=== PATIENT | male | born 1940 | race Caucasian/White ===

== ENCOUNTER 2021-03-05 08:25 | Inpatient (IN) | payer MEDICARE, SELFPAY ==
[2021-03-05] VITALS (8 sets, daily range): BP systolic 135–155; BP diastolic 67–72; PULSE 100–110; RESP 16–23; TEMP 36.8–37.8; O2SAT 97–100; BMI 31.8
--- NOTE | ~2021-03-05 | XR_ITS ---
EXAMINATION: XR chest 2V DATE: 03/05/2021 09:02 INDICATION: Weakness TECHNIQUE: frontal and lateral views of the chest were obtained. COMPARISON: Chest radiograph dated 11/27/2018 FINDINGS: Calcified nodule at the left apex consistent with old granulomatous disease. No other airspace opacit ies, pulmonary edema, pleural effusion or pneumothorax. The cardiomediastinal silhouette is normal. T here are bridging osteophytes at multiple levels in the spine, consistent with diffuse idiopathic ske letal hyperostosis (DISH). Partially visualized instrumentation for posterior spinal fusion extending from the upper thoracic into at least the mid cervical spine and beyond the cephalad margin of the f [id number]. IMPRESSION: 1. No acute cardiopulmonary disease. Reviewed, dictated and finalized at location A.
--- NOTE | 2021-03-05 08:39 | ECG_ITS ---
Measurements Intervals Anderson Rate: 98 P: 49 WI: 167 QRS: 34 QRSD: 146 T: 35 QT: 358 QTc: 458 Interpretive Statements SINUS RHYTHM VENTRICULAR PREMATURE COMPLEXES RIGHT BUNDLE BRANCH BLOCK BASELINE ARTIFACT- I, II, III, AVR, AVL, AVF, V1-V6 ABNORMAL ECG Electronically Signed On 03-05-2021 8:48:09 CDT by Julián Luke D.O.
[2021-03-05] MEDS: SODIUM CHLORIDE 0.9% IV 1,000 ML 999 ML IV CONT (08:47)
[2021-03-05 08:51] LABS: Basophils Absolute Auto 0.1 K/mm3 (0.0-0.1); Basophils Percent Auto 0.2 % (0.2-1.2); Hematocrit 45.5 % (42.0-52.0); Hemoglobin 14.9 g/dL (14.0-18.0); Immature Granulocyte Absolute 0.28 K/mm3 (0.00-0.031); Immature Granulocyte Percent A 1.1 % (0-0.5); Lymphocytes Absolute Auto 1.04 K/mm3 (0.9-3.2); Mean Corpuscular HGB Conc 32.7 g/dl (32-36); Mean Corpuscular Hemoglobin 30.1 pg (26-34); Mean Corpuscular Volume 91.9 fl (80-100); Mean Platelet Volume 10.1 fl (7.4-10.4); Monocytes Absolute Auto 2.1 K/mm3 (0.1-0.6); Neutrophils Absolute Auto 22.8 K/mm3 (1.3-6.7); Neutrophils Percent Auto 86.7 % (45.5-73.1); Platelet Count Result 258 k/mm3 (150-375); Red Blood Count 4.95 M/mm3 (4.6-6.20); Red Cell Distribution Width 14.8 % (11.5-14.5); White Blood Count 26.3 K/mm3 (4.5-10.0)
[2021-03-05 09:00] LABS: Anion Gap 11 mmol/L (8-16); Blood Urea Nitrogen 22 mg/dL (9-20); Calcium 9.3 mg/dL (8.4-10.2); Carbon Dioxide 29 mmol/L (22-30); Chloride 101 mmol/L (98-107); Estimated CRCL calculation 49 ml/min; Estimated Glomerular Filt Rate > 60; Glucose 118 mg/dL (75-110); Potassium 3.9 mmol/L (3.4-5.0); Sodium 141 mmol/L (137-145)
--- NOTE | 2021-03-05 09:37 | ED.WEAKNESS ---
HPI - Weakness General Chief complaint: Weakness Stated complaint: Fall, weakness Time Seen by Provider: 03/05/21 08:28 History of Present Illness HPI Narrative: Patient is an 80-year-old male who presents ER with weakness. Reports began just today. None is able to perform transfers which usually can. No fevers or chills or sweats. Denies sinus congestion with sore throat or productive cough. He has been without abdominal pain/nausea/vomiting/diarrhea. Unsure why so weak. No known sick contacts. Patient does have chronic weakness related to polio and wears lower extremity braces. Related Data Home Medications Medication Instructions Recorded Confirmed aspirin [Aspirin Childrens] 81 mg PO DAILY 03/05/21 03/05/21 indapamide 2.5 mg PO DAILY 03/05/21 03/05/21 pantoprazole 40 mg PO QAM 03/05/21 03/05/21 pravastatin 40 mg PO DAILY 03/05/21 03/05/21 quinapril 40 mg PO DAILY 03/05/21 03/05/21 temazepam 30 mg PO HS PRN 03/05/21 03/05/21 Allergies Allergy/AdvReac Type Severity Reaction Status Date / Time No Known Allergies Allergy Verified 03/05/21 08:34 Review of Systems Review of Systems: All systems reviewed & are unremarkable except as noted in HPI and below Constitutional: Constitutional: Denies chills, Denies fever(s) and Reports weakness ENT: Denies nasal congestion and Denies sore throat Cardiovascular: Cardiovascular: Denies chest pain and Denies radiating jaw, neck or arm pain Respiratory: Respiratory: Denies chest congestion, Denies cough and Denies dyspnea Gastrointestinal: Gastrointestinal: Denies abdominal pain, Denies nausea and Denies vomiting [facility] Past Medical History Medical History (Updated 03/05/21 @ 16:24 by Jose A Khan MD) Benign prostatic hyperplasia History of kidney stones Hyperlipidemia Hypertension Macular degeneration Polio Post-polio syndrome Chronic weakness for which he wears braces on his lower extremities. Pulmonary nodules Spinal stenosis Surgical History Surgical History (Updated 03/05/21 @ 13:07 by Valerie Carmona PA-C) History of appendectomy History of arthroplasty of right knee History of cataract extraction History of cervical spinal surgery History of lithotripsy Family History Family History Mother Alzheimer's dementia Diabetes mellitus Father Lung disease Sibling Amyotrophic lateral sclerosis Sibling Lung cancer Social History Social History (Updated 03/05/21 @ 13:17 by Valerie Carmona PA-C) Social History: The patient lives in [place] with his . 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 Former smoker, reportedly 1 cigarette a day for about 50 years. Quit smoking in 2014 but would occasionally vape. No alcohol or illicit substance abuse. Surrogate decision maker: Lorena Sandoval, spouse. Code status: Full code. Smoking status: Former smoker Tobacco type: cigarettes and e-cigarettes/vaping Alcohol intake: never Substance use: never Substance use type: does not use Gender identity (if verbalized by the patient): Female Spiritual care concerns: No Exam Narrative: Exam Narrative: GENERAL: Well-appearing, well-nourished, and in no acute distress. HEAD: Normocephalic, atraumatic. ENT: Mucous membranes moist. CHEST: Clear to auscultation. No respiratory distress. HEART: Regular rate and rhythm. Normal peripheral pulses. ABDOMEN: Soft, nontender, nondistended. EXTREMITIES: Brace is applied to the bilateral lower extremities. No lower extremity edema. Normal strength of upper extremities. SKIN: Warm, dry, no rash. NEURO: Alert and oriented x3. PSYCH: Normal mood and affect. Course Course Emergency Course: Admit to hospitalist service. IV antibiotics ordered for UTI. Patient stable. Verbalized understanding of treatment plan. Vital Signs Vital signs: Vital Signs Temperature 98.3 F 03/05/21 08:29 Pulse Rate 102 H 03/05/21 08:29 Respiratory Rate
[2021-03-05 10:11] LABS: Add Urine Microscopic? YES; Appearance Urine Cloudy (Clear); Bacteria Urine 2+ /hpf; Bilirubin Urine Negative (Negative); Blood Urine 2+ (Negative); Color Urine Yellow (Yellow); Glucose Urine UA Negative (Negative); Ketones Urine Trace mg/dL (Negative); Leukocyte Esterase Ur 3+ LEU/UL (Negative); Mucus Urine Rare /lpf; Nitrate Urine Positive (Negative); Protein Urine 2+ mg/dL (Negative); Specific Grav Ur 1.018 (1.001-1.035); Urobilinogen Urine Negative mg/dL (<2.0); WBC Urine >75 /hpf
[2021-03-05 11:19] LABS: Lactic Acid Reflex 1.3 mmol/L (0.7-2.1)
--- NOTE | 2021-03-05 13:00 | PM.IMHP ---
H&P: HPI History of Present Illness Date/Time: 03/05/21 13:00 Chief Complaint: Weakness. Narrative: This is an 80-year-old male with history of polio, hypertension, hyperlipidemia, and benign prostatic hyperplasia presented to the emergency department earlier today via EMS from home for evaluation weakness. He has chronic debility due to history of polio and typically gets around with power chair. He is usually able to transfer himself however last night when he tried to get up to go to bed he was unable to transfer from the lift chair to the power chair so he decided to sleep in the lift chair. Sometime in the middle of the night he had to get up to use the bathroom but was too weak to do so and he slid down onto the ground on his buttocks. He estimates that was about 03:00 and he decided to just sleep on the floor until his woke up this morning, and they called the ambulance. With further questioning he tells me for the last couple of days he just has not felt very good with generalized malaise, lethargy, chills, and slight increase in urinary frequency. He was found to have urinary tract infection is being admitted in this setting. With further questioning he mentions that he was seen and the emergency department [facility] about 3 weeks ago after he was unable to urinate. A Rainey catheter was inserted but was only in for a few hours while he was in the ER and was discontinued when he was discharged home. He denies having issues with urinary retention since. In fact he was supposed to follow-up with urology yesterday as an outpatient however did not make it as he was not feeling well. At the time my evaluation he reports feeling okay. He denies fever, cold and flu symptoms, nausea, vomiting, diarrhea, and dysuria. Review of Systems Review of Systems: Narrative: Twelve systems were reviewed with pertinent positives and negatives as per HPI. He denies lightheadedness and dizziness. No syncope or near syncope. No cold or flu symptoms. He denies chest pain shortness of breath. No cough. he is able to help transfer himself to the power chair but really does not walk much and he wore however when he does he will use an orthotic brace on his left lower extremity. It is his left side that was mostly affected from the polio however as years have gone on he has gotten progressively more weak in the right leg. No history of venous thromboembolism. He has poor vision due to macular degeneration. Appetite has been good. Except as documented, all other systems were reviewed and are negative. [facility] Past Medical History Medical History (Updated 03/05/21 @ 21:22 by Valerie Carmona PA-C) Benign prostatic hyperplasia History of kidney stones Hyperlipidemia Hypertension Macular degeneration Polio Post-polio syndrome Pulmonary nodules Spinal stenosis Surgical History Surgical History History of appendectomy History of arthroplasty of right knee History of cataract extraction History of cervical spinal surgery History of lithotripsy Family History Family History Mother Alzheimer's dementia Diabetes mellitus Father Lung disease Sibling Amyotrophic lateral sclerosis Sibling Lung cancer Social History Social History (Updated 03/05/21 @ 21:23 by Valerie Carmona PA-C) Social History: The patient lives in [place] with his . 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 Former smoker, reportedly 1 - 1.5 packs of cigarettes a day for about 50 years. He quit smoking in 2014 but still occasionally vapes. No alcohol or illicit substance abuse. Surrogate decision maker: Lorena DownsLori, spouse. Code status: Full code. Meds Home Medications and Allergies Home Medications Medication Instructions Recorded Confirmed Type aspirin [Aspirin Childrens] 81 mg PO DAILY 03/05/21 03/05/21 History indap
--- NOTE | 2021-03-05 13:36 | PC.NURSE ---
This patient, Khari Christiansen, was admitted to [facility] Surg Room 302-01. Patient/family oriented to hospital policies and general routines including ID bracelet, bed and alarms, visiting hours, pain management, procedures, bathroom and other care routines, personal items, smoking policy, room service/diet, and visiting hours. Information on how to activate the Rapid Response Team has been discussed. Patient/Family are encouraged to report perceived risks to care and to ask questions if they do not understand what they are told or what they should do.
[2021-03-05] MEDS: ACETAMINOPHEN 325 MG TABLET 650 MG PO (21:14)
[2021-03-05] MEDS: TEMAZEPAM (*CRX) 15 MG CAPSULE 30 MG PO (22:34)
[2021-03-06 06:00] VITALS: BP 138/64; PULSE 94; RESP 18; TEMP 37.5; O2SAT 99
[2021-03-06 06:20] LABS: Hematocrit 40.6 % (42.0-52.0); Hemoglobin 13.3 g/dL (14.0-18.0); Mean Corpuscular HGB Conc 32.8 g/dl (32-36); Mean Corpuscular Hemoglobin 30.2 pg (26-34); Mean Corpuscular Volume 92.1 fl (80-100); Mean Platelet Volume 9.9 fl (7.4-10.4); Platelet Count Result 214 k/mm3 (150-375); Red Blood Count 4.41 M/mm3 (4.6-6.20); Red Cell Distribution Width 14.9 % (11.5-14.5); White Blood Count 18.4 K/mm3 (4.5-10.0)
[2021-03-06 06:32] LABS: Alanine Aminotransferase 22 U/L (4-50); Albumin Level 3.8 g/dL (3.5-5.1); Alkaline Phosphatase 146 U/L (38-126); Anion Gap 7 mmol/L (8-16); Aspartate Amino Transferase 77 U/L (17-59); Bilirubin,Total 0.7 mg/dL (0.2-1.3); Blood Urea Nitrogen 19 mg/dL (9-20); Calcium 8.6 mg/dL (8.4-10.2); Carbon Dioxide 28 mmol/L (22-30); Chloride 100 mmol/L (98-107); Estimated CRCL calculation 61 ml/min; Estimated Glomerular Filt Rate > 60; Glucose 97 mg/dL (75-110); Magnesium 1.8 mg/dL (1.6-2.3); Potassium 3.4 mmol/L (3.4-5.0); Sodium 135 mmol/L (137-145)
[2021-03-06] MEDS: INDAPAMIDE 2.5 MG TABLET PO (09:12)
[2021-03-06] MEDS: ASPIRIN 81 MG CHEWABLE TABLET PO (09:12)
[2021-03-06] MEDS: lisinopriL 20 MG TABLET 40 MG PO (09:13)
[2021-03-06] MEDS: PANTOPRAZOLE 40 MG TABLET PO (09:13)
[2021-03-06] MEDS: PRAVASTATIN SODIUM 20 MG TABLET 40 MG PO (09:13)
[2021-03-06 10:00] VITALS: O2SAT 91
--- NOTE | 2021-03-06 11:45 | WPDURCON ---
Assessment and Plan Assessment and plan (1) Urinary tract infection: Code(s): N39.0 - Urinary tract infection, site not specified Status: Acute Assessment and Plan: Continue IV antibiotics, tailor antibiotics to culture results. (2) Benign prostatic hyperplasia: Code(s): N40.0 - Benign prostatic hyperplasia without lower urinary tract symptoms Status: Acute Assessment and Plan: Start Flomax and Finasteride. (3) Retention of urine: Code(s): R33.9 - Retention of urine, unspecified Status: Acute Assessment and Plan: Bladder scan and call with PVR, if >250cc will need a catheter placement. 1L drained via catheter 3 weeks ago at [facility], likely causing UTI. Urology Consult Note HPI Date Seen: 03/06/21 Requesting Physician: Clement Gaitan MD Primary Care Provider: Brain Devlin, Consult Narrative Narrative: Khari Christiansen is a 80 year old male who presented to the ER for weakness yesterday which is worsened from baseline. He has weakness from Polio and wears leg braces normally. However he was unable to ambulate at home, therefore he was brought in by EMS called by his . He was found to have a UTI and is being treated with IV antibiotics, urine cultures are pending as well as blood cultures. He states he was in the ER at [facility] 3 weeks ago and had a richards placed with 1L of urine that drained, but they removed the richards, placed him on antibiotics and send him home. He does state he urinates frequently during the day, does not have incontinence, dysuria, hematuria, straining, urgency or slowed urine stream. He does have nocturia x 1. He states he has not seen a urologist in the past and hasn't ever taken any medications for BPH or OAB. Creatinine is 0.80, WBC is down from 26.3 to 18.4 today. Review of Systems Cardiovascular: Cardiovascular: Denies chest pain Respiratory: Respiratory: Reports no additional respiratory complaints Gastrointestinal: Gastrointestinal: Denies abdominal pain, Denies nausea and Denies vomiting Genitourinary: Genitourinary: Denies hematuria, Denies dysuria, Denies flank pain, Reports urinary frequency, Denies urinary hesitancy and Denies urinary urgency PMFSH Past Medical History Medical History Benign prostatic hyperplasia History of kidney stones Hyperlipidemia Hypertension Macular degeneration Polio Post-polio syndrome Pulmonary nodules Spinal stenosis Surgical History Surgical History History of appendectomy History of arthroplasty of right knee History of cataract extraction History of cervical spinal surgery History of lithotripsy Family History Family History Mother Alzheimer's dementia Diabetes mellitus Father Lung disease Sibling Amyotrophic lateral sclerosis Sibling Lung cancer Social History Social History Social History: The patient lives in [place] with his . 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 Former smoker, reportedly 1 - 1.5 packs of cigarettes a day for about 50 years. He quit smoking in 2014 but still occasionally vapes. No alcohol or illicit substance abuse. Surrogate decision maker: Lorena Sandoval, spouse. Code status: Full code. Meds Home Medications and Allergies Home Medications Medication Instructions Recorded Confirmed Type aspirin [Aspirin Childrens] 81 mg PO DAILY 03/05/21 03/05/21 History indapamide 2.5 mg PO DAILY 03/05/21 03/05/21 History pantoprazole 40 mg PO QAM 03/05/21 03/05/21 History pravastatin 40 mg PO DAILY 03/05/21 03/05/21 History quinapril 40 mg PO DAILY 03/05/21 03/05/21 History temazepam 30 mg PO HS PRN 03/05/21 03/05/21 History Allergies Allergy/AdvReac Type Severity Reaction Status Date / Time No Known All
[2021-03-06 13:51] VITALS: BP 98/54; PULSE 92; RESP 18; TEMP 36.4; O2SAT 98
--- NOTE | 2021-03-06 14:32 | P.PNIM_ITS ---
Progress Note: A&P Assessment and Plan (1) Generalized weakness: Code(s): R53.1 - Weakness Status: Acute Assessment and Plan: * Likely secondary to underlying urinary tract infection. * Will consider Rhabdo due to the patient laying on the floor for 2-6 hours * Patient slid to the floor * PT/OT consulted. (2) Urinary tract infection: Code(s): N39.0 - Urinary tract infection, site not specified Status: Acute Assessment and Plan: * Urine +nitrates, >75 WBC, cloudy, Leukoesterase 3+ * Ceftriaxone 1g Q day IV * Culture pending * Urology consulted thank you * Post residual void is 161 * Could be from BPH complications * Could be from retention (3) Post-polio syndrome: Code(s): G14 - Postpolio syndrome Status: Acute Assessment and Plan: * Increasingly weak the last couple of days due to infection. Plan as detailed above. (4) Hypertension: Code(s): I10 - Essential (primary) hypertension Status: Acute Assessment and Plan: * Blood pressures 138/64 * Continue home quinapril 40mg PO daily, indapamide 2.5mg PO daily * Trend blood pressures * Adjust medications as needed. (5) Hyperlipidemia: Code(s): E78.5 - Hyperlipidemia, unspecified Status: Acute Assessment and Plan: * Continue pravastatin 40mg PO daily * check LFTs. (6) Benign prostatic hyperplasia: Code(s): N40.0 - Benign prostatic hyperplasia without lower urinary tract symptoms Status: Acute Assessment and Plan: * Not currently on any medications * Had this issue [facility] last [facility] * On indapamide 2.5mg PO daily which is used for retention/fluid overload * Post residual void was 161ml * Possible Rainey placement * Urology following Time Spent With Patient Time with patient: Greater than 35 minutes Subjective Date/time seen: 03/06/21 14:32 Review of Systems Review of Systems: All systems reviewed & are unremarkable except as noted in HPI and below Exam Const: General: cooperative, healthy appearing, comfortable, no acute distress, well developed, alert, awake and Physically active Nutritional Appearance: well nourished Orientation/consciousness: oriented to person, oriented to place, oriented to time and patient oriented x3 Limitations: no limitations HENMT: Head: normal to inspection Ears: hearing grossly normal bilaterally General nose exam: Normal external nose present Face and sinus: normal facial exam Mouth: Yes Normal oral and palatal mucosa present, Yes lip normal and Yes tongue normal Teeth and gingiva: abnormal tooth and associated gingiva and poor dentition Eyes: General: appearance normal, both eyes and all related structures Visual Jauregui: abnormal by confrontation Alignment and Position: alignment normal Periorbital: periorbital findings normal Eyelids: eyelids normal Pupils: Equal, round and reactive pupils present EOM: EOMs intact bilaterally Direct Ophthalmoscopy: normal light reflex Neck: Neck: normal visual inspection, full ROM, trachea midline and supple Chest: Chest palpation & inspection: normal inspection of the chest Resp: Effort & Inspection: normal respiratory effort and able to speak in complete sentences Auscultation: clear to auscultation bilaterally Cardio: Jugular venous distension: no JVD Rate: regular rate Rhythm: regular rhythm Heart sounds: S1 normal
--- NOTE | 2021-03-06 14:32 | PM.IMPN ---
Progress Note: A&P Assessment and Plan (1) Generalized weakness: Code(s): R53.1 - Weakness Status: Acute Assessment and Plan: Likely secondary to underlying urinary tract infection. Will consider Rhabdo due to the patient laying on the floor for 2-6 hours Patient slid to the floor PT/OT consulted. (2) Urinary tract infection: Code(s): N39.0 - Urinary tract infection, site not specified Status: Acute Assessment and Plan: Urine +nitrates, >75 WBC, cloudy, Leukoesterase 3+ Ceftriaxone 1g Q day IV Culture pending Urology consulted thank you Post residual void is 161 Could be from BPH complications Could be from retention (3) Post-polio syndrome: Code(s): G14 - Postpolio syndrome Status: Acute Assessment and Plan: Increasingly weak the last couple of days due to infection. Plan as detailed above. (4) Hypertension: Code(s): I10 - Essential (primary) hypertension Status: Acute Assessment and Plan: Blood pressures 138/64 Continue home quinapril 40mg PO daily, indapamide 2.5mg PO daily Trend blood pressures Adjust medications as needed. (5) Hyperlipidemia: Code(s): E78.5 - Hyperlipidemia, unspecified Status: Acute Assessment and Plan: Continue pravastatin 40mg PO daily check LFTs. (6) Benign prostatic hyperplasia: Code(s): N40.0 - Benign prostatic hyperplasia without lower urinary tract symptoms Status: Acute Assessment and Plan: Not currently on any medications Had this issue at [facility] last week On indapamide 2.5mg PO daily which is used for retention/fluid overload Post residual void was 161ml Possible Rainey placement Urology following Time Spent With Patient Time with patient: Greater than 35 minutes Subjective Date/time seen: 03/06/21 14:32 Review of Systems Review of Systems: All systems reviewed & are unremarkable except as noted in HPI and below Exam Const: General: cooperative, healthy appearing, comfortable, no acute distress, well developed, alert, awake and Physically active Nutritional Appearance: well nourished Orientation/consciousness: oriented to person, oriented to place, oriented to time and patient oriented x3 Limitations: no limitations HENMT: Head: normal to inspection Ears: hearing grossly normal bilaterally General nose exam: Normal external nose present Face and sinus: normal facial exam Mouth: Yes Normal oral and palatal mucosa present, Yes lip normal and Yes tongue normal Teeth and gingiva: abnormal tooth and associated gingiva and poor dentition Eyes: General: appearance normal, both eyes and all related structures Visual Jauregui: abnormal by confrontation Alignment and Position: alignment normal Periorbital: periorbital findings normal Eyelids: eyelids normal Pupils: Equal, round and reactive pupils present EOM: EOMs intact bilaterally Direct Ophthalmoscopy: normal light reflex Neck: Neck: normal visual inspection, full ROM, trachea midline and supple Chest: Chest palpation & inspection: normal inspection of the chest Resp: Effort & Inspection: normal respiratory effort and able to speak in complete sentences Auscultation: clear to auscultation bilaterally Cardio: Jugular venous distension: no JVD Rate: regular rate Rhythm: regular rhythm Heart sounds: S1 normal heart sound present and S2 normal heart sound present Peripheral pulses: Peripheral pulses 2+ throughout GI: Inspection: normal to inspection GI Palp: Yes Soft to palpation and No Tenderness to palpation present (GI) Auscultation: normal bowel sounds Skin: General skin exam: normal color and no rashes or lesions noted Lesions: no lesions Rashes: no rashes Trauma: no lacerations or abrasions Wounds: no wounds Hair: normal Nails: normal Neuro: General: patient oriented x3, moves all extremities and Normal light touch and pain sensation
[2021-03-06] MEDS: TAMSULOSIN HCL 0.4 MG CAPSULE PO (14:47)
[2021-03-06] MEDS: FINASTERIDE 5 MG TABLET PO (14:47)
[2021-03-06 17:53] LABS: Creatine Kinase 1042 U/L (55-170)
[2021-03-06 18:05] LABS: CRP 21.7 mg/dL (<1.0)
[2021-03-06 22:00] VITALS: BP 100/49; PULSE 92; RESP 18; TEMP 36.8; O2SAT 97
[2021-03-06] MEDS: TEMAZEPAM (*CRX) 15 MG CAPSULE 30 MG PO (23:24)
[2021-03-07 06:00] VITALS: BP 102/64; PULSE 84; RESP 16; TEMP 37.2; O2SAT 98
[2021-03-07 06:23] LABS: Basophils Percent Auto 0.3 % (0.2-1.2); Eosinophils Absolute Auto 0.2 K/mm3 (0-0.3); Eosinophils Percent Auto 1.4 % (0-4.4); Hemoglobin 12.8 g/dL (14.0-18.0); Immature Granulocyte Absolute 0.05 K/mm3 (0.00-0.031); Immature Granulocyte Percent A 0.5 % (0-0.5); Lymphocytes Absolute Auto 1.57 K/mm3 (0.9-3.2); Lymphocytes Percent Auto 14.4 % (18.3-44.2); Mean Corpuscular HGB Conc 33.7 g/dl (32-36); Mean Corpuscular Hemoglobin 30.5 pg (26-34); Mean Corpuscular Volume 90.5 fl (80-100); Mean Platelet Volume 10.3 fl (7.4-10.4); Monocytes Absolute Auto 1.3 K/mm3 (0.1-0.6); Monocytes Percent Auto 11.9 % (2.6-8.5); Neutrophils Absolute Auto 7.8 K/mm3 (1.3-6.7); Neutrophils Percent Auto 71.5 % (45.5-73.1); Platelet Count Result 211 k/mm3 (150-375); Red Cell Distribution Width 14.6 % (11.5-14.5); White Blood Count 10.9 K/mm3 (4.5-10.0)
[2021-03-07 06:27] LABS: Alanine Aminotransferase 24 U/L (4-50); Albumin Level 3.2 g/dL (3.5-5.1); Alkaline Phosphatase 128 U/L (38-126); Anion Gap 9 mmol/L (8-16); Aspartate Amino Transferase 56 U/L (17-59); Bilirubin,Total 0.3 mg/dL (0.2-1.3); Blood Urea Nitrogen 32 mg/dL (9-20); Calcium 8.4 mg/dL (8.4-10.2); Carbon Dioxide 25 mmol/L (22-30); Chloride 102 mmol/L (98-107); Estimated CRCL calculation 49 ml/min; Estimated Glomerular Filt Rate > 60; Glucose 107 mg/dL (75-110); Magnesium 1.8 mg/dL (1.6-2.3); Potassium 2.7 mmol/L (3.4-5.0); Sodium 136 mmol/L (137-145)
[2021-03-07] MEDS: TAMSULOSIN HCL 0.4 MG CAPSULE PO (08:45)
[2021-03-07] MEDS: INDAPAMIDE 2.5 MG TABLET PO (08:45)
[2021-03-07] MEDS: PRAVASTATIN SODIUM 20 MG TABLET 40 MG PO (08:45)
[2021-03-07] MEDS: lisinopriL 20 MG TABLET 40 MG PO (08:46)
[2021-03-07] MEDS: POTASSIUM CHLORIDE 20 MEQ TABLET 80 MEQ PO (08:46)
[2021-03-07] MEDS: ASPIRIN 81 MG CHEWABLE TABLET PO (08:46)
[2021-03-07] MEDS: PANTOPRAZOLE 40 MG TABLET PO (08:46)
[2021-03-07] MEDS: FINASTERIDE 5 MG TABLET PO (08:46)
[2021-03-07] MEDS: SODIUM CHLORIDE 0.9% IV 1,000 ML 100 ML IV CONT ×2 (09:30→20:08)
[2021-03-07 13:03] LABS: Potassium 3.2 mmol/L (3.4-5.0)
[2021-03-07 14:00] VITALS: BP 104/66; PULSE 84; RESP 12; TEMP 36.4; O2SAT 99
--- NOTE | 2021-03-07 15:35 | P.PNIM_ITS ---
Progress Note: A&P Assessment and Plan (1) Generalized weakness: Code(s): R53.1 - Weakness Status: Acute Assessment and Plan: * Likely secondary to underlying urinary tract infection. * Will consider Rhabdo due to the patient laying on the floor for 2-6 hours * Patient slid to the floor * PT/OT consulted. (2) Urinary tract infection: Code(s): N39.0 - Urinary tract infection, site not specified Status: Acute Assessment and Plan: * Urine +nitrates, >75 WBC, cloudy, Leukoesterase 3+ * Ceftriaxone 1g Q day IV * Culture Ecoli which ceftriaxone is Susceptible * Urology consulted thank you * Post residual void is 161 * Could be from BPH complications * tamsulosin 0.4 mg p.o. daily and finasteride 5 mg p.o. daily have been restarted (3) Post-polio syndrome: Code(s): G14 - Postpolio syndrome Status: Acute Assessment and Plan: * Increasingly weak the last couple of days due to infection. Plan as detailed above. (4) Hypertension: Code(s): I10 - Essential (primary) hypertension Status: Acute Assessment and Plan: * Blood pressures 138/64 * Continue home quinapril 40mg PO daily, indapamide 2.5mg PO daily * Trend blood pressures * Adjust medications as needed. (5) Hyperlipidemia: Code(s): E78.5 - Hyperlipidemia, unspecified Status: Acute Assessment and Plan: * Continue pravastatin 40mg PO daily * check LFTs. (6) Benign prostatic hyperplasia: Code(s): N40.0 - Benign prostatic hyperplasia without lower urinary tract symptoms Status: Acute Assessment and Plan: * Had this issue [facility] last [facility] * On indapamide 2.5mg PO daily which is used for retention/fluid overload * tamsulosin 0.4 mg p.o. daily and finasteride 5 mg p.o. daily have been started * Post residual void was 161ml * Possible Rainey placement * Urology following (7) Rhabdomyolysis: Code(s): M62.82 - Rhabdomyolysis Status: Acute Assessment and Plan: * patient stated that he laid on the floor from 2-6 hours until his got up to help him up off the floor * CK this morning was 1042 * normal saline started at 100 mils an hour * will trend the CK * labs in a.m. * strict I&Os (8) Hypokalemia: Code(s): E87.6 - Hypokalemia Status: Acute Assessment and Plan: * potassium today was 2.7 * 80 mg p.o. potassium was given to patient * recheck of potassium was 3.2 * replaced with 40 p.o. * trend K * labs in the a.m. * replace as needed Subjective Date/time seen: 03/07/21 09:15 Interval history: This is an 80-year-old male with history of polio, hypertension, hyperlipidemia, and benign prostatic hyperplasia presented to the emergency department earlier today via EMS from home for evaluation weakness. Today patient states that he is feeling a lot better except for he is constipated. I did explain to the patient that his creatinine kinase is elevated at 10 42 and a would need fluids for least 1 more day. patient has been lying in bed and he has been work with PT and OT. Patient denies pain, chest pain, shortness of breath, nausea, vomiting, diarrhea, abdominal pain, headache, dizziness, lightheadedness, or syncope. Review of Systems Review of Systems: All systems reviewed & are unremarkable except as noted in HPI and below Exam Con
--- NOTE | 2021-03-07 15:35 | PM.IMPN ---
Progress Note: A&P Assessment and Plan (1) Generalized weakness: Code(s): R53.1 - Weakness Status: Acute Assessment and Plan: Likely secondary to underlying urinary tract infection. Will consider Rhabdo due to the patient laying on the floor for 2-6 hours Patient slid to the floor PT/OT consulted. (2) Urinary tract infection: Code(s): N39.0 - Urinary tract infection, site not specified Status: Acute Assessment and Plan: Urine +nitrates, >75 WBC, cloudy, Leukoesterase 3+ Ceftriaxone 1g Q day IV Culture Ecoli which ceftriaxone is Susceptible Urology consulted thank you Post residual void is 161 Could be from BPH complications tamsulosin 0.4 mg p.o. daily and finasteride 5 mg p.o. 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 Plan as detailed above. (4) Hypertension: Code(s): I10 - Essential (primary) hypertension Status: Acute Assessment and Plan: Blood pressures 138/64 Continue home quinapril 40mg PO daily, indapamide 2.5mg PO daily Trend blood pressures Adjust medications as needed. (5) Hyperlipidemia: Code(s): E78.5 - Hyperlipidemia, unspecified Status: Acute Assessment and Plan: Continue pravastatin 40mg PO daily check LFTs. (6) Benign prostatic hyperplasia: Code(s): N40.0 - Benign prostatic hyperplasia without lower urinary tract symptoms Status: Acute Assessment and Plan: [facility] this [facility] On indapamide 2.5mg PO daily which is used for retention/fluid overload tamsulosin 0.4 mg p.o. daily and finasteride 5 mg p.o. daily have been started Post residual void was 161ml Possible Rainey placement Urology following (7) Rhabdomyolysis: Code(s): M62.82 - Rhabdomyolysis Status: Acute Assessment and Plan: patient stated that he laid on the floor from 2-6 hours until his got up to help him up off the floor CK this morning was 1042 normal saline started at 100 mils an hour will trend the CK labs in a.m. strict I&Os (8) Hypokalemia: Code(s): E87.6 - Hypokalemia Status: Acute Assessment and Plan: potassium today was 2.7 80 mg p.o. potassium was given to patient recheck of potassium was 3.2 replaced with 40 p.o. trend K labs in the a.m. replace as needed Subjective Date/time seen: 03/07/21 09:15 Interval history: This is an 80-year-old male with history of polio, hypertension, hyperlipidemia, and benign prostatic hyperplasia presented to the emergency department earlier today via EMS from home for evaluation weakness. Today patient states that he is feeling a lot better except for he is constipated. I did explain to the patient that his creatinine kinase is elevated at 10 42 and a would need fluids for least 1 more day. patient has been lying in bed and he has been work with PT and OT. Patient denies pain, chest pain, shortness of breath, nausea, vomiting, diarrhea, abdominal pain, headache, dizziness, lightheadedness, or syncope. Review of Systems Review of Systems: All systems reviewed & are unremarkable except as noted in HPI and below Exam Const: General: cooperative, healthy appearing, comfortable, no acute distress, well developed, alert, awake and Physically active Nutritional Appearance: well nourished Orientation/consciousness: oriented to person, oriented to place, oriented to time and patient oriented x3 Limitations: no limitations HENMT: Head: normal to inspection Ears: hearing grossly normal bilaterally General nose exam: Normal external nose present Face and sinus: normal facial exam Mouth: Yes Normal oral and palatal mucosa present, Yes lip normal and Yes tongue normal Teeth and gingiv
[2021-03-07] MEDS: POTASSIUM CHLORIDE 20 MEQ TABLET 40 MEQ PO (17:46)
[2021-03-07 21:47] VITALS: BP 116/59; PULSE 83; RESP 18; TEMP 37.3; O2SAT 100
[2021-03-07] MEDS: TEMAZEPAM (*CRX) 15 MG CAPSULE 30 MG PO (22:58)
[2021-03-08] MEDS: SODIUM CHLORIDE 0.9% IV 1,000 ML 100 ML IV CONT (05:39)
[2021-03-08 06:00] VITALS: BP 138/70; PULSE 88; RESP 18; TEMP 36.4; O2SAT 99
[2021-03-08 06:14] LABS: Basophils Percent Auto 0.4 % (0.2-1.2); Eosinophils Absolute Auto 0.3 K/mm3 (0-0.3); Eosinophils Percent Auto 4.5 % (0-4.4); Hematocrit 37.5 % (42.0-52.0); Immature Granulocyte Absolute 0.06 K/mm3 (0.00-0.031); Immature Granulocyte Percent A 0.8 % (0-0.5); Lymphocytes Absolute Auto 1.37 K/mm3 (0.9-3.2); Lymphocytes Percent Auto 18.5 % (18.3-44.2); Mean Corpuscular Hemoglobin 29.6 pg (26-34); Mean Corpuscular Volume 92.6 fl (80-100); Monocytes Percent Auto 13.2 % (2.6-8.5); Neutrophils Absolute Auto 4.6 K/mm3 (1.3-6.7); Neutrophils Percent Auto 62.6 % (45.5-73.1); Platelet Count Result 228 k/mm3 (150-375); Red Blood Count 4.05 M/mm3 (4.6-6.20); Red Cell Distribution Width 14.7 % (11.5-14.5); White Blood Count 7.4 K/mm3 (4.5-10.0)
[2021-03-08 06:34] LABS: Alanine Aminotransferase 52 U/L (4-50); Alkaline Phosphatase 125 U/L (38-126); Anion Gap 5 mmol/L (8-16); Aspartate Amino Transferase 73 U/L (17-59); Bilirubin,Total 0.2 mg/dL (0.2-1.3); Blood Urea Nitrogen 21 mg/dL (9-20); Calcium 8.6 mg/dL (8.4-10.2); Carbon Dioxide 23 mmol/L (22-30); Chloride 110 mmol/L (98-107); Creatine Kinase 318 U/L (55-170); Estimated CRCL calculation 68 ml/min; Estimated Glomerular Filt Rate > 60; Glucose 103 mg/dL (75-110); Magnesium 1.6 mg/dL (1.6-2.3); Potassium 3.8 mmol/L (3.4-5.0); Sodium 138 mmol/L (137-145)
--- NOTE | 2021-03-08 07:05 | WPDUROPN2 ---
Progress Note: A&P Assessment and Plan (1) Urinary tract infection: Code(s): N39.0 - Urinary tract infection, site not specified Status: Acute (2) Benign prostatic hyperplasia: Code(s): N40.0 - Benign prostatic hyperplasia without lower urinary tract symptoms Status: Acute Assessment and Plan: Start Flomax and Finasteride. (3) Retention of urine: Code(s): R33.9 - Retention of urine, unspecified Status: Acute Assessment and Plan: Doing well with Rainey out. Home on Finasteride/Tamsulosin good with us. Urine with barboza-sensitive e. coli. Blood cultures neg. Suggest Cipro or Septra DS x2 weeks. F/U with us in 3-4 weeks. Subjective Subjective Date/Time Seen: 03/08/21 07:05 Voiding well with catheter out - comfortable and no palpable bladder distension. Bladder scan ~150cc is acceptable. Review of Systems Cardiovascular: Cardiovascular: Denies chest pain, Denies lightheadedness, Denies palpitations and Denies dyspnea Respiratory: Respiratory: Denies dyspnea Gastrointestinal: Gastrointestinal: Denies diarrhea, Denies nausea and Denies vomiting Genitourinary: Genitourinary: Denies hematuria and Denies dysuria Endocrine: Endocrine: Denies palpitations Exam Const: General: no acute distress Resp: Effort & Inspection: normal respiratory effort GI: Inspection: non-distended GI Palp: No abdominal tenderness and No Guarding due to palpation present (GI) Auscultation: normal bowel sounds Objective Data Vital Signs Vital Signs: Vital Signs - 24 hr 03/07/21 14:00 03/07/21 21:47 03/08/21 06:00 Temperature 97.5 F L 99.2 F 97.5 F L Pulse Rate 84 83 88 Respiratory Rate 12 18 18 Blood Pressure 104/66 116/59 L 138/70 Pulse Oximetry 99 100 99 Intake/Output Intake/Output: Intake & Output 03/05/21 03/06/21 03/07/21 03/08/21 23:59 23:59 23:59 23:59 Intake Total 1540 1080 1880 1750 Output Total 200 250 Balance 1340 1080 1630 1750 Meds/Results Medications: Active Medications Generic Name Dose Route Start Last Admin Trade Name Freq PRN Reason Stop Dose Admin Acetaminophen 650 mg 03/05/21 10:45 03/05/21 21:14 Acetaminophen 325 Mg Tablet PO 650 mg Q4H PRN Administration Mild Pain (1-3) or Fever Aspirin 81 mg 03/06/21 08:00 03/07/21 08:46 Aspirin 81 Mg Chewable Tablet PO 81 mg DAILY@0800 JERIHCO Administration Bisacodyl 10 mg 03/07/21 15:58 Bisacodyl 10 Mg Suppository RECTAL QAM PRN Constipation Finasteride 5 mg 03/06/21 09:00 03/07/21 08:46 Finasteride 5 Mg Tablet PO 5 mg QAM JERICHO Administration Ceftriaxone Sodium/Dextrose 1 gm in 50 mls @ 100 mls/hr 03/06/21 09:00 03/07/21 09:15 Rocephin 1 Gm/D5w 50 Ml IVPB Infused Q24H JERICHO Infusion Sodium Chloride 1,000 mls @ 100 mls/hr 03/07/21 07:00 03/08/21 05:39 Normal Saline Iv IV CONT 100 mls/hr .Q10H JERICHO Administration Indapamide 2.5 mg 03/06/21 09:00 03/07/21 08:45 Indapamide 2.5 Mg Tablet PO 2.5 mg DAILY JERICHO Administration Lisinopril 40 mg 03/06/21 09:00 03/07/21 08:46 Lisinopril 20 Mg Tablet PO 04/05/21 09:01 40 mg DAILY JERICHO Administration Ondansetron HCl 4 mg 03/05/21 10:45 Ondansetron Inj 4 Mg/2 Ml Vial IV PUSH Q4H PRN Nausea Pantoprazole Sodium 40 mg 03/06/21 09:00 03/07/21 08:46 Pantoprazole 40 Mg Tablet PO 40 mg QAM JERICHO Administration Polyethylene Glycol 17 gm 03/07/21 15:58 Polyethylene Glycol 3350 17 Gm Powd.Pack PO QAM PRN Constipation Pravastatin Sodium 40 mg 03/06/21 09:00 03/07/21 08:45 Pravastatin Sodium 20 Mg Tablet PO 40 mg DAILY JERICHO Administration Tamsulosin HCl 0.4 mg 03/06/21 09:00 03/07/21 08:45 Tamsulosin Hcl 0.4 Mg Capsule PO 0.4 mg QAM JERICHO Administration Temazepam 30 mg 03/05/21 21:27 03/07/21 22:58 Temazepam (*Crx) 15 Mg Capsule PO 30 mg HS PRN Administration Insomnia Radiology Results: IT
--- NOTE | 2021-03-08 08:08 | P.DS_ITS ---
DS: Admitting Diagnosis Admitting Diagnosis Admitting Diagnosis: Weakness, UTI, Rhabdomyolysis DS: Discharge Diagnosis Discharge Diagnosis (1) Generalized weakness: Code(s): R53.1 - Weakness Status: Acute Assessment and Plan: * Likely secondary to underlying urinary tract infection. * Will consider Rhabdo due to the patient laying on the floor for 2-6 hours * Patient slid to the floor * PT/OT consulted. (2) Rhabdomyolysis: Code(s): M62.82 - Rhabdomyolysis Status: Acute Assessment and Plan: * patient stated that he laid on the floor from 2-6 hours until his got up to help him up off the floor * CK this morning was 318 * normal saline started at 100 mils an hour * will trend the CK * labs in a.m. * strict I&Os (3) Urinary tract infection: Code(s): N39.0 - Urinary tract infection, site not specified Status: Acute Assessment and Plan: * Urine +nitrates, >75 WBC, cloudy, Leukoesterase 3+ * Ceftriaxone 1g Q day IV * Culture Ecoli which ceftriaxone is Susceptible, Urology suggests Cipro x 2 weeks * Urology consulted thank you * Post residual void is 161 * Could be from BPH complications * tamsulosin 0.4 mg p.o. daily and finasteride 5 mg p.o. daily have been restarted * Urology ok with DC continue taking medications at home and follow up in 3-4 weeks (4) Post-polio syndrome: Code(s): G14 - Postpolio syndrome Status: Acute Assessment and Plan: * Increasingly weak the last couple of days due to infection. Plan as detailed above. (5) Hypertension: Code(s): I10 - Essential (primary) hypertension Status: Acute Assessment and Plan: * Blood pressures 138/64 * Continue home quinapril 40mg PO daily, indapamide 2.5mg PO daily * Trend blood pressures * Adjust medications as needed. (6) Hyperlipidemia: Code(s): E78.5 - Hyperlipidemia, unspecified Status: Acute Assessment and Plan: * Continue pravastatin 40mg PO daily * check LFTs. (7) Benign prostatic hyperplasia: Code(s): N40.0 - Benign prostatic hyperplasia without lower urinary tract symptoms Status: Acute Assessment and Plan: * [facility] this issue [facility] * On indapamide 2.5mg PO daily which is used for retention/fluid overload * tamsulosin 0.4 mg p.o. daily and finasteride 5 mg p.o. daily have been started * Post residual void was 161ml * Possible Rainey placement * Urology following (8) Hypokalemia: Code(s): E87.6 - Hypokalemia Status: Acute Assessment and Plan: * potassium today was 2.7 * 80 mg p.o. potassium was given to patient * recheck of potassium was 3.2 * replaced with 40 p.o. * trend K * labs in the a.m. * replace as needed DS: Summary Hospital Course Hospital Course: This is an 80-year-old male with history of polio, hypertension, hyperlipidemia, and benign prostatic hyperplasia presented to the emergency department for evaluation weakness. It was found the patient had a UTI, and was treated for that with IV antibiotics. Patient also has BPH and was started on tamsulosin and finasteride. Patient will continue the tamsulosin in the fenestrated home antibiotics will be converted to several x2 weeks Per urology. Patient has also been working with PT and OT it was suggested the patient go home with home health. Patient was also treated for rhabdo
--- NOTE | 2021-03-08 08:08 | PM.DS ---
DS: Admitting Diagnosis Admitting Diagnosis Admitting Diagnosis: Weakness, UTI, Rhabdomyolysis DS: Discharge Diagnosis Discharge Diagnosis (1) Generalized weakness: Code(s): R53.1 - Weakness Status: Acute Assessment and Plan: Likely secondary to underlying urinary tract infection. Will consider Rhabdo due to the patient laying on the floor for 2-6 hours Patient slid to the floor PT/OT consulted. (2) Rhabdomyolysis: Code(s): M62.82 - Rhabdomyolysis Status: Acute Assessment and Plan: patient stated that he laid on the floor from 2-6 hours until his got up to help him up off the floor CK this morning was 318 normal saline started at 100 mils an hour will trend the CK labs in a.m. strict I&Os (3) Urinary tract infection: Code(s): N39.0 - Urinary tract infection, site not specified Status: Acute Assessment and Plan: Urine +nitrates, >75 WBC, cloudy, Leukoesterase 3+ Ceftriaxone 1g Q day IV Culture Ecoli which ceftriaxone is Susceptible, Urology suggests Cipro x 2 weeks Urology consulted thank you Post residual void is 161 Could be from BPH complications tamsulosin 0.4 mg p.o. daily and finasteride 5 mg p.o. daily have been restarted Urology ok with DC continue taking medications at home and follow up in 3-4 weeks (4) Post-polio syndrome: Code(s): G14 - Postpolio syndrome Status: Acute Assessment and Plan: Increasingly weak the last couple of days due to infection. Plan as detailed above. (5) Hypertension: Code(s): I10 - Essential (primary) hypertension Status: Acute Assessment and Plan: Blood pressures 138/64 Continue home quinapril 40mg PO daily, indapamide 2.5mg PO daily Trend blood pressures Adjust medications as needed. (6) Hyperlipidemia: Code(s): E78.5 - Hyperlipidemia, unspecified Status: Acute Assessment and Plan: Continue pravastatin 40mg PO daily check LFTs. (7) Benign prostatic hyperplasia: Code(s): N40.0 - Benign prostatic hyperplasia without lower urinary tract symptoms Status: Acute Assessment and Plan: [facility] this [facility] On indapamide 2.5mg PO daily which is used for retention/fluid overload tamsulosin 0.4 mg p.o. daily and finasteride 5 mg p.o. daily have been started Post residual void was 161ml Possible Rainey placement Urology following (8) Hypokalemia: Code(s): E87.6 - Hypokalemia Status: Acute Assessment and Plan: potassium today was 2.7 80 mg p.o. potassium was given to patient recheck of potassium was 3.2 replaced with 40 p.o. trend K labs in the a.m. replace as needed DS: Summary Hospital Course Hospital Course: This is an 80-year-old male with history of polio, hypertension, hyperlipidemia, and benign prostatic hyperplasia presented to the emergency department for evaluation weakness. It was found the patient had a UTI, and was treated for that with IV antibiotics. Patient also has BPH and was started on tamsulosin and finasteride. Patient will continue the tamsulosin in the fenestrated home antibiotics will be converted to several x2 weeks Per urology. Patient has also been working with PT and OT it was suggested the patient go home with home health. Patient was also treated for rhabdomyolysis with an elevated CK at 1042, which has been resolved and is now 318 today. He did also complain of constipation, which was resolved and he had a BM today. Patient will most likely need to go home with PT OT and home health. Patient denies pain, chest pain, shortness of breath, nausea, vomiting, diarrhea, abdominal pain, headache, dizziness, lightheadedness, or syncope. Status at Discharge Functional status at discharge: wheelchair bound Overall status at discharge: patient is progressing back to baseline Time Spent with
[2021-03-08] MEDS: MAGNESIUM SULF 2 GM/WATER 50ML 2 GM/50 ML BAG IVPB (09:19)
[2021-03-08] MEDS: lisinopriL 20 MG TABLET 40 MG PO (09:22)
[2021-03-08] MEDS: PRAVASTATIN SODIUM 20 MG TABLET 40 MG PO (09:23)
[2021-03-08] MEDS: TAMSULOSIN HCL 0.4 MG CAPSULE PO (09:23)
[2021-03-08] MEDS: ASPIRIN 81 MG CHEWABLE TABLET PO (09:23)
[2021-03-08] MEDS: INDAPAMIDE 2.5 MG TABLET PO (09:23)
[2021-03-08] MEDS: PANTOPRAZOLE 40 MG TABLET PO (09:23)
[2021-03-08] MEDS: FINASTERIDE 5 MG TABLET PO (09:23)
[2021-03-08] MEDS: MAGNESIUM OXIDE 400 MG TABLET PO (11:48)
== END 2021-03-08 13:20 | disposition home health service (06) | DRG 690 ==
LOC: ANHED 09:41 → ANH3MEDSUR 11:13
PROVIDERS: Internal Medicine; Physician Assistant; Admitting Provider Internal Medicine; Emergency Provider Emergency Medicine; PCP Internal Medicine; Visit Provider Nurse Practitioner
DX: N39.0 Urinary tract infection, site not specified (principal); M62.82 Rhabdomyolysis; R53.1 Weakness; B96.20 Unspecified Escherichia coli [E. coli] as the cause of diseases classified elsewhere; N40.1 Benign prostatic hyperplasia with lower urinary tract symptoms; R33.8 Other retention of urine; E87.6 Hypokalemia; G14 Postpolio syndrome; I10 Essential (primary) hypertension; E78.5 Hyperlipidemia, unspecified; H35.30 Unspecified macular degeneration; Z79.899 Other long term (current) drug therapy; Z87.891 Personal history of nicotine dependence; Z98.49 Cataract extraction status, unspecified eye
CPT/HCPCS: 36415; 71046; 80048; 80053; 81001; 82550; 83605; 83735; 84132; 84443; 85025; 85027; 86140; 87040; 87077; 87086; 87088; 87186; 93005; 96361; 96365; 96366; 97110; 97161; 97166; 99285; A9270; G0378; J0696; J3475; J7030

== ENCOUNTER 2021-12-17 10:42 | Observation (INO) | payer MEDICARE, SELFPAY ==
[2021-12-17] VITALS (62 sets, daily range): BP systolic 92–202; BP diastolic 51–97; PULSE 80–127; RESP 14–35; TEMP 36.3–37.3; O2SAT 83–100; BMI 30.9
--- NOTE | ~2021-12-17 | US_ITS ---
EXAMINATION: US venous doppler [facility] DATE: 12/18/2021 11:11 INDICATION: Lower limb edema. TECHNIQUE: Grayscale ultrasound images without and with compression and Doppler ultrasound images of the bilateral lower extremity veins were obtained. COMPARISON: Ultrasound 11/28/2018 FINDINGS: The visualized portions of right common femoral vein, profunda (deep) femoral vein, femoral vein, pop liteal vein, peroneal veins, posterior tibial veins, and greater saphenous vein outflow are patent. The visualized portions of left common femoral vein, profunda femoral vein, femoral vein, popliteal v ein, peroneal veins, posterior tibial veins, and greater saphenous vein outflow are patent. IMPRESSION: 1. No deep venous thrombosis. Reviewed, dictated and finalized at location A.
--- NOTE | ~2021-12-17 | XR_ITS ---
EXAMINATION: XR chest 2V DATE: 12/17/2021 12:00 INDICATION: Cough and congestion, increasing weakness TECHNIQUE: AP and lateral views of the chest are obtained. COMPARISON: 03/05/2021 FINDINGS: The lungs are free of acute opacities. There is no pleural effusion or pneumothorax. The ca rdiomediastinal silhouette is normal. There are bridging osteophytes at multiple levels in the spine, consistent with diffuse idiopathic skeletal hyperostosis (DISH). Changes of posterior cervicothoraci c fusion are noted. IMPRESSION: 1. No acute cardiopulmonary abnormality. Reviewed, dictated and finalized at location A.
--- NOTE | 2021-12-17 11:16 | ECG_ITS ---
Measurements Intervals Mittie Rate: 114 P: 37 ID: [id number] QRS: 34 QRSD: 131 T: 37 QT: 352 QTc: 486 Interpretive Statements SINUS TACHYCARDIA RIGHT BUNDLE BRANCH BLOCK [120+ ms QRS DURATION, UPRIGHT V1, 40+ ms S IN I/aVL/V4/V5/V6] ABNORMAL ECG COMPARED TO ECG 03/05/2021 08:39:01 SINUS TACHYCARDIA NOW PRESENT Electronically Signed On 12-17-2021 18:06:10 CDT by Cezar Regalado M.D.
[2021-12-17 11:41] LABS: Alanine Aminotransferase 19 U/L (4-50); Albumin Level 4.5 g/dL (3.5-5.1); Alkaline Phosphatase 182 U/L (38-126); Anion Gap 6 mmol/L (8-16); Aspartate Amino Transferase 30 U/L (17-59); Bilirubin,Total 0.7 mg/dL (0.2-1.3); Blood Urea Nitrogen 17 mg/dL (9-20); Calcium 8.9 mg/dL (8.4-10.2); Carbon Dioxide 29 mmol/L (22-30); Chloride 102 mmol/L (98-107); Estimated CRCL calculation 70 ml/min; Estimated Glomerular Filt Rate > 60; Glucose 106 mg/dL (65-110); Potassium 3.4 mmol/L (3.4-5.0); Sodium 137 mmol/L (137-145)
[2021-12-17 12:02] LABS: INR 1.1; Prothrombin Time 13.5 Seconds (11.1-14.7)
[2021-12-17 12:03] LABS: Partial Thromboplastin Time 24.2 SECONDS (22.3-36.8)
[2021-12-17 12:11] LABS: Basophils Percent Auto 0.2 % (0.2-1.2); Eosinophils Absolute Auto 0.1 K/mm3 (0-0.3); Eosinophils Percent Auto 0.3 % (0-4.4); Hemoglobin 15.5 g/dL (14.0-18.0); Immature Granulocyte Absolute 0.07 K/mm3 (0.00-0.031); Immature Granulocyte Percent A 0.5 % (0-0.5); Lymphocytes Absolute Auto 0.58 K/mm3 (0.9-3.2); Lymphocytes Percent Auto 3.8 % (18.3-44.2); Mean Corpuscular Hemoglobin 32.6 pg (26-34); Mean Corpuscular Volume 98.9 fl (80-100); Mean Platelet Volume 9.5 fl (7.4-10.4); Monocytes Percent Auto 6.3 % (2.6-8.5); Neutrophils Absolute Auto 13.7 K/mm3 (1.3-6.7); Neutrophils Percent Auto 88.9 % (45.5-73.1); Platelet Count Result 205 k/mm3 (150-375); Red Blood Count 4.75 M/mm3 (4.6-6.20); Red Cell Distribution Width 13.8 % (11.5-14.5); White Blood Count 15.4 K/mm3 (4.5-10.0)
[2021-12-17 12:19] LABS: Lactic Acid Reflex 1.9 mmol/L (0.7-2.1)
[2021-12-17 12:37] LABS: CRP 14.2 mg/dL (<1.0)
--- NOTE | 2021-12-17 12:48 | ED.WEAKNESS ---
HPI - Weakness General Chief complaint: Weakness Stated complaint: weakness x 1.5 days Time Seen by Provider: 12/17/21 11:34 Source: patient Mode of arrival: EMS Limitations: no limitations History of Present Illness HPI Narrative: Pt presents with generalized weakness today. Pt unable to transfer himself from bed or chair to lift and this is usually easy. Pt has low grade fever. Pt has some cough. Pt denies urinary complaints. MD Complaint: generalized weakness Duration: constant Location: generalized Migration: none Relieving factors: none Exacerbating factors: none Related Data Home Medications Medication Instructions Recorded Confirmed aspirin [Aspirin Childrens] 81 mg PO DAILY 03/05/21 03/05/21 indapamide 2.5 mg PO DAILY 03/05/21 03/05/21 pantoprazole 40 mg PO QAM 03/05/21 03/05/21 pravastatin 40 mg PO DAILY 03/05/21 03/05/21 quinapril 40 mg PO DAILY 03/05/21 03/05/21 temazepam 30 mg PO HS PRN 03/05/21 03/05/21 tamsulosin [Flomax] 0.4 mg PO DAILY 03/07/21 03/07/21 Allergies Allergy/AdvReac Type Severity Reaction Status Date / Time No Known Allergies Allergy Verified 12/17/21 10:50 Review of Systems Review of Systems: All systems reviewed & are unremarkable except as noted in HPI and below PMFSH Past Medical History Medical History (Updated 12/17/21 @ 16:00 by Ankit Renteria III, DO) Benign prostatic hyperplasia History of kidney stones Hyperlipidemia Hypertension Hypokalemia Macular degeneration Polio Post-polio syndrome Pulmonary nodules Rhabdomyolysis Spinal stenosis Surgical History Surgical History History of appendectomy History of arthroplasty of right knee History of cataract extraction History of cervical spinal surgery History of lithotripsy Family History Family History Mother Alzheimer's dementia Diabetes mellitus Father Lung disease Sibling Amyotrophic lateral sclerosis Sibling Lung cancer Social History Social History Social History: The patient lives in [place] with his . 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 Former smoker, reportedly 1 - 1.5 packs of cigarettes a day for about 50 years. He quit smoking in 2014 but still occasionally vapes. No alcohol or illicit substance abuse. Surrogate decision maker: Lorena Sandoval, spouse. Code status: Full code. Exam Const: General: no acute distress Orientation/consciousness: patient oriented x3 HENMT: Head: normal to inspection Eyes: Conjunctivae: conjunctivae normal Neck: Neck: normal visual inspection Chest: Chest palpation & inspection: normal inspection of the chest Resp: Effort & Inspection: normal respiratory effort Auscultation: clear to auscultation bilaterally Cardio: Rate: regular rate Rhythm: regular rhythm GI: GI Palp: Yes Soft to palpation Auscultation: normal bowel sounds Back/Spine/Pelvis: Back: no CVA tenderness Skin: General skin exam: normal color Neuro: General: patient oriented x3, moves all extremities (lower barely but this is baseline) and no focal motor deficits Speech: normal speech Extrem: General: normal to inspection Psych: Appearance: grossly normal Mental Status: mental status grossly normal Thought content: Yes Normal thought content present Course Course Emergency Course: nothing obvious to explain weakness. talked to Valerie will admit for observation Vital Signs Vital signs: Vital Signs Temperature 99.1 F 12/17/21 10:47 Pulse Rate 115 H 12/17/21 10:47 Respiratory Rate 19 12/17/21 10:47 Blood Pressure 202/69 H 12/17/21 10:47 Pulse Oximetry 96 12/17/21 10:47 Temperature 99.1 F 12/17/21 10:47 Pulse Rate 109 H 12/17/21 17:18 Respiratory Rate 22 H 12/17/21 17:18 Blood Pressure 223/143 H 12/17/21 17:18 Pulse Oximetry 83 L 12/17/21 17:18 [facility] -
[2021-12-17 13:45] LABS: SARS-CoV-2 RNA PCR Negative
[2021-12-17 14:17] LABS: Influenza A QL RT-PCR Negative (Negative); Influenza B QL RT-PCR Negative (Negative)
[2021-12-17 14:30] LABS: Appearance Urine Clear (Clear); Bilirubin Urine Negative (Negative); Blood Urine 1+ (Negative); Color Urine Yellow (Yellow); Glucose Urine UA Negative (Negative); Ketones Urine 1+ mg/dL (Negative); Leukocyte Esterase Ur Negative LEU/UL (Negative); Nitrate Urine Negative (Negative); Protein Urine Trace mg/dL (Negative); Specific Grav Ur 1.025 (1.001-1.035); Urobilinogen Urine 0.2 mg/dL (<2.0)
[2021-12-17 14:37] LABS: Mucus Urine Rare /lpf; RBC Urine 51-75 /hpf (0-2); WBC Urine 0-3 /hpf
[2021-12-17 14:44] LABS: Add Urine Microscopic? YES
--- NOTE | 2021-12-17 15:45 | PM.IMHP ---
H&P: HPI History of Present Illness Date/Time: 12/17/21 15:45 Chief Complaint: Weakness. Narrative: This is a very pleasant 81-year-old male with history of polio, hypertension, hyperlipidemia, and benign prostatic hyperplasia who presented to the emergency department via EMS from home for evaluation of weakness. 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 About a week ago he developed mild upper respiratory symptoms to include sinus congestion, rhinorrhea, postnasal drip, throat irritation, low-grade fever to 100.1? and a nonproductive cough. Yesterday he was feeling more weak than usual and he did not eat much or do much throughout the day due to general malaise. He phoned his primary care provider who prescribed him a Z-[place] which he began taking last evening. This morning he was not able to transfer himself to his power chair which prompted him to come in for evaluation. He has been afebrile since arrival to the hospital. Blood pressure readings were elevated in the emergency department pretty consistently however he was wearing and ill-fitting cough on his left forearm and I think the blood pressure of right around 100 systolic is probably more accurate. His workup has otherwise been pretty unremarkable aside from an elevated white blood cell count of 15.4 and a CRP of 14.2. His urinalysis demonstrated 1+ ketones and is and 1+ blood with no evidence to suggest urinary tract infection. He tested negative for COVID, influenza A, influenza B, and group B strep. Chest x-ray showed no acute findings. Currently has no specific complaints aside from those listed above. Review of Systems Review of Systems: Twelve systems were reviewed. No headache or neck ache. No ear pain. No dysphagia or concerns for aspiration. He denies orthopnea and paroxysmal nocturnal dyspnea. He has some lower extremity edema which is not necessarily unusual for him. No open wounds or sores. No dysuria. He has chronic neck and back pain which are unchanged. Except as documented, all other systems were reviewed and are negative. [facility] Past Medical History Medical History (Updated 12/17/21 @ 22:56 by Valerie Carmona PA-C) Benign prostatic hyperplasia History of kidney stones Hyperlipidemia Hypertension Macular degeneration Post-polio syndrome Pulmonary nodules Spinal stenosis Surgical History Surgical History History of appendectomy History of arthroplasty of right knee History of cataract extraction History of cervical spinal surgery History of lithotripsy Family History Family History Mother Alzheimer's dementia Diabetes mellitus Father Lung disease Sibling Amyotrophic lateral sclerosis Sibling Lung cancer Social History Social History (Updated 12/17/21 @ 22:53 by Valerie Carmona PA-C) Social History: Resides in [place] with his . 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 Former smoker, reportedly 1 - 1.5 packs of cigarettes a day for about 50 years. He quit smoking in 2014 but still occasionally vapes. No alcohol or illicit substance abuse. Surrogate decision maker: Lorena Lori, spouse. Code status: Do not resuscitate. Spiritual care concerns: No Meds Home Medications and Allergies Home Medications Medication Instructions Recorded Confirmed Type aspirin [Aspirin Childrens] 81 mg PO DAILY 03/05/21 12/17/21 History pantoprazole 40 mg PO QAM 03/05/21 12/17/21 History pravastatin 40 mg PO DAILY 03/05/21 12/17/21 History quinapril 40 mg PO DAILY 03/05/21 12/17/21 History temazepam 30 mg PO HS PRN 03/05/21 12/17/21 History finasteride [Proscar] 5 mg PO QAM #90 tablet 03/07/21 12/17/21 Rx tamsulosin 0.4 mg PO QAM #90 cap 03/07/21 12/17/21 Rx Allergies Allergy/AdvReac Type Severity Reaction Status Date / Time No Known Allerg
--- NOTE | 2021-12-17 18:53 | ADMGEN ---
This patient, Khari Christiansen, was admitted to IMU Room 207-01. Patient/family oriented to hospital policies and general routines including ID bracelet, bed and alarms, visiting hours, pain management, procedures, bathroom and other care routines, personal items, smoking policy, room service/diet, and visiting hours. Patient arrived on floor at 18:47 Information on how to activate the Rapid Response Team has been discussed. Patient/Family are encouraged to report perceived risks to care and to ask questions if they do not understand what they are told or what they should do.
[2021-12-17 21:28] LABS: Creatine Kinase 34 U/L (55-170); Magnesium 1.9 mg/dL (1.6-2.3)
[2021-12-17 22:03] LABS: Procalcitonin 0.3 ng/mL
[2021-12-17 22:17] LABS: Thyroid Stimulating Hormone Reflex 0.718 uIU/mL (0.465-4.68)
[2021-12-17] MEDS: TEMAZEPAM (*CRX) 15 MG CAPSULE 30 MG PO (23:27)
[2021-12-17] MEDS: SODIUM CHLORIDE 0.9% IV 1,000 ML 100 ML IV CONT (23:28)
[2021-12-18] VITALS (12 sets, daily range): BP systolic 106–148; BP diastolic 56–78; PULSE 59–102; RESP 16–97; TEMP 36.5–36.9; O2SAT 94–99
[2021-12-18 05:02] LABS: Mean Corpuscular HGB Conc 34.2 g/dl (32-36); Mean Corpuscular Hemoglobin 32.6 pg (26-34); Mean Corpuscular Volume 95.2 fl (80-100); Mean Platelet Volume 10.2 fl (7.4-10.4); Platelet Count Result 201 k/mm3 (150-375); Red Blood Count 3.99 M/mm3 (4.6-6.20); Red Cell Distribution Width 13.8 % (11.5-14.5); White Blood Count 10.9 K/mm3 (4.5-10.0)
[2021-12-18 05:23] LABS: Alanine Aminotransferase 12 U/L (4-50); Albumin Level 2.9 g/dL (3.5-5.1); Alkaline Phosphatase 119 U/L (38-126); Anion Gap 4 mmol/L (8-16); Aspartate Amino Transferase 21 U/L (17-59); Bilirubin,Total 0.5 mg/dL (0.2-1.3); Blood Urea Nitrogen 19 mg/dL (9-20); Calcium 7.7 mg/dL (8.4-10.2); Carbon Dioxide 26 mmol/L (22-30); Chloride 106 mmol/L (98-107); Estimated CRCL calculation 76 ml/min; Estimated Glomerular Filt Rate > 60; Glucose 86 mg/dL (65-110); Magnesium 1.8 mg/dL (1.6-2.3); Potassium 3.5 mmol/L (3.4-5.0); Sodium 136 mmol/L (137-145)
[2021-12-18] MEDS: SODIUM CHLORIDE 0.9% IV 1,000 ML 100 ML IV CONT ×2 (09:31→21:55)
[2021-12-18] MEDS: ASPIRIN 81 MG CHEWABLE TABLET PO (09:39)
[2021-12-18] MEDS: FINASTERIDE 5 MG TABLET PO (09:39)
[2021-12-18] MEDS: PRAVASTATIN SODIUM 20 MG TABLET 40 MG PO (09:40)
[2021-12-18] MEDS: guaiFENesin 12 HR 600 MG TABCR PO ×2 (09:40→20:37)
[2021-12-18] MEDS: PANTOPRAZOLE 40 MG TABLET PO (09:41)
[2021-12-18] MEDS: TAMSULOSIN HCL 0.4 MG CAPSULE PO (09:41)
[2021-12-18] MEDS: ENOXAPARIN 40 MG/0.4 ML SYRINGE SUB-Q (09:46)
--- NOTE | 2021-12-18 15:42 | PC.NURSE ---
1535-report called to Justine on 2 med.
--- NOTE | 2021-12-18 16:05 | PC.NURSE ---
This patient, Khari Christiansen, was received from IMU on 12/18/21 at 1605. Patient/family oriented to unit policies and routines
--- NOTE | 2021-12-18 17:41 | P.PNIM_ITS ---
Progress Note: A&P Assessment and Plan (1) Generalized weakness: Code(s): R53.1 - Weakness Status: Acute Assessment and Plan: Patient is weak at baseline but contained focally transfer himself to his power chair though unable to do so this morning. He appears to have an upper respiratory infection and is weakness is likely stemming from that in addition to dehydration. Total CK was not elevated. CVA unlikely by history and exam findings. If no improvement with antibiotics and IV fluid rehydration, imaging of the spine may be prudent though he had no midline vertebral tenderness on exam and he has not had any significant back pain aside from his occasional discomfort which is his baseline. Will need PT/OT when feeling better. (2) Upper respiratory infection: Code(s): J06.9 - Acute upper respiratory infection, unspecified Status: Acute Assessment and Plan: Patient was started on a Z-[place] yesterday by his primary care provider, which will be continued. At ceftriaxone for broader coverage as he may very well have early, developing pneumonia. He tested negative for COVID and influenza A and B. (3) Hypertension: Code(s): I10 - Essential (primary) hypertension Status: Acute Assessment and Plan: Blood pressures were quite high in the ER but I think these were erroneously as he was wearing an ill-fitting cuff on the left forearm. I think the blood pressure in the 90 systolic is more accurate as he appears dehydrated and thus will hold antihypertensives and continue to monitor closely. (4) Dehydration: Code(s): E86.0 - Dehydration Status: Acute Assessment and Plan: Judicious IV fluid rehydration overnight. (5) Benign prostatic hyperplasia: Code(s): N40.0 - Benign prostatic hyperplasia without lower urinary tract symptoms Status: Acute Assessment and Plan: Continue tamsulosin and finasteride. Subjective Date/time seen: 12/18/21 17:41 Chief Complaint: Weakness. Narrative: This is a very pleasant 81-year-old male with history of polio, hypertension, hyperlipidemia, and benign prostatic hyperplasia who presented to the emergency department via EMS from home for evaluation of weakness. 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 About a week ago he developed mild upper respiratory symptoms to include sinus congestion, rhinorrhea, postnasal drip, throat irritation, low-grade fever to 100.1? and a nonproductive cough. Yesterday he was feeling more weak than usual and he did not eat much or do much throughout the day due to general malaise. He phoned his primary care provider who prescribed him a Z-[place] which he began taking last evening. This morning he was not able to transfer himself to his power chair which prompted him to come in for evaluation. He has been afebrile since arrival to the hospital. Blood pressure readings were elevated in the emergency department pretty consistently however he was wearing and ill-fitting cough on his left forearm and I think the blood pressure of right around 100 systolic is probably more accurate. His workup has otherwise been pretty unremarkable aside from an elevated white blood cell count of 15.4 and a CRP of 14.2. His urinalysis demonstrated 1+ ketones and is and 1+ blood with no evidence to suggest urinary tract infection. He tested negative for COVID, influenza A, influenza B, and group B strep. Chest x-ray showed no acute findings. Currently has no specific complaints aside from those listed above. 12/18/2021 Interval history: patient con
[2021-12-18] MEDS: TEMAZEPAM (*CRX) 15 MG CAPSULE 30 MG PO (21:53)
[2021-12-19] VITALS (7 sets, daily range): BP systolic 133–173; BP diastolic 57–80; PULSE 67–95; RESP 14–20; TEMP 36.3–37.2; O2SAT 96–99
[2021-12-19] MEDS: ACETAMINOPHEN 500 MG TABLET 1000 MG PO ×4 (00:11→20:13)
[2021-12-19] MEDS: FINASTERIDE 5 MG TABLET PO (09:07)
[2021-12-19] MEDS: SODIUM CHLORIDE 0.9% IV 1,000 ML 100 ML IV CONT ×2 (09:07→21:28)
[2021-12-19] MEDS: PRAVASTATIN SODIUM 20 MG TABLET 40 MG PO (09:07)
[2021-12-19] MEDS: PANTOPRAZOLE 40 MG TABLET PO (09:07)
[2021-12-19] MEDS: guaiFENesin 12 HR 600 MG TABCR PO ×2 (09:07→20:07)
[2021-12-19] MEDS: TAMSULOSIN HCL 0.4 MG CAPSULE PO (09:07)
[2021-12-19] MEDS: ENOXAPARIN 40 MG/0.4 ML SYRINGE SUB-Q (09:07)
[2021-12-19] MEDS: ASPIRIN 81 MG CHEWABLE TABLET PO (09:07)
--- NOTE | 2021-12-19 14:02 | PM.IMPN ---
Progress Note: A&P Assessment and Plan (1) Generalized weakness: Code(s): R53.1 - Weakness Status: Acute Assessment and Plan: Patient is weak at baseline but contained focally transfer himself to his power chair though unable to do so this morning. He appears to have an upper respiratory infection and is weakness is likely stemming from that in addition to dehydration. Total CK was not elevated. CVA unlikely by history and exam findings. If no improvement with antibiotics and IV fluid rehydration, imaging of the spine may be prudent though he had no midline vertebral tenderness on exam and he has not had any significant back pain aside from his occasional discomfort which is his baseline. Will need PT/OT when feeling better. (2) Upper respiratory infection: Code(s): J06.9 - Acute upper respiratory infection, unspecified Status: Acute Assessment and Plan: Patient was started on a Z-[place] yesterday by his primary care provider, which will be continued. At ceftriaxone for broader coverage as he may very well have early, developing pneumonia. He tested negative for COVID and influenza A and B. (3) Hypertension: Code(s): I10 - Essential (primary) hypertension Status: Acute Assessment and Plan: Blood pressures were quite high in the ER but I think these were erroneously as he was wearing an ill-fitting cuff on the left forearm. I think the blood pressure in the 90 systolic is more accurate as he appears dehydrated and thus will hold antihypertensives and continue to monitor closely. (4) Dehydration: Code(s): E86.0 - Dehydration Status: Acute Assessment and Plan: Judicious IV fluid rehydration overnight. (5) Benign prostatic hyperplasia: Code(s): N40.0 - Benign prostatic hyperplasia without lower urinary tract symptoms Status: Acute Assessment and Plan: Continue tamsulosin and finasteride. Subjective Date/time seen: 12/19/21 14:02 HPI: Narrative: This is a very pleasant 81-year-old male with history of polio, hypertension, hyperlipidemia, and benign prostatic hyperplasia who presented to the emergency department via EMS from home for evaluation of weakness. 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 About a week ago he developed mild upper respiratory symptoms to include sinus congestion, rhinorrhea, postnasal drip, throat irritation, low-grade fever to 100.1? and a nonproductive cough. Yesterday he was feeling more weak than usual and he did not eat much or do much throughout the day due to general malaise. He phoned his primary care provider who prescribed him a Z-[place] which he began taking last evening. This morning he was not able to transfer himself to his power chair which prompted him to come in for evaluation. He has been afebrile since arrival to the hospital. Blood pressure readings were elevated in the emergency department pretty consistently however he was wearing and ill-fitting cough on his left forearm and I think the blood pressure of right around 100 systolic is probably more accurate. His workup has otherwise been pretty unremarkable aside from an elevated white blood cell count of 15.4 and a CRP of 14.2. His urinalysis demonstrated 1+ ketones and is and 1+ blood with no evidence to suggest urinary tract infection. He tested negative for COVID, influenza A, influenza B, and group B strep. Chest x-ray showed no acute findings. Currently has no specific complaints aside from those listed above. 12/18/2021 Interval history: patient continue to complain of being tired and fatigue, poor appetite, has upper respiratory symptoms with sore throat and nasal congestion, patient denies any fever or chills, will have PT OT evaluate the patient patient will benefit with rehab. 12/19/2021 interval history: patient had complained of upper respiratory sympto
--- NOTE | 2021-12-19 14:03 | PC.NURSE ---
On 12/19/21, the students, [Indy Gan, Francisco Loera], provided care and completed [facility] documentation on this patient. I have reviewed the student's documentation and agree with the findings.
[2021-12-19] MEDS: DOCUSATE SODIUM 100 MG CAPSULE PO (17:04)
[2021-12-19] MEDS: lisinopriL 20 MG TABLET 40 MG PO (22:10)
[2021-12-19] MEDS: TEMAZEPAM (*CRX) 15 MG CAPSULE 30 MG PO (23:02)
[2021-12-20 02:00] VITALS: BP 133/75; PULSE 59; RESP 18; TEMP 36.1; O2SAT 96
[2021-12-20] MEDS: ACETAMINOPHEN 500 MG TABLET 1000 MG PO ×2 (05:30→11:20)
[2021-12-20 06:00] VITALS: BP 167/87; PULSE 85; RESP 16; TEMP 36.4; O2SAT 94
[2021-12-20] MEDS: guaiFENesin 12 HR 600 MG TABCR PO (09:32)
[2021-12-20] MEDS: ENOXAPARIN 40 MG/0.4 ML SYRINGE SUB-Q (09:32)
[2021-12-20] MEDS: FINASTERIDE 5 MG TABLET PO (09:33)
[2021-12-20] MEDS: PRAVASTATIN SODIUM 20 MG TABLET 40 MG PO (09:33)
[2021-12-20] MEDS: ASPIRIN 81 MG CHEWABLE TABLET PO (09:33)
[2021-12-20] MEDS: TAMSULOSIN HCL 0.4 MG CAPSULE PO (09:33)
[2021-12-20] MEDS: PANTOPRAZOLE 40 MG TABLET PO (09:33)
[2021-12-20] MEDS: DOCUSATE SODIUM 100 MG CAPSULE PO (09:33)
[2021-12-20 09:35] VITALS: RESP 16; O2SAT 94
[2021-12-20 10:30] VITALS: BP 181/85; PULSE 84; RESP 16; TEMP 36.5; O2SAT 99
[2021-12-20 10:45] VITALS: BP 181/85; PULSE 84; RESP 16; O2SAT 99
--- NOTE | 2021-12-20 11:47 | PCOTNOTE ---
Attempted to see patient, patient on bedpan and declined interventions. Patient reports he believes he is leaving in an hour. Patient's RN states patient is not discharging yet and has IV meds at 6pm. Patient informed, and disagreeable. Patient requested therapist come back in 30 minutes. Will continue plan of care.
--- NOTE | 2021-12-20 12:26 | PM.DS ---
DS: Admitting Diagnosis Discharge Date 12/20/2021 Admitting Diagnosis Weakness DS: Discharge Diagnosis Discharge Diagnosis (1) Generalized weakness: Code(s): R53.1 - Weakness Status: Acute Assessment and Plan: Patient is weak at baseline but contained focally transfer himself to his power chair though unable to do so this morning. He appears to have an upper respiratory infection and is weakness is likely stemming from that in addition to dehydration. Total CK was not elevated. CVA unlikely by history and exam findings. If no improvement with antibiotics and IV fluid rehydration, imaging of the spine may be prudent though he had no midline vertebral tenderness on exam and he has not had any significant back pain aside from his occasional discomfort which is his baseline. Will need PT/OT when feeling better. (2) Upper respiratory infection: Code(s): J06.9 - Acute upper respiratory infection, unspecified Status: Acute Assessment and Plan: Patient was started on a Z-[place] yesterday by his primary care provider, which will be continued. At ceftriaxone for broader coverage as he may very well have early, developing pneumonia. He tested negative for COVID and influenza A and B. (3) Hypertension: Code(s): I10 - Essential (primary) hypertension Status: Acute Assessment and Plan: Blood pressures were quite high in the ER but I think these were erroneously as he was wearing an ill-fitting cuff on the left forearm. I think the blood pressure in the 90 systolic is more accurate as he appears dehydrated and thus will hold antihypertensives and continue to monitor closely. (4) Dehydration: Code(s): E86.0 - Dehydration Status: Acute Assessment and Plan: Judicious IV fluid rehydration overnight. (5) Benign prostatic hyperplasia: Code(s): N40.0 - Benign prostatic hyperplasia without lower urinary tract symptoms Status: Acute Assessment and Plan: Continue tamsulosin and finasteride. DS: Summary Hospital Course Reason for hospitalization: Chief Complaint: Weakness. Narrative: This is a very pleasant 81-year-old male with history of polio, hypertension, hyperlipidemia, and benign prostatic hyperplasia who presented to the emergency department via EMS from home for evaluation of weakness. 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 About a week ago he developed mild upper respiratory symptoms to include sinus congestion, rhinorrhea, postnasal drip, throat irritation, low-grade fever to 100.1? and a nonproductive cough. Yesterday he was feeling more weak than usual and he did not eat much or do much throughout the day due to general malaise. He phoned his primary care provider who prescribed him a Z-[place] which he began taking last evening. This morning he was not able to transfer himself to his power chair which prompted him to come in for evaluation. He has been afebrile since arrival to the hospital. Blood pressure readings were elevated in the emergency department pretty consistently however he was wearing and ill-fitting cough on his left forearm and I think the blood pressure of right around 100 systolic is probably more accurate. His workup has otherwise been pretty unremarkable aside from an elevated white blood cell count of 15.4 and a CRP of 14.2. His urinalysis demonstrated 1+ ketones and is and 1+ blood with no evidence to suggest urinary tract infection. He tested negative for COVID, influenza A, influenza B, and group B strep. Chest x-ray showed no acute findings. Currently has no specific complaints aside from those listed above. Hospital Course: This is a very pleasant 81-year-old male with history of polio, hypertension, hyperlipidemia, and benign prostatic hyperplasia who presented to the emergency department via EMS from home for evaluation of weakness. He has
== END 2021-12-20 15:00 | disposition home health service (06) ==
LOC: ANHED 16:00 → ANHIMU 17:30 → ANH2MED 12-18 15:53
PROVIDERS: Physician Assistant; Admitting Provider Family Medicine; Emergency Provider Emergency Medicine; PCP Internal Medicine; Visit Provider Family Medicine
DX: J06.9 Acute upper respiratory infection, unspecified (principal); J02.9 Acute pharyngitis, unspecified; E86.0 Dehydration; E78.5 Hyperlipidemia, unspecified; I10 Essential (primary) hypertension; H35.30 Unspecified macular degeneration; N40.0 Benign prostatic hyperplasia without lower urinary tract symptoms; M48.00 Spinal stenosis, site unspecified; G14 Postpolio syndrome; R60.0 Localized edema; Z87.442 Personal history of urinary calculi; Z20.822 Contact with and (suspected) exposure to COVID-19; Z87.891 Personal history of nicotine dependence; Z79.82 Long term (current) use of aspirin
CPT/HCPCS: 36415; 71046; 80053; 81001; 82550; 83605; 83735; 84145; 84443; 85025; 85027; 85610; 85730; 86140; 87040; 87081; 87147; 87181; 87186; 87502; 87804; 87880; 93005; 93970; 94667; 96361; 96365; 96366; 96367; 96372; 97161; 97165; 97530; 97535; 99285; A9270; C9803; G0378; J0456; J0696; J1650; J7030; U0003; U0005

== ENCOUNTER 2022-03-22 14:57 | Emergency (ER) | payer MEDICARE, SELFPAY ==
[2022-03-22] VITALS (27 sets, daily range): BP systolic 137–162; BP diastolic 79–103; PULSE 76–100; RESP 16–18; TEMP 36.9; O2SAT 97–100
--- NOTE | ~2022-03-22 | XR_ITS ---
EXAM: XR hip RT 2V w AP pelvis DATE: 03/22/2022 16:30 HISTORY: Eval for fracture, PAIN X 2-3 DAYS, FREQUENT FALLS . COMPARISON: None available. FINDINGS: Decreased mineralization. Severe degenerative changes in the lumbar spine. Degenerative ch rojelio also present in the right hip and pubic symphysis. 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 No definite acute fracture or dislocation. IMPRESSION: No acute osseous finding in the right hip or pelvis. Reviewed, dictated and finalized at location K.
--- NOTE | ~2022-03-22 | CT_ITS ---
EXAMINATION: CT abdomen pelvis w con DATE: 03/22/2022 19:49 INDICATION: Urinary tract infection, rule out pyelonephritis, history of kidney stones. TECHNIQUE: Computed tomography (CT) of the abdomen and pelvis was performed with 100 mL Omnipaque-300 intravenous contrast. Automated exposure control and iterative reconstruction technique were employe d. The dose-length product was 923.04 mGy-cm. COMPARISON: None. 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 Coronary artery calcifications. Liver: Normal. Biliary/Gallbladder: Gallbladder is normal. No bile duct dilation. Pancreas: Pancreatic atrophy. Spleen: Normal. Adrenals:No mass. Kidneys: Multiple bilateral simple renal cysts and lesions that are too small to characterize but als o most likely represent cysts. Bilateral perinephric stranding, greater on the right. No hydronephros is. No obstructing calculus. GI tract: No small or large bowel dilation. Appendix not visualized. Diverticulosis without diverticu litis. Mesentery/Peritoneum: No ascites, mass, or free air. Retroperitoneum: No mass. Atherosclerotic abdominal aortic and/or arterial calcifications. Pelvis: The bladder is distended. Prostatomegaly.. Soft Tissues: Soft tissues and body wall unremarkable. Bones: Moderate anterior wedge deformity of T12 and L1, with significant anterior disc space widenin g. Severe degenerative change/sclerosis about the T12-L1 disc space. Sclerotic fracture lines extend through the posterior elements of T12. IMPRESSION: Asymmetric right-sided perinephric stranding, may reflect asymmetric medical renal disease, inflammat ion from a recently passed stone, or ascending infection. Chronic appearing Chance variant type fract ure at T12-L1, correlate with history of remote or subacute trauma. Reviewed, dictated and finalized at location K. IMPRESSION: Asymmetric right-sided perinephric stranding, may reflect asymmetric medical re nal disease, inflammation from a recently passed stone, or ascending infection. Chronic appearing Chance variant type fracture at T12-L1, correlate with histo ry of remote or subacute trauma.
--- NOTE | 2022-03-22 15:41 | PC.NURSE ---
Pt son works in Pharmacy. Pharmacist called to state the p/t has been exposed to COVID by other family members in last three days.
--- NOTE | 2022-03-22 15:57 | ED.LOWEXIN ---
HPI - Extremity Injury (Lower) General Chief Complaint: Back Pain/Injury Stated Complaint: flank pain/sciatica Time Seen by Provider: 03/22/22 15:41 History of Present Illness HPI Narrative: This is a 81-year-old male with past medical history of polio, wheelchair-bound, recently started on antibiotics for UTI, who presents emergency department complaining of right hip pain for 6 days. He states 6 days ago, he was attempting to transfer from a lift chair to a second chair when he had difficulty getting the transfer and twisted to get himself in the chair. And noted severe right hip pain that did not radiate and was alleviated with rest. He states the pain gradually improved, completely resolving 2 days ago. Today however while transferring again, he noted right hip pain 6 out of 10, described as sharp. He denies fevers, chills, abdominal pain, nausea, vomiting, pain with urination, or hematuria. He notes baseline edema of the left foot and ankle that has not changed. He states he was recently started on antibiotics for urinary tract infection. He has tolerated the medications well Related Data Home Medications Medication Instructions Recorded Confirmed aspirin 81 mg chewable tablet 81 mg PO DAILY 03/05/21 12/17/21 (Aspirin Childrens) pantoprazole 40 mg tablet,delayed 40 mg PO QAM 03/05/21 12/17/21 release pravastatin 40 mg tablet 40 mg PO DAILY 03/05/21 12/17/21 quinapril 40 mg tablet 40 mg PO DAILY 03/05/21 12/17/21 temazepam 30 mg capsule 30 mg PO HS PRN Insomnia 03/05/21 12/17/21 Allergies Allergy/AdvReac Type Severity Reaction Status Date / Time No Known Allergies Allergy Verified 03/22/22 17:11 Review of Systems Review of Systems: CONSTITUTIONAL: Denies fever, chills, or sweats. EYES: Denies visual changes, redness, or discharge. ENT: Denies rhinorrhea, congestion, sore throat, or otalgia. CARDIOVASCULAR: Denies chest pain, palpitations, or edema. RESPIRATORY: Denies cough or dyspnea. GASTROINTESTINAL: Denies abdominal pain, nausea, vomiting, or diarrhea. GENITOURINARY: Denies dysuria or hematuria. SKIN: Denies rash or itching. MUSCULOSKELETAL: Right hip pain denies back pain, joint pain, or myalgia. NEUROLOGIC: Denies headache, numbness, dizziness, or weakness. PSYCHIATRIC: Denies anxiety or depression. [facility] Past Medical History Medical History (Updated 03/22/22 @ 20:38 by Db Madrigal MD) Benign prostatic hyperplasia History of kidney stones Hyperlipidemia Hypertension Macular degeneration Post-polio syndrome Pulmonary nodules Spinal stenosis Surgical History Surgical History History of appendectomy History of arthroplasty of right knee History of cataract extraction History of cervical spinal surgery History of lithotripsy Family History Family History Mother Alzheimer's dementia Diabetes mellitus Father Lung disease Sibling Amyotrophic lateral sclerosis Sibling Lung cancer Social History Social History (Updated 12/17/21 @ 22:53 by Valerie Carmona PA-C) Social History: Resides in [place] with his . 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 Former smoker, reportedly 1 - 1.5 packs of cigarettes a day for about 50 years. He quit smoking in 2014 but still occasionally vapes. No alcohol or illicit substance abuse. Surrogate decision maker: Lorena DownsLori, spouse. Code status: Do not resuscitate. Spiritual care concerns: No Exam Narrative: GENERAL: Well-appearing, well-nourished, and in no acute distress. HEAD: Normocephalic, atraumatic. EYES: PERRLA and EOMI. ENT: Nares clear, no rhinorrhea or epistaxis. Mucous membranes moist. Oropharynx without tonsillar hypertrophy exudate or other lesions. NECK: Supple. No adenopathy or masses. No carotid bruits or JVD CHEST: Clear to auscultation. No respiratory distress. No wheezes rales or rhonchi H
[2022-03-22] MEDS: ACETAMINOPHEN 500 MG TABLET 1000 MG PO (16:38)
[2022-03-22 16:58] LABS: SARS-CoV-2 RNA PCR Negative
[2022-03-22 17:29] LABS: Basophils Percent Auto 0.2 % (0.2-1.2); Eosinophils Percent Auto 0.2 % (0-4.4); Hematocrit 47.5 % (42.0-52.0); Hemoglobin 15.9 g/dL (14.0-18.0); Immature Granulocyte Absolute 0.03 K/mm3 (0.00-0.031); Immature Granulocyte Percent A 0.3 % (0-0.5); Lymphocytes Absolute Auto 0.67 K/mm3 (0.9-3.2); Mean Corpuscular HGB Conc 33.5 g/dl (32-36); Mean Corpuscular Hemoglobin 32.4 pg (26-34); Mean Corpuscular Volume 96.9 fl (80-100); Mean Platelet Volume 10.5 fl (7.4-10.4); Monocytes Absolute Auto 0.5 K/mm3 (0.1-0.6); Monocytes Percent Auto 5.6 % (2.6-8.5); Neutrophils Absolute Auto 8.3 K/mm3 (1.3-6.7); Neutrophils Percent Auto 86.7 % (45.5-73.1); Platelet Count Result 252 k/mm3 (150-375); Red Cell Distribution Width 13.3 % (11.5-14.5); White Blood Count 9.6 K/mm3 (4.5-10.0)
[2022-03-22 17:34] LABS: Alanine Aminotransferase 18 U/L (6-50); Albumin Level 4.2 g/dL (3.5-5.1); Alkaline Phosphatase 153 U/L (38-126); Anion Gap 9 mmol/L (8-16); Aspartate Amino Transferase 27 U/L (17-59); Bilirubin,Total 0.8 mg/dL (0.2-1.3); Blood Urea Nitrogen 19 mg/dL (9-20); Calcium 8.9 mg/dL (8.4-10.2); Carbon Dioxide 25 mmol/L (22-30); Chloride 103 mmol/L (98-107); Estimated CRCL calculation 69 ml/min; Estimated Glomerular Filt Rate > 60; Glucose 127 mg/dL (65-110); Potassium 3.9 mmol/L (3.4-5.0); Sodium 137 mmol/L (137-145)
--- NOTE | 2022-03-22 19:22 | PC.NURSE ---
Patient report given to BO Pathak. All questions answered and care of patient transferred.
--- NOTE | 2022-03-22 19:27 | PC.NURSE ---
Patient report given to BO Pathak. All questions answered and care of patient transferred.
[2022-03-22 20:12] LABS: Appearance Urine Clear (Clear); Bilirubin Urine 1+ (Negative); Color Urine Yellow (Yellow); Glucose Urine UA Negative (Negative); Ketones Urine 3+ mg/dL (Negative); Leukocyte Esterase Ur Trace LEU/UL (Negative); Nitrate Urine Negative (Negative); Protein Urine Negative (Negative); Specific Grav Ur >= 1.030 (1.001-1.035); Urobilinogen Urine 0.2 mg/dL (<2.0); pH Urine 6.5 (5.0-9.0)
[2022-03-22 20:16] LABS: Add Urine Microscopic? YES; Blood Urine Trace-Intact (Negative); Calcium Oxalate Crystals Urine Present /hpf; Mucus Urine Rare /lpf; Squamous Epithelial Cell Urine Rare /hpf (Few)
[2022-03-22] MEDS: oxyCODONE/ACETAMINOPHEN (*CRX) 5-325 MG TABLET 1 TABLET PO (20:45)
--- NOTE | 2022-03-22 20:52 | PC.NURSE ---
called [facility] to request transport to home. ETA 30-45 min
--- NOTE | 2022-03-22 22:40 | PC.NURSE ---
called [facility] for ETA update. eta midnight called [facility] to request transport. No transport truck tonight.
--- NOTE | 2022-03-22 22:50 | PC.NURSE ---
called [facility] to request transport. declined
--- NOTE | 2022-03-22 23:02 | PC.NURSE ---
called [facility] to request transport. ETA 20 minutes
--- NOTE | 2022-03-22 23:06 | PC.NURSE ---
cancelled [facility]
--- NOTE | 2022-03-22 23:46 | PC.NURSE ---
[facility] here.
== END 2022-03-22 23:55 | disposition home or self-care (01) ==
PROVIDERS: Emergency Provider Preventive Medicine Aerospace Medicine; PCP Internal Medicine
DX: M25.551 Pain in right hip (principal); N12 Tubulo-interstitial nephritis, not specified as acute or chronic; Z20.822 Contact with and (suspected) exposure to COVID-19; G14 Postpolio syndrome; N40.0 Benign prostatic hyperplasia without lower urinary tract symptoms; E78.5 Hyperlipidemia, unspecified; I10 Essential (primary) hypertension; H35.30 Unspecified macular degeneration; Z96.651 Presence of right artificial knee joint; Z99.3 Dependence on wheelchair; Z86.12 Personal history of poliomyelitis; Z87.442 Personal history of urinary calculi; Z98.49 Cataract extraction status, unspecified eye; Z79.82 Long term (current) use of aspirin; F17.290 Nicotine dependence, other tobacco product, uncomplicated
CPT/HCPCS: 36415; 73502; 74177; 80053; 81001; 85025; 99284; A9270; C9803; Q9967; U0003; U0005

== ENCOUNTER 2022-03-27 12:13 | Observation (INO) | payer MEDICARE, SELFPAY ==
[2022-03-27] VITALS (18 sets, daily range): BP systolic 125–168; BP diastolic 70–111; PULSE 74–102; RESP 14–29; TEMP 36.6–37.1; O2SAT 69–100; BMI 28.3
--- NOTE | ~2022-03-27 | CT_ITS ---
EXAMINATION:CT diagnostic chest wo con DATE: 03/27/2022 14:45 INDICATION: COVID-19 pneumonia. Pulmonary nodule. TECHNIQUE: Computed tomography (CT) of the chest was performed without intravenous contrast. Automate d exposure control and iterative reconstruction technique were employed. The dose-length product (DLP ) was 267.12 mGy-cm. COMPARISON: Chest single view 03/27/2022, chest CT 09/24/2018 FINDINGS: There is mild emphysema. A calcified left lung nodule is consistent with old granulomatous disease. There is a 22 mm nodule in superior segment right lower lobe, increased from 11 mm. There is peripheral septal thickening in the lower lobes with architectural distortion. There are patchy grou ndglass opacities in the lower lobes. No bronchiectasis or honeycombing. No pleural effusion. The hea rt size is normal. There are coronary artery calcifications. No pericardial effusion. Calcifications in the spleen are consistent with old granulomatous disease. There are cysts in the kidneys measuring up to 3.4 cm on the left. There are changes of posterior fusion procedure in cervicothoracic spine. There are bridging endplate osteophytes at multiple levels in the spine, consistent with diffuse idio pathic skeletal hyperostosis (DISH). Partially visualized is severe spondylosis at L1-L2 with disc wi dening. IMPRESSION: 1. Worsened 22 mm nodule in superior segment right lower lobe suspicious for primary bronchogenic car cinoma. CT-guided biopsy is recommended after resolution of acute disease. 2. Groundglass opacities and septal thickening in the lower lobes, likely a combination of COVID-19 p neumonia and mild chronic interstitial lung disease. Reviewed, dictated and finalized at location A. IMPRESSION: 1. Worsened 22 mm nodule in superior segment right lower lobe suspicious for pr imary bronchogenic carcinoma. CT-guided biopsy is recommended after resolution of acute disease. 2. Groundglass opacities and septal thickening in the lower lobes, likely a com bination of COVID-19 pneumonia and mild chronic interstitial lung disease.
--- NOTE | ~2022-03-27 | XR_ITS ---
EXAMINATION: XR abdomen/kub 1V DATE: 03/28/2022 19:21 INDICATION: Constipation. TECHNIQUE: A supine view of the abdomen on 2 radiographs was obtained. COMPARISON: CT abdomen and pelvis 03/22/2022 FINDINGS: There are no dilated loops of bowel. There is a small volume of stool in the colon. IMPRESSION: 1. Normal bowel gas pattern. Reviewed, dictated and finalized at location A.
--- NOTE | ~2022-03-27 | XR_ITS ---
EXAM: XR abdomen/kub 1V DATE: 03/29/2022 16:45 HISTORY: constipation . COMPARISON: 03/28/2022. FINDINGS: Multifocal bibasilar opacities. Normal bowel gas pattern. No organomegaly. Pelvic phleboli ths. Severe degenerative change in the lumbar spine. 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 IMPRESSION: No radiographic evidence of obstruction or ileus. Reviewed, dictated and finalized at location K.
--- NOTE | ~2022-03-27 | XR_ITS ---
EXAMINATION: XR chest 1V portable DATE: 03/27/2022 13:31 INDICATION: COVID-19 pneumonia. TECHNIQUE: A single frontal view of the chest was obtained. COMPARISON: Chest 2 views 12/17/2021, CT abdomen and pelvis 03/22/2022, chest CT 09/24/2018 FINDINGS: There are reticular opacities in the lower lung zones. There is a 1 cm nodule in right midl garcia zone. A calcified left lung nodule and calcified left hilar lymph nodes are consistent with old g ranulomatous disease. No pleural effusion or pneumothorax. The heart size is normal. There are change s of posterior fusion procedure in cervicothoracic spine. IMPRESSION: 1. 1 cm nodule in right midlung zone, which may be/scarring or malignancy. Noncontrast chest CT is re commended. 2. Stable reticular opacities in the lower lung zones, likely mild atelectasis/scarring. Reviewed, dictated and finalized at location A. IMPRESSION: 1. 1 cm nodule in right midlung zone, which may be/scarring or malignancy. Nonc ontrast chest CT is recommended. 2. Stable reticular opacities in the lower lung zones, likely mild atelectasis/ scarring.
--- NOTE | 2022-03-27 12:19 | ED.GENADULT ---
HPI - General Adult General Chief complaint: Weakness Stated complaint: COVID +, WEAKNESS, UTI ON ABX X 1 WEEK Time Seen by Provider: 03/27/22 12:18 Source: patient and RN notes reviewed Limitations: no limitations History of Present Illness HPI narrative: 81 years old white male came from home because of general weakness in the last 2 to 3 days. Patient had COVID symptoms 2 days ago, tested positive for COVID 2 days ago. Patient is fully vaccinated, boosted once, all his family including his tested positive recently, patient unable to get out of bed or walk without glass ribbon machine operator assistant, does not have any glass ribbon machine operator assistant at home, feeling generally weak Related Data Home Medications Medication Instructions Recorded Confirmed aspirin 81 mg chewable tablet 81 mg PO DAILY 03/05/21 12/17/21 (Aspirin Childrens) pantoprazole 40 mg tablet,delayed 40 mg PO QAM 03/05/21 12/17/21 release pravastatin 40 mg tablet 40 mg PO DAILY 03/05/21 12/17/21 quinapril 40 mg tablet 40 mg PO DAILY 03/05/21 12/17/21 temazepam 30 mg capsule 30 mg PO HS PRN Insomnia 03/05/21 12/17/21 Paxlovid (EUA) 03/27/22 ciprofloxacin HCl 500 mg tablet mg 03/27/22 cyclobenzaprine 10 mg tablet mg 03/27/22 Allergies Allergy/AdvReac Type Severity Reaction Status Date / Time No Known Allergies Allergy Verified 03/27/22 12:16 Review of Systems Review of Systems: All systems reviewed & are unremarkable except as noted in HPI and below PMFSH Past Medical History Medical History Benign prostatic hyperplasia History of kidney stones Hyperlipidemia Hypertension Macular degeneration Post-polio syndrome Pulmonary nodules Spinal stenosis Surgical History Surgical History History of appendectomy History of arthroplasty of right knee History of cataract extraction History of cervical spinal surgery History of lithotripsy Family History Family History Mother Alzheimer's dementia Diabetes mellitus Father Lung disease Sibling Amyotrophic lateral sclerosis Sibling Lung cancer Social History Social History Social History: Resides in [place] with his . 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 Former smoker, reportedly 1 - 1.5 packs of cigarettes a day for about 50 years. He quit smoking in 2014 but still occasionally vapes. No alcohol or illicit substance abuse. Surrogate decision maker: Lorena Sandoval, spouse. Code status: Do not resuscitate. Spiritual care concerns: No Exam Narrative: General appearance: Well-developed, well-nourished, frail, unable even to get up from laying down position because of the weakness Skin: Normal color Head: Normocephalic, nontraumatic Eyes: Clear conjunctiva ENT: Oropharynx normal, ears normal, nose normal Neck: Supple, nontender Chest and respiratory: Airway patent, no respiratory distress, no accessory muscle use Heart: Regular rate/rhythm Abdomen: Soft, nontender, no organomegaly, quiet bowel sounds Vascular: Normal peripheral pulses, normal capillary refill. Musculoskeletal: Normal range of motion, nontender back Neurologic: Alert and oriented ?3, PAYER SPECIALIST is normal as tested, no gross motor deficit Course Course Emergency Course: General weakness secondary to COVID infection is my concern. Patient does not have anybody at home helping out, patient need glass ribbon machine operator assistant 30/03 to ambulate. Vital Signs Vital signs: Vital Signs Temperature 36.8 C 03/27/22 12:14 Pulse Rate 102 H 03/27/22 12:14 Respiratory Rate 19 03/27/22 12:14 Bl
--- NOTE | 2022-03-27 12:25 | ECG_ITS ---
Measurements Intervals [place] Rate: 93 P: 1 DE: 136 QRS: 42 QRSD: 142 T: 41 QT: 388 QTc: 483 Interpretive Statements SINUS RHYTHM RIGHT BUNDLE BRANCH BLOCK MINIMAL Q WAVES- INFERIOR LEADS ABNORMAL ECG Electronically Signed On 03-27-2022 16:19:44 CDT by Julián Luke D.O.
[2022-03-27 13:10] LABS: Basophils Percent Auto 0.2 % (0.2-1.2); Hematocrit 50.5 % (42.0-52.0); Hemoglobin 16.7 g/dL (14.0-18.0); Immature Granulocyte Absolute 0.07 K/mm3 (0.00-0.031); Immature Granulocyte Percent A 0.6 % (0-0.5); Lymphocytes Absolute Auto 0.89 K/mm3 (0.9-3.2); Lymphocytes Percent Auto 7.4 % (18.3-44.2); Mean Corpuscular HGB Conc 33.1 g/dl (32-36); Mean Corpuscular Hemoglobin 31.9 pg (26-34); Mean Corpuscular Volume 96.6 fl (80-100); Mean Platelet Volume 10.1 fl (7.4-10.4); Monocytes Absolute Auto 0.9 K/mm3 (0.1-0.6); Monocytes Percent Auto 7.4 % (2.6-8.5); Neutrophils Absolute Auto 10.2 K/mm3 (1.3-6.7); Neutrophils Percent Auto 84.4 % (45.5-73.1); Platelet Count Result 190 k/mm3 (150-375); Red Blood Count 5.23 M/mm3 (4.6-6.20); Red Cell Distribution Width 13.4 % (11.5-14.5); White Blood Count 12.1 K/mm3 (4.5-10.0)
[2022-03-27 13:17] LABS: Lactic Acid Reflex 1.6 mmol/L (0.7-2.0)
[2022-03-27 13:20] LABS: Alanine Aminotransferase 27 U/L (6-50); Albumin Level 4.4 g/dL (3.5-5.1); Alkaline Phosphatase 149 U/L (38-126); Anion Gap 10 mmol/L (8-16); Aspartate Amino Transferase 38 U/L (17-59); Bilirubin,Total 0.7 mg/dL (0.2-1.3); Blood Urea Nitrogen 14 mg/dL (9-20); CRP 8.4 mg/dL (<1.0); Calcium 9.1 mg/dL (8.4-10.2); Carbon Dioxide 27 mmol/L (22-30); Chloride 100 mmol/L (98-107); Estimated CRCL calculation 62 ml/min; Estimated Glomerular Filt Rate > 60; Glucose 94 mg/dL (65-110); Potassium 3.6 mmol/L (3.4-5.0); Sodium 137 mmol/L (137-145)
[2022-03-27 13:22] LABS: Partial Thromboplastin Time 28.5 SECONDS (22.3-36.8)
[2022-03-27 13:51] LABS: SARS-CoV-2 RNA PCR Positive
[2022-03-27 13:53] LABS: Appearance Urine Clear (Clear); Bilirubin Urine Negative (Negative); Blood Urine 2+ (Negative); Color Urine Yellow (Yellow); Glucose Urine UA Negative (Negative); Ketones Urine 1+ mg/dL (Negative); Leukocyte Esterase Ur Negative LEU/UL (Negative); Nitrate Urine Negative (Negative); Protein Urine 1+ mg/dL (Negative); Specific Grav Ur 1.025 (1.001-1.035); Urobilinogen Urine 0.2 mg/dL (<2.0)
[2022-03-27 13:57] LABS: Mucus Urine Rare /lpf; RBC Urine 51-75 /hpf (0-2); Squamous Epithelial Cell Urine Rare /hpf (Few); WBC Urine 0-3 /hpf
[2022-03-27 14:14] LABS: Add Urine Microscopic? YES
--- NOTE | 2022-03-27 14:30 | PM.IMHP ---
H&P: HPI History of Present Illness Date/Time: 03/27/22 1430 Chief Complaint: Covid Narrative: Patient is an 81-year-old male with a past medical history of BPH, kidney stones, hyperlipidemia, hypertension, spinal stenosis who presented to the ED today with COVID, weakness. Patient stated that he tested positive early this week and that his family all have the COVID. He denies any chest pain, abdominal pain, nausea, vomiting, diarrhea, visual changes, hearing changes. Patient denies any headache, sweats, fevers, chills. Patient did say that his appetite was really liking and he has not eaten in 3 days. He stated that he has not needed because he has not been hungry at all. Patient did have a cough which is dry nonproductive. He stated the cough comes and goes. He also stated that he has not had a bowel movement 1 week. He complains of shortness of breath however patient states that he does not walk and he is wheelchair-bound at baseline. Patient is being admitted to the hospital service under observation Review of Systems Review of Systems: All systems reviewed & are unremarkable except as noted in HPI and below PMFSH Past Medical History Medical History (Updated 03/27/22 @ 16:50 by MIREILLE Campbell) Benign prostatic hyperplasia History of kidney stones Hyperlipidemia Hypertension Macular degeneration Post-polio syndrome Pulmonary nodules Rhabdomyolysis Spinal stenosis Upper respiratory infection Urinary tract infection Surgical History Surgical History History of appendectomy History of arthroplasty of right knee History of cataract extraction History of cervical spinal surgery History of lithotripsy Family History Family History Mother Alzheimer's dementia Diabetes mellitus Father Lung disease Sibling Amyotrophic lateral sclerosis Sibling Lung cancer Social History Social History Social History: Resides in [place] with his . 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 Former smoker, reportedly 1 - 1.5 packs of cigarettes a day for about 50 years. He quit smoking in 2014 but still occasionally vapes. No alcohol or illicit substance abuse. Surrogate decision maker: Lorena Sandoval, spouse. Code status: Do not resuscitate. Smoking packs per day: 1.5 Smoking cigarettes per day: 30.0 Years smoked: 50 Smoking pack-years: 75.00 Smoking status: Current every day smoker Tobacco type: cigarettes and e-cigarettes/vaping Additional smoking assessment comments: smoked cigarretes for 50 years quite in 2016 and started vaping Alcohol intake: never Substance use: never Spiritual care concerns: No Meds Home Medications and Allergies Home Medications Medication Instructions Recorded Confirmed Type aspirin 81 mg chewable tablet 81 mg PO DAILY 03/05/21 03/27/22 History (Aspirin [facility]) pantoprazole 40 mg tablet,delayed 40 mg PO QAM 03/05/21 03/27/22 History release pravastatin 40 mg tablet 40 mg PO DAILY 03/05/21 03/27/22 History quinapril 40 mg tablet 40 mg PO DAILY 03/05/21 03/27/22 History temazepam 30 mg capsule 30 mg PO HS PRN Insomnia 03/05/21 03/27/22 History finasteride 5 mg tablet (Proscar) 5 mg PO QAM #90 tabs 03/07/21 03/27/22 Rx tamsulosin 0.4 mg capsule 0.4 mg PO QAM #90 caps 03/07/21 03/27/22 Rx cephalexin 500 mg capsule 500 mg PO Q8H #15 caps 12/20/21 03/27/22 Rx oxycodone-acetaminophen 5 mg-325 1 tablet PO Q8H PRN pain #9 tabs 03/22/22 03/27/22 Rx mg tablet (Percocet) ciprofloxacin HCl 500 mg tablet 500 mg PO DAILY 03/27/22 03/27/22 History cyclobenzaprine 10 mg tablet 10 mg PO DAILY PRN Muscle Spasm 03/27/22 03/27/22 History guaifenesin 600 mg tablet, 600 mg PO Q12HR PRN Sinus Symptoms 03/27/22 03/27/22 History extended release 12 hr (Mucus Relief ER) Allergies Allergy/AdvReac T
[2022-03-27] MEDS: ONDANSETRON INJ 4 MG/2 ML VIAL 8 MG IV PUSH (14:41)
--- NOTE | 2022-03-27 14:45 | PC.NURSE ---
Pt to CT
[2022-03-27] MEDS: SODIUM CHLORIDE 0.9% IV 1,000 ML 75 ML IV CONT (15:18)
--- NOTE | 2022-03-27 15:55 | ADMGEN ---
This patient, Khari Christiansen, was admitted to Medical Room 243-01. Patient/family oriented to hospital policies and general routines including ID bracelet, bed and alarms, visiting hours, pain management, procedures, bathroom and other care routines, personal items, smoking policy, room service/diet, and visiting hours. Information on how to activate the Rapid Response Team has been discussed. Patient/Family are encouraged to report perceived risks to care and to ask questions if they do not understand what they are told or what they should do.
[2022-03-27] MEDS: DOCUSATE SODIUM 100 MG CAPSULE PO (17:18)
[2022-03-27] MEDS: TEMAZEPAM (*CRX) 15 MG CAPSULE 30 MG PO (22:21)
[2022-03-28 03:19] VITALS: BP 152/61; PULSE 87; RESP 16; TEMP 36.9; O2SAT 99
[2022-03-28] MEDS: SODIUM CHLORIDE 0.9% IV 1,000 ML 75 ML IV CONT ×2 (05:28→18:50)
[2022-03-28 05:38] LABS: INR 1.1; Prothrombin Time 13.7 Seconds (11.1-14.7)
[2022-03-28 05:39] LABS: Partial Thromboplastin Time 37.3 SECONDS (22.3-36.8)
[2022-03-28 05:50] LABS: Alanine Aminotransferase 19 U/L (6-50); Alkaline Phosphatase 112 U/L (38-126); Anion Gap 4 mmol/L (8-16); Aspartate Amino Transferase 27 U/L (17-59); Bilirubin,Total 0.3 mg/dL (0.2-1.3); Blood Urea Nitrogen 12 mg/dL (9-20); Carbon Dioxide 28 mmol/L (22-30); Chloride 107 mmol/L (98-107); Cholesterol 90 mg/dL (0-200); Estimated CRCL calculation 69 ml/min; Estimated Glomerular Filt Rate > 60; Glucose 85 mg/dL (65-110); HDL Direct 36 mg/dL; Lactate Dehydrogenase 389 U/L (313-618); Magnesium 1.8 mg/dL (1.6-2.3); Potassium 3.4 mmol/L (3.4-5.0); Sodium 139 mmol/L (137-145); Triglycerides 78 mg/dL (<150)
[2022-03-28 06:00] LABS: CRP 13.6 mg/dL (<1.0)
[2022-03-28 06:28] LABS: D Dimer 0.87 ug/mL (<0.48)
[2022-03-28 06:34] LABS: LDL Cholesterol Direct < 30 mg/dL
[2022-03-28 06:44] LABS: Basophils Percent Auto 0.3 % (0.2-1.2); Eosinophils Absolute Auto 0.1 K/mm3 (0-0.3); Eosinophils Percent Auto 0.9 % (0-4.4); Hematocrit 40.1 % (42.0-52.0); Immature Granulocyte Absolute 0.03 K/mm3 (0.00-0.031); Immature Granulocyte Percent A 0.4 % (0-0.5); Lymphocytes Absolute Auto 1.62 K/mm3 (0.9-3.2); Lymphocytes Percent Auto 20.3 % (18.3-44.2); Mean Corpuscular HGB Conc 32.9 g/dl (32-36); Mean Corpuscular Volume 97.1 fl (80-100); Monocytes Absolute Auto 0.7 K/mm3 (0.1-0.6); Neutrophils Absolute Auto 5.5 K/mm3 (1.3-6.7); Neutrophils Percent Auto 69.1 % (45.5-73.1); Platelet Count Result 166 k/mm3 (150-375); Red Blood Count 4.13 M/mm3 (4.6-6.20); Red Cell Distribution Width 13.7 % (11.5-14.5)
[2022-03-28 06:48] LABS: Hemoglobin 13.2 g/dL (14.0-18.0)
[2022-03-28] MEDS: FINASTERIDE 5 MG TABLET PO (10:21)
[2022-03-28] MEDS: DOCUSATE SODIUM 100 MG CAPSULE PO ×2 (10:21→18:48)
[2022-03-28] MEDS: PANTOPRAZOLE 40 MG TABLET PO (10:21)
[2022-03-28] MEDS: TAMSULOSIN HCL 0.4 MG CAPSULE PO (10:21)
[2022-03-28] MEDS: PRAVASTATIN SODIUM 20 MG TABLET 40 MG PO (10:22)
[2022-03-28] MEDS: lisinopriL 20 MG TABLET 40 MG PO (10:22)
[2022-03-28] MEDS: ENOXAPARIN 40 MG/0.4 ML SYRINGE SUB-Q (10:22)
[2022-03-28] MEDS: ASPIRIN 81 MG CHEWABLE TABLET PO (10:22)
[2022-03-28] MEDS: polyethylene glycoL 3350 17 GM POWD.PACK PO (10:22)
--- NOTE | 2022-03-28 10:32 | PCPTNOTE ---
Physical therapy initial evaluation attempted. Pt has a history of polio and uses an electric wheelchair for his mobility. In the past he has used a walker to transfer in/out of his wheelchair. In the last 1-2 week his home health worker has taught him to use a slide board to improve safety. Pt states he is unable to stand without his L leg brace and declines a slide board transfers this date. Talked to nurse and pt about contacting pt to bring in brace. Will continue to follow.
--- NOTE | 2022-03-28 13:35 | PCOTNOTE ---
Attempted occupational therapy evaluation. Pt. unable to participate at this time, as pt. reports he needs his AFO brace for mobilization. Pt. stated that he will call someone to bring it to hospital. Updated nursing.
[2022-03-28 14:30] VITALS: BP 138/69; PULSE 79; RESP 18; TEMP 36.3; O2SAT 99
--- NOTE | 2022-03-28 14:47 | PM.IMPN ---
Progress Note: A&P Assessment and Plan (1) Benign prostatic hyperplasia: Code(s): N40.0 - Benign prostatic hyperplasia without lower urinary tract symptoms Status: Acute Assessment and Plan: Continue home tamsulosin and Finastride Trend urine output Bladder scan PRN Adjust therapy as indicated (2) COVID-19 virus infection: Code(s): U07.1 - COVID-19 Status: Acute Assessment and Plan: Home test confirmed covid a couple days ago Confirmed here as well No indication for treatment as the patient remains on room air Reports weakness Trend respiratory symptoms Add antitussives Chest xray and CT is compatible with covid with opacities noted Trend chest xrays (3) Hyperlipidemia: Code(s): E78.5 - Hyperlipidemia, unspecified Status: Acute Assessment and Plan: Continue home pravastatin Lipid panel in the am (4) Hypertension: Code(s): I10 - Essential (primary) hypertension Status: Acute Assessment and Plan: Current 150/81 Continue quinapril 40mg PO Daily Trend blood pressure adjust therapy as indicated (5) Pulmonary nodules: Code(s): R91.8 - Other nonspecific abnormal finding of lung field Status: Acute Assessment and Plan: Chest CT shows enlarging nodules Biopsy recommended Could probably do this outpatient after resolution of covid (6) Abnormal urinalysis: Code(s): R82.90 - Unspecified abnormal findings in urine Status: Deleted Additional Plan 03/28/2022 interval history: patient 81-year-old male presented with a weakness and fatigue patient is positive for COVID however not requiring oxygen at rest is patient is wheelchair-bound, poor historian, will continue to monitor patient will benefit from baseline physical therapy to increase his physical activity, will have PT OT evaluate the patient, with gently hydrate the patient and monitor further recommendation to follow. Subjective Date/time seen: 03/28/22 14:47 HPI: Patient is an 81-year-old male with a past medical history of BPH, kidney stones, hyperlipidemia, hypertension, spinal stenosis who presented to the ED today with COVID, weakness.? Patient stated that he tested positive early this week and that his family all have the COVID.? He denies any chest pain, abdominal pain, nausea, vomiting, diarrhea, visual changes, hearing changes.? Patient denies any headache, sweats, fevers, chills.? Patient did say that his appetite was really liking and he has not eaten in 3 days.? He stated that he has not needed because he has not been hungry at all.? Patient did have a cough which is dry nonproductive.? He stated the cough comes and goes.? He also stated that he has not had a bowel movement 1 week.? He complains of shortness of breath however patient states that he does not walk and he is wheelchair-bound at baseline. 03/28/2022 interval history: patient 81-year-old male presented with a weakness and fatigue patient is positive for COVID however not requiring oxygen at rest is patient is wheelchair-bound, poor historian, will continue to monitor patient will benefit from baseline physical therapy to increase his physical activity, will have PT OT evaluate the patient, with gently hydrate the patient and monitor further recommendation to follow. Review of Systems Review of Systems: patient is a poor historian Exam Narrative: elderly frail Patient is comfortable, NAD HEENT: eyes are clear and none icteric LUNGS: normal respiratory effort ABD: distended Lower extremities: no edema SKIN: nonjaundiced Neuro: grossly intact. Objective Data Vital Signs Vital Signs: Vital Signs - 24 hr 03/27/22 15:17 03/27/22 14:55 03/27/22 15:00 Temperature Pulse Rate 88 86 79 Respiratory Rate 21 H 17 14 Blood Pressure 150/81 H Pulse Oximetry 99 95 97 Oxygen Delivery 07
[2022-03-28] MEDS: BISACODYL 10 MG SUPPOSITORY RECTAL (20:19)
[2022-03-28 20:34] VITALS: BP 135/66; PULSE 67; RESP 20; TEMP 36.3; O2SAT 99
[2022-03-28] MEDS: TEMAZEPAM (*CRX) 15 MG CAPSULE 30 MG PO (23:55)
[2022-03-29 06:00] VITALS: BP 127/71; PULSE 69; RESP 22; TEMP 36.3; O2SAT 98
[2022-03-29] MEDS: SODIUM CHLORIDE 0.9% IV 1,000 ML 75 ML IV CONT ×2 (06:26→19:22)
[2022-03-29] MEDS: ASPIRIN 81 MG CHEWABLE TABLET PO (08:01)
[2022-03-29] MEDS: DOCUSATE SODIUM 100 MG CAPSULE PO ×2 (08:01→18:21)
[2022-03-29] MEDS: TAMSULOSIN HCL 0.4 MG CAPSULE PO (08:01)
[2022-03-29] MEDS: HYDROcodone/acetaminophen (*CRX) 5-325 MG TABLET 1 TAB PO ×3 (08:02→19:21)
[2022-03-29] MEDS: lisinopriL 20 MG TABLET 40 MG PO (08:02)
[2022-03-29] MEDS: polyethylene glycoL 3350 17 GM POWD.PACK PO (08:03)
[2022-03-29] MEDS: FINASTERIDE 5 MG TABLET PO (08:03)
[2022-03-29] MEDS: ENOXAPARIN 40 MG/0.4 ML SYRINGE SUB-Q (08:03)
[2022-03-29] MEDS: PRAVASTATIN SODIUM 20 MG TABLET 40 MG PO (08:03)
[2022-03-29] MEDS: PANTOPRAZOLE 40 MG TABLET PO (08:03)
[2022-03-29] MEDS: CYCLOBENZAPRINE HCL 10 MG TABLET PO (08:03)
[2022-03-29 08:50] VITALS: O2SAT 98
--- NOTE | 2022-03-29 09:14 | PCPTNOTE ---
Patient refused to participate in PT evaluation secondary to pain. Nurse notified. Will attempt again.
--- NOTE | 2022-03-29 09:14 | PCOTNOTE ---
Attempted occupational therapy evaluation this date. Patient refused to participate due to R neck and side pain. Patient provided baseline history. Patient requested therapy returns tomorrow. Has a caregiver that comes for 2-3 hours a day 5-6 days a week to assist with bathing, transfers to the shower, bed, commode, or chair. Patient also lives with his who assists with ADLs and transfers. Patient states that he requires a boost off of the commode and sometimes powerchair. Patient typically sleeping in lift chair.
[2022-03-29 10:12] LABS: Hematocrit 42.8 % (42.0-52.0); Hemoglobin 14.3 g/dL (14.0-18.0); Mean Corpuscular HGB Conc 33.4 g/dl (32-36); Mean Corpuscular Hemoglobin 31.9 pg (26-34); Mean Corpuscular Volume 95.5 fl (80-100); Mean Platelet Volume 10.1 fl (7.4-10.4); Platelet Count Result 184 k/mm3 (150-375); Red Blood Count 4.48 M/mm3 (4.6-6.20); Red Cell Distribution Width 13.3 % (11.5-14.5); White Blood Count 8.9 K/mm3 (4.5-10.0)
[2022-03-29 10:21] LABS: Anion Gap 5 mmol/L (8-16); Blood Urea Nitrogen 11 mg/dL (9-20); CRP 4.4 mg/dL (<1.0); Calcium 7.9 mg/dL (8.4-10.2); Carbon Dioxide 25 mmol/L (22-30); Chloride 106 mmol/L (98-107); Estimated CRCL calculation 81 ml/min; Estimated Glomerular Filt Rate > 60; Glucose 109 mg/dL (65-110); Magnesium 1.7 mg/dL (1.6-2.3); Potassium 3.2 mmol/L (3.4-5.0); Sodium 136 mmol/L (137-145)
[2022-03-29] MEDS: POTASSIUM CHLORIDE 20 MEQ TABLET 40 MEQ PO (12:29)
[2022-03-29] MEDS: METHYLNALTREXONE 12 MG/0.6 ML VIAL SUB-Q (12:29)
[2022-03-29 14:00] VITALS: BP 133/65; PULSE 82; RESP 18; TEMP 36.9; O2SAT 95
--- NOTE | 2022-03-29 17:27 | P.PNIM_ITS ---
Progress Note: A&P Assessment and Plan (1) Benign prostatic hyperplasia: Code(s): N40.0 - Benign prostatic hyperplasia without lower urinary tract symptoms Status: Acute Assessment and Plan: * Continue home tamsulosin and Finastride * Trend urine output * Bladder scan PRN * Adjust therapy as indicated (2) COVID-19 virus infection: Code(s): U07.1 - COVID-19 Status: Acute Assessment and Plan: * Home test confirmed covid a couple days ago * Confirmed here as well * No indication for treatment as the patient remains on room air * Reports weakness * Trend respiratory symptoms * Add antitussives * Chest xray and CT is compatible with covid with opacities noted * Trend chest xrays (3) Hyperlipidemia: Code(s): E78.5 - Hyperlipidemia, unspecified Status: Acute Assessment and Plan: * Continue home pravastatin * Lipid panel in the am (4) Hypertension: Code(s): I10 - Essential (primary) hypertension Status: Acute Assessment and Plan: * Current 150/81 * Continue quinapril 40mg PO Daily * Trend blood pressure * adjust therapy as indicated (5) Pulmonary nodules: Code(s): R91.8 - Other nonspecific abnormal finding of lung field Status: Acute Assessment and Plan: * Chest CT shows enlarging nodules * Biopsy recommended * Could probably do this outpatient after resolution of covid (6) Abnormal urinalysis: Code(s): R82.90 - Unspecified abnormal findings in urine Status: Deleted Additional Plan 03/28/2022 interval history: patient 81-year-old male presented with a weakness and fatigue patient is positive for COVID however not requiring oxygen at rest is patient is wheelchair-bound, poor historian, will continue to monitor patient will benefit from baseline physical therapy to increase his physical activity, will have PT OT evaluate the patient, with gently hydrate the patient and monitor further recommendation to follow. 03/29/2022 interval history: patient 81-year-old male presented with a weakness and fatigue patient is positive for COVID however not requiring oxygen at rest is patient is wheelchair-bound, poor historian, today patient continued to complain of constipation apparently he was given Dulcolax suppository and enema and had a bowel movement, we were not aware of the patient had BM, discussed with nursing as patient was complaining constipation, bowel sounds were positive abdomen was soft, , patient was given 1 time dose a Relistor, will continue to monitor patient will benefit from baseline physical therapy to increase his physical activity, will have PT OT evaluate the patient, with gently hydrate the patient and monitor further recommendation to follow. Subjective Date/time seen: 03/29/22 17:27 03/29/2022 interval history: patient 81-year-old male presented with a weakness and fatigue patient is positive for COVID however not requiring oxygen at rest is patient is wheelchair-bound, poor historian, today patient continued to complain of constipation apparently he was given Dulcolax suppository and enema and had a bowel movement, we were not aware of the patient had BM, discussed with nursing as patient was complaining constipation, bowel sounds were positive abdomen was soft, , patient was given 1 time dose a Relistor, will continue to monitor patient will benefit from baseline physical therapy to increase his physical activity,
--- NOTE | 2022-03-29 17:27 | PM.IMPN ---
Progress Note: A&P Assessment and Plan (1) Benign prostatic hyperplasia: Code(s): N40.0 - Benign prostatic hyperplasia without lower urinary tract symptoms Status: Acute Assessment and Plan: Continue home tamsulosin and Finastride Trend urine output Bladder scan PRN Adjust therapy as indicated (2) COVID-19 virus infection: Code(s): U07.1 - COVID-19 Status: Acute Assessment and Plan: Home test confirmed covid a couple days ago Confirmed here as well No indication for treatment as the patient remains on room air Reports weakness Trend respiratory symptoms Add antitussives Chest xray and CT is compatible with covid with opacities noted Trend chest xrays (3) Hyperlipidemia: Code(s): E78.5 - Hyperlipidemia, unspecified Status: Acute Assessment and Plan: Continue home pravastatin Lipid panel in the am (4) Hypertension: Code(s): I10 - Essential (primary) hypertension Status: Acute Assessment and Plan: Current 150/81 Continue quinapril 40mg PO Daily Trend blood pressure adjust therapy as indicated (5) Pulmonary nodules: Code(s): R91.8 - Other nonspecific abnormal finding of lung field Status: Acute Assessment and Plan: Chest CT shows enlarging nodules Biopsy recommended Could probably do this outpatient after resolution of covid (6) Abnormal urinalysis: Code(s): R82.90 - Unspecified abnormal findings in urine Status: Deleted Additional Plan 03/28/2022 interval history: patient 81-year-old male presented with a weakness and fatigue patient is positive for COVID however not requiring oxygen at rest is patient is wheelchair-bound, poor historian, will continue to monitor patient will benefit from baseline physical therapy to increase his physical activity, will have PT OT evaluate the patient, with gently hydrate the patient and monitor further recommendation to follow. 03/29/2022 interval history: patient 81-year-old male presented with a weakness and fatigue patient is positive for COVID however not requiring oxygen at rest is patient is wheelchair-bound, poor historian, today patient continued to complain of constipation apparently he was given Dulcolax suppository and enema and had a bowel movement, we were not aware of the patient had BM, discussed with nursing as patient was complaining constipation, bowel sounds were positive abdomen was soft, , patient was given 1 time dose a Relistor, will continue to monitor patient will benefit from baseline physical therapy to increase his physical activity, will have PT OT evaluate the patient, with gently hydrate the patient and monitor further recommendation to follow. Subjective Date/time seen: 03/29/22 17:27 03/29/2022 interval history: patient 81-year-old male presented with a weakness and fatigue patient is positive for COVID however not requiring oxygen at rest is patient is wheelchair-bound, poor historian, today patient continued to complain of constipation apparently he was given Dulcolax suppository and enema and had a bowel movement, we were not aware of the patient had BM, discussed with nursing as patient was complaining constipation, bowel sounds were positive abdomen was soft, , patient was given 1 time dose a Relistor, will continue to monitor patient will benefit from baseline physical therapy to increase his physical activity, will have PT OT evaluate the patient, with gently hydrate the patient and monitor further recommendation to follow. Exam Narrative: elderly frail Patient is comfortable, NAD HEENT: eyes are clear and none icteric LUNGS: normal respiratory effort ABD: bowel sounds positive soft and nontender Lower extremities: no edema SKIN: nonjaundiced Neuro: grossly intact. Objective Data Vital Signs Vital Signs: Vital Signs - 24 hr 07
[2022-03-29 19:53] VITALS: BP 127/60; PULSE 74; RESP 18; TEMP 36.1; O2SAT 95
[2022-03-30] MEDS: TEMAZEPAM (*CRX) 15 MG CAPSULE 30 MG PO ×2 (00:30→21:23)
[2022-03-30 03:25] VITALS: BP 149/81; PULSE 83; RESP 18; TEMP 36.6; O2SAT 99
[2022-03-30 05:14] LABS: Hematocrit 40.9 % (42.0-52.0); Hemoglobin 13.8 g/dL (14.0-18.0); Mean Corpuscular HGB Conc 33.7 g/dl (32-36); Mean Corpuscular Volume 94.9 fl (80-100); Mean Platelet Volume 10.2 fl (7.4-10.4); Platelet Count Result 198 k/mm3 (150-375); Red Blood Count 4.31 M/mm3 (4.6-6.20); Red Cell Distribution Width 13.2 % (11.5-14.5)
[2022-03-30 05:24] LABS: Anion Gap 6 mmol/L (8-16); Blood Urea Nitrogen 13 mg/dL (9-20); Calcium 7.8 mg/dL (8.4-10.2); Carbon Dioxide 27 mmol/L (22-30); Chloride 106 mmol/L (98-107); Estimated CRCL calculation 81 ml/min; Estimated Glomerular Filt Rate > 60; Glucose 88 mg/dL (65-110); Potassium 3.8 mmol/L (3.4-5.0); Sodium 139 mmol/L (137-145)
[2022-03-30] MEDS: HYDROcodone/acetaminophen (*CRX) 5-325 MG TABLET 1 TAB PO ×3 (05:41→20:07)
[2022-03-30 08:00] VITALS: PULSE 83; RESP 18; O2SAT 99
[2022-03-30] MEDS: SODIUM CHLORIDE 0.9% IV 1,000 ML 75 ML IV CONT (08:17)
[2022-03-30] MEDS: PANTOPRAZOLE 40 MG TABLET PO (08:18)
[2022-03-30] MEDS: TAMSULOSIN HCL 0.4 MG CAPSULE PO (08:18)
[2022-03-30] MEDS: DOCUSATE SODIUM 100 MG CAPSULE PO ×2 (08:18→17:19)
[2022-03-30] MEDS: ENOXAPARIN 40 MG/0.4 ML SYRINGE SUB-Q (08:18)
[2022-03-30] MEDS: ASPIRIN 81 MG CHEWABLE TABLET PO (08:18)
[2022-03-30] MEDS: FINASTERIDE 5 MG TABLET PO (08:18)
[2022-03-30] MEDS: lisinopriL 20 MG TABLET 40 MG PO (08:18)
[2022-03-30] MEDS: polyethylene glycoL 3350 17 GM POWD.PACK PO (08:18)
[2022-03-30] MEDS: PRAVASTATIN SODIUM 20 MG TABLET 40 MG PO (08:19)
[2022-03-30 09:52] VITALS: BMI 10.0; BMI 11.0
--- NOTE | 2022-03-30 11:36 | P.PNIM_ITS ---
Progress Note: A&P Assessment and Plan (1) Benign prostatic hyperplasia: Code(s): N40.0 - Benign prostatic hyperplasia without lower urinary tract symptoms Status: Acute Assessment and Plan: * Continue home tamsulosin and Finastride * Trend urine output * Bladder scan PRN * Adjust therapy as indicated (2) COVID-19 virus infection: Code(s): U07.1 - COVID-19 Status: Acute Assessment and Plan: * Home test confirmed covid a couple days ago * Confirmed here as well * No indication for treatment as the patient remains on room air * Reports weakness * Trend respiratory symptoms * Add antitussives * Chest xray and CT is compatible with covid with opacities noted * Trend chest xrays (3) Hyperlipidemia: Code(s): E78.5 - Hyperlipidemia, unspecified Status: Acute Assessment and Plan: * Continue home pravastatin * Lipid panel in the am (4) Hypertension: Code(s): I10 - Essential (primary) hypertension Status: Acute Assessment and Plan: * Current 150/81 * Continue quinapril 40mg PO Daily * Trend blood pressure * adjust therapy as indicated (5) Pulmonary nodules: Code(s): R91.8 - Other nonspecific abnormal finding of lung field Status: Acute Assessment and Plan: * Chest CT shows enlarging nodules * Biopsy recommended * Could probably do this outpatient after resolution of covid (6) Abnormal urinalysis: Code(s): R82.90 - Unspecified abnormal findings in urine Status: Deleted Additional Plan 03/28/2022 interval history: patient 81-year-old male presented with a weakness and fatigue patient is positive for COVID however not requiring oxygen at rest is patient is wheelchair-bound, poor historian, will continue to monitor patient will benefit from baseline physical therapy to increase his physical activity, will have PT OT evaluate the patient, with gently hydrate the patient and monitor further recommendation to follow. 03/29/2022 interval history: patient 81-year-old male presented with a weakness and fatigue patient is positive for COVID however not requiring oxygen at rest is patient is wheelchair-bound, poor historian, today patient continued to complain of constipation apparently he was given Dulcolax suppository and enema and had a bowel movement, we were not aware of the patient had BM, discussed with nursing as patient was complaining constipation, bowel sounds were positive abdomen was soft, , patient was given 1 time dose a Relistor, will continue to monitor patient will benefit from baseline physical therapy to increase his physical activity, will have PT OT evaluate the patient, with gently hydrate the patient and monitor further recommendation to follow. 03/30/2022 interval history: patient 81-year-old male presented with a weakness and fatigue patient is positive for COVID however not requiring oxygen at rest is patient is wheelchair-bound, poor historian, on 03/29 patient continued to complain of constipation apparently he was given Dulcolax suppository and enema and had a bowel movement, we were not aware of the patient had BM, discussed with nursing as patient was complaining constipation, bowel sounds were positive abdomen was soft, , patient was given 1 time dose a Relistor, today patient states is feeling better other than pain in his neck will apply Lidoderm patch, today patient was able sit on the side of the bed and minimally participated in ph
[2022-03-30] MEDS: LIDOCAINE 5% PATCH 2 PATCH TRANSDERM (13:01)
[2022-03-30 14:00] VITALS: BP 152/90; PULSE 93; RESP 18; TEMP 36.3; O2SAT 98
[2022-03-30 20:00] VITALS: PULSE 88; RESP 18; O2SAT 100
[2022-03-30 20:11] VITALS: BP 160/80; PULSE 88; RESP 18; TEMP 36.8; O2SAT 100
[2022-03-31 04:16] VITALS: BP 165/94; PULSE 93; RESP 18; TEMP 37.1; O2SAT 100
[2022-03-31 06:00] LABS: Hematocrit 40.3 % (42.0-52.0); Hemoglobin 13.5 g/dL (14.0-18.0); Mean Corpuscular HGB Conc 33.5 g/dl (32-36); Mean Corpuscular Hemoglobin 32.2 pg (26-34); Mean Corpuscular Volume 96.2 fl (80-100); Mean Platelet Volume 9.7 fl (7.4-10.4); Platelet Count Result 197 k/mm3 (150-375); Red Blood Count 4.19 M/mm3 (4.6-6.20); White Blood Count 5.5 K/mm3 (4.5-10.0)
[2022-03-31 06:13] LABS: Anion Gap 6 mmol/L (8-16); Blood Urea Nitrogen 10 mg/dL (9-20); Calcium 8.1 mg/dL (8.4-10.2); Carbon Dioxide 28 mmol/L (22-30); Chloride 104 mmol/L (98-107); Estimated CRCL calculation 69 ml/min; Estimated Glomerular Filt Rate > 60; Glucose 97 mg/dL (65-110); Potassium 3.6 mmol/L (3.4-5.0); Sodium 138 mmol/L (137-145)
[2022-03-31] MEDS: LIDOCAINE 5% PATCH 2 PATCH TRANSDERM (08:51)
[2022-03-31] MEDS: HYDROcodone/acetaminophen (*CRX) 5-325 MG TABLET 1 TAB PO ×3 (08:52→21:01)
[2022-03-31] MEDS: ENOXAPARIN 40 MG/0.4 ML SYRINGE SUB-Q (08:53)
[2022-03-31] MEDS: PRAVASTATIN SODIUM 20 MG TABLET 40 MG PO (08:54)
[2022-03-31] MEDS: TAMSULOSIN HCL 0.4 MG CAPSULE PO (08:54)
[2022-03-31] MEDS: PANTOPRAZOLE 40 MG TABLET PO (08:54)
[2022-03-31] MEDS: ASPIRIN 81 MG CHEWABLE TABLET PO (08:54)
[2022-03-31] MEDS: lisinopriL 20 MG TABLET 40 MG PO (08:54)
[2022-03-31] MEDS: DOCUSATE SODIUM 100 MG CAPSULE PO ×2 (08:55→16:42)
[2022-03-31] MEDS: FINASTERIDE 5 MG TABLET PO (08:55)
[2022-03-31] MEDS: polyethylene glycoL 3350 17 GM POWD.PACK PO (08:55)
--- NOTE | 2022-03-31 11:59 | PCOTNOTE ---
Patient declined OT at this time, asked for therapist to return post receiving pain pill.
[2022-03-31 13:36] VITALS: BP 153/68; PULSE 76; RESP 18; TEMP 36.1; O2SAT 100
--- NOTE | 2022-03-31 15:06 | PM.IMPN ---
Progress Note: A&P Assessment and Plan (1) Benign prostatic hyperplasia: Code(s): N40.0 - Benign prostatic hyperplasia without lower urinary tract symptoms Status: Acute Assessment and Plan: Continue home tamsulosin and Finastride Trend urine output Bladder scan PRN Adjust therapy as indicated (2) COVID-19 virus infection: Code(s): U07.1 - COVID-19 Status: Acute Assessment and Plan: Home test confirmed covid a couple days ago Confirmed here as well No indication for treatment as the patient remains on room air Reports weakness Trend respiratory symptoms Add antitussives Chest xray and CT is compatible with covid with opacities noted Trend chest xrays (3) Hyperlipidemia: Code(s): E78.5 - Hyperlipidemia, unspecified Status: Acute Assessment and Plan: Continue home pravastatin Lipid panel in the am (4) Hypertension: Code(s): I10 - Essential (primary) hypertension Status: Acute Assessment and Plan: Current 150/81 Continue quinapril 40mg PO Daily Trend blood pressure adjust therapy as indicated (5) Pulmonary nodules: Code(s): R91.8 - Other nonspecific abnormal finding of lung field Status: Acute Assessment and Plan: Chest CT shows enlarging nodules Biopsy recommended Could probably do this outpatient after resolution of covid (6) Abnormal urinalysis: Code(s): R82.90 - Unspecified abnormal findings in urine Status: Deleted Additional Plan 03/28/2022 interval history: patient 81-year-old male presented with a weakness and fatigue patient is positive for COVID however not requiring oxygen at rest is patient is wheelchair-bound, poor historian, will continue to monitor patient will benefit from baseline physical therapy to increase his physical activity, will have PT OT evaluate the patient, with gently hydrate the patient and monitor further recommendation to follow. 03/29/2022 interval history: patient 81-year-old male presented with a weakness and fatigue patient is positive for COVID however not requiring oxygen at rest is patient is wheelchair-bound, poor historian, today patient continued to complain of constipation apparently he was given Dulcolax suppository and enema and had a bowel movement, we were not aware of the patient had BM, discussed with nursing as patient was complaining constipation, bowel sounds were positive abdomen was soft, , patient was given 1 time dose a Relistor, will continue to monitor patient will benefit from baseline physical therapy to increase his physical activity, will have PT OT evaluate the patient, with gently hydrate the patient and monitor further recommendation to follow. 03/30/2022 interval history: patient 81-year-old male presented with a weakness and fatigue patient is positive for COVID however not requiring oxygen at rest is patient is wheelchair-bound, poor historian, on 03/29 patient continued to complain of constipation apparently he was given Dulcolax suppository and enema and had a bowel movement, we were not aware of the patient had BM, discussed with nursing as patient was complaining constipation, bowel sounds were positive abdomen was soft, , patient was given 1 time dose a Relistor, today patient states is feeling better other than pain in his neck will apply Lidoderm patch, today patient was able sit on the side of the bed and minimally participated in physical therapy, will continue to monitor patient will benefit from baseline physical therapy to increase his physical activity, will have PT OT evaluate the patient, with gently hydrate the patient and monitor further recommendation to follow. 03/31/2022 interval history: patient 81-year-old male presented with a weakness and fatigue patient is positive for COVID however not requiring oxygen at rest is patient is wheelchair-bound, poor
[2022-03-31 19:58] VITALS: BP 171/93; PULSE 99; RESP 16; TEMP 36.3; O2SAT 98
[2022-03-31] MEDS: TEMAZEPAM (*CRX) 15 MG CAPSULE 30 MG PO (20:27)
[2022-04-01 03:34] VITALS: BP 150/98; PULSE 56; RESP 16; TEMP 36.3; O2SAT 97
[2022-04-01 05:31] LABS: Hematocrit 43.4 % (42.0-52.0); Hemoglobin 14.5 g/dL (14.0-18.0); Mean Corpuscular HGB Conc 33.4 g/dl (32-36); Mean Corpuscular Hemoglobin 31.8 pg (26-34); Mean Corpuscular Volume 95.2 fl (80-100); Mean Platelet Volume 10.2 fl (7.4-10.4); Platelet Count Result 244 k/mm3 (150-375); Red Blood Count 4.56 M/mm3 (4.6-6.20); Red Cell Distribution Width 12.7 % (11.5-14.5); White Blood Count 5.7 K/mm3 (4.5-10.0)
[2022-04-01 05:41] LABS: Anion Gap 8 mmol/L (8-16); Blood Urea Nitrogen 10 mg/dL (9-20); Calcium 8.3 mg/dL (8.4-10.2); Carbon Dioxide 27 mmol/L (22-30); Chloride 103 mmol/L (98-107); Estimated CRCL calculation 81 ml/min; Estimated Glomerular Filt Rate > 60; Glucose 100 mg/dL (65-110); Potassium 3.6 mmol/L (3.4-5.0); Sodium 138 mmol/L (137-145)
[2022-04-01] MEDS: LIDOCAINE 5% PATCH 2 PATCH TRANSDERM (08:50)
[2022-04-01] MEDS: HYDROcodone/acetaminophen (*CRX) 5-325 MG TABLET 1 TAB PO ×3 (08:51→20:52)
[2022-04-01] MEDS: polyethylene glycoL 3350 17 GM POWD.PACK PO (08:52)
[2022-04-01] MEDS: FINASTERIDE 5 MG TABLET PO (08:52)
[2022-04-01] MEDS: DOCUSATE SODIUM 100 MG CAPSULE PO ×2 (08:52→16:41)
[2022-04-01] MEDS: TAMSULOSIN HCL 0.4 MG CAPSULE PO (08:52)
[2022-04-01] MEDS: PRAVASTATIN SODIUM 20 MG TABLET 40 MG PO (08:52)
[2022-04-01] MEDS: ENOXAPARIN 40 MG/0.4 ML SYRINGE SUB-Q (08:54)
[2022-04-01] MEDS: ASPIRIN 81 MG CHEWABLE TABLET PO (08:54)
[2022-04-01] MEDS: PANTOPRAZOLE 40 MG TABLET PO (10:50)
[2022-04-01] MEDS: lisinopriL 20 MG TABLET 40 MG PO (10:50)
--- NOTE | 2022-04-01 12:10 | PCOTNOTE ---
Assisted BIODIESEL ENGINE SPECIALIST with repositioning patient. Patient asked to participate in OT, reported having pain in R buttock and helped to turn onto L side. Patient declined any activity at this time, as well as using maxi move to transfer to chair for improved ability to eat lunch which had just arrived. Will attempt again for OT.
[2022-04-01 14:00] VITALS: BP 140/62; PULSE 69; RESP 16; TEMP 36.2; O2SAT 94
--- NOTE | 2022-04-01 18:20 | PDONCCN ---
HPI - Date of Consult Date/Time: 04/01/22 18:20 Requesting Physician: Mai Gan MD Primary Care Provider: Brain Devlin, - Consult Narrative Reason for consult: Lung mass Narrative: Khari Christiansen is a 81 year old male with history of hyperlipidemia, hypertension and spinal stenosis came into the ER with complain of generalized weakness and COVID infection. He was tested positive earlier this week with COVID infection. Patient complain of shortness of breath and also complain of some cough with dry nonproductive sputum. CT chest from March 27 showed worsened 2.2 cm right lower lobe mass suspicious for primary bronchogenic carcinoma. There were some combination of interstitial lung disease and COVID pneumonia in the lower lobes. Patient also has limited mobility and has been using wheelchair due to lower extremity weakness. He quit smoking few years back. Review of Systems - Review of Systems All systems reviewed & are unremarkable except as noted in HPI and [facility] Medical History: Medical History (Last Updated 03/27/22 @ 16:50 by MIREILLE Campbell) Benign prostatic hyperplasia History of kidney stones Hyperlipidemia Hypertension Macular degeneration Post-polio syndrome Pulmonary nodules Rhabdomyolysis Spinal stenosis Upper respiratory infection Urinary tract infection Surgical History: Surgical History (Last Reviewed 03/27/22 @ 16:43 by MIREILLE Campbell) History of appendectomy History of arthroplasty of right knee History of cataract extraction History of cervical spinal surgery History of lithotripsy Family History: Family History (Last Reviewed 03/27/22 @ 16:43 by MIREILLE Campbell) Mother Alzheimer's dementia Diabetes mellitus Father Lung disease Sibling Amyotrophic lateral sclerosis Sibling Lung cancer - Social History Social History: Social History (Last Reviewed 03/27/22 @ 14:11 by Tyrell Escamilla MD) Alcohol Use: Alcohol intake: never Substance Use: Substance use: never Others: Spiritual care concerns: No Smoking Status: Smoking status: Current every day smoker Tobacco type: cigarettes Tobacco type: e-cigarettes/vaping Smoking Pack-years: Smoking packs per day: 1.5 Smoking cigarettes per day: 30.0 Years smoked: 50 Smoking pack-years: 75.00 Comments: Additional smoking assessment comments: smoked cigarretes for 50 years quite in 2016 and started vaping Meds Home Medications Medication Instructions Recorded Confirmed Type aspirin 81 mg chewable tablet 81 mg PO DAILY 03/05/21 03/27/22 History (Aspirin Childrens) pantoprazole 40 mg tablet,delayed 40 mg PO QAM 03/05/21 03/27/22 History release pravastatin 40 mg tablet 40 mg PO DAILY 03/05/21 03/27/22 History quinapril 40 mg tablet 40 mg PO DAILY 03/05/21 03/27/22 History temazepam 30 mg capsule 30 mg PO HS PRN Insomnia 03/05/21 03/27/22 History finasteride 5 mg tablet (Proscar) 5 mg PO QAM #90 tabs 03/07/21 03/27/22 Rx tamsulosin 0.4 mg capsule 0.4 mg PO QAM #90 caps 03/07/21 03/27/22 Rx cephalexin 500 mg capsule 500 mg PO Q8H #15 caps 12/20/21 03/27/22 Rx oxycodone-acetaminophen 5 mg-325 1 tablet PO Q8H PRN pain #9 tabs 03/22/22 03/27/22 Rx mg tablet (Percocet) ciprofloxacin HCl 500 mg tablet 500 mg PO DAILY 03/27/22 03/27/22 History cyclobenzaprine 10 mg tablet 10 mg PO DAILY PRN Muscle Spasm 03/27/22 03/27/22 History guaifenesin 600 mg tablet, 600 mg PO Q12HR PRN Sinus Symptoms 03/27/22 03/27/22 History extended release 12 hr (Mucus Relief ER) Allergies Allergy/AdvReac Type Severity Reaction Status Date / Time No Known Allergies Allergy Verified 03/27/22 16:06 Results - Labs CBC & Chem 7: 04/01/22 04:46 04/01/22 04:46 Labs: Short CBC 04/01/22 Range/Units 04:46 WBC 5.7 (4.5-10.0) K/mm3 Hgb 14.5 (14.0-18.0) g/dL Hct 43.4 (42.0-52.0) % Plt Count 244
[2022-04-01 20:00] VITALS: BP 169/89; PULSE 102; RESP 18; TEMP 36.1; O2SAT 98
[2022-04-01] MEDS: TEMAZEPAM (*CRX) 15 MG CAPSULE 30 MG PO (20:53)
[2022-04-02 05:05] LABS: Hematocrit 43.6 % (42.0-52.0); Hemoglobin 14.5 g/dL (14.0-18.0); Mean Corpuscular HGB Conc 33.3 g/dl (32-36); Mean Corpuscular Hemoglobin 31.5 pg (26-34); Mean Corpuscular Volume 94.6 fl (80-100); Mean Platelet Volume 9.9 fl (7.4-10.4); Platelet Count Result 246 k/mm3 (150-375); Red Blood Count 4.61 M/mm3 (4.6-6.20); Red Cell Distribution Width 12.8 % (11.5-14.5); White Blood Count 7.2 K/mm3 (4.5-10.0)
[2022-04-02 05:16] LABS: Anion Gap 7 mmol/L (8-16); Blood Urea Nitrogen 15 mg/dL (9-20); Calcium 8.9 mg/dL (8.4-10.2); Carbon Dioxide 28 mmol/L (22-30); Chloride 104 mmol/L (98-107); Estimated CRCL calculation 69 ml/min; Estimated Glomerular Filt Rate > 60; Glucose 101 mg/dL (65-110); Potassium 3.6 mmol/L (3.4-5.0); Sodium 139 mmol/L (137-145)
[2022-04-02 05:29] VITALS: BP 160/82; PULSE 91; RESP 78; TEMP 36.5; O2SAT 97
[2022-04-02 07:00] VITALS: RESP 20
[2022-04-02] MEDS: HYDROcodone/acetaminophen (*CRX) 5-325 MG TABLET 1 TAB PO (09:07)
[2022-04-02] MEDS: ENOXAPARIN 40 MG/0.4 ML SYRINGE SUB-Q (09:08)
[2022-04-02] MEDS: ASPIRIN 81 MG CHEWABLE TABLET PO (09:08)
[2022-04-02] MEDS: polyethylene glycoL 3350 17 GM POWD.PACK PO (09:08)
[2022-04-02] MEDS: lisinopriL 20 MG TABLET 40 MG PO (09:08)
[2022-04-02] MEDS: TAMSULOSIN HCL 0.4 MG CAPSULE PO (09:08)
[2022-04-02] MEDS: DOCUSATE SODIUM 100 MG CAPSULE PO ×2 (09:09→16:28)
[2022-04-02] MEDS: PANTOPRAZOLE 40 MG TABLET PO (09:09)
[2022-04-02] MEDS: FINASTERIDE 5 MG TABLET PO (09:09)
[2022-04-02] MEDS: PRAVASTATIN SODIUM 20 MG TABLET 40 MG PO (09:09)
[2022-04-02] MEDS: LIDOCAINE 5% PATCH 2 PATCH TRANSDERM (09:09)
--- NOTE | 2022-04-02 13:04 | PM.DS ---
DS: Admitting Diagnosis Discharge Date April 02, 2022 Admitting Diagnosis COVID pneumonia DS: Discharge Diagnosis Discharge Diagnosis (1) Benign prostatic hyperplasia: Code(s): N40.0 - Benign prostatic hyperplasia without lower urinary tract symptoms Status: Acute Assessment and Plan: Continue home tamsulosin and Finastride Trend urine output Bladder scan PRN Adjust therapy as indicated (2) COVID-19 virus infection: Code(s): U07.1 - COVID-19 Status: Acute Assessment and Plan: Home test confirmed covid a couple days ago Confirmed here as well No indication for treatment as the patient remains on room air snf on discharge (3) Hyperlipidemia: Code(s): E78.5 - Hyperlipidemia, unspecified Status: Acute Assessment and Plan: Continue home pravastatin (4) Hypertension: Code(s): I10 - Essential (primary) hypertension Status: Acute Assessment and Plan: continue home medication (5) Pulmonary nodules: Code(s): R91.8 - Other nonspecific abnormal finding of lung field Status: Acute Assessment and Plan: Chest CT shows enlarging nodules Biopsy recommended Could probably do this outpatient after resolution of covid (6) Abnormal urinalysis: Code(s): R82.90 - Unspecified abnormal findings in urine Status: Deleted DS: Summary Hospital Course Hospital Course: patient was admitted for weakness and COVID pneumonia. Never required any oxygen and did not require treatment. Patient was thus placed at a skilled facility for ongoing rehab for his weakness. Otherwise no other significant problems during hospitalization. Time Spent with Patient Time attestation: Total time spent providing and/or coordinating discharge services: Exam Narrative: elderly frail Patient is comfortable, NAD HEENT: eyes are clear and none icteric LUNGS: normal respiratory effort ABD: bowel sounds positive soft and nontender Lower extremities: no edema SKIN: nonjaundiced Neuro: grossly intact. DS: Data Data Completed and Pending Labs on day of discharge: Labs from last 24 hours 04/02/22 04/02/22 04:42 04:42 WBC 7.2 RBC 4.61 Hgb 14.5 Hct 43.6 MCV 94.6 MCH 31.5 MCHC 33.3 RDW 12.8 Plt Count 246 MPV 9.9 Sodium 139 Potassium 3.6 Chloride 104 Carbon Dioxide 28 Anion Gap 7 L BUN 15 D Creatinine 0.60 L Estim Creat Clear Calc 69 Estimated GFR > 60 Glucose 101 Calcium 8.9 Discharge Plan Discharge Attending physician on discharge: Tristen Treadwell Consulting providers: Jovanny Rodriguez Discharging Clinician: Tristen Treadwell Patient Disposition: SNF Activity: no preference Diet: as tolerated Patient Instructions: How to Stop Smoking (DC), Pain Management (DC) Stand Alone Forms: General Discharge Information Discharge Medications: Continued cyclobenzaprine 10 mg tablet 10 mg PO DAILY PRN (Reason: Muscle Spasm) ciprofloxacin HCl 500 mg tablet 500 mg PO DAILY Label Comments: patient state about 2-3 left guaifenesin [Mucus Relief ER] 600 mg tablet extended release 12hr 600 mg PO Q12HR PRN (Reason: Sinus Symptoms) pravastatin 40 mg Tablet 40 mg PO DAILY temazepam 30 mg Capsule 30 mg PO HS PRN (Reason: Insomnia) pantoprazole 40 mg Tablet,Delayed Release (Dr/Ec) 40 mg PO QAM quinapril 40 mg tablet 40 mg PO DAILY aspirin [Aspirin Childrens] 81 mg Tablet,Chewable 81 mg PO DAILY tamsulosin 0.4 mg Capsule 0.4 mg PO QAM Qty: 90 3RF finasteride [Proscar] 5 mg Tablet 5 mg PO QAM Qty: 90 3RF cephalexin 500 mg capsule 500 mg PO Q8H Qty: 15 0RF Label Comments: patient states 2-3 tablets left oxycodone-acetaminophen [Percocet] 5-325 mg tablet 1 tablet PO Q8H PRN (Reason: pain) Qty: 9 0RF
--- NOTE | 2022-04-02 14:19 | PM.IMPN ---
Progress Note: A&P Assessment and Plan (1) Benign prostatic hyperplasia: Code(s): N40.0 - Benign prostatic hyperplasia without lower urinary tract symptoms Status: Acute Assessment and Plan: Continue home tamsulosin and Finastride Trend urine output Bladder scan PRN Adjust therapy as indicated (2) COVID-19 virus infection: Code(s): U07.1 - COVID-19 Status: Acute Assessment and Plan: Home test confirmed covid a couple days ago Confirmed here as well No indication for treatment as the patient remains on room air snf on discharge (3) Hyperlipidemia: Code(s): E78.5 - Hyperlipidemia, unspecified Status: Acute Assessment and Plan: Continue home pravastatin (4) Hypertension: Code(s): I10 - Essential (primary) hypertension Status: Acute Assessment and Plan: continue home medication (5) Pulmonary nodules: Code(s): R91.8 - Other nonspecific abnormal finding of lung field Status: Acute Assessment and Plan: Chest CT shows enlarging nodules Biopsy recommended Could probably do this outpatient after resolution of covid (6) Abnormal urinalysis: Code(s): R82.90 - Unspecified abnormal findings in urine Status: Deleted Additional Plan 03/28/2022 interval history: patient 81-year-old male presented with a weakness and fatigue patient is positive for COVID however not requiring oxygen at rest is patient is wheelchair-bound, poor historian, will continue to monitor patient will benefit from baseline physical therapy to increase his physical activity, will have PT OT evaluate the patient, with gently hydrate the patient and monitor further recommendation to follow. 03/29/2022 interval history: patient 81-year-old male presented with a weakness and fatigue patient is positive for COVID however not requiring oxygen at rest is patient is wheelchair-bound, poor historian, today patient continued to complain of constipation apparently he was given Dulcolax suppository and enema and had a bowel movement, we were not aware of the patient had BM, discussed with nursing as patient was complaining constipation, bowel sounds were positive abdomen was soft, , patient was given 1 time dose a Relistor, will continue to monitor patient will benefit from baseline physical therapy to increase his physical activity, will have PT OT evaluate the patient, with gently hydrate the patient and monitor further recommendation to follow. 03/30/2022 interval history: patient 81-year-old male presented with a weakness and fatigue patient is positive for COVID however not requiring oxygen at rest is patient is wheelchair-bound, poor historian, on 03/29 patient continued to complain of constipation apparently he was given Dulcolax suppository and enema and had a bowel movement, we were not aware of the patient had BM, discussed with nursing as patient was complaining constipation, bowel sounds were positive abdomen was soft, , patient was given 1 time dose a Relistor, today patient states is feeling better other than pain in his neck will apply Lidoderm patch, today patient was able sit on the side of the bed and minimally participated in physical therapy, will continue to monitor patient will benefit from baseline physical therapy to increase his physical activity, will have PT OT evaluate the patient, with gently hydrate the patient and monitor further recommendation to follow. 03/31/2022 interval history: patient 81-year-old male presented with a weakness and fatigue patient is positive for COVID however not requiring oxygen at rest is patient is wheelchair-bound, poor historian, on 03/29 patient continued to complain of constipation apparently he was given Dulcolax suppository and enema and had a bowel movement, we were not aware of the patient had BM, discussed with nursing as patient was complainin
[2022-04-02 14:38] VITALS: BP 148/86; PULSE 98; RESP 16; TEMP 36.4; O2SAT 98
[2022-04-02 20:00] VITALS: BP 142/86; PULSE 79; RESP 20; TEMP 36.4; O2SAT 98
== END 2022-04-02 20:35 ==
LOC: ANHED 14:16 → ANH2MED 16:43
PROVIDERS: Nurse Practitioner; Admitting Provider Family Medicine; Emergency Provider Emergency Medicine; PCP Internal Medicine; Visit Provider Chiropractor
DX: U07.1 COVID-19 (principal); J12.82 Pneumonia due to coronavirus disease 2019; R53.1 Weakness; R91.8 Other nonspecific abnormal finding of lung field; R06.02 Shortness of breath; R82.90 Unspecified abnormal findings in urine; I10 Essential (primary) hypertension; E78.5 Hyperlipidemia, unspecified; N40.0 Benign prostatic hyperplasia without lower urinary tract symptoms; H35.30 Unspecified macular degeneration; G14 Postpolio syndrome; F17.290 Nicotine dependence, other tobacco product, uncomplicated; Z79.82 Long term (current) use of aspirin; Z79.891 Long term (current) use of opiate analgesic; Z99.81 Dependence on supplemental oxygen
CPT/HCPCS: 36415; 71045; 71250; 74018; 80048; 80053; 80061; 81001; 82728; 83605; 83615; 83735; 84443; 85025; 85027; 85380; 85610; 85730; 86140; 87040; 93005; 96361; 96372; 96374; 97110; 97163; 97166; 97530; 97535; 99285; A9270; C9803; G0378; J1650; J2212; J2405; J7030; U0003; U0005

== ENCOUNTER 2024-03-04 14:07 | Emergency (ER) | payer MEDICARE, SELFPAY ==
--- NOTE | ~2024-03-04 | XR_ITS ---
XR chest 1V Ordering provider: Annie Baumann PA-C History: 83 years Male with . weak . Comparison: March 27, 2022 FINDINGS: MEDIASTINUM: The cardiac silhouette is not enlarged. LUNGS: No infiltrates, effusions or pneumothorax. Nodule in the right parahilar area is noted measuri ng 1.7 x 1.7 cm. 3 months follow-up advised. OTHER: No free air under the diaphragm. Postoperative changes in the cervical spine. Degenerative changes of the spine. IMPRESSION: No acute cardiopulmonary pathology. Nodule in the right perihilar area. Three-month follow-up advised. Reviewed, dictated and finalized at location A.
--- NOTE | ~2024-03-04 | US_ITS ---
TESTICULAR ULTRASOUND (Doppler ultrasound interrogation techniques used as needed for this exam.) Ordering provider: Annie Baumann PA-C History: . R testicle pain . Comparison: None. FINDINGS: TESTICLES: Normal in size. The right measures 3.9x 2.6x 2.2 cm and the left measures 3.4x 2.8x 2.6 cm . Normal echogenicity bilaterally without mass lesion. Normal Doppler flow bilaterally. EPIDIDYMIDES: Normal in size. The right measures 2.4x 1.1x 0.8 cm and the left 0.9x 1.3x 1.1 cm. Hete rogenous large hyperemic right epididymis. . HYDROCELE: Bilateral VARICOCELE: None. OTHER ABNORMALITY: None seen. IMPRESSION: Right epididymitis. Bilateral hydrocele. Otherwise, normal testicular ultrasound. Reviewed, dictated and finalized at location A. IMPRESSION: Right epididymitis. Bilateral hydrocele. Otherwise, normal testicular ultrasoun d.
[2024-03-04 14:13] VITALS: BP 124/52; PULSE 67; RESP 20; TEMP 36.6; O2SAT 98
--- NOTE | 2024-03-04 14:45 | ECG_ITS ---
Test Date: 2024-03-04 15:09:42 Measurements Intervals [place] Rate: 72 P: 25 NM: 179 QRS: 5 QRSD: 126 T: 33 QT: 389 QTc: 427 Interpretive Statements SINUS RHYTHM RIGHT BUNDLE BRANCH BLOCK [120+ ms QRS DURATION, UPRIGHT V1, 40+ ms S IN I/aVL/V4/V5/V6] ABNORMAL ECG No previous ECG available for comparison Electronically Signed On 03-04-2024 16:00:56 CDT by Tristen Ribera M.D.
--- NOTE | 2024-03-04 14:46 | ED.MALEGU ---
HPI - Male Genitourinary General Chief complaint: Urogenital-Male Stated complaint: sediment in richards Time Seen by Provider: 03/04/24 16:59 Focused HPI: 83-year-old male with history of hypertension, hyperlipidemia presents to the emergency department for generalized weakness and right testicular pain. Patient states he has been feeling weak for the past few days and began having right testicular pain 4-5 days ago. States approximately 1 week ago his urine was dark in his PCP was contacted, he was started on antibiotics for a suspected UTI. States he is been taking antibiotics as directed and is on the tail end of them, however has since started feeling weak. He denies abdominal pain, chest pain or shortness of breath, cough or congestion, dysuria, fever, nausea vomiting, diarrhea. He has a condom catheter in place. 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 GENERAL: Well-appearing, well-nourished, and in no acute distress. HEAD: Normocephalic, atraumatic. CHEST: Clear to auscultation. ?No respiratory distress. ABD: soft, nontender, normoactive bowel sounds. No CVA tenderness. Richards bag with yellow and clear urine, no sediments or clots, no hematuria HEART: Regular rate and rhythm.? NEURO: ?Alert and oriented x3. Patient screened in triage and initial orders placed.? ?Additional care and disposition to be based upon?diagnostic testing and treatment. History of Present Illness HPI Narrative: 83-year-old male with history of hypertension, hyperlipidemia presents to the emergency department for generalized weakness and right testicular pain. Patient states he has been feeling weak for the past few days and began having right testicular pain 4-5 days ago. States approximately 1 week ago his urine was dark in his PCP was contacted, he was started on antibiotics for a suspected UTI. States he is been taking antibiotics as directed and is on the tail end of them, however has since started feeling weak. He denies abdominal pain, chest pain or shortness of breath, cough or congestion, dysuria, fever, nausea vomiting, diarrhea. He has a condom catheter in place. 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 Related Data Home Medications Medication Instructions Recorded Confirmed aspirin 81 mg chewable tablet 81 mg PO DAILY 03/05/21 03/27/22 (Aspirin Childrens) pantoprazole 40 mg tablet,delayed 40 mg PO QAM 03/05/21 03/27/22 release pravastatin 40 mg tablet 40 mg PO DAILY 03/05/21 03/27/22 quinapril 40 mg tablet 40 mg PO DAILY 03/05/21 03/27/22 ciprofloxacin HCl 500 mg tablet 500 mg PO DAILY 03/27/22 03/27/22 cyclobenzaprine 10 mg tablet 10 mg PO DAILY PRN Muscle Spasm 03/27/22 03/27/22 guaifenesin 600 mg tablet, 600 mg PO Q12HR PRN Sinus Symptoms 03/27/22 03/27/22 extended release 12 hr (Mucus Relief ER) Allergies Allergy/AdvReac Type Severity Reaction Status Date / Time No Known Allergies Allergy Verified 03/27/22 16:06 Review of Systems Review of Systems: CONSTITUTIONAL: Denies fever, chills, or sweats. EYES: Denies visual changes, redness, or discharge. ENT: Denies rhinorrhea, congestion, sore throat, or otalgia. CARDIOVASCULAR: Denies chest pain, palpitations, or edema. RESPIRATORY: Denies cough or dyspnea. GASTROINTESTINAL: Denies abdominal pain, nausea, vomiting, or diarrhea. GENITOURINARY: See HPI SKIN: Denies rash or itching. MUSCULOSKELETAL: Denies back pain, joint pain, or myalgia. NEUROLOGIC: Denies headache, numbness, or weakness. PSYCHIATRIC: Denies anxiety or depression. [facility] Past Medical History Medical History Benign prostatic hyperplasia History of kidney stones Hyperlipidemia Hypertension Macular degeneration Post-polio syndrome Pulmonary nodules Rhabdomyolysis Spinal stenosis Upper respiratory infection Urinary tract infection Surgical History Surgical History
--- NOTE | 2024-03-04 15:50 | PC.NURSE ---
Pt gone to radiology for xray and ultrasound when made attempt to do the patients assessment and lab draws.
[2024-03-04 15:58] VITALS: BP 117/58; PULSE 79; RESP 18; TEMP 36.4; O2SAT 100
[2024-03-04 16:27] LABS: Basophils Percent Auto 0.3 % (0.2-1.2); Eosinophils Absolute Auto 0.1 K/mm3 (0-0.3); Eosinophils Percent Auto 0.7 % (0-4.4); Hematocrit 35.8 % (42.0-52.0); Hemoglobin 12.3 g/dL (14.0-18.0); Immature Granulocyte Absolute 0.23 K/mm3 (0.00-0.031); Immature Granulocyte Percent A 1.9 % (0-0.5); Lymphocytes Absolute Auto 0.92 K/mm3 (0.9-3.2); Lymphocytes Percent Auto 7.5 % (18.3-44.2); Mean Corpuscular HGB Conc 34.4 g/dl (32-36); Mean Corpuscular Hemoglobin 32.7 pg (26-34); Mean Corpuscular Volume 95.2 fl (80-100); Mean Platelet Volume 8.8 fl (7.4-10.4); Monocytes Absolute Auto 0.9 K/mm3 (0.1-0.6); Monocytes Percent Auto 7.4 % (2.6-8.5); Neutrophils Percent Auto 82.2 % (45.5-73.1); Platelet Count Result 290 k/mm3 (150-375); Red Blood Count 3.76 M/mm3 (4.6-6.20); Red Cell Distribution Width 13.4 % (11.5-14.5); White Blood Count 12.2 K/mm3 (4.5-10.0)
[2024-03-04 16:32] LABS: Appearance Urine Cloudy (Clear); Bacteria Urine Rare /hpf; Bilirubin Urine Negative (Negative); Blood Urine 1+ (Negative); Color Urine Yellow (Yellow); Glucose Urine UA Negative (Negative); Ketones Urine Negative (Negative); Leukocyte Esterase Ur 3+ LEU/UL (Negative); Nitrate Urine Negative (Negative); Non Pathogenic Casts 0-2; Protein Urine Negative (Negative); RBC Urine 0-2 /hpf (0-2); Specific Grav Ur 1.007 (1.001-1.035); Squamous Epithelial Cell Urine None Seen /hpf (Few); Urobilinogen Urine 0.2 mg/dL (<2.0); WBC Urine >100 /hpf (0-3)
[2024-03-04 16:37] LABS: Alanine Aminotransferase 36 U/L (6-50); Albumin Level 3.8 g/dL (3.5-5.1); Alkaline Phosphatase 179 U/L (38-126); Anion Gap 11 mmol/L (4-12); Aspartate Amino Transferase 39 U/L (17-59); Bilirubin,Total 0.3 mg/dL (0.2-1.3); Blood Urea Nitrogen 15 mg/dL (9-20); Carbon Dioxide 21 mmol/L (22-30); Chloride 102 mmol/L (98-107); Estimated CRCL calculation 47 ml/min; Estimated Glomerular Filt Rate > 60; Glucose 87 mg/dL (65-110); Magnesium 1.9 mg/dL (1.6-2.3); Sodium 134 mmol/L (137-145)
[2024-03-04 16:41] LABS: Add Urine Microscopic? YES
[2024-03-04 16:46] LABS: NT Pro B Type Natriuretic Pept 304 pg/mL (19.9-100)
[2024-03-04 17:18] LABS: Influenza A QL RT-PCR Negative (Negative); Influenza B QL RT-PCR Negative (Negative); RSV RNA, RT-PCR Negative (Negative); SARS-CoV-2 RNA PCR Negative (Negative)
[2024-03-04] MEDS: levoFLOXacin 500 MG TABLET PO (17:54)
--- NOTE | 2024-03-04 18:41 | PC.NURSE ---
called Raymond, the patients son to give instructions on richards catheter management. I also called Lorena, the patients at 1835 and explained all discharge instructions. Lorena, Raymond, and the patient verbalize discharge teaching and all questions answered.
[2024-03-04 21:00] VITALS: BP 125/62; PULSE 77; RESP 19; TEMP 36.4; O2SAT 98
--- NOTE | 2024-03-04 21:00 | PC.NURSE ---
Patient frustrated with still being here at the hospital. he states I've been here over two damn hours waiting to go home. My ass hurts and I want to go Attempted to turn patient in the bed and patient refused.
--- NOTE | 2024-03-04 21:24 | PC.NURSE ---
Attempted to turn the patient in the bed again to help him get more comfortable. patient refuses. spoke with Raymond - patients son and gave an update to ambulance ETA as well as an update on the patient.
[2024-03-04 22:38] VITALS: BP 130/66; PULSE 82; RESP 19; TEMP 36.4; O2SAT 99
== END 2024-03-04 21:50 | disposition home or self-care (01) ==
PROVIDERS: Emergency Provider Physician Assistant; PCP Internal Medicine
DX: N45.1 Epididymitis (principal); R91.1 Solitary pulmonary nodule; I10 Essential (primary) hypertension; E78.5 Hyperlipidemia, unspecified; F17.210 Nicotine dependence, cigarettes, uncomplicated; Z20.822 Contact with and (suspected) exposure to COVID-19; Z79.2 Long term (current) use of antibiotics
CPT/HCPCS: 36415; 71045; 76870; 80053; 81001; 83735; 83880; 85025; 87086; 87088; 87637; 93005; 93976; 99284; A9270

== ENCOUNTER 2025-02-12 18:57 | Emergency (ER) | payer MEDICARE, SELFPAY ==
[2025-02-12 18:57] VITALS: BP 157/92; PULSE 101; RESP 18; TEMP 36.2; O2SAT 94
--- NOTE | 2025-02-12 19:21 | PC.NURSE ---
Patient had over 1000ml of urine in bladder, so richards was placed. Patient tolerated well.
[2025-02-12 19:25] LABS: Add Urine Microscopic? YES; Appearance Urine Clear (Clear); Bacteria Urine 4+ /hpf; Bilirubin Urine Negative (Negative); Blood Urine Negative (Negative); Color Urine Yellow (Yellow); Glucose Urine UA Negative (Negative); Ketones Urine Negative (Negative); Leukocyte Esterase Ur 2+ LEU/UL (Negative); Nitrate Urine Positive (Negative); Non Pathogenic Casts 0-2; Protein Urine Negative (Negative); RBC Urine 0-2 /hpf (0-2); Specific Grav Ur 1.007 (1.001-1.035); Squamous Epithelial Cell Urine None Seen /hpf (Few); Urobilinogen Urine 0.2 mg/dL (<2.0); pH Urine 6.5 (5.0-9.0)
--- OUTSIDE RECORDS SUMMARY | 2025-02-12 19:25 | XMS_ITS | Clinical Summary ---
Author Organization [facility] C Address [address] [place] [address] Care Team Providers Care Process Supervisor Name Role Phone Brain Devlin MD Primary Care Provider Allergies No known active allergies Medications pantoprazole DR (PROTONIX) 40 mg EC tabletIndications:G ERD Take 1 tablet (40 mg total) by mouth every morning Active temazepam (RESTORIL) 30 mg capsuleIndications: Insomnia Take 1 capsule (30 mg total) by mouth nightly 1 10/27/19 19 Active vit C/E/Zn/coppr/lutein /zeaxan (PRESERVISION AREDS-2 ORAL)Indications:garcia pplement Take by mouth 2 (two) times a day Active pravastatin (PRAVACHOL) 40 mg tablet Take 1 tablet (40 mg total) by mouth daily Active aspirin 81 mg enteric coated tabletIndications:C erebral Thromboembolism Prevention,heart health Take 1 tablet (81 mg total) by mouth every morning 02/09/20 20 Active lisinopriL (PRINIVIL,ZESTRIL) 40 mg tablet TK 1 T PO D 04/23/20 20 Active indapamide (LOZOL) 2.5 mg tablet TK 1 T PO QD 04/23/20 20 Active tamsulosin (FLOMAX) 0.4 mg extended release capsule Take 1 capsule (0.4 mg total) by mouth nightly 05/20/20 22 Active Paxlovid, EUA, tablets,dose pack tablets in a dose pack (EUA) TAKE ONE OF EACH TABLET TWICE DAILY FOR 5 DAYS. HOLD PRAVASTATIN AND TAMSULOSIN WHILE ON MEDICATION 03/26/20 Active finasteride (PROSCAR) 5 mg tablet Take 1 tablet (5 mg total) by mouth nightly at bedtime. 05/20/20 Active SantyL ointment APPLY TO CLEANSED AFFECTED AREA BY TOPICAL ROUTE EVERY DAY. 05/28/20 Active vitamins A,C,X-hshk-yjsukf (PreserVision AREDS) 4,296 mcg-226 mg-90 mg capsule PreserVision AREDS 4,296 mcg-226 mg-90 mg capsule Take 1 capsule every day by oral route. 05/11/20 Active Active Problems Problem Noted Date Diagnosed Date Chronic ulcer of sacral region 07/08/2022 0 01/12/2023 Pressure injury of skin of buttock 04/29/2022 COVID-19 03/26/2022 Streptococcal sore throat 12/24/2021 Acute sinusitis 12/16/2021 Paraplegia 11/12/2021 Urinary tract infectious disease 11/08/2021 Abnormal gait 03/27/2020 Abnormal serum creatinine level 03/27/2020 Aneurysm of thoracic aorta 03/27/2020 Disorder of rotator cuff 03/27/2020 Essential hypertension 03/27/2020 Gastroesophageal reflux disease 03/27/2020 History of poliomyelitis 03/27/2020 Kidney stone 03/27/2020 Osteoporosis 03/27/2020 Paresis 03/27/2020 Pure hypercholesterolemia 03/27/2020 Recurrent dislocation of shoulder region 020 Transient ischemic attack 03/27/2020 At risk for venous thromboembolism (VTE) 020 Overview (03/27/2020): Problem added by Discern Expert Rule: EBN_VTERISKPROB_3 Intervertebral disc disorder s with myelopathy, lumbar region 02/02/2020 Spinal stenosis of lumbar region 10/17/2019 Overview (10/17/2019): Added automatically from request for surgery [id number] 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 Discussed the above findings along with each of the MRI studies with Dr. Hough. Dr. Hough spoke to the patient and family and recommended that the patient follow-up with his colleague Dr. Lambert Sepulveda for further evaluation and discussion of surgical intervention. To rule out any infection we will obtain a CRP, sed rate, CBC with differential. Immunizations Immunization Administration Dates Next Due Influenza, Trivalent, High D ose, Split, Preservative Free, Intramuscular 06/07/2018,06/09/2017 Influenza, Trivalent, IM (MDV) 06/05/2016,2013,06/10/2013 Influenza, Trivalent, Preser vative Free, Intramuscular 06/18/2015 Influenza, Unspecified 07/16/2021,06/07/2019,09/2017 Pfizer SARS-CoV-2 Monovalent Vaccination (12+ Yrs) PURPLE 06/19/2021,12/07/2020,11/06/2020 ZOSTER LIVE 10/05/2014 Surgical History Surgery Date Site/Laterality Comments REPLACEMENT TOTAL KNEE 2009,2011,2013 Right LITHOTRIPSY 09/07/2000 - 09/06/2001 APPENDECTOMY 09/07/1987 - 09/06/1988 CERVICAL FUSION 09/07/2018 - 09/06/2019 C-4-T-4 Medical History Medical History Date Comments Aneurysm of thoracic aorta Hypercholesterolemia Essential hypertension Transient cerebral ischemia GERD (gastroesophageal reflux disease) Kidney stone Osteoporosis Poliomyelitis Visual changes Hearing loss Late effects of poliomyelitis Thoracic myelopathy Lumbar myelopathy (HCC) Spinal stenosis Osteopenia Family History Medical History Relation Name Comments COPD Brother Heart disease Brother Heart failure Brother Alzheimer's disease Mother Dementia Mother Diabetes Mother ALS Sister Cancer Sister Anesthesia problems Neg Hx Relation Name Status Comments Brother Mother Sister Social History Tobacco Use Types Packs/Day Years Used Date Smoking Tobacco: Every Day Cigarettes Started: 1956 Vaping Smokeless Tobacco: Never Tobacco Cessation:Ready to Q uit: No; Counseling Given: Yes Comments:PT USES VAPE Alcohol Use Standard Drinks/Week Comments Yes 0 (1 standard drink = 0.6 oz pur e alcohol) rare AUDIT-C Answer Date Recorded Q1: How often do you have a drink containing alcohol? Never 01/12/2023 Q2: How many drinks containi ng alcohol do you have on a typical day when you are drinking? Patient does not drink Q3: How often do you have si x or more drinks on one occasion? Never 01/12/2023 Education Answer Date Recorded What is the highest level of school you have completed or the highest degree you have received? 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 Not on file Not on file Obstetrics History Last Filed Vital Signs Vital Sign Reading Time Taken Comments Blood Pressure 146/61 02/08/2020 4:12 PM CDT Pulse 102 02/08/2020 4:12 PM CDT Temperature 37.6 C (99.7 F) 02/08/2020 4:12 PM CDT Respiratory Rate 16 02/08/2020 4:12 PM CDT Oxygen Saturation 100% 02/08/2020 4:1 2 PM CDT Inhaled Oxygen Concentration - - Weight 79.4 kg (175 lb) 01/12/2023 11:1 2 AM CDT PT NOT SURE OF CURRENT WEIGHT Height 160 cm (5' 3) 01/12/2023 11:12 AM CDT Body Mass Index 31 01/12/2023 11:12 AM CDT Plan of Treatment Health Maintenance Due Date Last Done Comments Depression Screening 1940 DTaP/Tdap/Td Vaccine (1 - Tdap) 11/17/1951 Hepatitis B Screening 1958 Pneumococcal vaccine 65+ (1 of 2 - PCV) 11/17/1959 Well Visit 65+ 2005 Zoster Vaccine (2 of 3) 11/30/2014 10/05/2014 Fall Risk Assessment 02/07/2021 02/08/2020 Covid-19 Vaccine (2023-2 5 season) 2024 06/19/2021, 12/07/2020, 11/06/2020 Influenza Vaccine (Season Ended) 2025 07/16/2021, 06/07/2019, 06/07/2018, Additional history exists Medical Devices Implanted Type Area Room Service Supervisor Device Identifier Shelf Expiration Date Model / Serial / Lot Knee Replacement Implanted:Lambert Son MD (Quantity not on file) Right: Knee Description:2010, REVISION 2 014 [employer] 07.06457.015 Virage 5mm 45mm Self Tap Polyaxial Friction Fit Spine Screw Bone - [id number] Implanted:Qty: 1 on 02/09/2019 by Lambert Sepulveda MD at [facility] [employer] 07.79498.015 / / Miguelito Straight Cocr 3.5mm X 400mm - [id number] Implanted:Qty: 1 on 02/09/2019 by Lambert Sepulveda MD at [facility] [employer] 07.54586.002 / / [facility] [id number] Actifuse Abx Resorbable; Scaffold; Osteostimulative ; Granule 1-2 - [id number] Implanted:Qty: 1 on 02/09/2019 by Lambert Sepulveda MD at [facility] [id number] 10/07/2020 [id number] / / [id number] [employer] [id number] - [id number] - [id number] Implanted:Qty: 1 on 02/09/2019 by Lambert Sepulveda MD at [facility] [employer] 11/09/2023 [id number] / [id number] / Spinal Graft Tech [id number] Magnifuse 10x1cm Graft Bone Demineralized Bone Matrix - [id number] - [id number] Implanted:Qty: 1 on 02/09/2019 by Lambert Sepulveda MD at [facility] [employer] 11/03/2020 [id number] / [id number] / Spinal Graft Tech [id number] Magnifuse 5x1cm Spine Cervical Posterior Graft Bone Demineralized - [id number] - [id number] Implanted:Qty: 1 on 02/09/2019 by Lambert Sepulveda MD at [facility] [employer] 08/08/2020 [id number] / [id number] / [employer] 07.59562.001 Virage Closure Top Lid Sterilization Nonsterile Disposable Screw - [id number] Implanted:Qty: 18 on 02/09/2019 by Lambert Sepulveda MD at [facility] [employer] 07.48387.001 / / Satinder Spine 07.12844.009 Virage 3.5mm 16mm Polyaxial Spine Screw Bone Nonsterile - [id number] Implanted:Qty: 8 on 02/09/2019 by Lambert Sepulveda MD at [facility] [employer] 07.58721.009 / / [employer]ine 07.13320.004 Virage 4.5mm 30mm Self Tap Polyaxial Spine Screw Bone Titanium - [id number] Implanted:Qty: 1 on 02/09/2019 by Lambert Sepulveda MD at [facility] [employer] 07.33080.004 / / [employer]ine 07.78956.005 Virage 4.5mm 35mm Self Tap Polyaxial Spine Screw Bone Titanium - [id number] Implanted:Qty: 2 on 02/09/2019 by Lambert Sepulveda MD at [facility] [employer] 07.98529.005 / / S[employer]ine 07.38318.006 Virage 4.5mm 40mm Self Tap Polyaxial Friction Fit Spine Screw - [id number] Implanted:Qty: 1 on 02/09/2019 by Lambert Sepulveda MD at [facility] [employer] 07.37548.006 / / [employer]ine 07.23917.007 Virage 4.5mm 45mm Self Tap Polyaxial Friction Fit Spine Screw - [id number] Implanted:Qty: 2 on 02/09/2019 by Lambert Sepulveda MD at [facility] [employer] 07.95189.007 / / [employer] 07.19192.012 Virage 5mm 30mm Self Tap Polyaxial Spine Screw Bone Titanium - [id number] Implanted:Qty: 1 on 02/09/2019 by Lambert Sepulveda MD at [facility] [employer] 07.03432.012 / / [employer] 07.49878.014 Virage 5mm 40mm Self Tap Polyaxial Friction Fit Spine Screw Bone - [id number] Implanted:Qty: 1 on 02/09/2019 by Lambert Sepulveda MD at [facility] [employer] 07.82851.014 / / Insurance [facility] MEDICARE ADVANTAGE AET MEDICARE [facility] MEDICARE Address: [address] [place] [address] , [place] [address] [facility] MEDICARE Advance Directives For more information, please contact: [phone] * Full Code (Latest Code Status on File) Date Activated Date Inactivated Comments 02/02/2020 11:33 PM 02/09/2020 12:07 AM * Full Code Date Activated Date Inactivated Comments 02/09/2019 9:13 PM 02/15/2019 9:33 PM Care Teams Process Supervisor Relationship Specialty Start Date End Date Brain Devlin MD PCP - General Internal Medicine 10/06/18
--- OUTSIDE RECORDS SUMMARY | 2025-02-12 19:25 | XMS_ITS | Referral Summary ---
Author Organization [facility] C Address [address] [place] [address] Care Team Providers Care Electronic Drafter Name Role Phone Brain Devlin MD Primary [...] TOPICAL ROUTE EVERY DAY. 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 Presence of right artificial knee joint 09/07/19 Prsnl hx of TIA (TIA), and cereb infrc w/o resid deficits 09/07/2019 Unspecified hearing loss, unspecified ear 2019 Cervical spondylosis 03/29/2019 Cervical stenosis of spine 01/10/2019 Overview (01/10/2019): Added automatically from request for surgery [id number] Cervical spinal stenosis 10/20/2018 Thoracic stenosis 10/20/2018 Lumbar spinal stenosis 10/20/2018 Assessment & Plan (10/20/2018 2:38 PM CREW CHIEF): Patient has multilevel stenosis, disc bulging, facet [...] (12+ Yrs) PURPLE 06/19/2021,12/07/2020,11/06/2020 ZOSTER LIVE 10/05/2014 Social History Tobacco Use Types Packs/Day Years [...] you have received? 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 Not on file Not on file Last Filed Vital Signs Vital Sign Reading [...] 01/12/2023 11:12 AM CDT Plan of Treatment Not on file Medical Devices Implanted Type Area Commodity Supervisor Device Identifier Shelf Expiration Date Model / Serial / Lot Knee Replacement Implanted:Lambert Son MD (Quantity not on file) Right: Knee Description:2010, REVISION 2 014 [employer] 07.17448.015 Virage 5mm 45mm Self Tap Polyaxial Friction Fit Spine Screw Bone - [id number] Implanted:Qty: 1 on 02/09/2019 by Lambert Sepulveda MD at [facility] [employer] 07.00840.015 / / Miguelito Straight Cocr 3.5mm X 400mm - [id number] Implanted:Qty: 1 on 02/09/2019 by Lambert Sepulveda MD at [facility] [employer] 07.05256.002 / / [facility] [id number] Actifuse Abx Resorbable; Scaffold; Osteostimulative ; Granule 1-2 - [id number] Implanted:Qty: 1 on 02/09/2019 by Lambert Sepulveda MD at [facility] [id number] 10/07/2020 [id number] / / [id number] [employer] [id number] - [id number] - [id number] Implanted:Qty: 1 on 02/09/2019 by Lambert Sepulveda MD at [facility] [employer] 11/09/2023 [id number] / [id number] / Spinal Graft Tech [id number] Magnifuse 10x1cm Graft Bone Demineralized Bone Matrix - [id number] - [id number] Implanted:Qty: 1 on 02/09/2019 by Lambert Sepulveda MD at [facility] [employer] 11/03/2020 [id number] / [id number] / Spinal Graft Tech [id number] Magnifuse 5x1cm Spine Cervical Posterior Graft Bone Demineralized - [id number] - [id number] Implanted:Qty: 1 on 02/09/2019 by Lambert Sepulveda MD at [facility] [employer] 08/08/2020 [id number] / [id number] / [employer] 07.65138.001 Virage Closure Top Lid Sterilization Nonsterile Disposable Screw - [id number] Implanted:Qty: 18 on 02/09/2019 by Lamebrt Sepulveda MD at [facility] [employer] 07.38997.001 / / S[employer] Spine 07.76250.009 Virage 3.5mm 16mm Polyaxial Spine Screw Bone Nonsterile - [id number] Implanted:Qty: 8 on 02/09/2019 by Lambert Sepulveda MD at [facility] [employer] 07.48477.009 / / S[employer] Spine 07.55808.004 Virage 4.5mm 30mm Self Tap Polyaxial Spine Screw Bone Titanium - [id number] Implanted:Qty: 1 on 02/09/2019 by Lambert Sepulveda MD at [facility] [employer] 07.16453.004 / / S[employer] Spine 07.76872.005 Virage 4.5mm 35mm Self Tap Polyaxial Spine Screw Bone Titanium - [id number] Implanted:Qty: 2 on 02/09/2019 by Lambert Sepulveda MD at [facility] [employer] 07.11560.005 / / S[employer] Spine 07.81025.006 Virage 4.5mm 40mm Self Tap Polyaxial Friction Fit Spine Screw - [id number] Implanted:Qty: 1 on 02/09/2019 by Lambert Sepulveda MD at [facility] [employer] 07.34131.006 / / S[employer] Spine 07.48401.007 Virage 4.5mm 45mm Self Tap Polyaxial Friction Fit Spine Screw - [id number] Implanted:Qty: 2 on 02/09/2019 by Lambert Sepulveda MD at [facility] [employer] 07.21860.007 / / S[employer] Spine 07.11444.012 Virage 5mm 30mm Self Tap Polyaxial Spine Screw Bone Titanium - [id number] Implanted:Qty: 1 on 02/09/2019 by Lambert Sepulveda MD at [facility] [employer] 07.27971.012 / / S[employer]ine 07.12595.014 Virage 5mm 40mm Self Tap Polyaxial Friction Fit Spine Screw Bone - [id number] Implanted:Qty: 1 on 02/09/2019 by Lambert Sepulveda MD at [facility] [employer] 07.06304.014 / / Insurance [facility] MEDICARE ADVANTAGE [facility] Address: [facility] [id number] [place] [id number] [employer] MEDICARE Advance Directives For more information, please contact: [phone] * Full Code (Latest Code Status on File) Date Activated Date Inactivated Comments 02/02/2020 11:33 PM 02/09/2020 12:07 AM * Full Code Date Activated Date Inactivated Comments 02/09/2019 9:13 PM 02/15/2019 9:33 PM Care Teams Electronic Drafter Relationship Specialty Start Date End Date Brain Devlin MD PCP - General Internal Medicine 10/06/18
--- OUTSIDE RECORDS SUMMARY | 2025-02-12 19:26 | XMS_ITS | Clinical Summary ---
Author Organization [facility] Address [address] [place] [address] Care Team Providers Care Etl Lead Name Role Phone Unavailable Primary Care Provider Unavailabl e Social History Tobacco Use Types Packs/Day Years Used Date Smoking Tobacco: Never Assessed Sex and Gender Information Value Date Recorded Sex Assigned at Not on file Legal Sex Male 4:36 PM CDT Gender Identity Not on file Sexual Orientation Not on file Plan of Treatment Health Maintenance Due Date Last Done Comments DTAP/TDAP/TD VACCINES (1 - Tdap) 11/17/1959 PNEUMOCOCCAL VACCINE 50+ YEARS (1 of 1 - PCV) 11/16/18 91 ZOSTER VACCINE (1 of 2) 1990 RSV VACCINE (60+ or ) (1 - 1-dose 75+ series) 11/17/2015 INFLUENZA VACCINE (#1) 2024 Insurance
--- OUTSIDE RECORDS SUMMARY | 2025-02-12 19:26 | XMS_ITS | Encounter Summary ---
Author Organization [facility] Address [address] [place] [address] Care Team Providers Care Executive Wellness Programs Director Name Role Phone Brain Devlin MD Primary Care Provider Encounter Details Date Type Department Care Team (Late st Contact Info) Description 11/12/2018 Telephone [facility] Neuro Interventional Radiology [address] [place] [address] Navi Ragsdale RT Social History Tobacco Use Types Packs/Day Years Used Date Smoking Tobacco: Former E-cigarettes Smokeless Tobacco: Never Alcohol Use Standard Drinks/Week Comments Yes 0 (1 standard drink = 0.6 oz pur e alcohol) 1 to 2 beers per month Education Answer Date Recorded What is the highest level of school you have completed or the highest degree you have received? 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
--- OUTSIDE RECORDS SUMMARY | 2025-02-12 19:26 | XMS_ITS | Encounter Summary ---
Author Organization [facility] Healthcare Address [address] [place] [address] Care Team Providers Care Tread Cutter Name Role Phone Brain Devlin MD Primary Care Provider Encounter Details Date Type Department Care Team (Late st Contact Info) Description 04/21/2023 Documentation [facility] OP Occup Therapy [facility] [address] [address] Dahiana Best, KASH Social History Tobacco Use Types Packs/Day Years Used Date Smoking Tobacco: Every Day Cigarettes Started: 1956 Vaping Smokeless Tobacco: Never Comments:PT USES VAPE Alcohol Use Standard Drinks/Week [...] on file Legal Sex Male 1:48 AM GUINEA PIG BREEDER Gender Identity Not on file Sexual Orientation Not on file 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
--- OUTSIDE RECORDS SUMMARY | 2025-02-12 19:26 | XMS_ITS | Data Portability ---
Author Organization [place] [facility] [employer], Main Office Address [address] [place] [address] Assessment No assessment recorded. Plan of Treatment Reminders Order Date Submit Date Provider Last Modified By Organization Details Last Modified Time Details Appointments None recorded. Lab CBC w/ auto diff 2024 025 [email or web address] [facility] Outpatient Lab, [address] [place], [address], 5 17:19:46 CMP, serum or plasma 2024 025 [email or web address] [facility], [address] [place], [address], 5 17:19:46 lipid panel, serum 2024 025 [email or web address] [facility], [address] [place], [address], 5 17:19:46 TSH, serum or plasma 2024 025 [facility] - Outpatient Lab, [address] [place], [address], 5 17:19:47 T4, free, serum 2024 025 [facility], [address] [place], [address], 5 17:19:47 vitamin D, 25-hydroxy, total, serum 2023 024 [email or web address] [facility], [address] [place], [address], 4 16:45:25 CBC w/ auto diff 2023 [facility] Outpatient Lab, [address] [place], [address], 4 18:13:51 CMP, serum or plasma 2023 024 [facility] Out[facility] Lab, [address] [place], [address], 4 18:31:08 lipid panel, serum 2023 024 [facility], [address] [place], [address], 4 18:31:10 lipid panel, serum 2023 024 [facility], [address] [place], [address], 4 20:20:45 CMP, serum or plasma 2023 024 [facility], [address] [place], [address], 4 20:20:50 TSH, serum or plasma 2023 024 [facility], [address] [place], [address], 4 20:48:29 T4, free, serum 2023 024 [facility], [address] [place], [address], 4 20:38:56 magnesium, serum or plasma 2023 024 [facility], [address] [place], [address], 4 20:20:59 vitamin B12, serum 2023 024 [facility], [address] [place], [address], 4 22:24:04 CBC w/ auto diff 2023 024 [facility], [address] [place], [address], 4 19:08:04 lipid panel, serum 2023 024 [facility], [address] [place], [address], 4 19:01:27 CMP, serum or plasma 2023 024 [facility], [address] [place], [address], 4 19:01:38 TSH, serum or plasma 2023 024 [facility], [address] [place], [address], 4 19:00:21 T4, free, serum 2023 024 [facility], [address] [place], [address], 18:58:18 PSA, serum or plasma 2023 024 [email or web address] [facility], [address] [place], [address], 4 16:43:54 magnesium, serum or plasma 2023 024 [facility], [address] [place], [address], 4 19:01:40 vitamin B12, serum 2023 024 [facility], [address] [place], [address], 4 19:24:00 CBC w/ auto diff 2023 024 [facility], [address] [place], [address], 4 16:22:18 lipid panel, serum 2022 023 [facility], [address] [place], [address], 3 19:21:18 CMP, serum or plasma 2022 023 [facility], [address] [place] [address], [address], 3 19:21:24 TSH, serum or plasma 2022 023 [facility], [address] [place], [address], 3 19:22:14 T4, free, serum 2022 023 [facility], [address] [place], [address], 3 19:21:33 CBC w/ auto diff 2022 023 [facility], [address] [place], [address], 3 18:15:14 Referral None recorded. Procedures None recorded. Surgeries None recorded. Imaging None recorded. Medication Orders Zithromax Z-Mont[place] 250 mg tablet 2024 025 [id number], [address], [place], [id number], 5 15:42:03 benzonatate 200 mg capsule 2024 025 [id number], [address] [facility], [place], [place], [id number], 15:42:02 Patient TargetsNo targets recorded. Patient Instructions Encounter Date Encounter Id Patient Instructions Last Modified By Organization Details Last Modified Time 06/09/2023 [id number] Hyperlipidemia: Cervical myelopathy: Benign prostatic hypertrophy and GERD all clinically stable. Was given a flu shot today refused to get the prevnar 20. Interval complaints any new problems otherwise. Will check blood work in the form of CBC, CMP, lipid and thyroid. Continue on current Rx follow-up in four months Portions of the record may have been created with voice recognition software. Occasional wrong-word or s ound-a-like substitutions may have occurred due to the inherent limitations of voice recognition software. Read the chart carefully and recognize, using context, where substitutions have occurred. [email or web address] Not available 06/09/2023 15:10:37 10/13/2023 [id number] Cervical spondylolysis -hypertension -hyperlipidemia -GERD. Check blood work consisting of CBC, CMP, lipid, thyroid, PSA, B12 and magnesium level. Continue on current Rx follow-up in four months. Portions of the record may have been created with voice recognition software. Occasional wrong-word or s ound-a-like substitutions may have occurred due to the inherent limitations of voice recognition software. Read the chart carefully and recognize, using context, where substitutions have occurred. [email or web address] Not available 10/13/2023 15:18:37 02/16/2024 [id number] Follow-up essent ial hypertension, hyperlipidemia, benign prostatic hypertrophy, cervical myelopathy and GERD all clinically stable. Will continue on current medications. Check blood work consisting of CBC, CMP, lipid, thyroid, B12 and magnesium level. Continue on current Rx follow-up in four months Next Appointment: 4 Months Approximate Date: 06/15/2024 Portions of the record may have been created with voice recognition software. Occasional wrong-word or s ound-a-like substitutions may have occurred due to the inherent limitations of voice recognition software. Read the chart carefully and recognize, using context, where substitutions have occurred. [email or web address] Not available 02/16/2024 15:33:06 06/14/2024 [id number] dementia rating scale-2* [email or web address] Not available 06/14/2024 16:01:41 alcohol misuse* [email or web address] Not available 06/14/2024 16:01:41 depression screening* [email or web address] Not available 06/14/2024 16:01:41 multi-dimensiona l health assessment questionnaire* Not available 06/14/2024 16:01:41 Personalized Hea lt Plan and Screening Recommendations Advance Directives - Do you have one? Yes Advance Directives - Do we have your advance directive on file in your health record? No, please bring in a copy at your earliest convenience Primary Prevention/Interven tion (prevents or decreases the chance of common diseases from occurring) Smoking Risk: Non Smoker Alcohol Misuse Screening: Negative Weight: continue your current weight loss efforts try to lose 5% of your body weight try to lose 10% of your body weight try to lose 15% of your body weight consultation with a dietitian monitor weight weekly and call if continue to lose weight unable to assess Physical activity: Need more exercise/physical activity Nutrition: Average Refer to attached handout Heart-Healthy Diet: After Your Visit Refer to attached handout DASH Diet: After Your Visit Recommend consultation with a desizing pad operator Eat heart healthy diet Fall Risk (screened today): Low Vaccines Pneumococcal: No further needed Influenza: Your next one in the fall of this year Chronic Disease Risks Stroke: Intermediate Risk Active diagnosis, Continue current treatment plan Heart Attack: Intermediate Risk Active diagnosis, Continue current treatment plan Clogging of the Arteries: Intermediate Risk Active diagnosis, Continue current treatment plan Diabetes: Low Risk I have no recommendations Secondary Prevention/Interven tion (detects treatable diseases before they may cause symptoms, disability, or ) Prostate Cancer Screening: No PSA screening necessary Colon Cancer Screening: Colonoscopy No screening necessary Date Screening Last Performed: _2005__ Eye Disease Screening: Ordered Recommended today Recommended today, but you have declined No Eye exam necessary Your next exam in: goes yearly Dementia Risk: Low I have no recommendations Depression Screening: Negative Recommend additional evaluation and/or treatment as noted above Recommend follow appointment to further evaluate Recommend Behavioral Health referral Active diagnosis, Continue current treatment plan I have no recommendations [email or web address] Not available 06/14/2024 15:57:21 Medicare wellness evaluation risk assessment stable. Follow-up hypertension, hyperlipidemia,, cervical radiculopathy with myelopathy by history as well as osteoporosis all clinically stable. Check blood work in the form CBC, CMP, lipid, vitamin-D level. Continue on current Rx follow-up in four months. Follow Up: 4 Months Approximate Date: 10/12/2024 Portions of the record may have been created with voice recognition software. Occasional wrong-word or s ound-a-like substitutions may have occurred due to the inherent limitations of voice recognition software. Read the chart carefully and recognize, using context, where substitutions have occurred. [email or web address] Not available 06/14/2024 15:59:35 10/18/2024 [id number] Follow-up for essential hypertension, hyperlipidemia, GERD as well as chronic obstructive lung disease. Will check CBC, CMP, lipid thyroid, B12 and magnesium level. Will give a trial of Airsupra inhaler and see if there is any improvement. Will cover with a Z-Mont[place] and some Tessalon Perles. Additional Orders - Directives - Recommendations 1. Give him a sample of the AirSupra inhaler. Two puffs q.i.d. Portions of record are template driven. When necessary additional context will be provided. Additionally some portions have been created with voice recognition software. Occasional wrong-word or s ound-a-like substitutions may have occurred due to the inherent limitations of voice recognition software. Read the chart carefully and recognize, using context, where substitutions may have occurred. Created: Brain Devlin M.D. 10.18.2024 02:41 PM [email or web address] Not available 10/18/2024 15:41:52 Reason for Referral None Reported. Results Created Date Observation Date Name Description Value Unit Range Abnormal Flag Note LastModifiedBy Organization Detail LastModifiedTime 06/09/2006/09/2023 CBC/C OMPLE TE BLD COUNT W/DIF F white blood cells 8.1 x10'3 /uL 4.2-10 .8 Not Available [facility] (Lab) [address] [place], [address], 06/09/2023 18:15:14 06/09/2006/09/2023 CBC/C OMPLE TE BLD COUNT W/DIF F red blood cells 4.29 x10'6 /uL 4.10-5 .80 Not Available [facility] (Lab) [address] [place], [address], 06/09/2023 18:15:14 06/09/2006/09/2023 CBC/C OMPLE TE BLD COUNT W/DIF F hemoglobin 14.1 g/dL 13.2-1 7.0 Not Available [facility] (Lab) [address] [place], [address], 06/09/2023 18:15:14 06/09/2006/09/2023 CBC/C OMPLE TE BLD COUNT W/DIF F hematocrit 42.2 % 39.3-5 0.0 Not Available [facility] (Lab) [address] [place], [address], 06/09/2023 18:15:14 06/09/2006/09/2023 CBC/C OMPLE TE BLD COUNT W/DIF F mean red cell volume 98.4 fL 80.0-9 7.0 high Not Available [facility] (Lab) [address] [place], [address], 06/09/2023 18:15:14 06/09/2006/09/2023 CBC/C OMPLE TE BLD COUNT W/DIF F mean red cell hemoglobin 32.9 pg 27.0-3 3.0 Not Available [facility] (Lab) [address] [place], [address], 06/09/2023 18:15:14 06/09/2006/09/2023 CBC/C OMPLE TE BLD COUNT W/DIF F mean RBC HGB concentratio n 33.4 g/dL 31.0-3 6.0 Not Available [facility] (Lab) [address] [place], [address], 06/09/2023 18:15:14 06/09/20 23 06/09/2023 CBC/C OMPLE TE BLD COUNT W/DIF F red cell distribution width 13.3 % 11.8-1 5.5 Not Available [facility] (Lab) [address] [place], [address], 06/09/2023 18:15:14 06/09/2006/09/2023 CBC/C OMPLE TE BLD COUNT W/DIF F platelets 207 x10'3 /uL 150-40 0 Not Available [facility] (Lab) [address] [facility] [place], [address], 06/09/2023 18:15:14 06/09/2006/09/2023 CBC/C OMPLE TE BLD COUNT W/DIF F mean platelet volume 11.3 fL 9.0-12 .4 Not Available [facility] (Lab) [address] [place], [address], 06/09/2023 18:15:14 06/09/2006/09/2023 CBC/C OMPLE TE BLD COUNT W/DIF F neutrophils 73.9 % 39.0-7 2.0 high Not Available [facility] (Lab) [address] [place], [address], 06/09/2023 18:15:14 06/09/2006/09/2023 CBC/C OMPLE TE BLD COUNT W/DIF F lymphocytes 17.2 % 16.0-4 7.0 Not Available [facility] (Lab) [address] [place], [address], 06/09/2023 18:15:14 06/09/2006/09/2023 CBC/C OMPLE TE BLD COUNT W/DIF F monocytes 6.3 % 5.0-12 .0 Not Available [facility] (Lab) [address] [place], [address], 06/09/2023 18:15:14 06/09/20 23 06/09/2023 CBC/C OMPLE TE BLD COUNT W/DIF F eosinophils 2.2 % 1.0-7. 0 Not Available [facility] (Lab) [address] [place], [address], 06/09/2023 18:15:14 06/09/2006/09/2023 CBC/C OMPLE TE BLD COUNT W/DIF F basophils 0.2 % 0.0-2. 0 Not Available [facility] (Lab) [address] [place], [address], 06/09/2023 18:15:14 06/09/2006/09/2023 CBC/C OMPLE TE BLD COUNT W/DIF F immature granulocytes 0.2 % 0.00-0 .50 Not Available [facility] (Lab) [address] [place], [address], 06/09/2023 18:15:14 06/09/2006/09/2023 CBC/C OMPLE TE BLD COUNT W/DIF F neutrophils, absolute count 5.98 x10'3 /uL 1.5-8. 0 Not Available [facility] (Lab) [address] [place], [address], 06/09/2023 18:15:14 06/09/2006/09/2023 CBC/C OMPLE TE BLD COUNT W/DIF F lymphocytes, absolute count 1.39 x10'3 /uL 1.07-3 .43 Not Available [facility] (Lab) [address] [place], [address], 06/09/2023 18:15:14 06/09/2006/09/2023 CBC/C OMPLE TE BLD COUNT W/DIF F monocytes, absolute count 0.51 x10'3 /uL 0.29-0 .99 Not Available [facility] (Lab) [address] [place], [address], 06/09/2023 18:15:14 06/09/2006/09/2023 CBC/C OMPLE TE BLD COUNT W/DIF F eosinophils, absolute count 0.18 x10'3 /uL 0.02-0 .53 Not Available [facility] (Lab) [address] [place], [address], 06/09/2023 18:15:14 06/09/20 23 06/09/2023 CBC/C OMPLE TE BLD COUNT W/DIF F basophils, absolute count 0.02 x10'3 /uL 0.01-0 .08 Not Available [facility] (Lab) [address] [place], [address], 06/09/2023 18:15:14 06/09/2006/09/2023 CBC/C OMPLE TE BLD COUNT W/DIF F immature granulocytes ,absolute 0.02 x10'3 /uL 0.00-0 .05 Not Available [facility] (Lab) [address] [place], [address], 06/09/2023 18:15:14 06/09/2006/09/2023 CBC/C OMPLE TE BLD COUNT W/DIF F nucleated red blood cells 0.0 % -0 Not Available [facility] (Lab) [address] [place], [address], 06/09/2023 18:15:14 06/09/2006/09/2023 CBC/C OMPLE TE BLD COUNT W/DIF F NRBC# 0.00 x10'3 /uL Not Available [facility] (Lab) [address] [place], [address], 06/09/2023 18:15:14 06/09/2006/09/2023 LIPID PANEL cholesterol 145 mg/dL 140-19 9 [facility] MITCHELL NSUS RECOM MENDA TION FOR KRYSTIAN STERO L: ADULT CHILD LOW RISK: <200 <170 BORDE RLINE : <200- 239 ----- HIGH RISK: >240 >200 Not Available [facility] (Lab) [address] [place], [address], 06/09/2023 19:21:18 06/09/20 23 06/09/2023 LIPID PANEL triglyceride s 90 mg/dL 0-150 NIH MITCHELL NSUS REPOR T RECOM MENDA TION FOR TRIGL YCERI RENAN: ADULT CHILD LOW RISK: <150 ----- BODER LINE: 150-1 99 ----- HIGH RISK: >200 ----- Not Available [facility] (Lab) [address] [place], [address], 06/09/2023 19:21:18 06/09/20 23 06/09/2023 LIPID PANEL HDL cholesterol 48 mg/dL 40- Not Available [facility] (Lab) [address] [place], [address], 06/09/2023 19:21:18 06/09/20 23 06/09/2023 LIPID PANEL LDL cholesterol, calculated 79 mg/dL 0-130 NIH MITCHELL NSUS REPOR T RECOM MENDA TIONS FOR LDL: ADULT CHILD LOW RISK <130 <110 (OPTI MAL LDL) <100 ----- BORDE RLINE : 130-1 59 ----- HIGH RISK: >160 >130 A TRIGL YCERI DE RESUL T >400 INVAL IDATE S THE CALCU LATIO N FOR LDL FRACT IONAT ION - THE LDL RESUL T WILL NOT BE REPOR ZAC. Not Available [facility] (Lab) [address] [place], [address], 06/09/2023 19:21:18 06/09/20 23 06/09/2023 COMPR EHENS ALICIA METAB OLIC PANEL sodium 142 mmol/ L 137-14 5 Not Available [facility] (Lab) [address] [place], [address], 06/09/2023 19:21:24 06/09/20 23 06/09/2023 COMPR EHENS ALICIA METAB OLIC PANEL potassium 3.6 mmol/ L 3.5-5. 1 Not Available [facility] (Lab) [address] [place], [address], 06/09/2023 19:21:24 06/09/20 23 06/09/2023 COMPR EHENS ALICIA METAB OLIC PANEL chloride 104 mmol/ L 98-107 Not Available [facility] (Lab) [address] [place], [address], 06/09/2023 19:21:24 06/09/20 23 06/09/2023 COMPR EHENS ALICIA METAB OLIC PANEL carbon dioxide 29 mmol/ L 22-30 Not Available [facility] (Lab) [address] [place], [address], 06/09/2023 19:21:24 06/09/20 23 06/09/2023 COMPR EHENS ALICIA METAB OLIC PANEL anion gap 12.6 mmol/ L 14-22 low Not Available [facility] (Lab) [address] [place], [address], 06/09/2023 19:21:24 06/09/20 23 06/09/2023 COMPR EHENS ALICIA METAB OLIC PANEL glucose 97 mg/dL 70-99 Not Available [facility] (Lab) [address] [place], [address], 06/09/2023 19:21:24 06/09/20 23 06/09/2023 COMPR EHENS ALICIA METAB OLIC PANEL BUN 34 mg/dL 8-19 high Not Available [facility] (Lab) [address] [place], [address], 06/09/2023 19:21:24 06/09/20 23 06/09/2023 COMPR EHENS ALICIA METAB OLIC PANEL creatinine 0.64 mg/dL 0.66-1 .25 low Not Available [facility] (Lab) [address] [place], [address], 06/09/2023 19:21:24 06/09/20 23 06/09/2023 COMPR EHENS ALICIA METAB OLIC PANEL GFR >60 Refer ence Range : [place] ge GFR Healt hy Adult : >60 mL/mi n/1.7 3 m2 Chron ic Kidne y Disea se: 15-60 mL/mi n/1.7 3 m2 Kidne y Failu re: <15/m L/min /1.73 m2 www.n iddk. [facility].g ov The MDRD study equat ion has not been valid ated in child cornell <18 years of age; pregn ant women ; the elder ly >85 years of age; or in some racia l or ethni c subgr oups, such as Hispa nics. Outsi de the valid ated diane eters , estim ated GFR is less accur ate, requi ring clini jose judgm ent on a case- by-ca se basis . Clini jose inter preta tion for other races and ages must be made by the clini cornelius. The MDRD study equat ion has not been valid ated for the evalu ation of serum creat inine relat ed to nutri ivan l statu s or medic ation usage . For perso ns <18 years of age, a pedia tric GFR calcu lator is avail able on the [facility] websi te: https ://denton osborne.cal quinn/pr falloness rowenaal s/kdo qi/gf r_cal culat or Not Available [facility] (Lab) [address] [place], [address], 06/09/2023 19:21:24 06/09/20 23 06/09/2023 COMPR EHENS ALICIA METAB OLIC PANEL alkaline phosphatase 135 U/L 38-126 high Not Available [facility] (Lab) [address] [place], [address], 06/09/2023 19:21:24 06/09/20 23 06/09/2023 COMPR EHENS ALICIA METAB OLIC PANEL alanine aminotransfe rase 24 U/L 0-50 Not Available [facility] (Lab) [address] [place], [address], 06/09/2023 19:21:24 06/09/20 23 06/09/2023 COMPR EHENS ALICIA METAB OLIC PANEL aspartate aminotransfe rase 53 U/L 15-46 high Not Available [facility] (Lab) [address] [place], [address], 06/09/2023 19:21:24 06/09/20 23 06/09/2023 COMPR EHENS ALICIA METAB OLIC PANEL bilirubin, total 0.60 mg/dL 0.20-1 .30 Not Available [facility] (Lab) [address] [place], [address], 06/09/2023 19:21:24 06/09/20 23 06/09/2023 COMPR EHENS ALICIA METAB OLIC PANEL calcium 9.3 mg/dL 8.4-10 .2 Not Available [facility] (Lab) [address] [place], [address], 06/09/2023 19:21:24 06/09/20 23 06/09/2023 COMPR EHENS ALICIA METAB OLIC PANEL total protein 7.2 g/dL 6.3-8. 2 Not Available [facility] (Lab) [address] [place], [address], 06/09/2023 19:21:24 06/09/20 23 06/09/2023 COMPR EHENS ALICIA METAB OLIC PANEL albumin 4.1 g/dL 3.0-4. 4 Not Available [facility] (Lab) [address] [place], [address], 06/09/2023 19:21:24 06/09/20 23 06/09/2023 COMPR EHENS ALICIA METAB OLIC PANEL globulin 3.1 g/dL 2.6-4. 2 Not Available [facility] (Lab) [address] [place], [address], 06/09/2023 19:21:24 06/09/2006/09/2023 COMPR EHENS ALICIA METAB OLIC PANEL A/G ratio 1.3 ratio 1.0-2. 0 Not Available [facility] (Lab) [address] [place], [address], 06/09/2023 19:21:24 06/09/20 23 06/09/2023 T4 FREE free T4 1.19 NG/dL 0.78-2 .19 Not Available [facility] (Lab) [address] [place], [address], 06/09/2023 19:21:33 06/09/2006/09/2023 TSH thyroid-stim ulating hormone 2.120 uIU/m L 0.465- 4.680 Not Available [facility] (Lab) [address] [place], [address], 06/09/2023 19:22:14 10/13/19 24 10/13/2023 CBC/C OMPLE TE BLD COUNT W/DIF F white blood cells 9.8 x10'3 /uL 4.2-10 .8 Not Available [facility] (Lab) [address] [place], [address], 10/13/2023 16:22:18 10/13/19 24 10/13/2023 CBC/C OMPLE TE BLD COUNT W/DIF F red blood cells 4.01 x10'6 /uL 4.10-5 .80 low Not Available [facility] (Lab) [address] [place], [address], 10/13/2023 16:22:18 10/13/19 24 10/13/2023 CBC/C OMPLE TE BLD COUNT W/DIF F hemoglobin 13.2 g/dL 13.2-1 7.0 Not Available [facility] (Lab) [address] [place], [address], 10/13/2023 16:22:18 10/13/19 24 10/13/2023 CBC/C OMPLE TE BLD COUNT W/DIF F hematocrit 38.9 % 39.3-5 0.0 low Not Available [facility] (Lab) [address] [place], [address], 10/13/2023 16:22:18 10/13/19 24 10/13/2023 CBC/C OMPLE TE BLD COUNT W/DIF F mean red cell volume 97.0 fL 80.0-9 7.0 Not Available [facility] (Lab) [address] [place], [address], 10/13/2023 16:22:18 10/13/19 24 10/13/2023 CBC/C OMPLE TE BLD COUNT W/DIF F mean red cell hemoglobin 32.9 pg 27.0-3 3.0 Not Available [facility] (Lab) [address] [place], [address], 10/13/2023 16:22:18 10/13/19 24 10/13/2023 CBC/C OMPLE TE BLD COUNT W/DIF F mean RBC HGB concentratio n 33.9 g/dL 31.0-3 6.0 Not Available [facility] (Lab) [address] [place], [address], 10/13/2023 16:22:18 10/13/19 24 10/13/2023 CBC/C OMPLE TE BLD COUNT W/DIF F red cell distribution width 12.5 % 11.8-1 5.5 Not Available [facility] (Lab) [address] [place], [address], 10/13/2023 16:22:18 10/13/19 24 10/13/2023 CBC/C OMPLE TE BLD COUNT W/DIF F platelets 295 x10'3 /uL 150-40 0 Not Available [facility] (Lab) [address] [place], [address], 10/13/2023 16:22:18 10/13/19 24 10/13/2023 CBC/C OMPLE TE BLD COUNT W/DIF F mean platelet volume 9.5 fL 9.0-12 .4 Not Available [facility] (Lab) [address] [place], [address], 10/13/2023 16:22:18 10/13/19 24 10/13/2023 CBC/C OMPLE TE BLD COUNT W/DIF F neutrophils 76.8 % 39.0-7 2.0 high Not Available [facility] (Lab) [address] [place], [address], 10/13/2023 16:22:18 10/13/19 24 10/13/2023 CBC/C OMPLE TE BLD COUNT W/DIF F lymphocytes 15.4 % 16.0-4 7.0 low Not Available [facility] (Lab) [address] [place], [address], 10/13/2023 16:22:18 10/13/19 24 10/13/2023 CBC/C OMPLE TE BLD COUNT W/DIF F monocytes 5.1 % 5.0-12 .0 Not Available [facility] (Lab) [address] [place], [address], 10/13/2023 16:22:18 10/13/19 24 10/13/2023 CBC/C OMPLE TE BLD COUNT W/DIF F eosinophils 1.5 % 1.0-7. 0 Not Available [facility] (Lab) [address] [place], [address], 10/13/2023 16:22:18 10/13/19 24 10/13/2023 CBC/C OMPLE TE BLD COUNT W/DIF F basophils 0.4 % 0.0-2. 0 Not Available [facility] (Lab) [address] [place], [address], 10/13/2023 16:22:18 10/13/19 24 10/13/2023 CBC/C OMPLE TE BLD COUNT W/DIF F immature granulocytes 0.8 % 0.00-0 .50 high Not Available [facility] (Lab) [address] [place], [address], 10/13/2023 16:22:18 10/13/19 24 10/13/2023 CBC/C OMPLE TE BLD COUNT W/DIF F neutrophils, absolute count 7.55 x10'3 /uL 1.5-8. 0 Not Available [facility] (Lab) [address] [place], [address], 10/13/2023 16:22:18 10/13/19 24 10/13/2023 CBC/C OMPLE TE BLD COUNT W/DIF F lymphocytes, absolute count 1.52 x10'3 /uL 1.07-3 .43 Not Available [facility] (Lab) [address] [place], [address], 10/13/2023 16:22:18 10/13/19 24 10/13/2023 CBC/C OMPLE TE BLD COUNT W/DIF F monocytes, absolute count 0.50 x10'3 /uL 0.29-0 .99 Not Available [facility] (Lab) [address] [place], [address], 10/13/2023 16:22:18 10/13/19 24 10/13/2023 CBC/C OMPLE TE BLD COUNT W/DIF F eosinophils, absolute count 0.15 x10'3 /uL 0.02-0 .53 Not Available [facility] (Lab) [address] [place], [address], 10/13/2023 16:22:18 10/13/19 24 10/13/2023 CBC/C OMPLE TE BLD COUNT W/DIF F basophils, absolute count 0.04 x10'3 /uL 0.01-0 .08 Not Available [facility] (Lab) [address] [place], [address], 10/13/2023 16:22:18 10/13/19 24 10/13/2023 CBC/C OMPLE TE BLD COUNT W/DIF F immature granulocytes ,absolute 0.08 x10'3 /uL 0.00-0 .05 high Not Available [facility] (Lab) [address] [place], [address], 10/13/2023 16:22:18 10/13/19 24 10/13/2023 CBC/C OMPLE TE BLD COUNT W/DIF F nucleated red blood cells 0.0 % -0 Not Available [facility] (Lab) [address] [place], [address], 10/13/2023 16:22:18 10/13/19 24 10/13/2023 CBC/C OMPLE TE BLD COUNT W/DIF F NRBC# 0.00 x10'3 /uL Not Available [facility] (Lab) [address] [place], [address], 10/13/2023 16:22:18 10/13/19 24 10/13/2023 T4 FREE free T4 1.27 NG/dL 0.78-2 .19 Not Available [facility] (Lab) [address] [place], [address], 10/13/2023 18:58:18 10/13/19 24 10/13/2023 TSH thyroid-stim ulating hormone 1.870 uIU/m L 0.465- 4.680 Not Available [facility] (Lab) [address] [place], [address], 10/13/2023 19:00:21 10/13/19 24 10/13/2023 PSA, TOTAL PSA, total 0.91 NG/mL 0.00-4 .00 Not Available [facility] (Lab) [address] [place], [address], 10/13/2023 19:00:25 10/13/19 24 10/13/2023 LIPID PANEL cholesterol 138 mg/dL 140-19 9 low NIH MITCHELL NSUS RECOM MENDA TION FOR KRYSTIAN STERO L: ADULT CHILD LOW RISK: <200 <170 BORDE RLINE : <200- 239 ----- HIGH RISK: >240 >200 Not Available [facility] (Lab) [address] [place], [address], 10/13/2023 19:01:27 10/13/19 24 10/13/2023 LIPID PANEL triglyceride s 117 mg/dL 0-150 NIH MITCHELL NSUS REPOR T RECOM MENDA TION FOR TRIGL YCERI RENAN: ADULT CHILD LOW RISK: <150 ----- BODER LINE: 150-1 99 ----- HIGH RISK: >200 ----- Not Available [facility] (Lab) [address] [place], [address], 10/13/2023 19:01:27 10/13/19 24 10/13/2023 LIPID PANEL HDL cholesterol 36 mg/dL 40- low Not Available [facility] (Lab) [address] [place], [address], 10/13/2023 19:01:27 10/13/19 24 10/13/2023 LIPID PANEL LDL cholesterol, calculated 79 mg/dL 0-130 NIH MITCHELL NSUS REPOR T RECOM MENDA TIONS FOR LDL: ADULT CHILD LOW RISK <130 <110 (OPTI MAL LDL) <100 ----- BORDE RLINE : 130-1 59 ----- HIGH RISK: >160 >130 A TRIGL YCERI DE RESUL T >400 INVAL IDATE S THE CALCU LATIO N FOR LDL FRACT IONAT ION - THE LDL RESUL T WILL NOT BE REPOR ZAC. Not Available [facility] (Lab) [address] [place], [address], 10/13/2023 19:01:27 10/13/19 24 10/13/2023 COMPR EHENS ALICIA METAB OLIC PANEL sodium 139 mmol/ L 137-14 5 Not Available [facility] (Lab) [address] [place], [address], 10/13/2023 19:01:38 10/13/19 24 10/13/2023 COMPR EHENS ALICIA METAB OLIC PANEL potassium 3.7 mmol/ L 3.5-5. 1 Not Available [facility] (Lab) [address] [place], [address], 10/13/2023 19:01:38 10/13/19 24 10/13/2023 COMPR EHENS ALICIA METAB OLIC PANEL chloride 102 mmol/ L 98-107 Not Available [facility] (Lab) [address] [place], [address], 10/13/2023 19:01:38 10/13/19 24 10/13/2023 COMPR EHENS ALICIA METAB OLIC PANEL carbon dioxide 28 mmol/ L 22-30 Not Available [facility] (Lab) [address] [place], [address], 10/13/2023 19:01:38 10/13/19 24 10/13/2023 COMPR EHENS ALICIA METAB OLIC PANEL anion gap 12.7 mmol/ L 14-22 low Not Available [facility] (Lab) [address] [place], [address], 10/13/2023 19:01:38 10/13/19 24 10/13/2023 COMPR EHENS ALICIA METAB OLIC PANEL glucose 92 mg/dL 70-99 Not Available [facility] (Lab) [address] [place], [address], 10/13/2023 19:01:38 10/13/19 24 10/13/2023 COMPR EHENS ALICIA METAB OLIC PANEL BUN 26 mg/dL 8-19 high Not Available [facility] (Lab) [address] [place], [address], 10/13/2023 19:01:38 10/13/19 24 10/13/2023 COMPR EHENS ALICIA METAB OLIC PANEL creatinine 0.67 mg/dL 0.66-1 .25 Not Available [facility] (Lab) [address] [place], [address], 10/13/2023 19:01:38 10/13/19 24 10/13/2023 COMPR EHENS ALICIA METAB OLIC PANEL GFR >60 Refer ence Range : [place] ge GFR Healt hy Adult : >60 mL/mi n/1.7 3 m2 Chron ic Kidne y Disea se: 15-60 mL/mi n/1.7 3 m2 Kidne y Failu re: <15/m L/min /1.73 m2 www.n iddk. nih.g ov The MDRD study equat ion has not been valid ated in child cornell <18 years of age; pregn ant women ; the elder ly >85 years of age; or in some racia l or ethni c subgr oups, such as Hisal nics. Outsi de the valid ated diane eters , estim ated GFR is less accur ate, requi ring clini jose judgm ent on a case- by-ca se basis . Clini jose inter preta tion for other races and ages must be made by the clini cornelius. The MDRD study equat ion has not been valid ated for the evalu ation of serum creat inine relat ed to nutri ivan l statu s or medic ation usage . For perso ns <18 years of age, a pedia tric GFR calcu lator is avail able on the [facility] websi te: https ://denton w.kid dylon.o rg/pr ofess ional s/kdo qi/gf r_cal culat or Not Available [facility] (Lab) [address] [place], [address], 10/13/2023 19:01:38 10/13/19 24 10/13/2023 COMPR EHENS ALICIA METAB OLIC PANEL alkaline phosphatase 137 U/L 38-126 high Not Available [facility] (Lab) [address] [place], [address], 10/13/2023 19:01:38 10/13/19 24 10/13/2023 COMPR EHENS ALICIA METAB OLIC PANEL alanine aminotransfe rase 21 U/L 0-50 Not Available [facility] (Lab) [address] [place], [address], 10/13/2023 19:01:38 10/13/19 24 10/13/2023 COMPR EHENS ALICIA METAB OLIC PANEL aspartate aminotransfe rase 24 U/L 15-46 Not Available [facility] (Lab) [address] [place], [address], 10/13/2023 19:01:38 10/13/19 24 10/13/2023 COMPR EHENS ALICIA METAB OLIC PANEL bilirubin, total 0.50 mg/dL 0.20-1 .30 Not Available [facility] (Lab) [address] [place], [address], 10/13/2023 19:01:38 10/13/19 24 10/13/2023 COMPR EHENS ALICIA METAB OLIC PANEL calcium 9.3 mg/dL 8.4-10 .2 Not Available [facility] (Lab) [address] [place], [address], 10/13/2023 19:01:38 10/13/19 24 10/13/2023 COMPR EHENS ALICIA METAB OLIC PANEL total protein 6.8 g/dL 6.3-8. 2 Not Available [facility] (Lab) [address] [place], [address], 10/13/2023 19:01:38 10/13/19 24 10/13/2023 COMPR EHENS ALICIA METAB OLIC PANEL albumin 3.8 g/dL 3.0-4. 4 Not Available [facility] (Lab) [address] [place], [address], 10/13/2023 19:01:38 10/13/19 24 10/13/2023 COMPR EHENS ALICIA METAB OLIC PANEL globulin 3.0 g/dL 2.6-4. 2 Not Available [facility] (Lab) [address] [place], [address], 10/13/2023 19:01:38 10/13/19 24 10/13/2023 COMPR EHENS ALICIA METAB OLIC PANEL A/G ratio 1.3 ratio 1.0-2. 0 Not Available [facility] (Lab) [address] [place], [address], 10/13/2023 19:01:38 10/13/19 24 10/13/2023 MAGNE SIUM magnesium 2.0 mg/dL 1.6-2. 3 Not Available [facility] (Lab) [address] [place], [address], 10/13/2023 19:01:40 10/13/19 24 10/15/2023 VITAM IN B12 (ALEJANDRO CONSTANTINE ) vb12 618 pg/mL 239-93 1 Not Available [facility] (Lab) [address] [place], [address], 10/15/2023 19:24:00 02/16/20 24 02/16/2024 CBC/C OMPLE TE BLD COUNT W/DIF F white blood cells 7.4 x10'3 /uL 4.2-10 .8 Not Available [facility] (Lab) [address] [place], [address], 02/16/2024 19:08:04 02/16/20 24 02/16/2024 CBC/C OMPLE TE BLD COUNT W/DIF F red blood cells 3.86 x10'6 /uL 4.10-5 .80 low Not Available [facility] (Lab) [address] [place], [address], 02/16/2024 19:08:04 02/16/20 24 02/16/2024 CBC/C OMPLE TE BLD COUNT W/DIF F hemoglobin 12.9 g/dL 13.2-1 7.0 low Not Available [facility] (Lab) [address] [place], [address], 02/16/2024 19:08:04 02/16/20 24 02/16/2024 CBC/C OMPLE TE BLD COUNT W/DIF F hematocrit 37.4 % 39.3-5 0.0 low Not Available [facility] (Lab) [address] [place], [address], 02/16/2024 19:08:04 02/16/20 24 02/16/2024 CBC/C OMPLE TE BLD COUNT W/DIF F mean red cell volume 96.9 fL 80.0-9 7.0 Not Available [facility] (Lab) [address] [place], [address], 02/16/2024 19:08:04 02/16/20 24 02/16/2024 CBC/C OMPLE TE BLD COUNT W/DIF F mean red cell hemoglobin 33.4 pg 27.0-3 3.0 high Not Available [facility] (Lab) [address] [place], [address], 02/16/2024 19:08:04 02/16/20 24 02/16/2024 CBC/C OMPLE TE BLD COUNT W/DIF F mean RBC HGB concentratio n 34.5 g/dL 31.0-3 6.0 Not Available [facility] (Lab) [address] [place], [address], 02/16/2024 19:08:04 02/16/20 24 02/16/2024 CBC/C OMPLE TE BLD COUNT W/DIF F red cell distribution width 13.2 % 11.8-1 5.5 Not Available [facility] (Lab) [address] [place], [address], 02/16/2024 19:08:04 02/16/20 24 02/16/2024 CBC/C OMPLE TE BLD COUNT W/DIF F platelets 231 x10'3 /uL 150-40 0 Not Available [facility] (Lab) [address] [place], [address], 02/16/2024 19:08:04 02/16/20 24 02/16/2024 CBC/C OMPLE TE BLD COUNT W/DIF F mean platelet volume 10.4 fL 9.0-12 .4 Not Available [facility] (Lab) [address] [place], [address], 02/16/2024 19:08:04 02/16/20 24 02/16/2024 CBC/C OMPLE TE BLD COUNT W/DIF F neutrophils 70.8 % 39.0-7 2.0 Not Available [facility] (Lab) [address] [place], [address], 02/16/2024 19:08:04 02/16/20 24 02/16/2024 CBC/C OMPLE TE BLD COUNT W/DIF F lymphocytes 16.9 % 16.0-4 7.0 Not Available [facility] (Lab) [address] [place], [address], 02/16/2024 19:08:04 02/16/20 24 02/16/2024 CBC/C OMPLE TE BLD COUNT W/DIF F monocytes 9.3 % 5.0-12 .0 Not Available [facility] (Lab) [address] [place], [address], 02/16/2024 19:08:04 02/16/20 24 02/16/2024 CBC/C OMPLE TE BLD COUNT W/DIF F eosinophils 2.3 % 1.0-7. 0 Not Available [facility] (Lab) [address] [place], [address], 02/16/2024 19:08:04 02/16/20 24 02/16/2024 CBC/C OMPLE TE BLD COUNT W/DIF F basophils 0.3 % 0.0-2. 0 Not Available [facility] (Lab) [address] [facility] [place], [address], 02/16/2024 19:08:04 02/16/20 24 02/16/2024 CBC/C OMPLE TE BLD COUNT W/DIF F immature granulocytes 0.4 % 0.00-0 .50 Not Available [facility] (Lab) [address] [facility] [place] [place], [address], 02/16/2024 19:08:04 02/16/20 24 02/16/2024 CBC/C OMPLE TE BLD COUNT W/DIF F neutrophils, absolute count 5.24 x10'3 /uL 1.5-8. 0 Not Available [facility] (Lab) [address] [place], [address], 02/16/2024 19:08:04 02/16/20 24 02/16/2024 CBC/C OMPLE TE BLD COUNT W/DIF F lymphocytes, absolute count 1.25 x10'3 /uL 1.07-3 .43 Not Available [facility] (Lab) [address] [place], [address], 02/16/2024 19:08:04 02/16/20 24 02/16/2024 CBC/C OMPLE TE BLD COUNT W/DIF F monocytes, absolute count 0.69 x10'3 /uL 0.29-0 .99 Not Available [facility] (Lab) [address] [place], [address], 02/16/2024 19:08:04 02/16/20 24 02/16/2024 CBC/C OMPLE TE BLD COUNT W/DIF F eosinophils, absolute count 0.17 x10'3 /uL 0.02-0 .53 Not Available [facility] (Lab) [address] [place], [address], 02/16/2024 19:08:04 02/16/20 24 02/16/2024 CBC/C OMPLE TE BLD COUNT W/DIF F basophils, absolute count 0.02 x10'3 /uL 0.01-0 .08 Not Available [facility] (Lab) [address] [place], [address], 02/16/2024 19:08:04 02/16/20 24 02/16/2024 CBC/C OMPLE TE BLD COUNT W/DIF F immature granulocytes ,absolute 0.03 x10'3 /uL 0.00-0 .05 Not Available [facility] (Lab) [address] [place], [address], 02/16/2024 19:08:04 02/16/20 24 02/16/2024 CBC/C OMPLE TE BLD COUNT W/DIF F nucleated red blood cells 0.0 % -0 Not Available [facility] (Lab) [address] [place], [address], 02/16/2024 19:08:04 02/16/20 24 02/16/2024 CBC/C OMPLE TE BLD COUNT W/DIF F NRBC# 0.00 x10'3 /uL Not Available [facility] (Lab) [address] [place], [address], 02/16/2024 19:08:04 02/16/20 24 02/16/2024 LIPID PANEL cholesterol 127 mg/dL 140-19 9 low NIH MITCHELL NSUS RECOM MENDA TION FOR KRYSTIAN STERO L: ADULT CHILD LOW RISK: <200 <170 BORDE RLINE : <200- 239 ----- HIGH RISK: >240 >200 Not Available [facility] (Lab) [address] [place], [address], 02/16/2024 20:20:44 02/16/20 24 02/16/2024 LIPID PANEL triglyceride s 105 mg/dL 0-150 NIH MITCHELL NSUS REPOR T RECOM MENDA TION FOR TRIGL YCERI RENAN: ADULT CHILD LOW RISK: <150 ----- BODER LINE: 150-1 99 ----- HIGH RISK: >200 ----- Not Available [facility] (Lab) [address] [place], [address], 02/16/2024 20:20:44 02/16/20 24 02/16/2024 LIPID PANEL HDL cholesterol 57 mg/dL 40- Not Available [facility] (Lab) [address] [place], [address], 02/16/2024 20:20:44 02/16/20 24 02/16/2024 LIPID PANEL LDL cholesterol, calculated 49 mg/dL 0-130 NIH MITCHELL NSUS REPOR T RECOM MENDA TIONS FOR LDL: ADULT CHILD LOW RISK <130 <110 (OPTI MAL LDL) <100 ----- BORDE RLINE : 130-1 59 ----- HIGH RISK: >160 >130 A TRIGL YCERI DE RESUL T >400 INVAL IDATE S THE CALCU LATIO N FOR LDL FRACT IONAT ION - THE LDL RESUL T WILL NOT BE REPOR ZAC. Not Available [facility] (Lab) [address] [place], [address], 02/16/2024 20:20:44 02/16/20 24 02/16/2024 COMPR EHENS ALICIA METAB OLIC PANEL sodium 133 mmol/ L 137-14 5 low Not Available [facility] (Lab) [address] [place], [address], 02/16/2024 20:20:50 02/16/20 24 02/16/2024 COMPR EHENS ALICIA METAB OLIC PANEL potassium 4.3 mmol/ L 3.5-5. 1 Not Available [facility] (Lab) [address] [place], [address], 02/16/2024 20:20:50 02/16/20 24 02/16/2024 COMPR EHENS ALICIA METAB OLIC PANEL chloride 103 mmol/ L 98-107 Not Available [facility] (Lab) [address] [place], [address], 02/16/2024 20:20:50 02/16/20 24 02/16/2024 COMPR EHENS ALICIA METAB OLIC PANEL carbon dioxide 27 mmol/ L 22-30 Not Available [facility] (Lab) [address] [facility] [place], [address], 02/16/2024 20:20:50 02/16/20 24 02/16/2024 COMPR EHENS ALICIA METAB OLIC PANEL anion gap 7.3 mmol/ L 14-22 low Not Available [facility] (Lab) [address] [place], [address], 02/16/2024 20:20:50 02/16/20 24 02/16/2024 COMPR EHENS ALICIA METAB OLIC PANEL glucose 84 mg/dL 70-99 Not Available [facility] (Lab) [address] [place], [address], 02/16/2024 20:20:50 02/16/20 24 02/16/2024 COMPR EHENS ALICIA METAB OLIC PANEL BUN 18 mg/dL 8-19 Not Available [facility] (Lab) [address] [place], [address], 02/16/2024 20:20:50 02/16/20 24 02/16/2024 COMPR EHENS ALICIA METAB OLIC PANEL creatinine 0.69 mg/dL 0.66-1 .25 Not Available [facility] (Lab) [address] [place], [address], 02/16/2024 20:20:50 02/16/20 24 02/16/2024 COMPR EHENS ALICIA METAB OLIC PANEL GFR >60 Refer ence Range : [place] ge GFR Healt hy Adult : >60 mL/mi n/1.7 3 m2 Chron ic Kidne y Disea se: 15-60 mL/mi n/1.7 3 m2 Kidne y Failu re: <15/m L/min /1.73 m2 www.n iddk. nih.g ov The MDRD study equat ion has not been valid ated in child cornell <18 years of age; pregn ant women ; the elder ly >85 years of age; or in some racia l or ethni c subgr oups, such as Hispa nics. Outsi de the valid ated diane eters , estim ated GFR is less accur ate, requi ring clini jose judgm ent on a case- by-ca se basis . Clini jose inter preta tion for other races and ages must be made by the clini cornelius. The MDRD study equat ion has not been valid ated for the evalu ation of serum creat inine relat ed to nutri ivan l statu s or medic ation usage . For perso ns <18 years of age, a pedia tric GFR calcu lator is avail able on the [facility] websi te: https ://denton osborne.cal quinn/aleida lehmaness ional s/kdo qi/gf r_cal culat or Not Available [facility] (Lab) [address] [place], [address], 02/16/2024 20:20:50 02/16/20 24 02/16/2024 COMPR EHENS ALICIA METAB OLIC PANEL alkaline phosphatase 155 U/L 38-126 high Not Available [facility] (Lab) [address] [place], [address], 02/16/2024 20:20:50 02/16/20 24 02/16/2024 COMPR EHENS ALICIA METAB OLIC PANEL alanine aminotransfe rase 19 U/L 0-50 Not Available [facility] (Lab) [address] [place], [address], 02/16/2024 20:20:50 02/16/20 24 02/16/2024 COMPR EHENS ALICIA METAB OLIC PANEL aspartate aminotransfe rase 24 U/L 15-46 Not Available [facility] (Lab) [address] [place], [address], 02/16/2024 20:20:50 02/16/20 24 02/16/2024 COMPR EHENS ALICIA METAB OLIC PANEL bilirubin, total 0.50 mg/dL 0.20-1 .30 Not Available [facility] (Lab) [address] [place], [address], 02/16/2024 20:20:50 02/16/20 24 02/16/2024 COMPR EHENS ALICIA METAB OLIC PANEL calcium 8.9 mg/dL 8.4-10 .2 Not Available [facility] (Lab) [address] [place], [address], 02/16/2024 20:20:50 02/16/20 24 02/16/2024 COMPR EHENS ALICIA METAB OLIC PANEL total protein 6.3 g/dL 6.3-8. 2 Not Available [facility] (Lab) [address] [place], [address], 02/16/2024 20:20:50 02/16/20 24 02/16/2024 COMPR EHENS ALICIA METAB OLIC PANEL albumin 3.9 g/dL 3.0-4. 4 Not Available [facility] (Lab) [address] [place], [address], 02/16/2024 20:20:50 02/16/20 24 02/16/2024 COMPR EHENS ALICIA METAB OLIC PANEL globulin 2.4 g/dL 2.6-4. 2 low Not Available [facility] (Lab) [address] [place], [address], 02/16/2024 20:20:50 02/16/20 24 02/16/2024 COMPR EHENS ALICIA METAB OLIC PANEL A/G ratio 1.6 ratio 1.0-2. 0 Not Available [facility] (Lab) [address] [place], [address], 02/16/2024 20:20:50 02/16/20 24 02/16/2024 MAGNE SIUM magnesium 1.8 mg/dL 1.6-2. 3 Not Available [facility] (Lab) [address] [place], [address], 02/16/2024 20:20:59 02/16/20 24 02/16/2024 T4 FREE free T4 1.48 NG/dL 0.78-2 .19 Not Available [facility] (Lab) [address] [place], [address], 02/16/2024 20:38:56 02/16/20 24 02/16/2024 TSH thyroid-stim ulating hormone 2.050 uIU/m L 0.465- 4.680 Not Available [facility] (Lab) [address] [place], [address], 02/16/2024 20:48:29 02/16/20 24 02/16/2024 VITAM IN B12 (ALEJANDRO CONSTANTINE ) vb12 497 pg/mL 239-93 1 Not Available [facility] (Lab) [address] [place], [address], 02/16/2024 22:24:04 06/14/20 24 06/14/2024 CBC/C OMPLE TE BLD COUNT W/DIF F white blood cells 9.1 x10'3 /uL 4.2-10 .8 Not Available [facility] (Lab) [address] [place], [address], 06/14/2024 18:13:50 06/14/20 24 06/14/2024 CBC/C OMPLE TE BLD COUNT W/DIF F red blood cells 3.94 x10'6 /uL 4.10-5 .80 low Not Available [facility] (Lab) [address] [place], [address], 06/14/2024 18:13:50 06/14/2006/14/2024 CBC/C OMPLE TE BLD COUNT W/DIF F hemoglobin 13.0 g/dL 13.2-1 7.0 low Not Available [facility] (Lab) [address] [place], [address], 06/14/2024 18:13:50 06/14/2006/14/2024 CBC/C OMPLE TE BLD COUNT W/DIF F hematocrit 39.0 % 39.3-5 0.0 low Not Available [facility] (Lab) [address] [place], [address], 06/14/2024 18:13:50 06/14/2006/14/2024 CBC/C OMPLE TE BLD COUNT W/DIF F mean red cell volume 99.0 fL 80.0-9 7.0 high Not Available [facility] (Lab) [address] [place], [address], 06/14/2024 18:13:50 06/14/2006/14/2024 CBC/C OMPLE TE BLD COUNT W/DIF F mean red cell hemoglobin 33.0 pg 27.0-3 3.0 Not Available [facility] (Lab) [address] [place], [address], 06/14/2024 18:13:50 06/14/2006/14/2024 CBC/C OMPLE TE BLD COUNT W/DIF F mean RBC HGB concentratio n 33.3 g/dL 31.0-3 6.0 Not Available [facility] (Lab) [address] [place], [address], 06/14/2024 18:13:50 06/14/2006/14/2024 CBC/C OMPLE TE BLD COUNT W/DIF F red cell distribution width 12.9 % 11.8-1 5.5 Not Available [facility] (Lab) [address] [place], [address], 06/14/2024 18:13:50 06/14/2006/14/2024 CBC/C OMPLE TE BLD COUNT W/DIF F platelets 245 x10'3 /uL 150-40 0 Not Available [facility] (Lab) [address] [place], [address], 06/14/2024 18:13:50 06/14/2006/14/2024 CBC/C OMPLE TE BLD COUNT W/DIF F mean platelet volume 10.1 fL 9.0-12 .4 Not Available [facility] (Lab) [address] [place], [address], 06/14/2024 18:13:50 06/14/2006/14/2024 CBC/C OMPLE TE BLD COUNT W/DIF F neutrophils 74.7 % 39.0-7 2.0 high Not Available [facility] (Lab) [address] [place], [address], 06/14/2024 18:13:50 06/14/2006/14/2024 CBC/C OMPLE TE BLD COUNT W/DIF F lymphocytes 14.3 % 16.0-4 7.0 low Not Available [facility] (Lab) [address] [place], [address], 06/14/2024 18:13:50 06/14/2006/14/2024 CBC/C OMPLE TE BLD COUNT W/DIF F monocytes 9.1 % 5.0-12 .0 Not Available [facility] (Lab) [address] [place], [address], 06/14/2024 18:13:50 06/14/2006/14/2024 CBC/C OMPLE TE BLD COUNT W/DIF F eosinophils 1.2 % 1.0-7. 0 Not Available [facility] (Lab) [address] [place], [address], 06/14/2024 18:13:50 06/14/2006/14/2024 CBC/C OMPLE TE BLD COUNT W/DIF F basophils 0.3 % 0.0-2. 0 Not Available [facility] (Lab) [address] [place], [address], 06/14/2024 18:13:50 06/14/2006/14/2024 CBC/C OMPLE TE BLD COUNT W/DIF F immature granulocytes 0.4 % 0.00-0 .50 Not Available [facility] (Lab) [address] [place], [address], 06/14/2024 18:13:50 06/14/2006/14/2024 CBC/C OMPLE TE BLD COUNT W/DIF F neutrophils, absolute count 6.81 x10'3 /uL 1.5-8. 0 Not Available [facility] (Lab) [address] [place], [address], 06/14/2024 18:13:50 06/14/2006/14/2024 CBC/C OMPLE TE BLD COUNT W/DIF F lymphocytes, absolute count 1.31 x10'3 /uL 1.07-3 .43 Not Available [facility] (Lab) [address] [place], [address], 06/14/2024 18:13:50 06/14/2006/14/2024 CBC/C OMPLE TE BLD COUNT W/DIF F monocytes, absolute count 0.83 x10'3 /uL 0.29-0 .99 Not Available [facility] [facility] (Lab) [address] [place], [address], 06/14/2024 18:13:50 06/14/20 24 06/14/2024 CBC/C OMPLE TE BLD COUNT W/DIF F eosinophils, absolute count 0.11 x10'3 /uL 0.02-0 .53 Not Available [facility] (Lab) [address] [place], [address], 06/14/2024 18:13:50 06/14/2006/14/2024 CBC/C OMPLE TE BLD COUNT W/DIF F basophils, absolute count 0.03 x10'3 /uL 0.01-0 .08 Not Available [facility] (Lab) [address] [place], [address], 06/14/2024 18:13:50 06/14/20 24 06/14/2024 CBC/C OMPLE TE BLD COUNT W/DIF F immature granulocytes ,absolute 0.04 x10'3 /uL 0.00-0 .05 Not Available [facility] (Lab) [address] [place], [address], 06/14/2024 18:13:50 06/14/2006/14/2024 CBC/C OMPLE TE BLD COUNT W/DIF F nucleated red blood cells 0.0 % -0 Not Available [facility] (Lab) [address] [place], [address], 06/14/2024 18:13:50 06/14/2006/14/2024 CBC/C OMPLE TE BLD COUNT W/DIF F NRBC# 0.00 x10'3 /uL Not Available [facility] (Lab) [address] [place], [address], 06/14/2024 18:13:50 06/14/20 24 06/14/2024 COMPR EHENS ALICIA METAB OLIC PANEL sodium 128 mmol/ L 137-14 5 low Not Available [facility] (Lab) [address] [place], [address], 06/14/2024 18:31:07 06/14/2006/14/2024 COMPR EHENS ALICIA METAB OLIC PANEL potassium 3.8 mmol/ L 3.5-5. 1 Not Available [facility] (Lab) [address] [place], [address], 06/14/2024 18:31:07 06/14/2006/14/2024 COMPR EHENS ALICIA METAB OLIC PANEL chloride 98 mmol/ L 98-107 Not Available [facility] (Lab) [address] [place], [address], 06/14/2024 18:31:07 06/14/2006/14/2024 COMPR EHENS ALICIA METAB OLIC PANEL carbon dioxide 24 mmol/ L 22-30 Not Available [facility] (Lab) [address] [place], [address], 06/14/2024 18:31:07 06/14/2006/14/2024 COMPR EHENS ALICIA METAB OLIC PANEL anion gap 9.8 mmol/ L 14-22 low Not Available [facility] (Lab) [address] [place], [address], 06/14/2024 18:31:07 06/14/20 24 06/14/2024 COMPR EHENS ALICIA METAB OLIC PANEL glucose 85 mg/dL 70-99 Not Available [facility] (Lab) [address] [place], [address], 06/14/2024 18:31:07 06/14/20 24 06/14/2024 COMPR EHENS ALICIA METAB OLIC PANEL BUN 21 mg/dL 8-19 high Not Available [facility] (Lab) [address] [place], [address], 06/14/2024 18:31:07 06/14/20 24 06/14/2024 COMPR EHENS ALICIA METAB OLIC PANEL creatinine 0.81 mg/dL 0.66-1 .25 Not Available [facility] (Lab) [address] [place], [address], 06/14/2024 18:31:07 06/14/20 24 06/14/2024 COMPR EHENS ALICIA METAB OLIC PANEL GFR >60 Refer ence Range : Independence ge GFR Healt hy Adult : >60 mL/mi n/1.7 3 m2 Chron ic Kidne y Disea se: 15-60 mL/mi n/1.7 3 m2 Kidne y Failu re: <15/m L/min /1.73 m2 www.n iddk. nih.g ov The MDRD study equat ion has not been valid ated in child cornell <18 years of age; pregn ant women ; the elder ly >85 years of age; or in some racia l or ethni c subgr oups, such as Hisal nics. Outsi de the valid ated diane eters , estim ated GFR is less accur ate, requi ring clini jose judgm ent on a case- by-ca se basis . Clini jose inter preta tion for other races and ages must be made by the clini cornelius. The MDRD study equat ion has not been valid ated for the evalu ation of serum creat inine relat ed to nutri ivan l statu s or medic ation usage . For perso ns <18 years of age, a pedia tric GFR calcu lator is avail able on the [facility] websi te: https ://denton w.vinita osborne.o rg/pr ofess ional s/kdo qi/gf r_cal culat or Not Available [facility] (Lab) [address] [place], [address], 06/14/2024 18:31:07 06/14/20 24 06/14/2024 COMPR EHENS ALICIA METAB OLIC PANEL alkaline phosphatase 133 U/L 38-126 high Not Available [facility] (Lab) [address] [place], [address], 06/14/2024 18:31:07 06/14/2006/14/2024 COMPR EHENS ALICIA METAB OLIC PANEL alanine aminotransfe rase 20 U/L 0-50 Not Available [facility] (Lab) [address] [place], [address], 06/14/2024 18:31:07 06/14/20 24 06/14/2024 COMPR EHENS ALICIA METAB OLIC PANEL aspartate aminotransfe rase 49 U/L 15-46 high Not Available [facility] (Lab) [address] [place], [address], 06/14/2024 18:31:07 06/14/2006/14/2024 COMPR EHENS ALICIA METAB OLIC PANEL bilirubin, total 0.50 mg/dL 0.20-1 .30 Not Available [facility] (Lab) [address] [place], [address], 06/14/2024 18:31:07 06/14/2006/14/2024 COMPR EHENS ALICIA METAB OLIC PANEL calcium 9.0 mg/dL 8.4-10 .2 Not Available [facility] (Lab) [address] [place], [address], 06/14/2024 18:31:07 06/14/2006/14/2024 COMPR EHENS ALICIA METAB OLIC PANEL total protein 6.7 g/dL 6.3-8. 2 Not Available [facility] (Lab) [address] [place], [address], 06/14/2024 18:31:07 06/14/2006/14/2024 COMPR EHENS ALICIA METAB OLIC PANEL albumin 4.0 g/dL 3.0-4. 4 Not Available [facility] (Lab) [address] [place], [address], 06/14/2024 18:31:07 06/14/2006/14/2024 COMPR EHENS ALICIA METAB OLIC PANEL globulin 2.7 g/dL 2.6-4. 2 Not Available [facility] (Lab) [address] [place], [address], 06/14/2024 18:31:07 06/14/2006/14/2024 COMPR EHENS LAICIA METAB OLIC PANEL A/G ratio 1.5 ratio 1.0-2. 0 Not Available [facility] (Lab) [address] [place], [address], 06/14/2024 18:31:07 06/14/2006/14/2024 LIPID PANEL cholesterol 129 mg/dL 140-19 9 low NIH MITCHELL NSUS RECOM MENDA TION FOR KRYSTIAN STERO L: ADULT CHILD LOW RISK: <200 <170 BORDE RLINE : <200- 239 ----- HIGH RISK: >240 >200 Not Available [facility] (Lab) [address] [place], [address], 06/14/2024 18:31:10 06/14/2006/14/2024 LIPID PANEL triglyceride s 86 mg/dL 0-150 NIH MITCHELL NSUS REPOR T RECOM MENDA TION FOR TRIGL YCERI RENAN: ADULT CHILD LOW RISK: <150 ----- BODER LINE: 150-1 99 ----- HIGH RISK: >200 ----- Not Available [facility] (Lab) [address] [place], [address], 06/14/2024 18:31:10 06/14/2006/14/2024 LIPID PANEL HDL cholesterol 58 mg/dL 40- Not Available [facility] (Lab) [address] [place], [address], 06/14/2024 18:31:10 06/14/2006/14/2024 LIPID PANEL LDL cholesterol, calculated 54 mg/dL 0-130 NIH MITCHELL NSUS REPOR T RECOM MENDA TIONS FOR LDL: ADULT CHILD LOW RISK <130 <110 (OPTI MAL LDL) <100 ----- BORDE RLINE : 130-1 59 ----- HIGH RISK: >160 >130 A TRIGL YCERI DE RESUL T >400 INVAL IDATE S THE CALCU LATIO N FOR LDL FRACT IONAT ION - THE LDL RESUL T WILL NOT BE REPOR ZAC. Not Available [facility] (Lab) [address] [place], [address], 06/14/2024 18:31:10 06/14/20 24 06/14/2024 VITAM IN D 25-HY DROXY [id number] 22.8 NG/mL 30-100 low Vitam in D Statu s: Defic ient: <20 ng/mL Insuf ficie nt: 20-29 ng/mL Suffi cient : 30-10 0 ng/mL Not Available [facility] (Lab) [address] [place], [address], 06/14/2024 19:07:46 07/07/20 24 07/11/2024 VITAM IN D,25- OH,TO KENNEDY,I A vitamin D,25-oh,tota l,ia 34 NG/mL 30-100 normal Vitam in D Statu s 25-OH Vitam in D: Defic iency : <20 ng/mL Insuf ficie ncy: 20 - 29 ng/mL Optim al: > or = 30 ng/mL For 25-OH Vitam in D testi ng on patie nts on D2-garcia pplem entat ion and patie nts for whom quant itati on of D2 and D3 fract ions is requi red, the [facility] e[facility](TM ) 25-OH VIT D, (D2,D 3), LC/MS /MS is recom brenda d: order code 58333 (emmett ents >2yrs ). See Note 1 Note 1 For addit ional infor marilou em e refer to http: //etienne gallegosQue stDia gnost ics.c om/fa q/FAQ 199 (This link is being provi ded for infor katherine frankel/ eductheron love l purpo ses only. ) Not Available [facility] [place] [address] [place], [address], 07/11/2024 11:05:08 07/07/20 24 07/11/2024 OSMOL ALITY (SERU M) osmolality (serum) 271 mOsm/ kg 278-30 5 low Not Available [address], [address], 07/11/2024 11:05:09 07/07/20 24 07/11/2024 OSMOL ALITY (U) osmolality (U) 209 mOsm/ kg 50-120 0 normal Not Available [address], [address], 07/11/2024 13:54:26 07/28/20 24 07/29/2024 BASIC METAB OLIC PANEL glucose 94 mg/dL 65-139 normal Non-f astin g refer ence inter linnea Not Available [address], [address], 07/29/2024 02:32:29 07/28/20 24 07/29/2024 BASIC METAB OLIC PANEL urea nitrogen (BUN) 9 mg/dL 7-25 normal Not Available [address], [address], 07/29/2024 02:32:29 07/28/20 24 07/29/2024 BASIC METAB OLIC PANEL creatinine 0.61 mg/dL 0.70-1 .22 low Not Available [address], [address], 07/29/2024 02:32:29 07/28/20 24 07/29/2024 BASIC METAB OLIC PANEL eGFR 95 mL/mi n/1.7 3m2 > or = 60 normal Not Available [address], [address], 07/29/2024 02:32:29 07/28/20 24 07/29/2024 BASIC METAB OLIC PANEL BUN/creatini ne ratio 15 (calc ) 6-22 normal Not Available [address], [address], 07/29/2024 02:32:29 07/28/20 24 07/29/2024 BASIC METAB OLIC PANEL sodium 136 mmol/ L 135-14 6 normal Not Available [address], [address], 07/29/2024 02:32:29 07/28/20 24 07/29/2024 BASIC METAB OLIC PANEL potassium 4.2 mmol/ L 3.5-5. 3 normal Not Available [address], [address], 07/29/2024 02:32:29 07/28/20 24 07/29/2024 BASIC METAB OLIC PANEL chloride 103 mmol/ L 98-110 normal Not Available [address], [address], 07/29/2024 02:32:29 07/28/20 24 07/29/2024 BASIC METAB OLIC PANEL carbon dioxide 25 mmol/ L 20-32 normal Not Available [address], [address], 07/29/2024 02:32:29 07/28/20 24 07/29/2024 BASIC METAB OLIC PANEL calcium 8.5 mg/dL 8.6-10 .3 low Not Available [address], [address], 07/29/2024 02:32:29 09/21/19 25 09/22/2024 VITAM IN D,25- OH,TO KENNEDY,I A vitamin D,25-oh,tota l,ia 59 NG/mL 30-100 normal Vitam in D Statu s 25-OH Vitam in D: Defic iency : <20 ng/mL Insuf ficie ncy: 20 - 29 ng/mL Optim al: > or = 30 ng/mL For 25-OH Vitam in D testi ng on patie nts on D2-garcia pplem entat ion and patie nts for whom quant itati on of D2 and D3 fract ions is requi red, the [facility] Ass[facility] eD(TM ) 25-OH VIT D, (D2,D 3), LC/MS /MS is recom brenda d: order code 30499 (emmett ents >2yrs ). See Note 1 Note 1 For addit ional infor marilou em refer to http: //[facility] isaías Pisano stDia gnost ics.c om/fa q/FAQ 199 (This link is being provi ded for infor katherine frankel/ ana paula ramírezo ses only. ) Not Available [facility] [place] [address] [place], [address], 09/22/2024 13:11:54 01/04/2001/04/2025 LIPID PANEL , STAND GILMER cholesterol, total 152 mg/dL <200 normal Not Available [facility] [place] [address] [place], [address], 01/04/2025 05:27:21 01/04/2001/04/2025 LIPID PANEL , STAND GILMER HDL cholesterol 61 mg/dL > or = 40 normal Not Available [facility] [place] [address] [place], [address], 01/04/2025 05:27:21 01/04/2001/04/2025 LIPID PANEL , STAND GILMER triglyceride s 100 mg/dL <150 normal Not Available [facility] [place] [address] [place], [address], 01/04/2025 05:27:21 01/04/2001/04/2025 LIPID PANEL , STAND GILMER LDL-choleste rol 72 mg/dL _(jose c) normal Refer ence range : <100 Nolberto able range <100 mg/dL for prima ry preve ntion ; <70 mg/dL for patie nts with CHD or diabe tic patie nts with > or = 2 CHD risk facto rs. LDL-C is now calcu lated using the [facility] kins gamal ramirez, which is a valid ated novel amanuel stanley than the Fried alexei ruizat ion in the estim ation of LDL-C . Char ramirez SS et al. DAVIDSON. 2013; 310(1 9): 2061- 2068 (http ://ed ucati on.Qu estDi QPSoftwares. com/f aq/FA Q164) Not Available [facility] [place] [address] [place], [address], 01/04/2025 05:27:21 01/04/2001/04/2025 LIPID PANEL , STAND GILMER chol/HDLC ratio 2.5 (calc ) <5.0 normal Not Available [facility] [place] [address] [place], [address], 01/04/2025 05:27:21 01/04/20 25 01/04/2025 LIPID PANEL , STAND GILMER non HDL cholesterol 91 mg/dL _(jose c) <130 normal For patie nts with diabe leonel plus 1 major ASCVD risk facto r, treat ing to a non-H DL-C goal of <100 mg/dL (LDL- C of <70 mg/dL ) is consi zelalemd a kirby henriquezo n. Not Available [facility] [place] [address] [place], [address], 01/04/2025 05:27:21 01/04/2001/04/2025 LIPID PANEL , STAND GILMER copy(ies) sent to: ABA Ramirez MD [address] [place] [address] Not Available [facility] [place] [address] [place], [address], 01/04/2025 05:27:21 01/04/20 25 01/04/2025 COMPR EHENS ALICIA METAB OLIC PANEL glucose 83 mg/dL 65-99 normal Fasti ng refer ence inter linnea Not Available [address], [address], 01/04/2025 05:27:22 01/04/20 25 01/04/2025 COMPR EHENS ALICIA METAB OLIC PANEL urea nitrogen (BUN) 10 mg/dL 7-25 normal Not Available [address], [address], 01/04/2025 05:27:22 01/04/20 25 01/04/2025 COMPR EHENS ALICIA METAB OLIC PANEL creatinine 0.58 mg/dL 0.70-1 .22 low Not Available [address], [address], 01/04/2025 05:27:22 01/04/20 25 01/04/2025 COMPR EHENS ALICIA METAB OLIC PANEL eGFR 96 mL/mi n/1.7 3m2 > or = 60 normal Not Available [address], [address], 01/04/2025 05:27:22 01/04/20 25 01/04/2025 COMPR EHENS ALICIA METAB OLIC PANEL BUN/creatini ne ratio 17 (calc ) 6-22 normal Not Available [address], [address], 01/04/2025 05:27:22 01/04/20 25 01/04/2025 COMPR EHENS ALICIA METAB OLIC PANEL sodium 139 mmol/ L 135-14 6 normal Not Available [address], [address], 01/04/2025 05:27:22 01/04/20 25 01/04/2025 COMPR EHENS ALICIA METAB OLIC PANEL potassium 3.8 mmol/ L 3.5-5. 3 normal Not Available [address], [address], 01/04/2025 05:27:22 01/04/20 25 01/04/2025 COMPR EHENS ALICIA METAB OLIC PANEL chloride 102 mmol/ L 98-110 normal Not Available [address], [address], 01/04/2025 05:27:22 01/04/20 25 01/04/2025 COMPR EHENS ALICIA METAB OLIC PANEL carbon dioxide 28 mmol/ L 20-32 normal Not Available [address], [address], 01/04/2025 05:27:22 01/04/20 25 01/04/2025 COMPR EHENS ALICIA METAB OLIC PANEL calcium 9.4 mg/dL 8.6-10 .3 normal Not Available [address], [address], 01/04/2025 05:27:22 01/04/20 25 01/04/2025 COMPR EHENS ALICIA METAB OLIC PANEL protein, total 6.6 g/dL 6.1-8. 1 normal Not Available [address], [address], 01/04/2025 05:27:22 01/04/20 25 01/04/2025 COMPR EHENS ALICIA METAB OLIC PANEL albumin 4.2 g/dL 3.6-5. 1 normal Not Available [address], [address], 01/04/2025 05:27:22 01/04/20 25 01/04/2025 COMPR EHENS ALICIA METAB OLIC PANEL globulin 2.4 g/dL_ (calc ) 1.9-3. 7 normal Not Available [address], [address], 01/04/2025 05:27:22 01/04/20 25 01/04/2025 COMPR EHENS ALICIA METAB OLIC PANEL albumin/glob ulin ratio 1.8 (calc ) 1.0-2. 5 normal Not Available [address], [address], 01/04/2025 05:27:22 01/04/20 25 01/04/2025 COMPR EHENS ALICIA METAB OLIC PANEL bilirubin, total 0.5 mg/dL 0.2-1. 2 normal Not Available [address], [address], 01/04/2025 05:27:22 01/04/20 25 01/04/2025 COMPR EHENS ALICIA METAB OLIC PANEL alkaline phosphatase 159 U/L 35-144 high Not Available [address], [address], 01/04/2025 05:27:22 01/04/20 25 01/04/2025 COMPR EHENS ALICIA METAB OLIC PANEL AST 13 U/L 10-35 normal Not Available [address], [address], 01/04/2025 05:27:22 01/04/20 25 01/04/2025 COMPR EHENS ALICIA METAB OLIC PANEL ALT 10 U/L 9-46 normal Not Available [address], [address], 01/04/2025 05:27:22 01/04/20 25 01/04/2025 COMPR EHENS ALICIA METAB OLIC PANEL copy(ies) sent to: ABA Ramirez MD [address] [place] [id number] Not Available [address], [address], 01/04/2025 05:27:22 01/04/20 25 01/04/2025 CBC (INCL UDES DIFF/ PLT) white blood cell count 7.8 thous and/u L 3.8-10 .8 normal Not Available [address], [address], 01/04/2025 05:27:23 01/04/2001/04/2025 CBC (INCL UDES DIFF/ PLT) red blood cell count 4.42 shanna on/uL 4.20-5 .80 normal Not Available [address], [address], 01/04/2025 05:27:23 01/04/20 25 01/04/2025 CBC (INCL UDES DIFF/ PLT) hemoglobin 14.1 g/dL 13.2-1 7.1 normal Not Available [address], [address], 01/04/2025 05:27:23 01/04/20 25 01/04/2025 CBC (INCL UDES DIFF/ PLT) hematocrit 43.5 % 38.5-5 0.0 normal Not Available [address], [address], 01/04/2025 05:27:23 01/04/20 25 01/04/2025 CBC (INCL UDES DIFF/ PLT) MCV 98.4 fL 80.0-1 00.0 normal Not Available [address], [address], 01/04/2025 05:27:23 01/04/20 25 01/04/2025 CBC (INCL UDES DIFF/ PLT) MCH 31.9 pg 27.0-3 3.0 normal Not Available [address], [address], 01/04/2025 05:27:23 01/04/20 25 01/04/2025 CBC (INCL UDES DIFF/ PLT) MCHC 32.4 g/dL 32.0-3 6.0 normal For adult s, a sligh t decre ase in the calcu lated MCHC value (in the range of 30 to 32 g/dL) is most likel y not clini josiah signi shweta t; siri er, it shoul d be inter prete d with cauti on in corre latio n with other red cell diane eters and the patie nt's clini jose condi tion. Not Available [address], [address], 01/04/2025 05:27:23 01/04/20 25 01/04/2025 CBC (INCL UDES DIFF/ PLT) RDW 12.6 % 11.0-1 5.0 normal Not Available [facility] [address], [address], 01/04/2025 05:27:23 01/04/20 25 01/04/2025 CBC (INCL UDES DIFF/ PLT) platelet count 227 thous and/u L 140-40 0 normal Not Available [address], [address], 01/04/2025 05:27:23 01/04/20 25 01/04/2025 CBC (INCL UDES DIFF/ PLT) MPV 10.7 fL 7.5-12 .5 normal Not Available [address], [address], 01/04/2025 05:27:23 01/04/20 25 01/04/2025 CBC (INCL UDES DIFF/ PLT) absolute neutrophils 5515 cells /uL 1500-7 800 normal Not Available [address], [address], 01/04/2025 05:27:23 01/04/20 25 01/04/2025 CBC (INCL UDES DIFF/ PLT) absolute lymphocytes 1326 cells /uL 850-39 00 normal Not Available [address], [address], 01/04/2025 05:27:23 01/04/20 25 01/04/2025 CBC (INCL UDES DIFF/ PLT) absolute monocytes 796 cells /uL 200-95 0 normal Not Available [address], [address], 01/04/2025 05:27:23 01/04/20 25 01/04/2025 CBC (INCL UDES DIFF/ PLT) absolute eosinophils 140 cells /uL 15-500 normal Not Available [address], [address], 01/04/2025 05:27:23 01/04/20 25 01/04/2025 CBC (INCL UDES DIFF/ PLT) absolute basophils 23 cells /uL 0-200 normal Not Available [address], [address], 01/04/2025 05:27:23 01/04/20 25 01/04/2025 CBC (INCL UDES DIFF/ PLT) neutrophils 70.7 % normal Not Available [address], [address], 01/04/2025 05:27:23 01/04/20 25 01/04/2025 CBC (INCL UDES DIFF/ PLT) lymphocytes 17.0 % normal Not Available [address], [address], 01/04/2025 05:27:23 01/04/2001/04/2025 CBC (INCL UDES DIFF/ PLT) monocytes 10.2 % normal Not Available [address], [address], 01/04/2025 05:27:23 01/04/20 25 01/04/2025 CBC (INCL UDES DIFF/ PLT) eosinophils 1.8 % normal Not Available [address], [address], 01/04/2025 05:27:23 01/04/20 25 01/04/2025 CBC (INCL UDES DIFF/ PLT) basophils 0.3 % normal Not Available [address] [place], [address], 01/04/2025 05:27:23 01/04/20 25 01/04/2025 CBC (INCL UDES DIFF/ PLT) copy(ies) sent to: [place] [address] Not Available [address], [address], 01/04/2025 05:27:23 01/04/20 25 01/04/2025 T4, FREE T4, free 1.3 NG/dL 0.8-1. 8 normal Not Available [address], [address], 01/04/2025 05:27:24 01/04/20 25 01/04/2025 T4, FREE copy(ies) sent to: [place] [address] Not Available [address], [address], 01/04/2025 05:27:24 01/04/20 25 01/04/2025 TSH TSH 1.95 mIU/L 0.40-4 .50 normal Your [facility]e [facility] has been jayda guardado ed. Queue d to: [phone] Not Available [address], [address], 01/04/2025 05:27:25 01/04/20 25 01/04/2025 TSH copy(ies) sent to: [place] [address] Not Available [facility] [address], [address], 01/04/2025 05:27:25 03/04/20 24 03/04/2024 XR, chest , 2 view No observ ation record ed. [address], [place], [address], 03/04/2024 17:30:16 03/04/20 24 03/04/2024 US, scrot um No observ ation record ed. [address], [place], [address], 03/04/2024 17:31:29 Result Notes None recorded. Problems Name Problem SNOMED Code Status Onset Date Resolution Date Notes Provider Name and Address Organization Details Recorded Time Acute sinusitis 46072291 Active 2021 Not Available [facility] 3 09:24:08 History of poliomyeli tis 276669370 Active Not Available [facility] 3 09:24:08 Serum creatinine outside reference range 581799198 Active Not Available [facility] 3 09:24:08 Pressure injury of buttock 086655717 Active 2021 Not Available [facility] 3 09:24:09 Gastroesop hageal reflux disease 252551219 Active Not Available [facility] 3 09:24:09 Transient cerebral ischemia 520764288 Active Not Available [facility] 3 09:24:09 Pure hyperchole sterolemia 701505882 Active Not Available [facility] 3 09:24:09 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 873149176 Active 2021 Not Available [facility] 3 09:24:09 Disorder of prostate 72630760 Active 2021 Not Available [facility] 3 09:24:09 Recurrent dislocatio n of shoulder region 45571240 Active Not Available [facility] 3 09:24:09 Cervical spondylosi s 840521508 Active 2018 Not Available [facility] 3 09:24:09 Disorder of rotator cuff 912087408 Active Not Available [facility] 3 09:24:09 Aneurysm of thoracic aorta 860107141 Completed Not Available [facility] 3 09:24:09 Streptococ jose sore throat 83314758 Active 2021 Not Available [facility] 3 09:24:09 Chronic ulcer of sacral region 347237995 Active 2021 Not Available [facility] 3 09:24:09 Disorder of bursa of shoulder region 05966781 Active Not Available [facility] 3 09:24:10 Essential hypertensi on 87058166 Active Not Available [facility] 3 09:24:10 Paraplegia 99682736 Active 2021 Not Available [facility] 3 09:24:10 Osteoporos is 95556974 Active Not Available [facility] 3 09:24:10 Urinary tract infectious disease 03993056 Active 2021 Not Available [facility] 3 09:24:10 COVID-19 892497868 Active 2021 Not Available [facility] 3 09:24:10 Kidney stone 13375804 Active Not Available [facility] 3 09:24:10 Cervical myelopathy 624820049 Active 2022 Ai berman, [facility] 3 16:15:36 Benign prostatic hyperplasi a 812980203 Active 2022 Brain Devlin MD [address], [place], [address] , [facility] 3 15:06:06 Tinea cruris 910400654 Active 2023 Brain Devlin MD [address], [place], [address] , [facility] 4 17:40:57 Pruritic rash 99563551 Active 2023 Brain Devlin MD [address], [place], [address] , [facility] 4 11:57:45 Hyponatrem ia 37022477 Active 2023 FIDELIA Cook, [facility] 4 10:45:42 Vitamin D deficiency 24896362 Active 2023 FIDELIA Cook, [facility] 4 10:46:02 Hypokalemi a 21860975 Active 2023 FIDEILA Cook, [facility] 4 12:05:45 Chronic obstructiv e pulmonary disease 96600040 Active 2024 Brain Devlin MD [address] [facility], [address] [address], [place], [address] , [facility] 5 15:35:54 Acute bronchitis 20418576 Active 2024 Brain Devlin MD [address] [facility], [facility] [address], [place], [address] , [facility] 5 15:41:34 Notes:Some problems listed i n Document: #[id number] could not be added to this patient's chart. Please review this document and add these problems to the patient's chart manually as needed. Problem Notes None recorded. Procedures Surgical History Date Name Laterality Status Provider Name and Address Organization Details Recorded Time 4 Medicare Wellness CPT Code, subsequent completed Vero Umaña RN [facility] 06/14/2024 15:43:05 3 Medicare Wellness CPT Code, subsequent completed Vero Umaña RN [facility] 05/08/2023 15:48:47 Imaging Results None recorded. Procedure Notes None recorded. Medical Equipment None Reported. Medications Name Sig Start Date Stop Date Status Note LastModified by Organization Details LastModified Time Prescript ion - Prior Authoriza tion Request active [facility] DENIAL Not Available Not Available Not Available Santyl 250 unit/gram topical ointment APPLY TO CLEANSED AFFECTED AREA BY TOPICAL ROUTE EVERY DAY. active Not Available Not Available No t Available cyclobenz aprine 10 mg tablet TAKE 1 TABLET BY MOUTH THREE TIMES DAILY active Not Available Not Available No t Available amoxicill in 500 mg capsule Take 1 capsule every 8 hours by oral route. active Not Available Not Available No t Available desonide 0.05 % topical cream APPLY SPARINGL Y AND RUB IN GENTLY TO THE AFFECTED AREA TWICE DAILY active Not Available Not Available No t Available clonidine HCl 0.1 mg tablet TAKE 1 TABLET BY MOUTH TWICE DAILY 02/15 completed Not Available Not Available Not Available azithromy maulik 250 mg tablet TAKE 2 TABLETS BY MOUTH EVERY DAY FOR 1 DAY THEN TAKE 1 TABLET BY MOUTH DAILY active Not Available Not Available No t Available indapamid e 2.5 mg tablet TAKE 1 TABLET BY MOUTH EVERY DAY active Not Available Not Available No t Available pravastat in 40 mg tablet TAKE 1 TABLET BY MOUTH EVERY DAY 2024 active Not Available Not Available Not Avai lable tizanidin e 4 mg tablet TAKE 1/2 TABLET BY MOUTH EVERY 8 HOURS 12/24 completed Not Available Not Available Not Available benzonata te 200 mg capsule TAKE 1 CAPSULE BY MOUTH THREE TIMES DAILY active Not Available Not Available No t Available Senna Lax 8.6 mg tablet Take 2 tablets every day by oral route. 2018 active Not Available Not Available Not Avai lable hydrocodo ne 5 mg-acetam inophen 325 mg tablet TK 1 TO 2 TS PO Q 4 TO 6 H PRN P active Not Available Not Available No t Available lisinopri l 20 mg tablet Take 2 tablets every day by oral route. 05/11 completed Not Available Not Available Not Available Viagra 50 mg tablet active Not Available Not Available No t Available clobetaso l 0.05 % topical cream APPLY A THIN LAYER TO THE AFFECTED AREA(S) BY TOPICAL ROUTE 2 TIMES PER DAY active Not Available Not Available No t Available promethaz ine 6.25 mg-codein e 10 mg/5 mL syrup Take 5 ML EVERY 6 HOURS by oral route PRN for cough 11/09 completed Not Available Not Available Not Available penicilli n V potassium 500 mg tablet TK 2 TS PO IMMEDIAT SAMINA THEN TK 1 T PO QID TAT active Not Available Not Available No t Available Nexium 40 mg capsule,d elayed release TAKE 1 CAPSULE ONCE DAILY 01/29 completed Not Available Not Available Not Available chlorthal idone 25 mg tablet TAKE 1 TABLET BY MOUTH EVERY DAY 2024 active Not Available Not Available Not Avai lable ciproflox acin 500 mg tablet TAKE 1 TABLET BY MOUTH EVERY 12 HOURS 02/10 completed Not Available Not Available Not Available sulfameth oxazole 800 mg-trimet hoprim 160 mg tablet TAKE 1 TABLET BY MOUTH EVERY 12 HOURS active Not Available Not Available No t Available aspirin 81 mg tablet,de layed release TAKE 1 TABLET BY MOUTH DAILY active Not Available Not Available No t Available acetamino phen 500 mg tablet Take 2 tablet every 8 hours as needed active Not Available Not Available No t Available quinapril 40 mg tablet TAKE 1 TABLET BY MOUTH EVERY DAY 08/20 completed Not Available Not Available Not Available Celebrex 200 mg capsule Take 1 capsule every day by oral route. active Not Available Not Available No t Available oxycodone -acetamin ophen 5 mg-325 mg tablet TAKE 1 TABLET BY MOUTH EVERY 8 HOURS NEEDED FOR PAIN active Not Available Not Available No t Available Vitamin C 1,000 mg tablet Take 1 tablet every day by oral route. 2021 active Not Available Not Available Not Avai lable temazepam 15 mg capsule TK 2 CS PO QHS PRF INDUSTRIAL HYGENIST 02/12 completed Not Available Not Available Not Available Lamisil 250 mg tablet Take 1 tablet every day by oral route. active Not Available Not Available No t Available tamsulosi n 0.4 mg capsule TAKE 1 CAPSULE BY MOUTH TWICE DAILY active Not Available Not Available No t Available temazepam 30 mg capsule Take by oral route for 30 days. active Not Available Not Available No t Available cephalexi n 500 mg capsule TAKE 1 CAPSULE BY MOUTH EVERY 8 HOURS 12/24 completed Not Available Not Available Not Available pantopraz ole 40 mg tablet,de layed release TAKE 1 TABLET BY MOUTH EVERY DAY 2024 active Not Available Not Available Not Avai lable garlic 1 mg capsule Take 1 capsule every day by oral route. 07/16 completed Not Available Not Available Not Available clotrimaz ole-betam ethasone 1 %-0.05 % topical cream APPLY TOPICALL Y TO THE AFFECTED AREA TWICE DAILY active Not Available Not Available No t Available Eliane-D 12 Hour 60 mg-120 mg tablet,ex tended release TAKE 1 TABLET BY MOUTH TWICE DAILY active Not Available Not Available No t Available gabapenti n 300 mg capsule TK 1 C PO BID AND 2 CS QHS 07/16 completed Not Available Not Available Not Available hydroxyzi ne HCl 25 mg tablet TAKE 1 TABLET BY MOUTH EVERY 8 HOURS NEEDED active Not Available Not Available No t Available ergocalci ferol (vitamin D2) 1,250 mcg (50,000 unit) capsule TAKE 1 CAPSULE BY MOUTH EVERY WEEK active Not Available Not Available No t Available levofloxa maulik 500 mg tablet TAKE 1 TABLET BY MOUTH DAILY 10/18 completed Not Available Not Available Not Available oxycodone -acetamin ophen 7.5 mg-325 mg tablet active Not Available Not Available Not Available methylpre dnisolone 4 mg tablets in a dose pack active Not Available Not Available Not Available albuterol sulfate HFA 90 mcg/actua tion aerosol inhaler INHALE 2 PUFFS BY MOUTH EVERY 4 HOURS active Not Available Not Available No t Available lisinopri l 40 mg tablet TAKE 1 TABLET BY MOUTH DAILY active Not Available Not Available No t Available cefdinir 300 mg capsule Take 1 capsule every 12 hours by oral route. 06/05 completed Not Available Not Available Not Available finasteri de 5 mg tablet TAKE 1 TABLET BY MOUTH AT BEDTIME active Not Available Not Available No t Available oxycodone 5 mg tablet TK 2 TS PO Q 4 H PRN P 02/12 completed Not Available Not Available Not Available cyclobenz aprine 5 mg tablet Take 1 tablet 3 times a day by oral route. 06/05 completed Not Available Not Available Not Available Multivita min 50 Plus tablet Take 1 tablet every day by oral route. 2021 active Not Available Not Available Not Avai lable PreserVis ion AREDS 4,296 mcg-226 mg-90 mg capsule Take 1 capsule every day by oral route. 2017 active Not Available Not Available Not Avai lable Vitamin C DAILY 03/11 completed Not Available Not Available Not Available potassium gluconate DAILY 11/09 completed Not Available Not Available Not Available multivita min DAILY 03/11 completed Not Available Not Available Not Available hydrochlo rothiazid e 12.5 mg tablet Take 1 tablet every day by oral route. 06/05 completed Not Available Not Available Not Available Fluvirin [id number] 45 mcg (15 mcg x 3)/0.5 mL intramusc ular suspensio n ADM 0.5ML UTD active Not Available Not Available No t Available Fish Oil 1,000 mg (120 mg-180 mg) capsule Take 1 capsule every day by oral route. 07/16 completed Not Available Not Available Not Available Paxlovid 300 mg (150 mg x 2)-100 mg tablets in a dose pack TAKE ONE OF EACH TABLET TWICE DAILY FOR 5 DAYS. HOLD PRAVASTA TIN AND TAMSULOS IN WHILE ON MEDICATI ON 05/20 completed Not Available Not Available Not Available Paxlovid 150 mg-100 mg tablets in a dose pack (Moderate Renal Dose) Take by oral route. Take two 150 mg and one 100 mg tablet twice daily for five days 05/20 completed Not Available Not Available Not Available Vitals Date Recorded Heart rate Oxygen saturation Oxygen saturation in Arterial blood by Pulse oximetry Body temperature Systolic blood pressure Diastolic blood pressure Provider Name and Address Organization Details Last Updated DateTime 4 58 /min 98 % 98 % 97 [degF] 128 mm[Hg] 78 mm[Hg] [facility] [employer] [employer] [facility] 4 14:53:19 Date Recorded Heart rate Body temperature Oxygen saturation Oxygen saturation in Arterial blood by Pulse oximetry Systolic blood pressure Diastolic blood pressure Provider Name and Address Organization Details Last Updated DateTime 5 62 /min 97 [degF] 97 % 97 % 138 mm[Hg] 80 mm[Hg] [place] [employer] [employer] [facility] [employer] [facility] 5 15:17:00 Date Recorded Heart rate Body temperature Oxygen saturation Oxygen saturation in Arterial blood by Pulse oximetry Systolic blood pressure Diastolic blood pressure Provider Name and Address Organization Details Last Updated DateTime 4 59 /min 97 [degF] 99 % 99 % 124 mm[Hg] 60 mm[Hg] Madison [employer] [employer] [facility] [employer] [facility] 4 15:02:55 Date Recorded Heart rate Body temperature Oxygen saturation Oxygen saturation in Arterial blood by Pulse oximetry Systolic blood pressure Diastolic blood pressure Provider Name and Address Organization Details Last Updated DateTime 3 52 /min 97 [degF] 98 % 98 % 138 mm[Hg] 78 mm[Hg] Madison [employer] [employer] [facility] [employer] 3 14:52:31 Date Recorded Heart rate Body temperature Oxygen saturation Oxygen saturation in Arterial blood by Pulse oximetry Systolic blood pressure Diastolic blood pressure Provider Name and Address Organization Details Last Updated DateTime 4 60 /min 97 [degF] 98 % 98 % 124 mm[Hg] 68 mm[Hg] Madison Abrams [place] - [facility] 4 15:27:55 Social History Question Answer Notes LastModified by Organizat ion Details LastModified Time Tobacco Smoking Status Former Smoker Not Available [employer] 11/05/2022 09:21:41 Do You Have An Advance Directive? Yes [id number] Information not available 11/05/2022 Are You Blind Or Do You Have Difficulty Seeing? No [id number].[id number] Information not available 11/05/2022 Are You Deaf Or Do You Have Serious Difficulty Hearing? Yes [id number] Information not available 11/05/2022 What Type Of Diet Are You Following? REGULAR MIGRATION.077375 8027 Information not available 11/05/2022 Have There Been Any Changes To Your Family Or Social Situation? No MIGRATION.[id number] Information not available 11/05/2022 What Is The Fluoride Status Of Your Home? Unknown [email or web address] Information not available 05/08/2023 Are There Any Guns Present In Your Home? No [id number].[id number] Information not available 11/05/2022 Do You Use Insect Repellent Routinely? No MIGRATION.[id number] 4488 Information not available 11/05/2022 [facility] M[facility].[id number] 9063 Information not available 11/05/2022 Guns Present In The Home? No [email or web address] Information not available 06/14/2024 Are You Able To Care For Yourself? No Information not available 05/08/2023 Are You Blind Or Do Yo Have Difficulty Seeing? No [email or web address] Information not available 05/08/2023 Are You Deaf Or Do You Have Serious Difficulty Hearing? Yes [email or web address] Information not available 05/08/2023 Live Alone Of With Others? With Others Information not available 05/08/2023 Do You Have A Medical Power Of Pop Singer? Yes [email or web address] Information not available 05/08/2023 What Was The Date Of Your Most Recent Tobacco Screening? 06/14/2024 [email or web address] Information not available 06/14/2024 Do You Have Any Pets? Yes [email or web address] Information not available 05/08/2023 What Is Your Relationship Status? MIGRATION.[id number] 0161 Information not available 11/05/2022 Do You Use Your Seat Belt Or Car Seat Routinely? Yes [email or web address] Information not available 06/14/2024 Do You Have Smoke And Carbon Monoxide Detectors In Your Home? Yes MIGRATION.[id number] Information not available 11/05/2022 At What Age Did You Start Smoking Tobacco? 16 MIGRATION.890503 3173 Information not available 11/05/2022 Are You Passively Exposed To Smoke? No [email or web address] Information not available 05/08/2023 Are There Any Smokers In Your House? No [email or web address] Information not available 05/08/2023 How Much Tobacco Do You Smoke? 1 PPD MIGRATION.[id number] 0919 Information not available 11/05/2022 Do You Use Sunscreen Routinely? No MIGRATION.416931 0404 Information not available 11/05/2022 How Many Years Have You Smoked Tobacco? 40 MIGRATION.222928 0182 Information not available 11/05/2022 Have You Recently Traveled Abroad? No [email or web address] Information not available 06/14/2024 Do You Have Difficulty Walking Or Climbing Stairs? Yes MIGRATION.[id number] 8371 Information not available 11/05/2022 Do You Have Any Dietary Restrictions? No MIGRATION.627031 4077 Information not available 11/05/2022 Sex: Unknown Functional Status Question Answer Note LastModified by Organization Details LastModified Time What is your level of alcohol consumption? None [id number].[id number] Information not available 11/05/2022 Do you or have you ever used smokeless tobacco? Never used smokeless tobacco MIGRATION.[id number] Information not available 11/05/2022 Do you have transportation difficulties? No MIGRATION.[id number] [id number] Information not available 11/05/2022 Are you able to walk? YESLIMIT mainly uses wheelchair [email or web address] Information not available 06/14/2024 Do you have difficulty doing errands alone? Yes [id number].[id number] Information not available 11/05/2022 Are you able to care for yourself? No MIGRATION.[id number] Information not available 11/05/2022 Do you have difficulty dressing or bathing? No [id number].[id number] Information not available 11/05/2022 Do you or have you ever used e-cigarettes or vape? Current user of electronic cigarettes MIGRATION.[id number] Information not available 11/05/2022 What is your exercise level? None [id number].[id number] Information not available 11/05/2022 Mental Status Question Answer Note LastModified by Organizat ion Details LastModified Time Do you have difficulty concentrating, remembering or making decisions? No [id number].[id number] Information not available 11/05/2022 Family History Nothing Reported Notes:Mother 98 from Al zheimer's and infirmities Father at 65 from RHD One brother from COPD and CHF Three sisters all . One from ALS, one from [place] lung and other from infirmities. Medical History Condition Response NERVE DISEASE N BLINDNESS N RHEUMATIC FEVER N KIDNEY STONES N BLADDER PROBLEMS N MRSA N OTHER # 1 N POLIO N LUNG DISEASE/DISORDER N COPD N RADIATION / CHEMOTHERAPY N Other # 2 N BLOOD DISEASES N EAR OR HEARING PROBLEMS N MUMPS N BOWEL PROBLEMS N DEPRESSION (INCLUDING POST ) N STROKE/TIA N ULCERS N BENIGN PROSTATIC HYPERPLASIA N MEASLES N MYOCARDIAL INFARCTION N OBESITY N GERD/NAUSEA N ANEURYSM N URINARY/BLADDER/KIDNEY PROBLEMS N CORONARY ARTERY DISEASE (CAD) N ADDICTION CONCERNS N ENDOMETRIOSIS N Impotence N USE OF BLOOD THINNERS N SKIN PROBLEMS N GASTROINTESTINAL DISORDER N PERIPHERAL VASCULAR DISEASE N MUSCLE,JOINT OR BONE PROBLEMS N GASTROINTESTINAL BLEEDING N BLOOD CLOTS N ASTHMA N CATARACTS N ERECTILE DYSFUNCTION N VARICOSITIES N GI PROBLEMS N Low Testosterone N INFERTILITY N AIDS/HIV N CHEMOTHERAPY / RADIATION N LIVER DISEASE N MALE HYPOGONADISM N HYPERTENSION Y Deficiency N TOURETTE'S N ANXIETY DISORDER N BLOOD TRANSFUSION N ANEMIA/BLOOD DISORDER N CHRONIC EAR INFECTIONS N BRONCHITIS N TUBERCULOSIS N GLAUCOMA N FOOT PROBLEM N DIVERTICULITIS N SLEEP APNEA N CHICKENPOX N INFECTIOUS DISEASE N HEART ARRHYTHMIA N PROSTATE N INSOMNIA N HIGH CHOLESTEROL / HYPERLIPIDEMIA Y HYPERTHYROIDISM N EYE PROBLEMS N EDEMA N CHRONIC PAIN SYNDROME N HYPOTHYROIDISM N CAROTID BLOCKAGE N CONSTIPATION N BACK / NECK PROBLEMS Y HAVE YOU BEEN HOSPITALIZED OR SEEN IN [facility] IN THE PAST YEAR ? N ATHEROSCLEROSIS N BREAST PROBLEMS N DIALYSIS N ECZEMA N OSTEOPOROSIS N ARTHRITIS Y NO SIGNIFICANT PAST MEDICAL HISTORY N APPENDICITIS N DIABETES, TYPE N BAD TEETH N ENT N HEARTBURN / REFLUX N AUTISM SPECTRUM DISORDER (ASD) N HEPATITIS / LIVER DISEASE N GOUT N SLEEP DISORDER N ALZHEIMER'S DISEASE N Brain Problems N HERPES N DEMENTIA N HEADACHES/MIGRAINES N SEIZURES/EPILEPSY N VASCULAR DISEASE N PACEMAKER N Blood Disorder N DIZZINESS N HEART DISEASE/HEART PROBLEMS N KIDNEY DISEASE N MULTIPLE SCLEROSIS N CARDIAC ARRHYTHMIA N CANCER: SPECIFY N ATRIAL FIBRILLATION N Gall Stones N PULMONARY EMBOLISM N AUTOIMMUNE DISEASE N Immunizations Vaccine Type Date Status Note Provider Nam e and Address Organization Details Recorded Time Influenza, high-dose, quadrivalent, PF 3 completed Brain Devlin MD [address] [place] [address], [place], [address], [employer] 06/09/2023 15:05:07 Influenza, split virus, trivalent, preservative 6 completed Not Available [facility] 11/05/2022 09:28:38 Influenza, split virus, trivalent, preservative 3 completed Not Available [facility] 11/05/2022 09:28:38 SARS-COV-2 (COVID-19) vaccine, UNSPECIFIED 1 completed Not Available [facility] 11/05/2022 09:28:38 SARS-COV-2 (COVID-19) vaccine, UNSPECIFIED 1 completed Not Available [facility] 11/05/2022 09:28:38 SARS-COV-2 (COVID-19) vaccine, UNSPECIFIED 1 completed Not Available [facility] 11/05/2022 09:28:39 Influenza, high-dose, quadrivalent, PF 1 completed Not Available [facility] 11/05/2022 09:28:39 Influenza, high-dose, quadrivalent, PF 2 completed Not Available [facility] 11/05/2022 09:28:39 Pneumococcal conjugate PCV20, polysaccharide [id number] conjugate, adjuvant, PF 4 completed Madison berman [employer] 06/24/2024 14:19:52 Past Encounters Encounter ID Performer Location Encounter Start Date Encounter Closed Date Diagnosis/Indication Diagnosis SNOMED-CT Code Diagnosis ICD10 Code Diagnosis Note [id number] Brain Devlin MD [facility] Internal Med [place] [address] [place] [address] y , [place] [address] 01/29/2021 00:00:00 01/29/2021 15:18:43 [id number] Brain Devlin MD [facility] Internal [facility] [place] [address] [place] [address] y , [place] [address] 07/16/2021 00:00:00 07/16/2021 15:32:41 [id number] Brain Devlin MD [facility] Internal [facility] [place] [address] [place] [address] y , [place] [address] 11/12/2021 00:00:00 11/12/2021 15:54:27 [id number] Brain Devlin MD [facility] Internal [place] [address] [place] [address] y , [place] [address] 12/24/2021 00:00:00 12/24/2021 15:38:28 [id number] Brain Devlin MD [facility] Internal Med [place] [address] [place] [address] y , [place] [address] 03/11/2022 00:00:00 03/11/2022 16:18:49 [id number] Brain Devlin MD [facility] Internal [facility] [place] [address] [place] [address] y , [place] [address] 04/29/2022 00:00:00 05/08/2022 10:14:33 [id number] Brain Devlin MD [facility] Internal [place] [address] [place] [address] y , [place] [address] 07/08/2022 00:00:00 07/08/2022 16:05:26 [id number] Brain Devlin MD [facility] Internal Med [place] [address] [place] [address] y , [place] [address] 11/11/2022 15:01:46 11/11/2022 15:50:53 Cervical spondylosis 582958049 M47.812 Essential hypertension 58134518 I10 Gastroesop hageal reflux disease 596437431 K21.9 Pure hypercholesterolemia 772950554 E78.00 [id number] Brain Devlin MD [facility] Internal [address] , [place] [address] 02/10/2023 14:58:49 02/10/2023 15:43:23 Cervical spondylosis 615614029 M47.812 History of poliomyelitis 059828805 Z86.12 Pure hypercholesterolemia 900038161 E78.00 Gastroesop hageal reflux disease 392441772 K21.9 [id number] Brain Devlin MD [facility] Internal [address] y , [place] [address] 05/08/2023 15:37:44 05/08/2023 16:17:33 Adult health examination 841630477 Z00.00 Screening for disorder 429199403 Z13.9 Cervical spondylosis 387 439010 M47.812 Essential hypertension 68201529 I10 Gastroesop hageal reflux disease 315413767 K21.9 Pure hypercholesterolemia 647525664 E78.00 [id number] Brain Devlin MD [facility] Internal [address] , [place] [address] 06/09/2023 14:30:53 06/09/2023 15:20:47 Administration of influenza vaccine 52680251 Z23 Pure hypercholesterolemia 261325045 E78.00 Cervical myelopathy 2025 77427 G95.9 Benign pro static hyperplasia 472876935 N40.0 Gastroesop hageal reflux disease 300797920 K21.9 [id number] Brain Devlin MD [facility] Internal Med [facility] [address] [facility] [address] [place] [address] 10/13/2023 14:34:17 10/13/2023 15:24:00 Cervical spondylosis 925971629 M47.812 Essential hypertension 55992661 I10 Pure hypercholesterolemia 538118449 E78.00 Gastroesop hageal reflux disease 597925324 K21.9 Disorder of prostate 302 76631 N42.9 [id number] Brain Devlin MD [facility] Internal Med [facility] [address], [place] [address] 02/16/2024 14:48:34 02/16/2024 15:37:07 Essential hypertension 71318675 I10 Pure hypercholesterolemia 096410634 E78.00 Benign pro static hyperplasia 751422609 N40.0 Cervical myelopathy 2025 01000 G95.9 Gastroesop hageal reflux disease 296205908 K21.9 [id number] Brain Devlin MD [facility] Internal Med [facility] [address] [facility] [address], [place] [address] 06/14/2024 15:04:37 06/14/2024 16:13:12 Adult health examination 034215354 Z00.00 Screening for disorder 026192285 Z13.9 Essential hypertension 94830270 I10 Pure hypercholesterolemia 333873155 E78.00 Osteoporosis 25286233 M8 1.0 Cervical myelopathy 2025 42724 G95.9 [id number] Brain Devlin MD [facility] Primary Care [place] [address] [facility] [address] [place] [address] 10/18/2024 14:55:51 10/18/2024 15:54:02 Essential hypertension 39734332 I10 Pure hypercholesterolemia 731782794 E78.00 Gastroesop hageal reflux disease 402745535 K21.9 Chronic ob structive pulmonary disease 91335396 J44.9 Acute bronchitis 4364021 2 J20.9 J20.0 J20.1 J20.2 J20.3 J20.4 J20.5 J20.6 J20.7 J20.8 Health Concerns Section Related Observation LastModified by Organization Detai ls LastModified Time None Recorded Concern Status LastModified by Organization Details LastModified Time None Recorded Advance Directives Directive Y: Payers Encounter Date Sequence Insurance Name Policy Number Policy Duque Covered Member ID Duque Member ID Guarantor Name 06/09/2023 1 [employer] (MEDICARE REPLACEMENT /ADVANTAGE - PPO) [id number] 1 Khari Christiansen [id number] Khari Christiansen 10/13/2023 1 [employer] (MEDICARE REPLACEMENT /ADVANTAGE - PPO) [id number] 1 Khari Christiansen [id number] Khari Christiansen 02/16/2024 1 [employer] (MEDICARE REPLACEMENT /ADVANTAGE - PPO) [id number] 1 Khari Christiansen [id number] Khari Christiansen 06/14/2024 1 [employer] (MEDICARE REPLACEMENT /ADVANTAGE - PPO) [id number] 1 Khari Christiansen [id number] Khari Christiansen 10/18/2024 1 [employer] (MEDICARE REPLACEMENT /ADVANTAGE - PPO) [id number] 1 Khari Christiansen [id number] Khari Christiansen Notes Date Note Type Note Provider Name and Address Organization Details Recorded Time 06/09/20 23 text/htm l Patient Name: Khari ChristiansenDate Of Service: Thursday ( 06.09.2023 ): 1940 Age: 82 Vital Signs:Blood Pressure: Sitting Rt. Arm 138/78Pulse: Sitting 52 /min and RegularRespiratory Rate: 12Temperature: 97 F or 36.1 CPulse Oximetry: 98 % at rest on no oxygen Chief Complaint: Addressed in HPI Problems or conditions discussed in the HPI were the only ones reviewed during the encounter.Only social and family history addressed in the HPI were reviewed during this encounter. Attendant(s): WifeConstitutional and Systemic Symptoms:none Medication Reconciliation: from medication list. History of Present Illness #1. Type II Hypercholesterolaemia: Currently taking medication and tolerating well. No interval complaints of any muscle pain or arthralgia. No significant liver changes with medications. Last lipid panel: fair control. Therapy reviewed regarding treatment of cholesterol management and include diet and Pravachol. #2. Cervical myelopathy status post surgery. Also complicated by the fact that the has significant weakness of the lower extremities the result of previous history of poliomyelitis with acute exacerbation number years ago. Overall is doing well: #3. Hx of BPH currently stable. No change in strength or initiation of urinary stream. No post voiding problems. No hx of any fever or chills. Currently taking Proscar. #4. Hx of esophageal reflux currently stable. Hx of Complications: none The severity, duration and intensity of symptoms have improved. Frequency: most meals Treatment consists medications taken on intermittent basis. Current therapy includes Protonix. There has been no nausea, eructation, vomiting, hematemesis, dysphagia, velopharyngeal insufficiency and odynophagia. No change in he frequency or intensity of symptoms. Has had no melena. Has had no hematemesis. Discuss the possibility of trying to reduce the frequency of the use of any PPI inhibitors or H2 antagonist to see if symptoms can be controlled with last intensive therapyMedication List Reviewed and Reconciled 06/09/2023Finasteride 5 MG TABLET Once DailyRestoril 30 MG (CAPSULE - ORAL) One Hs Prn For SleepPravachol 40 MG (TABLET - ORAL) One Hs For CholesterolChlorthalidone 25 MG TABLET One DailyPreservision Vitamins DailyFlomax 0.4 MG (CAPSULE - ORAL) Once DailyAllegra-d 12 Hour Twice A DayLisinopril 40 MG TABLET QdAspirin 81 MG DailyProtonix 40 MG (TABLET, DELAYED RELEASE - ORAL) Once DailyFlexeril 5 MG (TABLET - ORAL) One Three Times A DaySenna DailyVaccination and Nobvhamzrooy1059-78 Influenza Hd Aq0785-41 Hpeimftwa2120-11 Covid Booster Hbuesi4615-39 Covid PfizerSurgical HistoryThree Lumbar Disectomies, Cervical Fusion, Lumbar Epidural Injection, Rt. Knee Revision, Right Knee Replacement, Lithotripsy, Appendectomy, Left Foot SurgeryPreventative Testing Confirmed by Our Kalesxa6805/06/2023 LETTER SQGCVOSAQWJXM24/07/2023 ALBUMIN 3.7 G/DL07/08/2022 PSA 1.06 NG/ML03/27/2022 CT GWPKYS1905/28/2006 COLONOSCOPY 05/28/2016Social HistorySmokes 1.5 packs daily for 30 years. Drinks approximately 15 cans of beer per week.Family HistoryMother 98 from Alzheimer's and infirmitiesFather at 65 from RHDOne brother from COPD and CHFThree sisters all . One from ALS, one from CA lung and other from infirmities. Brain Devlin MD [address] [facility], [facility] [address], [place], [address], [facility] 06/09/2023 15:18:26 10/13/19 24 text/htm l Patient Name: Khari Bridges Of Service: Thursday ( 10.13.2023 ): 1940 Age: 82 Vital Signs:Blood Pressure: Sitting Rt. Arm 128/78Pulse: Sitting 58 /min and RegularRespiratory Rate: 12 Chief Complaint: Addressed in HPI Problems or conditions discussed in the HPI were the only ones reviewed during the encounter.Only social and family history addressed in the HPI were reviewed during this encounter. Attendant(s): and SonConstitutional and Systemic Symptoms:none Medication Reconciliation: from medication list. History of Present Illness #1. 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 Is clinically stable at this time. There has been no new complaints of any new problems. Is basically wheelchair bound but can ambulate with assistance with a walker. Cannot walk any significant distance.: #2. Essential Hypertension: Stage: Stage I Interval Neurological Complaints no headaches. No shortness of breath, orthopnea or cardiovascular symptoms. No other symptoms related to end organ damage. Pressure has been under excellent control. Currently normal. No other end organ symptoms or findings. Therapy reviewed regarding management of hypertension and includes salt restriction and Chlorthalidone and Lisinopril. #3. Type II Hypercholesterolaemia: Currently taking medication and tolerating well. No interval complaints of any muscle pain or arthralgia. No significant liver changes with medications. Last lipid panel: fair control. Therapy reviewed regarding treatment of cholesterol management and include diet and Pravachol. #4. Hx of esophageal reflux currently stable. Hx of Complications: none The severity, duration and intensity of symptoms have improved. Frequency: most meals Treatment consists medications taken on a regular basis. Current therapy includes Protonix. There has been no nausea, eructation, vomiting, hematemesis, dysphagia, velopharyngeal insufficiency and odynophagia. No change in he frequency or intensity of symptoms. Has had no melena. Has had no . Discussed use of H2 antagonists and the possibility of trying to reduce the frequency of the use of any PPI inhibitors and try H2 antagonists to see if symptoms can be controlled with lease intensive therapy since a number of complications are associated with chronic prolonged use of PPI inhibitors. Active Medication ListFinasteride 5 MG TABLET Once DailyRestoril 30 MG (CAPSULE - ORAL) One Hs Prn For SleepPravachol 40 MG (TABLET - ORAL) One Hs For CholesterolChlorthalidone 25 MG TABLET One DailyPreservision Vitamins DailyFlomax 0.4 MG (CAPSULE - ORAL) One Twice A DayAllegra-d 12 Hour Twice A DayLisinopril 40 MG TABLET QdAspirin 81 MG DailyProtonix 40 MG (TABLET, DELAYED RELEASE - ORAL) Once DailyFlexeril 5 MG (TABLET - ORAL) One Three Times A DaySenna Daily Vaccination and Xgnaajwjooyt3109-82 Influenza Ed Ro1591-93 Ayzmcngaq3486-30 Covid Booster Hoqmmw8075-54 Covid Pfizer Surgical Akpbbtr8025-56 Three Lumbar Hfilddajvjw4663-66 Cervical Tekihk6228-11 Lumbar Epidural Kypkncfpz2388-51 Rt. Knee Szqsyivh5284-02 Right Knee Hxjvyztkqea7864-45 Luyxwwbhsxr1087-08 Pydbntivzqeh9327-85 Left Foot Surgery Preventative Testing Confirmed by Our Vgvfqre4206/09/2023 ALBUMIN 4.1 G/DL N005/06/2023 VDEFEFPQJTRHF07/01/2022 PSA 1.06 NG/ML N003/27/2022 CT QFHGTE0805/28/2006 COLONOSCOPY 05/28/2016 Social HistorySmokes 1.5 packs daily for 30 years. Drinks approximately 15 cans of beer per week. Family HistoryMother 98 from Alzheimer's and infirmitiesFather at 65 from RHDOne brother from COPD and CHFThree sisters all . One from ALS, one from CA lung and other from infirmities. Brain Devlin MD [address] [place] [address], [facility] [address], [place], [address], [facility] [employer] 10/13/2023 15:18:58 02/16/20 24 text/htm l Patient Name: Khari ChristiansenDate Of Service: Thursday ( 02.16.2024 ): 1940 Age: 83 Chief Complaint: Addressed in HPI Problems or conditions discussed in the HPI were the only ones reviewed during the encounter.Only social and family history addressed in the HPI were reviewed during this encounter. Attendant(s): WifeConstitutional and Systemic Symptoms:none Medication Reconciliation: from medication list. History of Present Illness #1. Essential Hypertension: Stage: Stage I Interval Neurological Complaints no headaches, dizziness, weakness, visual changes, ataxia, aphasia and apraxia. No shortness of breath, orthopnea or cardiovascular symptoms. No other symptoms related to end organ damage. Pressure has been under excellent control. Currently normal. No other end organ symptoms or findings. Therapy reviewed regarding management of hypertension and includes salt restriction and Chlorthalidone and Lisinopril. #2. Type II Hypercholesterolaemia: Currently taking medication and tolerating well. No interval complaints of any muscle pain or arthralgia. No significant liver changes with medications. Last lipid panel: fair control. Therapy reviewed regarding treatment of cholesterol management and include diet and Pravachol. #3. Hx of BPH currently stable. No change in strength or initiation of urinary stream. No post voiding problems. No hx of any fever or chills. Currently taking Finasteride and Flomax. #4. History of cervical myelopathy superimposed upon a history of polio as a child with secondary reactivation previously. He is currently stable. Still quite disabled but has not shown any progression of any cervical myelopathic symptoms.:#5. GERD clinically stable currently taking Protonix. No interval complaints of any increase in frequency duration or intensity of any reflux symptomatology. Active Medication ListFinasteride 5 MG TABLET Once DailyRestoril 30 MG (CAPSULE - ORAL) One Hs Prn For SleepPravachol 40 MG (TABLET - ORAL) One Hs For CholesterolChlorthalidone 25 MG TABLET One DailyPreservision Vitamins DailyFlomax 0.4 MG (CAPSULE - ORAL) One Twice A DayAllegra-d 12 Hour Twice A DayLisinopril 40 MG TABLET QdAspirin 81 MG DailyProtonix 40 MG (TABLET, DELAYED RELEASE - ORAL) Once DailyFlexeril 5 MG (TABLET - ORAL) One Three Times A DaySenna Daily Vaccination and Hxszfwbbsqqv9883-31 Influenza Ed Kn9561-74 Rkfwfaqzs7527-02 Covid Booster Mmicpu0189-36 Covid Pfizer Surgical Undfcjc7848-76 Three Lumbar Akchhqmclxn4692-39 Cervical Knvene2387-22 Lumbar Epidural Blrzvhyxd3190-31 Rt. Knee Xomkxknn5540-60 Right Knee Sdhwyxtepdm2247-81 Nogfnpipqyu0833-24 Lmwwocalvjxh6027-11 Left Foot Surgery Preventative Tordqgv2710/13/2023 ALBUMIN 3.8 G/DL10/13/2023 PSA 0.91 NG/ML05/06/2023 FJLTBDMNLMOKY98/21/2022 CT KRKZYS5805/28/2006 COLONOSCOPY 05/28/2016 Social HistorySmokes 1.5 packs daily for 30 years. Drinks approximately 15 cans of beer per week. Family HistoryMother 98 from Alzheimer's and infirmitiesFather at 65 from RHDOne brother from COPD and CHFThree sisters all . One from ALS, one from CA lung and other from infirmities. Brain Devlin MD [address] [facility], [facility] [address], [place], [address], [facility] [employer] 02/16/2024 15:33:19 06/14/20 24 text/htm l Patient Name: Khari Bridges Of Service: Thursday ( 06.14.2024 ): 1940 Age: 83 Vital Signs:Blood Pressure: Sitting Rt. Arm 124/68Pulse: Sitting 60 /min and RegularRespiratory Rate: 14 Chief Complaint: Addressed in HPI Problems or conditions discussed in the HPI were the only ones reviewed during the encounter.Only social and family history addressed in the HPI were reviewed during this encounter. A significant, separate E/M service was performed to evaluate the current and new problems. Attendant(s): WifeConstitutional and Systemic Symptoms:none Medication Reconciliation: from medication list. History of Present Illness Reviewed the findings of the preventative health visit. Addressed all areas with the patient, patient's family or caregivers. Preventative examinations and testing immunizations - vaccinations, colonic neoplasm screening and PSA all reviewed and ordered where patient was amenable to the recommendations. Cognitive function was normal. Depression addressed and where necessary medications were adjusted or instituted. End of life and living will briefly discussed with patient and where these can be filled out and legally executed. Other blood and imaging studies were ordered if considered necessary. Other recommendations may be found in the encounter note. #1. Essential Hypertension: Stage: normal Interval Neurological Complaints no headaches, dizziness, weakness, visual changes, ataxia, aphasia and apraxia. No shortness of breath, orthopnea or cardiovascular symptoms. No other symptoms related to end organ damage. Pressure has been under excellent control. Currently normal. No other end organ symptoms or findings. Therapy reviewed regarding management of hypertension and includes salt restriction and Chlorthalidone and Lisinopril. #2. Type II Hypercholesterolaemia: Currently taking medication and tolerating well. No interval complaints of any muscle pain or arthralgia. No significant liver changes with medications. Last lipid panel: fair control. Therapy reviewed regarding treatment of cholesterol management and include diet and Pravachol. #3. Cervical Radiculopathy: Hx of a cervical pain on both sides. There is radiation of the pain both arms. There is no decrease in muscle strength. There has been some improvement since last examination. There is numbness and tingling associated with the problem. Has been taking no medications. Has been taking no physical therapy. #4. osteoporosis. No new complaints of any additional back,hip or other musculoskeletal complaints related to the osteoporosis. No hx of any recent trauma. Currently taking OsCal-D. Has Refuses bone density scan. The FRAX Score for Hip Fracture is NA hx osteoporosis FRAX score for major fractures NA hx of osteoporosis#5. GERD clinically stable does take PPI inhibitors in the form of Protonix doing well. No change in frequency, duration, intensity or any other additional symptoms. Has had magnesium and B12 levels done recently which were fine. Active Medication ListFinasteride 5 MG TABLET Once DailyRestoril 30 MG (CAPSULE - ORAL) One Hs Prn For SleepPravachol 40 MG (TABLET - ORAL) One Hs For CholesterolChlorthalidone 25 MG TABLET One DailyPreservision Vitamins DailyFlomax 0.4 MG (CAPSULE - ORAL) One Twice A DayAllegra-d 12 Hour Twice A DayLisinopril 40 MG TABLET QdAspirin 81 MG DailyProtonix 40 MG (TABLET, DELAYED RELEASE - ORAL) Once DailyFlexeril 5 MG (TABLET - ORAL) One Three Times A DaySenna Daily Vaccination and Immunization( ) 2024-05 INFLUENZA( ) 2020-12 COVID PFIZER( ) 2024-05 COVID BOOSTER PFIZER( ) 2023-06 INFLUENZA ED HD Surgical Aikxlbm4552-62 Three Lumbar Kwccfeubyih9824-80 Cervical Znnwsb6899-59 Lumbar Epidural Mnrurdnbw8834-59 Rt. Knee Vfmobfxh3314-14 Right Knee Ncxfpdcntgn2533-58 Utjxucxqedn8342-08 Ejtyvqbkwcxj6953-80 Left Foot Surgery Preventative Testing( ) 02/16/2024 Albumin 3.9 G/DL( ) 10/13/2023 PSA 0.91 NG/ML 10/13/2025( ) 05/06/2023 Ophthalmology( ) 03/27/2022 CT Thorax( ) 05/28/2006 Colonoscopy 05/28/2016 Social HistorySmokes 1.5 packs daily for 30 years. Drinks approximately 15 cans of beer per week. Family HistoryMother 98 from Alzheimer's and infirmitiesFather at 65 from RHDOne brother from COPD and CHFThree sisters all . One from ALS, one from CA lung and other from infirmities. TEST RESULT RANGE UNITSCBC/COMPLETE BLD COUNT W/DIFF Date: 02/16/2024WHITE BLOOD CELLS 7.4 4.2-10.8 X10'3/ULHEMOGLOBIN 12.9 13.2-17.0 G/DLHEMATOCRIT 37.4 39.3-50.0 %PLATELETS 231 150-400 X10'3/ULCOMPREHENSIVE METABOLIC PANEL Date: 02/16/2024SODIUM 133 137-145 MMOL/LPOTASSIUM 4.3 3.5-5.1 MMOL/LGLUCOSE 84 70-99 MG/DLCREATININE 0.69 0.66-1.25 MG/DLBUN 18 8-19 MG/DLGFR >60ALKALINE PHOSPHATASE 155 38-126 U/LALANINE AMINOTRANSFERASE 19 0-50 U/LASPARTATE AMINOTRANSFERASE 24 15-46 U/LBILIRUBIN, TOTAL 0.50 0.20-1.30 MG/DLCALCIUM 8.9 8.4-10.2 MG/DLLIPID PANEL Date: 02/16/2024HOLESTEROL 127 140-199 MG/DLTRIGLYCERIDES 105 0-150 MG/DLHDL CHOLESTEROL 57 40- MG/DLLDL CHOLESTEROL, CALCULATED 49 0-130 MG/DLMAGNESIUM Date: 02/16/2024MAGNESIUM 1.8 1.6-2.3 MG/DLT4 FREE Date: 02/16/2024FREE T4 1.48 0.78-2.19 NG/DLTSH Date: 02/16/2024THYROID-STIMULATING HORMONE 2.050 0.465-4.680 UIU/MLVITAMIN B12 (COBALAMIN) Date: 02/16/2024VB12 497 239-931 PG/ML Brain Devlin MD [address] [facility], [address], [place], [address], [facility] 06/14/2024 16:01:47 10/18/19 25 text/htm l Patient Name: Khari Bridges Of Service: Thursday ( 10.18.2024 ): 1940 Age: 83 Vital Signs:Blood Pressure: Sitting Rt. Arm 138/80Pulse: Sitting 62 /min and RegularRespiratory Rate: 16Pulse Oximetry: 97 % at rest on no oxygen Chief Complaint: Addressed in HPI Problems or conditions discussed in the HPI were the only ones reviewed during the encounter.Only social and family history addressed in the HPI were reviewed during this encounter. Attendant(s): WifeConstitutional and Systemic Symptoms:none Medication Reconciliation: from medication list. History of Present Illness #1. Essential Hypertension: Stage: Stage I Interval Neurological Complaints no headaches, dizziness, weakness, visual changes, ataxia, aphasia and apraxia. No shortness of breath, orthopnea or cardiovascular symptoms. No other symptoms related to end organ damage. Pressure has been under fair control. Currently normal. No other end organ symptoms or findings. Therapy reviewed regarding management of hypertension and includes salt restriction and Chlorthalidone and Lisinopril. #2. Type II Hypercholesterolaemia: Currently not taking medication. No interval complaints of any muscle pain or arthralgia. No significant liver changes with medications. Last lipid panel: fair control. Therapy reviewed regarding treatment of cholesterol management and include diet and Pravachol. #3. Hx of esophageal reflux currently stable. Hx of Complications: none The severity, duration and intensity of symptoms have improved. Frequency: most meals Treatment consists medications taken on intermittent basis. Current therapy includes Protonix. There has been no nausea, eructation, vomiting, hematemesis, dysphagia, velopharyngeal insufficiency and odynophagia. No change in he frequency or intensity of symptoms. Has had no melena. Has had no . Discussed use of H2 antagonists NA. #4. COPD: Hx of Emphysema currently stable. There has been some decrease in exercise tolerance an shortness of breath. No change in sputum production, color or consistency. No fever, chills, weight loss or other constitutional symptoms. Gold Scale: Moderate. MRC Scale: vigorous walking. Smoking: not currently smoking Current medications: none Using nebulizer Treatments: No. Uses does not use supplemental oxygen Active Medication ListFinasteride 5 MG TABLET Once DailyRestoril 30 MG (CAPSULE - ORAL) One Hs Prn For SleepPravachol 40 MG (TABLET - ORAL) One Hs For CholesterolChlorthalidone 25 MG TABLET One DailyPreservision Vitamins DailyFlomax 0.4 MG (CAPSULE - ORAL) One Twice A DayAllegra-d 12 Hour Twice A DayLisinopril 40 MG TABLET QdAspirin 81 MG DailyProtonix 40 MG (TABLET, DELAYED RELEASE - ORAL) Once DailyFlexeril 5 MG (TABLET - ORAL) One Three Times A DaySenna Daily Vaccination and Immunization( ) 2024-05 INFLUENZA( ) 2020-12 COVID PFIZER( ) 2024-05 COVID BOOSTER PFIZER( ) 2023-06 INFLUENZA ED HD( ) 2024-06 PREVNAR 20 Surgical Ixjuhqt6420-40 Three Lumbar Igsdyqsnpji8114-60 Cervical Tdnczr5620-06 Lumbar Epidural Cqerssaxz5713-43 Rt. Knee Lgnonrpo7794-89 Right Knee Ymgskmvwqym0072-09 Ngqbadsgngk3734-47 Purshxnxzcxq6877-78 Left Foot Surgery Preventative Testing( ) 06/15/2024 Ophthalmology( ) 06/14/2024 Albumin 4.0 G/DL( ) 10/13/2023 PSA 0.91 NG/ML( ) 03/27/2022 CT Thorax( ) 05/28/2006 Colonoscopy Social HistorySmokes 1.5 packs daily for 30 years. Drinks approximately 15 cans of beer per week. Family HistoryMother 98 from Alzheimer's and infirmitiesFather at 65 from RHDOne brother from COPD and CHFThree sisters all . One from ALS, one from CA lung and other from infirmities. Brain Devlin MD [address] [facility], [facility] [address], [place], [address], [facility] [employer] 10/18/2024 15:50:45
--- NOTE | 2025-02-12 19:34 | ED_ITS ---
HPI - General Adult General Chief complaint: Urogenital-Male Stated complaint: unable to urinate Time Seen by Provider: 02/12/25 19:02 History of Present Illness HPI narrative: Patient is an 84-year-old male who presents to the emergency department this evening complaining of urinary retention since noon. Patient admits that he does have a history of benign prostatic hyperplasia which does cause him some urinary retention from time to time. Patient states that the last time he had a Rainey catheter in was approximately 4-5 months ago. He follows up with 1 of our urologist, Dr. Tavares. Patient is wheelchair bound lives at home with his family. Caregiver is present at bedside and states that he wanted to wait it out until his family gets home this evening from a trip they were on as he walks seen but she prompted him to come to the ED because he was having a lot of suprapubic discomfort and distention. Patient otherwise denies any abdominal pain, nausea vomiting diarrhea, and denies any back pain. Denies any fevers or chills and denies any dysuria or hematuria. No additional symptoms or concerns at this time. Related Data Home Medications ?Medication ?Instructions ?Recorded ?Confirmed ?Last Taken ?Type aspirin 81 mg chewable tablet 81 mg PO DAILY 03/05/21 03/27/22 03/26/22 History (Aspirin Childrens) pantoprazole 40 mg tablet,delayed 40 mg PO QAM 03/05/21 03/27/22 03/26/22 History release pravastatin 40 mg tablet 40 mg PO DAILY 03/05/21 03/27/22 03/26/22 History quinapril 40 mg tablet 40 mg PO DAILY 03/05/21 03/27/22 03/26/22 History ciprofloxacin HCl 500 mg tablet 500 mg PO DAILY 03/27/22 03/27/22 03/26/22 History cyclobenzaprine 10 mg tablet 10 mg PO DAILY PRN Muscle Spasm 03/27/22 03/27/22 Unknown History guaifenesin 600 mg tablet, 600 mg PO Q12HR PRN Sinus Symptoms 03/27/22 03/27/22 Unknown History extended release 12 hr (Mucus Relief ER) Allergies Allergy/AdvReac Type Severity Reaction Status Date / Time No Known Allergies Allergy Verified 03/27/22 16:06 Review of Systems Review of Systems: All systems are reviewed and are negative unless stated otherwise in the HPI. PMFSH Past Medical History Medical History Upper respiratory infection Rhabdomyolysis Urinary tract infection Spinal stenosis History of kidney stones Macular degeneration Pulmonary nodules Benign prostatic hyperplasia Hyperlipidemia Post-polio syndrome Hypertension Surgical History Surgical History History of lithotripsy History of cataract extraction History of arthroplasty of right knee History of appendectomy History of cervical spinal surgery Family History Family History Mother Alzheimer's dementia Diabetes mellitus Father Lung disease Sibling Amyotrophic lateral sclerosis Sibling Lung cancer Social History Social History Social History: Resides in [place] with his . 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 Former smoker, reportedly 1 - 1.5 packs of cigarettes a day for about 50 years. He quit smoking in 2014 but still occasionally vapes. No alcohol or illicit substance abuse. Surrogate decision maker: Lorena Sandoval, spouse. Code status: Do not resuscitate. Smoking packs per day: 1.5 Smoking cigarettes per day: 30.0 Years smoked: 50 Smoking pack-years: 75.00 Smoking status: Current every day smoker Tobacco type: cigarettes and e-cigarettes/vaping Additional smoking assessment comments: smoked cigarretes for 50 years quite in 2016 and started vaping Alcohol intake: never Substance use: never Spiritual care concerns: No Exam Narrative: General: Alert, awake, afebrile, in no acute distress. HEENT: PERRL, no rhinorrhea, no post nasal drip, oropharynx clear. Neck: Trachea midline, no JVD, no lymphadenopathy. Cardiovascular: Regular rate and rhythm, no murmurs, rubs or gallops, no peripheral edema. Respiratory: Clear to auscultation bilaterally, no tachypnea, no wheezing, no rhonchi, no rubs, no respiratory distress. Abdomen: Soft, nontender, nondistended, no rebound, no guarding, no peritoneal signs. Musculoskeletal: No joint swelling or deformity, normal muscle tone. Skin: No rashes or petechia, no signs of infection. Psychiatric: Alert and oriented, normal behavior and judgment for situation. Neurological: Alert and oriented to person, place, and time. Follows all commands. No focal deficits, speech is clear and fluent. Course Vital Signs Vital signs: Vital Signs Temperature 97.1 F L 02/12/25 18:57 Pulse Rate 101 H 02/12/25 18:57 Respiratory Rate 18 02/12/25 18:57 Blood Pressure 157/92 H 02/12/25 18:57 Pulse Oximetry 94 02/12/25 18:57 Oxygen Delivery Room Air 02/12/25 18:57 Temperature 97.1 F L 02/12/25 18:57 Pulse Rate 101 H 02/12/25 18:57 Respiratory Rate 18 02/12/25 18:57 Blood Pressure 157/92 H 02/12/25 18:57 Pulse Oximetry 94 02/12/25 18:57 Oxygen Delivery Room Air 02/12/25 18:57 Medical Decision Making MDM Narrative Medical decision making narrative: The patient was evaluated by myself in the emergency department. History is obtained from patient who is an independent historian and physical exam was performed. External medical records were reviewed at this time. Rainey catheter was placed at this time and patient had a good than 1000 cc of urine. Patient states that he felt immediate relief and is currently denying any pain or suprapubic tenderness. Laboratory results obtained revealing a urinary tract infection nitrite positive. Differential diagnosis considerations include urinary retention secondary to BPH, UTI. Comorbidities impacting this visit include history of BPH. I have evaluated and discussed social determinants of health with the patient that could potentially impact subsequent diagnosis and treatment plans. On repeat assessment of the patient, reevaluation revealed that the patient is doing well and is in no acute distress. Patient symptoms have improved since he arrived to our emergency department. Repeat vital signs were all reviewed and noted to be stable. Differential diagnosis and treatment plan were discussed with the patient at bedside. Patient agrees with discussion and after shared medical decision making agrees with discharge. All questions were answered to the patient's satisfaction. Patient will follow up with his urologist in 3-5 days. A script for cephalexin was sent to patient's pharmacy to take as prescribed for his UTI. Patient was provided with strict return precautions and instructed to return to the emergency department if any new or worsening symptoms develop. The patient was discharged in stable condition. Vital Signs Vital Signs: Vital Signs Temperature 97.1 F L 02/12/25 18:57 Pulse Rate 101 H 02/12/25 18:57 Respiratory Rate 18 02/12/25 18:57 Blood Pressure 157/92 H 02/12/25 18:57 Pulse Oximetry 94 02/12/25 18:57 Oxygen Delivery Room Air 02/12/25 18:57 Temperature 97.1 F L 02/12/25 18:57 Pulse Rate 101 H 02/12/25 18:57 Respiratory Rate 18 02/12/25 18:57 Blood Pressure 157/92 H 02/12/25 18:57 Pulse Oximetry 94 02/12/25 18:57 Oxygen Delivery Room Air 02/12/25 18:57 Lab Data Labs: Lab Results 02/12/25 Range/Units 19:16 Urine Color Yellow (Yellow) Urine Appearance Clear (Clear) Urine pH 6.5 (5.0-9.0) Ur Specific [place] 1.007 (1.001-1.035) Urine Protein Negative (Negative) mg/dL Urine Glucose (UA) Negative (Negative) mg/dL Urine Ketones Negative (Negative) mg/dL Ur Blood (Man) Negative (Negative) Urine Nitrate Positive H (Negative) Urine Bilirubin Negative (Negative) Urine Urobilinogen 0.2 (<2.0) mg/dL Leukocyte Esterase Rfl 2+ H (Negative) KAT/UL Urine RBC 0-2 (0-2) /hpf Urine WBC 6-10 H (0-3) /hpf Ur Squamous Epith Cells None seen (Few) /hpf Urine Bacteria 4+ H /hpf Urine Casts 0-2 Discharge Plan Discharge Clinical Impression: Acute urinary retention, Acute UTI, Benign prostatic hyperplasia Patient Disposition: Home Condition: Improved Instructions: Antibiotic Form, Urinary Retention in Men (ED), Enlarged Prostate (BPH) (ED), Urinary Tract Infection in Men (ED) Additional Instructions: Please follow up with your Urologist in 3-5 days. Take the prescribed antibiotic as instructed. Return to ED if worse. Patient Language: Mosotho Prescriptions: New cephalexin 500 mg capsule 500 mg PO Q6H 7 Days Qty: 28 0RF No Action cyclobenzaprine 10 mg tablet 10 mg PO DAILY PRN (Reason: Muscle Spasm) ciprofloxacin HCl 500 mg tablet 500 mg PO DAILY Patient Comments: patient state about 2-3 left guaifenesin [Mucus Relief ER] 600 mg tablet extended release 12hr 600 mg PO Q12HR PRN (Reason: Sinus Symptoms) oxycodone-acetaminophen [Percocet] 5-325 mg tablet 1 tablet PO Q8H PRN (Reason: pain) 5 Days Qty: 15 0RF temazepam 30 mg Capsule 30 mg PO HS PRN (Reason: Insomnia) 5 Days Qty: 5 0RF levofloxacin 500 mg tablet 500 mg PO DAILY Qty: 10 0RF pravastatin 40 mg Tablet 40 mg PO DAILY pantoprazole 40 mg Tablet,Delayed Release (Dr/Ec) 40 mg PO QAM quinapril 40 mg tablet 40 mg PO DAILY aspirin [Aspirin Childrens] 81 mg Tablet,Chewable 81 mg PO DAILY tamsulosin 0.4 mg Capsule 0.4 mg PO QAM Qty: 90 3RF finasteride [Proscar] 5 mg Tablet 5 mg PO QAM Qty: 90 3RF cephalexin 500 mg capsule 500 mg PO Q8H Qty: 15 0RF Patient Comments: patient states 2-3 tablets left Follow-up/Referrals: Devlin,Brain Hinkle MD [Primary Care Provider] - Guerrero Dorsey MD [Physician] - 3 Days Time of Disposition: 19:37
[2025-02-12 20:44] VITALS: BP 139/85; PULSE 87; RESP 18; O2SAT 100
[2025-02-12 21:47] VITALS: BP 122/82; PULSE 67; RESP 18; O2SAT 98
[2025-02-12 21:49] VITALS: BP 122/82; PULSE 99; RESP 18; O2SAT 98
== END 2025-02-12 21:51 | disposition home or self-care (01) ==
PROVIDERS: Emergency Provider Emergency Medicine; PCP Internal Medicine
DX: N40.1 Benign prostatic hyperplasia with lower urinary tract symptoms (principal); R33.8 Other retention of urine; N39.0 Urinary tract infection, site not specified; E78.5 Hyperlipidemia, unspecified; I10 Essential (primary) hypertension
CPT/HCPCS: 51702; 81001; 87086; 87186; 99283

== ENCOUNTER 2025-06-13 11:28 | Outpatient (CLI) | payer MEDICARE, SELFPAY ==
--- NOTE | 2025-06-13 11:37 | ECG_ITS ---
Test Date: 2025-06-13 11:53:23 Measurements Intervals [place] Rate: 73 P: 15 UT: 181 QRS: 14 QRSD: 130 T: 39 QT: 429 QTc: 474 Interpretive Statements SINUS RHYTHM WITH FREQUENT VENTRICULAR PREMATURE COMPLEXES RIGHT BUNDLE BRANCH BLOCK BASELINE ARTIFACT- I, III, AVL ABNORMAL ECG Compared to ECG 03/04/2024 15:09:42 Ventricular premature complex(es) now present Electronically Signed On 06-13-2025 12:03:18 CDT by Julián Luke D.O.
--- OUTSIDE RECORDS SUMMARY | 2025-06-13 12:49 | XMS_ITS | Data Portability ---
Author Organization [facility], Main Office Address [address] [place] [address] Assessment No assessment recorded. Plan of Treatment Reminders Order Date Submit Date Provider Last Modified By Organization Details Last Modified Time Details Appointments None recorded. Lab CBC w/ auto diff 2024 025 [facility] Outpatient Lab, [address] [place], [address], 5 17:19:46 CMP, serum or plasma 2024 025 [email or web address] [facility] Out[facility], [address] [place], [address], 5 17:19:46 lipid panel, serum 2024 025 [facility] Out[facility], [address] [place], [address], 5 17:19:46 TSH, serum or plasma 2024 025 [email or web address] [facility] Out[facility], [address] [place], [address], 5 17:19:47 T4, free, serum 2024 025 [email or web address] [facility] Out[facility], [address] [place], [address], 5 17:19:47 vitamin D, 25-hydroxy, total, serum 2023 024 [email or web address] [facility] Out[facility] Lab, [address] [place], [address], 4 16:45:25 CBC w/ auto diff 2023 [facility] Outpatient Lab, [address] [place], [address], 4 18:13:51 CMP, serum or plasma 2023 [facility] Out[facility] Lab, [address] [place], [address], 4 18:31:08 lipid panel, serum 2023 024 [facility] Out[facility] Lab, [address] [place], [address], 4 18:31:10 lipid panel, serum 2023 024 [facility] Lab, [address] [place], [address], 4 20:20:45 CMP, serum or plasma 2023 024 [facility] Out[facility] Lab, [address] [place], [address], 4 20:20:50 TSH, serum or plasma 2023 024 [facility] Lab, [address] [place], [address], 4 20:48:29 T4, free, serum 2023 024 [facility], [address] [place], [address], 4 20:38:56 magnesium, serum or plasma 2023 024 [facility] Lab, [address] [place], [address], 4 20:20:59 vitamin B12, serum 2023 024 [facility], [address] [place], [address], 4 22:24:04 CBC w/ auto diff 2023 024 [facility] Lab, [address] [place], [address], 4 19:08:04 lipid panel, serum 2023 024 [facility] Lab, [address] [place], [address], 4 19:01:27 CMP, serum or plasma 2023 024 [facility], [address] [place], [address], 4 19:01:38 TSH, serum or plasma 2023 024 [facility] Lab, [address] [place], [address], 4 19:00:21 T4, free, serum 2023 024 [facility] Lab, [address] [place], [address], 4 18:58:18 PSA, serum or plasma [id number] [place] [address] Outpatient Lab, [address] [place], [address], 4 16:43:54 magnesium, serum or plasma 2023 024 [facility] Out[facility] Lab, [address] [place], [address], 4 19:01:40 vitamin B12, serum 2023 024 [facility], [address] [place], [address], 4 19:24:00 CBC w/ auto diff 2023 024 [facility] Out[facility] Lab, [address] [place], [address], 4 16:22:18 Referral None recorded. Procedures None recorded. Surgeries None recorded. Imaging None recorded. Medication Orders escitalopra m 10 mg tablet 2024 025 [id number], [address], [place], [place], [id number], 5 15:32:42 Zithromax Z-[place] 250 mg tablet 2024 025 [address] [id number], [address] , [place], [place], [id number], 5 15:12:09 benzonatate 200 mg capsule 2024 025 [id number], [address], [place], [place], [id number], 5 15:12:14 Patient TargetsNo targets recorded. Patient Instructions Encounter Date Encounter Id Patient Instructions Last Modified By Organization Details Last Modified Time 10/13/2023 [id number] Cervical spondylolysis -hypertension -hyperlipidemia -GERD. Check blood [...] recognize, using context, where substitutions have occurred. [email or web address] Not available 10/13/2023 15:18:37 02/16/2024 [id number] Follow-up essent ial hypertension, hyperlipidemia, benign prostatic [...] recognize, using context, where substitutions have occurred. [email or web address] Not available 02/16/2024 15:33:06 06/14/2024 [id number] dementia rating scale-2* [email or web address] Not available 06/14/2024 16:01:41 alcohol misuse* [email or web address] Not available 06/14/2024 16:01:41 depression screening* [email or web address] Not available 06/14/2024 16:01:41 multi-dimensiona l health assessment questionnaire* [email or web address] Not available 06/14/2024 16:01:41 Personalized Hea lt [...] Non Smoker Alcohol Misuse Screening: Negative Weight: unable to assess Physical activity: Need more exercise/physical activity Nutrition: Average Eat heart healthy diet Fall Risk (screened [...] Screening Last Performed: _2005__ Eye Disease Screening: Your next exam in: goes yearly Dementia Risk: Low I have no recommendations Depression Screening: Negative I have no recommendations [email or web address] Not available 06/14/2024 15:57:21 Medicare wellness evaluation [...] recognize, using context, where substitutions have occurred. [email or web address] Not available 06/14/2024 15:59:35 10/18/2024 [id number] Follow-up for essential hypertension, hyperlipidemia, GERD as [...] Created: Brain Devlin M.D. 10.18.2024 02:41 PM [email or web address] Not available 10/18/2024 15:41:52 02/14/2025 [id number] Follow-up for hypertension, hyperlipidemia, GERD, urinary tract infection mild depression. Will start on some escitalopram 10 mg once daily to see if there is any improvement. Will continue with current Rx and follow-up in four months Follow Up: 4 Months Approximate Date: 06/14/2025 Portions of record are template driven. When necessary additional context will be provided. Additionally some portions have been created with voice recognition software. Occasional wrong-word or s ound-a-like substitutions may have occurred due to the inherent limitations of voice recognition software. Read the chart carefully and recognize, using context, where substitutions may have occurred. Created: Brain Devlin M.D. 02.14.2025 02:32 PM [email or web address] Not available 02/14/2025 15:32:41 Reason for Referral None Reported. Results Created Date Observation Date Name Description Value Unit Range Abnormal Flag Note LastModifiedBy Organization Detail LastModifiedTime 10/13/19 24 10/13/2023 CBC/C OMPLE TE BLD COUNT W/DIF F white blood cells 9.8 x10'3 /uL 4.2-10 .8 Not Available [facility] (Lab) [address] [place], [address], 10/13/2023 16:22:18 10/13/19 24 10/13/2023 CBC/C OMPLE TE BLD COUNT W/DIF F red blood cells 4.01 x10'6 /uL 4.10-5 .80 low Not Available [facility] (Lab) [address] [place], [address], 10/13/2023 16:22:18 10/13/19 24 10/13/2023 CBC/C OMPLE TE BLD COUNT W/DIF F hemoglobin 13.2 g/dL 13.2-1 7.0 Not Available [facility] (Lab) [address] [place], [address], 10/13/2023 16:22:18 10/13/19 24 10/13/2023 CBC/C OMPLE TE BLD COUNT W/DIF F hematocrit 38.9 % 39.3-5 0.0 low Not Available [facility] (Lab) [address] [place], [address], 10/13/2023 16:22:18 10/13/19 24 10/13/2023 CBC/C OMPLE TE BLD COUNT W/DIF F mean red cell volume 97.0 fL 80.0-9 7.0 Not Available [facility] (Lab) [address] [place], [address], 10/13/2023 16:22:18 10/13/19 24 10/13/2023 CBC/C OMPLE TE BLD COUNT W/DIF F mean red cell hemoglobin 32.9 pg 27.0-3 3.0 Not Available [facility] (Lab) [address] [facility] [place], [address], 10/13/2023 16:22:18 10/13/19 24 10/13/2023 CBC/C OMPLE TE BLD COUNT W/DIF F mean RBC HGB concentratio n 33.9 g/dL 31.0-3 6.0 Not Available [facility] (Lab) [address] [place], [address], 10/13/2023 16:22:18 10/13/19 24 10/13/2023 CBC/C OMPLE TE BLD COUNT W/DIF F red cell distribution width 12.5 % 11.8-1 5.5 Not Available [facility] (Lab) [address] [place], [address], 10/13/2023 16:22:18 10/13/19 24 10/13/2023 CBC/C OMPLE TE BLD COUNT W/DIF F platelets 295 x10'3 /uL 150-40 0 Not Available [facility] (Lab) [address] [place], [address], 10/13/2023 16:22:18 10/13/19 24 10/13/2023 CBC/C OMPLE TE BLD COUNT W/DIF F mean platelet volume 9.5 fL 9.0-12 .4 Not Available [facility] (Lab) [address] [place], [address], 10/13/2023 16:22:18 10/13/19 24 10/13/2023 CBC/C OMPLE TE BLD COUNT W/DIF F neutrophils 76.8 % 39.0-7 2.0 high Not Available [facility] (Lab) [address] [place], [address], 10/13/2023 16:22:18 10/13/19 24 10/13/2023 CBC/C OMPLE TE BLD COUNT W/DIF F lymphocytes 15.4 % 16.0-4 7.0 low Not Available [facility] (Lab) [address] [place], [address], 10/13/2023 16:22:18 10/13/19 24 10/13/2023 CBC/C OMPLE TE BLD COUNT W/DIF F monocytes 5.1 % 5.0-12 .0 Not Available [facility] (Lab) [address] [place], [address], 10/13/2023 16:22:18 10/13/19 24 10/13/2023 CBC/C OMPLE TE BLD COUNT W/DIF F eosinophils 1.5 % 1.0-7. 0 Not Available [facility] (Lab) [address] [place], [address], 10/13/2023 16:22:18 10/13/19 24 10/13/2023 CBC/C OMPLE TE BLD COUNT W/DIF F basophils 0.4 % 0.0-2. 0 Not Available [facility] (Lab) [address] [place], [address], 10/13/2023 16:22:18 10/13/19 24 10/13/2023 CBC/C OMPLE TE BLD COUNT W/DIF F immature granulocytes 0.8 % 0.00-0 .50 high Not Available [facility] (Lab) [address] [place], [address], 10/13/2023 16:22:18 10/13/19 24 10/13/2023 CBC/C OMPLE TE BLD COUNT W/DIF F neutrophils, absolute count 7.55 x10'3 /uL 1.5-8. 0 Not Available [facility] (Lab) [address] [place], [address], 10/13/2023 16:22:18 10/13/19 24 10/13/2023 CBC/C OMPLE TE BLD COUNT W/DIF F lymphocytes, absolute count 1.52 x10'3 /uL 1.07-3 .43 Not Available [facility] (Lab) [address] [place], [address], 10/13/2023 16:22:18 10/13/19 24 10/13/2023 CBC/C OMPLE TE BLD COUNT W/DIF F monocytes, absolute count 0.50 x10'3 /uL 0.29-0 .99 Not Available [facility] (Lab) [address] [place], [address], 10/13/2023 16:22:18 10/13/19 24 10/13/2023 CBC/C OMPLE TE BLD COUNT W/DIF F eosinophils, absolute count 0.15 x10'3 /uL 0.02-0 .53 Not Available [facility] (Lab) [address] [place], [address], 10/13/2023 16:22:18 10/13/19 24 10/13/2023 CBC/C OMPLE TE BLD COUNT W/DIF F basophils, absolute count 0.04 x10'3 /uL 0.01-0 .08 Not Available [facility] (Lab) [address] [place], [address], 10/13/2023 16:22:18 10/13/19 24 10/13/2023 CBC/C OMPLE TE BLD COUNT W/DIF F immature granulocytes ,absolute 0.08 x10'3 /uL 0.00-0 .05 high Not Available [facility] (Lab) [address] [place], [address], 10/13/2023 16:22:18 10/13/19 24 10/13/2023 CBC/C OMPLE TE BLD COUNT W/DIF F nucleated red blood cells 0.0 % -0 Not Available [facility] (Lab) [address] [place], [address], 10/13/2023 16:22:18 10/13/19 24 10/13/2023 CBC/C OMPLE TE BLD COUNT W/DIF F NRBC# 0.00 x10'3 /uL Not Available [facility] (Lab) [address] [place], [address], 10/13/2023 16:22:18 10/13/19 24 10/13/2023 T4 FREE free T4 1.27 NG/dL 0.78-2 .19 Not Available [facility] (Lab) [address] [place], [address], 10/13/2023 18:58:18 10/13/19 24 10/13/2023 TSH thyroid-stim ulating hormone 1.870 uIU/m L 0.465- 4.680 Not Available [facility] (Lab) [address] [place], [address], 10/13/2023 19:00:21 10/13/19 24 10/13/2023 PSA, TOTAL PSA, total 0.91 NG/mL 0.00-4 .00 Not Available [facility] (Lab) [address] [place], [address], 10/13/2023 19:00:25 10/13/19 24 10/13/2023 LIPID PANEL cholesterol 138 mg/dL 140-19 9 low [facility] MITCHELL NSUS RECOM MENDA TION FOR KRYSTIAN STERO L: ADULT CHILD LOW RISK: <200 <170 BORDE RLINE : <200- 239 ----- HIGH RISK: >240 >200 Not Available [facility] (Lab) [address] [place], [address], 10/13/2023 19:01:27 10/13/19 24 10/13/2023 LIPID PANEL triglyceride s 117 mg/dL 0-150 [facility]CHELL NSUS REPOR T RECOM MENDA TION FOR TRIGL YCERI RENAN: ADULT CHILD LOW RISK: <150 ----- BODER LINE: 150-1 99 ----- HIGH RISK: >200 ----- Not Available [facility] (Lab) [address] [place], [address], 10/13/2023 19:01:27 10/13/19 24 10/13/2023 LIPID PANEL HDL cholesterol 36 mg/dL 40- low Not Available [facility] (Lab) [address] [place], [address], 10/13/2023 19:01:27 10/13/19 24 10/13/2023 LIPID PANEL [...] WILL NOT BE REPOR ZAC. Not Available [facility] (Lab) [address] [place], [address], 10/13/2023 19:01:27 10/13/19 24 10/13/2023 COMPR EHENS ALICIA METAB OLIC PANEL sodium 139 mmol/ L 137-14 5 Not Available [facility] (Lab) [address] [place], [address], 10/13/2023 19:01:38 10/13/19 24 10/13/2023 COMPR EHENS ALICIA METAB OLIC PANEL potassium 3.7 mmol/ L 3.5-5. 1 Not Available [facility] (Lab) [address] [place], [address], 10/13/2023 19:01:38 10/13/19 24 10/13/2023 COMPR EHENS ALICIA METAB OLIC PANEL chloride 102 mmol/ L 98-107 Not Available [facility] (Lab) [address] [place], [address], 10/13/2023 19:01:38 10/13/19 24 10/13/2023 COMPR EHENS ALICIA METAB OLIC PANEL carbon dioxide 28 mmol/ L 22-[address] [facility] (Lab) [address] [place], [address], 10/13/2023 19:01:38 10/13/19 24 10/13/2023 COMPR EHENS ALICIA METAB OLIC PANEL anion gap 12.7 mmol/ L 14-22 low Not Available [facility] (Lab) [address] [place], [address], 10/13/2023 19:01:38 10/13/19 24 10/13/2023 COMPR EHENS ALICIA METAB OLIC PANEL glucose 92 mg/dL 70-99 Not Available [facility] (Lab) [address] [place], [address], 10/13/2023 19:01:38 10/13/19 24 10/13/2023 COMPR EHENS ALICIA METAB OLIC PANEL BUN 26 mg/dL 8-19 high Not Available [facility] (Lab) [address] [place], [address], 10/13/2023 19:01:38 10/13/19 24 10/13/2023 COMPR EHENS ALICIA METAB OLIC PANEL creatinine 0.67 mg/dL 0.66-1 .25 Not Available [facility] (Lab) [address] [place], [address], 10/13/2023 19:01:38 10/13/19 24 10/13/2023 COMPR EHENS ALICIA METAB OLIC PANEL GFR >60 Refer ence Range : [place] ge GFR Healt hy Adult : >60 [...] calcu lator is avail able on the [facility] websi te: [email or web address] :[email or web address] kai/pr ofess ional s/kdo qi/gf r_cal culat or Not Available [facility] (Lab) [address] [place], [address], 10/13/2023 19:01:38 10/13/19 24 10/13/2023 COMPR EHENS ALICIA METAB OLIC PANEL alkaline phosphatase 137 U/L 38-126 high Not Available [facility] (Lab) [address] [place], [address], 10/13/2023 19:01:38 10/13/19 24 10/13/2023 COMPR EHENS ALICIA METAB OLIC PANEL alanine aminotransfe rase 21 U/L 0-50 Not Available [facility] (Lab) [address] [place], [address], 10/13/2023 19:01:38 10/13/19 24 10/13/2023 COMPR EHENS ALICIA METAB OLIC PANEL aspartate aminotransfe rase 24 U/L 15-46 Not Available [facility] (Lab) [address] [place], [address], 10/13/2023 19:01:38 10/13/19 24 10/13/2023 COMPR EHENS ALICIA METAB OLIC PANEL bilirubin, total 0.50 mg/dL 0.20-1 .30 Not Available [facility] (Lab) [address] [place], [address], 10/13/2023 19:01:38 10/13/19 24 10/13/2023 COMPR EHENS ALICIA METAB OLIC PANEL calcium 9.3 mg/dL 8.4-10 .2 Not Available [facility] (Lab) [address] [place], [address], 10/13/2023 19:01:38 10/13/19 24 10/13/2023 COMPR EHENS ALICIA METAB OLIC PANEL total protein 6.8 g/dL 6.3-8. 2 Not Available [facility] (Lab) [address] [place], [address], 10/13/2023 19:01:38 10/13/19 24 10/13/2023 COMPR EHENS ALICIA METAB OLIC PANEL albumin 3.8 g/dL 3.0-4. 4 Not Available [facility] (Lab) [address] [place], [address], 10/13/2023 19:01:38 10/13/19 24 10/13/2023 COMPR EHENS ALICIA METAB OLIC PANEL globulin 3.0 g/dL 2.6-4. 2 Not Available [facility] (Lab) [address] [place], [address], 10/13/2023 19:01:38 10/13/19 24 10/13/2023 COMPR EHENS ALICIA METAB OLIC PANEL A/G ratio 1.3 ratio 1.0-2. 0 Not Available [facility] (Lab) [address] [place], [address], 10/13/2023 19:01:38 10/13/19 24 10/13/2023 MAGNE SIUM magnesium 2.0 mg/dL 1.6-2. [address] [facility] (Lab) [address] [place], [address], 10/13/2023 19:01:40 10/13/19 24 10/15/2023 VITAM IN B12 (ALEJANDRO CONSTANTINE ) vb12 618 pg/mL 239-[address] [facility] (Lab) [address] [place], [address], 10/15/2023 19:24:00 02/16/20 24 02/16/2024 CBC/C OMPLE TE BLD COUNT W/DIF F white blood cells 7.4 x10'3 /uL 4.2-10 .8 Not Available [facility] (Lab) [address] [place], [address], 02/16/2024 19:08:04 02/16/20 24 02/16/2024 CBC/C OMPLE TE BLD COUNT W/DIF F red blood cells 3.86 x10'6 /uL 4.10-5 [address] [facility] (Lab) [address] [place], [address], 02/16/2024 19:08:04 02/16/20 24 02/16/2024 CBC/C OMPLE TE BLD COUNT W/DIF F hemoglobin 12.9 g/dL 13.2-1 7[address] [facility] (Lab) [address] [place], [address], 02/16/2024 19:08:04 02/16/20 24 02/16/2024 CBC/C OMPLE TE BLD COUNT W/DIF F hematocrit 37.4 % 39.3-5 0.0 low Not Available [facility] (Lab) [address] [place], [address], 02/16/2024 19:08:04 02/16/20 24 02/16/2024 CBC/C OMPLE TE BLD COUNT W/DIF F mean red cell volume 96.9 fL 80.0-9 7.0 Not Available [facility] (Lab) [address] [place], [address], 02/16/2024 19:08:04 02/16/20 24 02/16/2024 CBC/C OMPLE TE BLD COUNT W/DIF F mean red cell hemoglobin 33.4 pg 27.0-3 [address] [facility] (Lab) [address] [place], [address], 02/16/2024 19:08:04 02/16/20 24 02/16/2024 CBC/C OMPLE TE BLD COUNT W/DIF F mean RBC HGB concentratio n 34.5 g/dL 31.0-[address] [facility] (Lab) [address] [place], [address], 02/16/2024 19:08:04 02/16/20 24 02/16/2024 CBC/C OMPLE TE BLD COUNT W/DIF F red cell distribution width 13.2 % 11.8-1 5.5 Not Available [facility] (Lab) [address] [place], [address], 02/16/2024 19:08:04 02/16/20 24 02/16/2024 CBC/C OMPLE TE BLD COUNT W/DIF F platelets 231 x10'3 /uL 150-40 0 Not Available [facility] (Lab) [address] [place], [address], 02/16/2024 19:08:04 02/16/20 24 02/16/2024 CBC/C OMPLE TE BLD COUNT W/DIF F mean platelet volume 10.4 fL 9.0-12 .4 Not Available [facility] (Lab) [address] [place], [address], 02/16/2024 19:08:04 02/16/20 24 02/16/2024 CBC/C OMPLE TE BLD COUNT W/DIF F neutrophils 70.8 % 39.0-[address] [facility] (Lab) [address] [place], [address], 02/16/2024 19:08:04 02/16/20 24 02/16/2024 CBC/C OMPLE TE BLD COUNT W/DIF F lymphocytes 16.9 % 16.0-[address] [facility] (Lab) [address] [place], [address], 02/16/2024 19:08:04 02/16/20 24 02/16/2024 CBC/C OMPLE TE BLD COUNT W/DIF F monocytes 9.3 % 5.0-[address] [facility] (Lab) [address] [place], [address], 02/16/2024 19:08:04 02/16/20 24 02/16/2024 CBC/C OMPLE TE BLD COUNT W/DIF F eosinophils 2.3 % 1.0-7. 0 Not Available [facility] (Lab) [address] [place], [address], 02/16/2024 19:08:04 02/16/20 24 02/16/2024 CBC/C OMPLE TE BLD COUNT W/DIF F basophils 0.3 % 0.0-2. 0 Not Available [facility] (Lab) [address] [place], [address], 02/16/2024 19:08:04 02/16/20 24 02/16/2024 CBC/C OMPLE TE BLD COUNT W/DIF F immature granulocytes 0.4 % 0.00-0 .50 Not Available [facility] (Lab) [address] [place], [address], 02/16/2024 19:08:04 02/16/20 24 02/16/2024 CBC/C OMPLE TE BLD COUNT W/DIF F neutrophils, absolute count 5.24 x10'3 /uL 1.5-8. 0 Not Available [facility] (Lab) [address] [place], [address], 02/16/2024 19:08:04 02/16/20 24 02/16/2024 CBC/C OMPLE TE BLD COUNT W/DIF F lymphocytes, absolute count 1.25 x10'3 /uL 1.07-3 .43 Not Available [facility] (Lab) [address] [place], [address], 02/16/2024 19:08:04 02/16/20 24 02/16/2024 CBC/C OMPLE TE BLD COUNT W/DIF F monocytes, absolute count 0.69 x10'3 /uL 0.29-0 .99 Not Available [facility] (Lab) [address] [place], [address], 02/16/2024 19:08:04 02/16/20 24 02/16/2024 CBC/C OMPLE TE BLD COUNT W/DIF F eosinophils, absolute count 0.17 x10'3 /uL 0.02-0 .53 Not Available [facility] (Lab) [address] [place], [address], 02/16/2024 19:08:04 02/16/20 24 02/16/2024 CBC/C OMPLE TE BLD COUNT W/DIF F basophils, absolute count 0.02 x10'3 /uL 0.01-0 .08 Not Available [facility] (Lab) [address] [place], [address], 02/16/2024 19:08:04 02/16/20 24 02/16/2024 CBC/C OMPLE TE BLD COUNT W/DIF F immature granulocytes ,absolute 0.03 x10'3 /uL 0.00-0 .05 Not Available [facility] (Lab) [address] [place], [address], 02/16/2024 19:08:04 02/16/20 24 02/16/2024 CBC/C OMPLE TE BLD COUNT W/DIF F nucleated red blood cells 0.0 % -0 Not Available [facility] (Lab) [address] [place], [address], 02/16/2024 19:08:04 02/16/20 24 02/16/2024 CBC/C OMPLE TE BLD COUNT W/DIF F NRBC# 0.00 x10'3 /uL Not Available [facility] (Lab) [address] [place], [address], 02/16/2024 19:08:04 02/16/20 24 02/16/2024 LIPID PANEL cholesterol 127 mg/dL 140-19 9 low NIH MITCHELL NSUS RECOM MENDA TION FOR KRYSTIAN STERO L: ADULT CHILD LOW RISK: <200 <170 BORDE RLINE : <200- 239 ----- HIGH RISK: >240 >200 Not Available [facility] (Lab) [address] [place], [address], 02/16/2024 20:20:44 02/16/20 24 02/16/2024 LIPID PANEL triglyceride s 105 mg/dL 0-150 NIH MITCHELL NSUS REPOR T RECOM MENDA TION FOR TRIGL YCERI RENAN: ADULT CHILD LOW RISK: <150 ----- BODER LINE: 150-1 99 ----- HIGH RISK: >200 ----- Not Available [facility] (Lab) [address] [place], [address], 02/16/2024 20:20:44 02/16/20 24 02/16/2024 LIPID PANEL HDL cholesterol 57 mg/dL 40- Not Available [facility] (Lab) [address] [place], [address], 02/16/2024 20:20:44 02/16/20 24 02/16/2024 LIPID PANEL [...] WILL NOT BE REPOR ZAC. Not Available [facility] (Lab) [address] [place], [address], 02/16/2024 20:20:44 02/16/20 24 02/16/2024 COMPR EHENS ALICIA METAB OLIC PANEL sodium 133 mmol/ L 137-[address] [facility] (Lab) [address] [place], [address], 02/16/2024 20:20:50 02/16/20 24 02/16/2024 COMPR EHENS ALICIA METAB OLIC PANEL potassium 4.3 mmol/ L 3.5-5. 1 Not Available [facility] (Lab) [address] [place], [address], 02/16/2024 20:20:50 02/16/20 24 02/16/2024 COMPR EHENS ALICIA METAB OLIC PANEL chloride 103 mmol/ L 98-107 Not Available [facility] (Lab) [address] [place], [address], 02/16/2024 20:20:50 02/16/20 24 02/16/2024 COMPR EHENS ALICIA METAB OLIC PANEL carbon dioxide 27 mmol/ L 22-30 Not Available [facility] (Lab) [address] [place], [address], 02/16/2024 20:20:50 02/16/20 24 02/16/2024 COMPR EHENS ALICIA METAB OLIC PANEL anion gap 7.3 mmol/ L 14-22 low Not Available [facility] (Lab) [address] [place], [address], 02/16/2024 20:20:50 02/16/20 24 02/16/2024 COMPR EHENS ALICIA METAB OLIC PANEL glucose 84 mg/dL 70-99 Not Available [facility] (Lab) [address] [place], [address], 02/16/2024 20:20:50 02/16/20 24 02/16/2024 COMPR EHENS ALICIA METAB OLIC PANEL BUN 18 mg/dL 8-19 Not Available [facility] (Lab) [address] [place], [address], 02/16/2024 20:20:50 02/16/20 24 02/16/2024 COMPR EHENS ALICIA METAB OLIC PANEL creatinine 0.69 mg/dL 0.66-1 .25 Not Available [facility] (Lab) [address] [place], [address], 02/16/2024 20:20:50 02/16/20 24 02/16/2024 COMPR EHENS LAICIA METAB OLIC PANEL GFR >60 Refer ence Range : [place] ge GFR Healt hy Adult : >60 [...] calcu lator is avail able on the [facility] websi te: https ://denton w.vinita dylon.o rg/pr ofess ional s/kdo qi/gf r_cal culat or Not Available [facility] (Lab) [address] [place], [address], 02/16/2024 20:20:50 02/16/20 24 02/16/2024 COMPR EHENS ALICIA METAB OLIC PANEL alkaline phosphatase 155 U/L 38-126 high Not Available [facility] (Lab) [address] [place], [address], 02/16/2024 20:20:50 02/16/20 24 02/16/2024 COMPR EHENS ALICIA METAB OLIC PANEL alanine aminotransfe rase 19 U/L 0-50 Not Available [facility] (Lab) [address] [place], [address], 02/16/2024 20:20:50 02/16/20 24 02/16/2024 COMPR EHENS ALICIA METAB OLIC PANEL aspartate aminotransfe rase 24 U/L 15-46 Not Available [facility] (Lab) [address] [place], [address], 02/16/2024 20:20:50 02/16/20 24 02/16/2024 COMPR EHENS ALICIA METAB OLIC PANEL bilirubin, total 0.50 mg/dL 0.20-1 .30 Not Available [facility] (Lab) [address] [place], [address], 02/16/2024 20:20:50 02/16/20 24 02/16/2024 COMPR EHENS ALICIA METAB OLIC PANEL calcium 8.9 mg/dL 8.4-10 .2 Not Available [facility] (Lab) [address] [place], [address], 02/16/2024 20:20:50 02/16/20 24 02/16/2024 COMPR EHENS ALICIA METAB OLIC PANEL total protein 6.3 g/dL 6.3-8. 2 Not Available [facility] (Lab) [address] [place], [address], 02/16/2024 20:20:50 02/16/20 24 02/16/2024 COMPR EHENS ALICIA METAB OLIC PANEL albumin 3.9 g/dL 3.0-4. 4 Not Available [facility] (Lab) [address] [place], [address], 02/16/2024 20:20:50 02/16/20 24 02/16/2024 COMPR EHENS ALICIA METAB OLIC PANEL globulin 2.4 g/dL 2.6-4. 2 low Not Available [facility] (Lab) [address] [place], [address], 02/16/2024 20:20:50 02/16/20 24 02/16/2024 COMPR EHENS ALICIA METAB OLIC PANEL A/G ratio 1.6 ratio 1.0-2. 0 Not Available [facility] (Lab) [address] [place], [address], 02/16/2024 20:20:50 02/16/20 24 02/16/2024 MAGNE SIUM magnesium 1.8 mg/dL 1.6-2. 3 Not Available [facility] (Lab) [address] [place], [address], 02/16/2024 20:20:59 02/16/20 24 02/16/2024 T4 FREE free T4 1.48 NG/dL 0.78-2 .19 Not Available [facility] (Lab) [address] [place], [address], 02/16/2024 20:38:56 02/16/20 24 02/16/2024 TSH thyroid-stim ulating hormone 2.050 uIU/m L 0.465- 4.680 Not Available [facility] (Lab) [address] [place], [address], 02/16/2024 20:48:29 02/16/20 24 02/16/2024 VITAM IN B12 (ALEJANDRO CONSTANTINE ) vb12 497 pg/mL 239-93 1 Not Available [facility] (Lab) [address] [place], [address], 02/16/2024 22:24:04 06/14/20 24 06/14/2024 CBC/C OMPLE TE BLD COUNT W/DIF F white blood cells 9.1 x10'3 /uL 4.2-10 .8 Not Available [facility] (Lab) [address] [place], [address], 06/14/2024 18:13:50 06/14/20 24 06/14/2024 CBC/C OMPLE TE BLD COUNT W/DIF F red blood cells 3.94 x10'6 /uL 4.10-5 .80 low Not Available [facility] (Lab) [address] [place], [address], 06/14/2024 18:13:50 06/14/20 24 06/14/2024 CBC/C OMPLE TE BLD COUNT W/DIF F hemoglobin 13.0 g/dL 13.2-1 7.0 low Not Available [facility] (Lab) [address] [place], [address], 06/14/2024 18:13:50 06/14/20 24 06/14/2024 CBC/C OMPLE TE BLD COUNT W/DIF F hematocrit 39.0 % 39.3-5 0.0 low Not Available [facility] (Lab) [address] [place], [address], 06/14/2024 18:13:50 06/14/2006/14/2024 CBC/C OMPLE TE BLD COUNT W/DIF F mean red cell volume 99.0 fL 80.0-9 7.0 high Not Available [facility] (Lab) [address] [place], [address], 06/14/2024 18:13:50 06/14/2006/14/2024 CBC/C OMPLE TE BLD COUNT W/DIF F mean red cell hemoglobin 33.0 pg 27.0-3 3.0 Not Available [facility] (Lab) [address] [place], [address], 06/14/2024 18:13:50 06/14/2006/14/2024 CBC/C OMPLE TE BLD COUNT W/DIF F mean RBC HGB concentratio n 33.3 g/dL 31.0-3 6.0 Not Available [facility] (Lab) [address] [place], [address], 06/14/2024 18:13:50 06/14/2006/14/2024 CBC/C OMPLE TE BLD COUNT W/DIF F red cell distribution width 12.9 % 11.8-1 5.5 Not Available [facility] (Lab) [address] [place], [address], 06/14/2024 18:13:50 06/14/2006/14/2024 CBC/C OMPLE TE BLD COUNT W/DIF F platelets 245 x10'3 /uL 150-40 0 Not Available [facility] (Lab) [address] [place], [address], 06/14/2024 18:13:50 06/14/2006/14/2024 CBC/C OMPLE TE BLD COUNT W/DIF F mean platelet volume 10.1 fL 9.0-[address] [facility] (Lab) [address] [place], [address], 06/14/2024 18:13:50 06/14/2006/14/2024 CBC/C OMPLE TE BLD COUNT W/DIF F neutrophils 74.7 % 39.0-7 2.0 high Not Available [facility] (Lab) [address] [place], [address], 06/14/2024 18:13:50 06/14/2006/14/2024 CBC/C OMPLE TE BLD COUNT W/DIF F lymphocytes 14.3 % 16.0-4 7.0 low Not Available [facility] (Lab) [address] [place], [address], 06/14/2024 18:13:50 06/14/2006/14/2024 CBC/C OMPLE TE BLD COUNT W/DIF F monocytes 9.1 % 5.0-12 .0 Not Available [facility] (Lab) [address] [place], [address], 06/14/2024 18:13:50 06/14/2006/14/2024 CBC/C OMPLE TE BLD COUNT W/DIF F eosinophils 1.2 % 1.0-7. 0 Not Available [facility] (Lab) [address] [place], [address], 06/14/2024 18:13:50 06/14/2006/14/2024 CBC/C OMPLE TE BLD COUNT W/DIF F basophils 0.3 % 0.0-2. 0 Not Available [facility] (Lab) [address] [place], [address], 06/14/2024 18:13:50 06/14/2006/14/2024 CBC/C OMPLE TE BLD COUNT W/DIF F immature granulocytes 0.4 % 0.00-0 .50 Not Available [facility] (Lab) [address] [place], [address], 06/14/2024 18:13:50 06/14/2006/14/2024 CBC/C OMPLE TE BLD COUNT W/DIF F neutrophils, absolute count 6.81 x10'3 /uL 1.5-8. [address] [facility] (Lab) [address] [place], [address], 06/14/2024 18:13:50 06/14/2006/14/2024 CBC/C OMPLE TE BLD COUNT W/DIF F lymphocytes, absolute count 1.31 x10'3 /uL 1.07-3 .43 Not Available [facility] (Lab) [address] [place], [address], 06/14/2024 18:13:50 06/14/2006/14/2024 CBC/C OMPLE TE BLD COUNT W/DIF F monocytes, absolute count 0.83 x10'3 /uL 0.29-0 .99 Not Available [facility] (Lab) [address] [place], [address], 06/14/2024 18:13:50 06/14/2006/14/2024 CBC/C OMPLE TE BLD COUNT W/DIF F eosinophils, absolute count 0.11 x10'3 /uL 0.02-0 .53 Not Available [facility] (Lab) [address] [place], [address], 06/14/2024 18:13:50 06/14/2006/14/2024 CBC/C OMPLE TE BLD COUNT W/DIF F basophils, absolute count 0.03 x10'3 /uL 0.01-0 .08 Not Available [facility] (Lab) [address] [place], [address], 06/14/2024 18:13:50 06/14/2006/14/2024 CBC/C OMPLE TE BLD COUNT W/DIF F immature granulocytes ,absolute 0.04 x10'3 /uL 0.00-0 .05 Not Available [facility] (Lab) [address] [place], [address], 06/14/2024 18:13:50 06/14/2006/14/2024 CBC/C OMPLE TE BLD COUNT W/DIF F nucleated red blood cells 0.0 % -0 Not Available [facility] (Lab) [address] [place], [address], 06/14/2024 18:13:50 06/14/2006/14/2024 CBC/C OMPLE TE BLD COUNT W/DIF F NRBC# 0.00 x10'3 /uL Not Available [facility] (Lab) [address] [place], [address], 06/14/2024 18:13:50 06/14/2006/14/2024 COMPR EHENS ALICIA METAB OLIC PANEL sodium 128 mmol/ L 137-14 5 low Not Available [facility] (Lab) [address] [place], [address], 06/14/2024 18:31:07 06/14/2006/14/2024 COMPR EHENS ALICIA METAB OLIC PANEL potassium 3.8 mmol/ L 3.5-5. 1 Not Available [facility] (Lab) [address] [place], [address], 06/14/2024 18:31:07 06/14/2006/14/2024 COMPR EHENS ALICIA METAB OLIC PANEL chloride 98 mmol/ L 98-107 Not Available [facility] (Lab) [address] [place], [address], 06/14/2024 18:31:07 06/14/2006/14/2024 COMPR EHENS ALICIA METAB OLIC PANEL carbon dioxide 24 mmol/ L 22-[address] [facility] (Lab) [address] [place], [address], 06/14/2024 18:31:07 06/14/20 24 06/14/2024 COMPR EHENS ALICIA METAB OLIC PANEL anion gap 9.8 mmol/ L 14-[address] [facility] (Lab) [address] [place], [address], 06/14/2024 18:31:07 06/14/20 24 06/14/2024 COMPR EHENS ALICIA METAB OLIC PANEL glucose 85 mg/dL 70-99 Not Available [facility] (Lab) [address] [place], [address], 06/14/2024 18:31:07 06/14/20 24 06/14/2024 COMPR EHENS ALICIA METAB OLIC PANEL BUN 21 mg/dL 8-[address] [facility] (Lab) [address] [place], [address], 06/14/2024 18:31:07 06/14/2006/14/2024 COMPR EHENS ALICIA METAB OLIC PANEL creatinine 0.81 mg/dL 0.66-1 .25 Not Available [facility] (Lab) [address] [place], [address], 06/14/2024 18:31:07 06/14/2006/14/2024 COMPR EHENS ALICIA METAB OLIC PANEL GFR >60 Refer ence Range : [place] ge GFR Healt hy Adult : >60 [...] calcu lator is avail able on the [facility] websi te: https ://denton thornton.[email or web address] [email or web address] kai/pr ofess ional s/kdo qi/gf r_cal culat or Not Available [facility] (Lab) [address] [place], [address], 06/14/2024 18:31:07 06/14/20 24 06/14/2024 COMPR EHENS ALICIA METAB OLIC PANEL alkaline phosphatase 133 U/L 38-126 high Not Available [facility] (Lab) [address] [place], [address], 06/14/2024 18:31:07 06/14/20 24 06/14/2024 COMPR EHENS ALICIA METAB OLIC PANEL alanine aminotransfe rase 20 U/L 0-50 Not Available [facility] (Lab) [address] [place], [address], 06/14/2024 18:31:07 06/14/20 24 06/14/2024 COMPR EHENS ALICIA METAB OLIC PANEL aspartate aminotransfe rase 49 U/L 15-46 high Not Available [facility] (Lab) [address] [place], [address], 06/14/2024 18:31:07 06/14/20 24 06/14/2024 COMPR EHENS ALICIA METAB OLIC PANEL bilirubin, total 0.50 mg/dL 0.20-1 .30 Not Available [facility] (Lab) [address] [place], [address], 06/14/2024 18:31:07 06/14/2006/14/2024 COMPR EHENS ALICIA METAB OLIC PANEL calcium 9.0 mg/dL 8.4-10 .2 Not Available [facility] (Lab) [address] [place], [address], 06/14/2024 18:31:07 06/14/2006/14/2024 COMPR EHENS ALICIA METAB OLIC PANEL total protein 6.7 g/dL 6.3-8. 2 Not Available [facility] (Lab) [address] [place], [address], 06/14/2024 18:31:07 06/14/2006/14/2024 COMPR EHENS ALICIA METAB OLIC PANEL albumin 4.0 g/dL 3.0-4. 4 Not Available [facility] (Lab) [address] [place], [address], 06/14/2024 18:31:07 06/14/2006/14/2024 COMPR EHENS ALICIA METAB OLIC PANEL globulin 2.7 g/dL 2.6-4. 2 Not Available [facility] (Lab) [address] [place], [address], 06/14/2024 18:31:07 06/14/2006/14/2024 COMPR EHENS ALICIA METAB OLIC PANEL A/G ratio 1.5 ratio 1.0-2. 0 Not Available [facility] (Lab) [address] [place], [address], 06/14/2024 18:31:07 06/14/20 24 06/14/2024 LIPID PANEL cholesterol 129 mg/dL 140-19 9 low NIH MITCHELL NSUS RECOM MENDA TION FOR KRYSTIAN STERO L: ADULT CHILD LOW RISK: <200 <170 BORDE RLINE : <200- 239 ----- HIGH RISK: >240 >200 Not Available [facility] (Lab) [address] [place], [address], 06/14/2024 18:31:10 06/14/20 24 06/14/2024 LIPID PANEL triglyceride s 86 mg/dL 0-150 NIH MITCHELL NSUS REPOR T RECOM MENDA TION FOR TRIGL YCERI RENAN: ADULT CHILD LOW RISK: <150 ----- BODER LINE: 150-1 99 ----- HIGH RISK: >200 ----- Not Available [facility] (Lab) [address] [place], [address], 06/14/2024 18:31:10 06/14/2006/14/2024 LIPID PANEL HDL cholesterol 58 mg/dL 40- Not Available [facility] (Lab) [address] [place], [address], 06/14/2024 18:31:10 06/14/2006/14/2024 LIPID PANEL LDL cholesterol, [...] WILL NOT BE REPOR ZAC. Not Available [facility] (Lab) [address] [place], [address], 06/14/2024 18:31:10 06/14/20 24 06/14/2024 VITAM IN D 25-HY DROXY [id number] 22.8 NG/mL 30-100 low Vitam in D Statu s: Defic ient: <20 ng/mL Insuf ficie nt: 20-29 ng/mL Suffi cient : 30-10 0 ng/mL Not Available [facility] (Lab) [address], [place], [address], 06/14/2024 19:07:46 07/07/2007/11/2024 VITAM IN D,25- OH,TO KENNEDY,I A vitamin [...] /MS is recom brenda d: order code 31772 (emmett ents >2yrs ). See Note 1 Note 1 For addit ional infor marilou em refer to http: //etienne Pisano stDia gnost ics.c om/fa q/FAQ 199 (This link is being provi ded for infor katherine frankel/ ana paula ortiz purpo ses only. ) Not Available [facility] [place] [address] [place], [address], 07/11/2024 11:05:08 07/07/20 24 07/11/2024 OSMOL ALITY (SERU M) osmolality (serum) 271 mOsm/ kg 278-30 5 low Not Available [facility] [address] [address] [place], [address], 07/11/2024 11:05:09 07/07/20 24 07/11/2024 OSMOL ALITY (U) osmolality (U) 209 mOsm/ kg 50-120 0 normal Not Available [facility] [address] [place] [address] [place], [address], 07/11/2024 13:54:26 07/28/20 24 07/29/2024 BASIC METAB OLIC PANEL glucose 94 mg/dL 65-139 normal Non-f astin g refer ence inter linnea Not Available [address], [address], 07/29/2024 02:32:29 07/28/20 24 07/29/2024 BASIC METAB OLIC PANEL urea nitrogen (BUN) 9 mg/dL 7-25 normal Not Available [address], [address], 07/29/2024 02:32:29 07/28/20 24 07/29/2024 BASIC METAB OLIC PANEL creatinine 0.61 mg/dL 0.70-1 .22 low Not Available [address], [address], 07/29/2024 02:32:29 07/28/20 24 07/29/2024 BASIC METAB OLIC PANEL eGFR 95 mL/mi n/1.7 3m2 > or = 60 normal Not Available [address], [address], 07/29/2024 02:32:29 07/28/20 24 07/29/2024 BASIC METAB OLIC PANEL BUN/creatini ne ratio 15 (calc ) 6-22 normal Not Available [address], [address], 07/29/2024 02:32:29 07/28/20 24 07/29/2024 BASIC METAB OLIC PANEL sodium 136 mmol/ L 135-14 6 normal Not Available [address], [address], 07/29/2024 02:32:29 07/28/20 24 07/29/2024 BASIC METAB OLIC PANEL potassium 4.2 mmol/ L 3.5-5. 3 normal Not Available [address], [address], 07/29/2024 02:32:29 07/28/20 24 07/29/2024 BASIC METAB OLIC PANEL chloride 103 mmol/ L 98-110 normal Not Available [address], [address], 07/29/2024 02:32:29 07/28/20 24 07/29/2024 BASIC METAB OLIC PANEL carbon dioxide 25 mmol/ L 20-32 normal Not Available [address] [address] [place], [address], 07/29/2024 02:32:29 07/28/20 24 07/29/2024 BASIC METAB OLIC PANEL calcium 8.5 mg/dL 8.6-10 .3 low Not Available [address], [address], 07/29/2024 02:32:29 09/21/19 25 09/22/2024 VITAM IN [...] /MS is recom brenda d: order code 59813 (emmett ents >2yrs ). See Note 1 Note 1 For addit ional infor marilou em refer to http: //etienne Masters gnost ics.c om/fa q/FAQ 199 (This link is being provi ded for infor katherine frankel/ ana paula ortiz purpo ses only. ) Not Available [address] [place], [address], 09/22/2024 13:11:54 01/04/20 25 01/04/2025 LIPID PANEL , STAND GILMER cholesterol, total 152 mg/dL <200 normal Not Available [address] [address] [place], [address], 01/04/2025 05:27:21 01/04/20 25 01/04/2025 LIPID PANEL , STAND GILMER HDL cholesterol 61 mg/dL > or = 40 normal Not Available [address] [address] [place], [address], 01/04/2025 05:27:21 01/04/20 25 01/04/2025 LIPID PANEL , STAND GILMER triglyceride s 100 mg/dL <150 normal Not Available [address], [address], 01/04/2025 05:27:21 01/04/20 25 01/04/2025 LIPID PANEL , STAND GILMER LDL-choleste rol 72 mg/dL _(jose c) normal Refer ence range : <100 Nolberto able range <100 mg/dL for prima ry preve ntion ; <70 mg/dL for patie nts with CHD or diabe tic patie nts with > or = 2 CHD risk facto rs. LDL-C is now calcu lated using the Char n-Hop kins gamal catherine n, which is a valid ated novel amanuel stanley than the Fried alexei equat ion in the estim ation of LDL-C . Char ramirez SS et al. DAVIDSON. 2013; 310(1 9): 2061- 2068 (http ://ed ucati on.Qu Kwame garcia Language Logisticss. com/f aq/FA Q164) Not Available [facility] [address] [address] [place], [address], 01/04/2025 05:27:21 01/04/20 25 01/04/2025 LIPID PANEL , STAND GILMER chol/HDLC ratio 2.5 (calc ) <5.0 normal Not Available [address] [place], [address], 01/04/2025 05:27:21 01/04/20 25 01/04/2025 LIPID PANEL , STAND GILMER non HDL cholesterol 91 mg/dL _(jose c) <130 normal For patie nts with diabe leonel plus 1 major ASCVD risk facto r, treat ing to a non-H DL-C goal of <100 mg/dL (LDL- C of <70 mg/dL ) is consi dered a thera peuti c optio n. Not Available [address], [address], 01/04/2025 05:27:21 01/04/20 25 01/04/2025 LIPID PANEL , STAND GILMER copy(ies) sent to: ABA Ramirez MD [address] [place] [id number] Not Available [address], [address], 01/04/2025 05:27:21 01/04/20 25 01/04/2025 COMPR EHENS ALICIA METAB OLIC PANEL glucose 83 mg/dL 65-99 normal Fasti ng refer ence inter linnea Not Available [address] [place], [address], 01/04/2025 05:27:22 01/04/20 25 01/04/2025 COMPR EHENS ALICIA METAB OLIC PANEL urea nitrogen (BUN) 10 mg/dL 7-25 normal Not Available [address], [address], 01/04/2025 05:27:22 01/04/20 25 01/04/2025 COMPR EHENS ALICIA METAB OLIC PANEL creatinine 0.58 mg/dL 0.70-1 .22 low Not Available [facility] [address] [place], [address], 01/04/2025 05:27:22 01/04/20 25 01/04/2025 COMPR EHENS ALICIA METAB OLIC PANEL eGFR 96 mL/mi n/1.7 3m2 > or = 60 normal Not Available [address], [address], 01/04/2025 05:27:22 01/04/20 25 01/04/2025 COMPR EHENS ALICIA METAB OLIC PANEL BUN/creatini ne ratio 17 (calc ) 6-22 normal Not Available [address], [address], 01/04/2025 05:27:22 01/04/20 25 01/04/2025 COMPR EHENS ALICIA METAB OLIC PANEL sodium 139 mmol/ L 135-14 6 normal Not Available [address], [address], 01/04/2025 05:27:22 01/04/20 25 01/04/2025 COMPR EHENS ALICIA METAB OLIC PANEL potassium 3.8 mmol/ L 3.5-5. 3 normal Not Available [address], [address], 01/04/2025 05:27:22 01/04/20 25 01/04/2025 COMPR EHENS ALICIA METAB OLIC PANEL chloride 102 mmol/ L 98-110 normal Not Available [address], [address], 01/04/2025 05:27:22 01/04/20 25 01/04/2025 COMPR EHENS ALICIA METAB OLIC PANEL carbon dioxide 28 mmol/ L 20-32 normal Not Available [address], [address], 01/04/2025 05:27:22 01/04/20 25 01/04/2025 COMPR EHENS ALICIA METAB OLIC PANEL calcium 9.4 mg/dL 8.6-10 .3 normal Not Available [address], [address], 01/04/2025 05:27:22 01/04/2001/04/2025 COMPR EHENS ALICIA METAB OLIC PANEL protein, total 6.6 g/dL 6.1-8. 1 normal Not Available [address], [address], 01/04/2025 05:27:22 01/04/20 25 01/04/2025 COMPR EHENS ALICIA METAB OLIC PANEL albumin 4.2 g/dL 3.6-5. 1 normal Not Available [address], [address], 01/04/2025 05:27:22 01/04/20 25 01/04/2025 COMPR EHENS ALICIA METAB OLIC PANEL globulin 2.4 g/dL_ (calc ) 1.9-3. 7 normal Not Available [address], [address], 01/04/2025 05:27:22 01/04/2001/04/2025 COMPR EHENS ALICIA METAB OLIC PANEL albumin/glob ulin ratio 1.8 (calc ) 1.0-2. 5 normal Not Available [address], [address], 01/04/2025 05:27:22 01/04/20 25 01/04/2025 COMPR EHENS ALICIA METAB OLIC PANEL bilirubin, total 0.5 mg/dL 0.2-1. 2 normal Not Available [address], [address], 01/04/2025 05:27:22 01/04/20 25 01/04/2025 COMPR EHENS ALICIA METAB OLIC PANEL alkaline phosphatase 159 U/L 35-144 high Not Available [facility] [address], [address], 01/04/2025 05:27:22 01/04/20 25 01/04/2025 COMPR EHENS ALICIA METAB OLIC PANEL AST 13 U/L 10-35 normal Not Available [address], [address], 01/04/2025 05:27:22 01/04/20 25 01/04/2025 COMPR EHENS ALICIA METAB OLIC PANEL ALT 10 U/L 9-46 normal Not Available [address], [address], 01/04/2025 05:27:22 01/04/20 25 01/04/2025 COMPR EHENS ALICIA METAB OLIC PANEL copy(ies) sent to: ABA Ramirez MD [address] [place] [address] Not Available [address], [address], 01/04/2025 05:27:22 01/04/20 25 01/04/2025 CBC (INCL UDES DIFF/ PLT) white blood cell count 7.8 thous and/u L 3.8-10 .8 normal Not Available [address], [address], 01/04/2025 05:27:23 01/04/20 25 01/04/2025 CBC (INCL UDES DIFF/ PLT) red blood cell count 4.42 shanna on/uL 4.20-5 .80 normal Not Available [address], [address], 01/04/2025 05:27:23 01/04/20 25 01/04/2025 CBC (INCL UDES DIFF/ PLT) hemoglobin 14.1 g/dL 13.2-1 7.1 normal Not Available [address], [address], 01/04/2025 05:27:23 04/29/20 25 01/04/2025 CBC (INCL UDES DIFF/ PLT) hematocrit 43.5 % 38.5-5 0.0 normal Not Available [address], [address], 01/04/2025 05:27:23 01/04/20 25 01/04/2025 CBC (INCL UDES DIFF/ PLT) MCV 98.4 fL 80.0-1 00.0 normal Not Available [address], [address], 01/04/2025 05:27:23 01/04/20 25 01/04/2025 CBC (INCL UDES DIFF/ PLT) MCH 31.9 pg 27.0-3 3.0 normal Not Available [address], [address], 01/04/2025 05:27:23 01/04/20 25 01/04/2025 CBC (INCL UDES DIFF/ PLT) MCHC 32.4 g/dL 32.0-3 6.0 normal For adult s, a sligh t decre ase in the calcu lated MCHC value (in the range of 30 to 32 g/dL) is most likel y not clini josiah signi fican t; siri er, it shoul d be inter prete d with cauti on in corre lat n with other red cell diane eters and the patie nt's clini jose condi tion. Not Available [address], [address], 01/04/2025 05:27:23 01/04/20 25 01/04/2025 CBC (INCL UDES DIFF/ PLT) RDW 12.6 % 11.0-1 5.0 normal Not Available [address], [address], 01/04/2025 05:27:23 01/04/20 25 01/04/2025 CBC (INCL UDES DIFF/ PLT) platelet count 227 thous and/u L 140-40 0 normal Not Available [address], [address], 01/04/2025 05:27:23 01/04/20 25 01/04/2025 CBC (INCL UDES DIFF/ PLT) MPV 10.7 fL 7.5-12 .5 normal Not Available [address], [address], 01/04/2025 05:27:23 01/04/20 25 01/04/2025 CBC (INCL UDES DIFF/ PLT) absolute neutrophils 5515 cells /uL 1500-7 800 normal Not Available [address], [address], 01/04/2025 05:27:23 01/04/20 25 01/04/2025 CBC (INCL UDES DIFF/ PLT) absolute lymphocytes 1326 cells /uL 850-39 00 normal Not Available [address], [address], 01/04/2025 05:27:23 01/04/20 25 01/04/2025 CBC (INCL UDES DIFF/ PLT) absolute monocytes 796 cells /uL 200-95 0 normal Not Available [address], [address], 01/04/2025 05:27:23 01/04/20 25 01/04/2025 CBC (INCL UDES DIFF/ PLT) absolute eosinophils 140 cells /uL 15-500 normal Not Available [address], [address], 01/04/2025 05:27:23 01/04/20 25 01/04/2025 CBC (INCL UDES DIFF/ PLT) absolute basophils 23 cells /uL 0-200 normal Not Available [address], [address], 01/04/2025 05:27:23 01/04/20 25 01/04/2025 CBC (INCL UDES DIFF/ PLT) neutrophils 70.7 % normal Not Available [address], [address], 01/04/2025 05:27:23 01/04/20 25 01/04/2025 CBC (INCL UDES DIFF/ PLT) lymphocytes 17.0 % normal Not Available [address], [address], 01/04/2025 05:27:23 01/04/20 25 01/04/2025 CBC (INCL UDES DIFF/ PLT) monocytes 10.2 % normal Not Available [address], [address], 01/04/2025 05:27:23 01/04/20 25 01/04/2025 CBC (INCL UDES DIFF/ PLT) eosinophils 1.8 % normal Not Available [address], [address], 01/04/2025 05:27:23 01/04/20 25 01/04/2025 CBC (INCL UDES DIFF/ PLT) basophils 0.3 % normal Not Available [address], [address], 01/04/2025 05:27:23 01/04/20 25 01/04/2025 CBC (INCL UDES DIFF/ PLT) copy(ies) sent to: ABA Ramirez MD [address] [place] [id number] Not Available [address], [address], 01/04/2025 05:27:23 01/04/20 25 01/04/2025 T4, FREE T4, free 1.3 NG/dL 0.8-1. 8 normal Not Available [address] [address], [address], 01/04/2025 05:27:24 01/04/20 25 01/04/2025 T4, FREE copy(ies) sent to: ABA Ramirez MD [address] [place] [address] Not Available [address] [address] [place], [address], 01/04/2025 05:27:24 01/04/20 25 01/04/2025 TSH TSH 1.95 mIU/L 0.40-4 .[address] to have a dupli debi copy faxed has been jayda leena ed. Queue d to: [phone] Not Available [address] [address] [address] , [place], [address], 01/04/2025 05:27:25 01/04/20 25 01/04/2025 TSH copy(ies) sent to: ABA Ramirez MD [address] [place] [address] Not Available [address] [address] [address] , [place], [address], 01/04/2025 05:27:25 03/04/20 24 03/04/2024 XR, chest , 2 view No observ ation record ed. [address] [place] [address], [address], 03/04/2024 17:30:16 03/04/20 24 03/04/2024 US, scrot um No observ ation record ed. [address], [address], 03/04/2024 17:31:29 Result Notes None recorded. Problems Name Problem SNOMED Code Status Onset Date Resolution Date Notes Provider Name and Address Organization Details Recorded Time History of poliomyeli tis 212066623 Active Not Available [facility] 3 09:24:08 Serum creatinine outside reference range 903599267 Active Not Available [facility] 3 09:24:08 Gastroesop hageal reflux disease 630268647 Active Not Available [facility] 3 09:24:09 Transient cerebral ischemia 972278496 Active Not Available [facility] 3 09:24:09 Pure hyperchole sterolemia 606862343 Active Not Available [facility] 3 09:24:09 Recurrent dislocatio n of shoulder region 91754809 Active Not Available [facility] 3 09:24:09 Disorder of rotator cuff 817728963 Active Not Available [facility] 3 09:24:09 Aneurysm of thoracic aorta 676131582 Completed Not Available [facility] 3 09:24:09 Disorder of bursa of shoulder region 72664865 Active Not Available [facility] 3 09:24:10 Essential hypertensi on 08781111 Active Not Available [facility] 3 09:24:10 Osteoporos is 27644491 Active Not Available [facility] 3 09:24:10 Kidney stone 28030689 Active Not Available [facility] 3 09:24:10 Cervical spondylosi s 865601450 Active 2018 Not Available [facility] 3 09:24:09 Urinary tract infectious disease 43785206 Active 2021 Not Available [facility] 3 09:24:10 Paraplegia 68084310 Active 2021 Not Available [facility] 3 09:24:10 Acute sinusitis 95741969 Active 2021 Not Available [facility] 3 09:24:08 Streptococ jose sore throat 13536008 Active 2021 Not Available [facility] 3 09:24:09 COVID-19 735132803 Active 2021 Not Available [facility] 3 09:24:10 Pressure injury of buttock 238020697 Active 2021 Not Available [facility] 3 09:24:09 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 440120871 Active 2021 Not Available [facility] 3 09:24:09 Disorder of prostate 18091210 Active 2021 Not Available [facility] 3 09:24:09 Chronic ulcer of sacral region 404803150 Active 2021 Not Available [facility] 3 09:24:09 Cervical myelopathy 134377201 Active 2022 Ai Martins [place], [place] - [facility] 3 16:15:36 Benign prostatic hyperplasi a 351946912 Active 2022 Brain Devlin MD [address], [address], [place], [address] , [facility] - [facility] 3 15:06:06 Tinea cruris 299029666 Active 2023 Brain Devlin MD [address], [address], [place], [address] , [facility] - [facility] 4 17:40:57 Pruritic rash 83716933 Active 2023 Brain Devlin MD [address], [address], [place], [address] , [facility] - [facility] 4 11:57:45 Hyponatrem ia 02894977 Active 2023 FIDELIA Cook, [place] - [facility] 4 10:45:42 Vitamin D deficiency 04323602 Active 2023 FIDELIA [place] - [facility] 4 10:46:02 Hypokalemi a 57284429 Active 2023 FIDELIA [place], [place] - [facility] 4 12:05:45 Chronic obstructiv e pulmonary disease 10165280 Active 2024 Brain Devlin MD [address], [address], [place], [address] , [facility] - [facility] 5 15:35:54 Mild depression 261030564 Active 2024 Brain Devlin MD [address], [address], [place], [address] , [facility] 5 15:28:55 Low back pain 864012877 Active 2024 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 Please review this document and add these problems to the patient's chart manually as needed. Problem Notes None recorded. Procedures Surgical History Date Name Laterality Status Provider Name and Address Organization Details Recorded Time 4 Medicare Wellness CPT Code, subsequent completed Vero Umaña RN [facility] 06/14/2024 15:43:05 3 Medicare Wellness CPT Code, subsequent completed Vero Umaña RN [facility] 05/08/2023 15:48:47 Imaging Results None recorded. [...] Not Available Not Available No t Available tizanidin e 4 mg tablet TAKE 1/2 [...] ne 5 mg-acetam inophen 325 mg tablet take one tablet four times a day as needed 2024 active Not Available Not Available Not Avai lable lisinopri l 20 mg tablet Take 2 [...] TAKE 1 TABLET BY MOUTH EVERY DAY 12/14 /2022 completed Not Available Not Available Not Available Celebrex 200 mg capsule Take 1 capsule every day by oral route. active Not Available Not Available No t Available oxycodone -acetamin ophen 5 mg-325 mg tablet TAKE 1 TABLET BY MOUTH EVERY 8 HOURS NEEDED FOR PAIN 02/14 completed Not Available Not Available Not Available Vitamin C 1,000 mg tablet Take 1 tablet every day by oral route. 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 completed Not Available Not Available Not [...] capsule TAKE 1 CAPSULE BY MOUTH EVERY 6 HOURS FOR 7 DAYS active Not Available Not Available No t Available pantopraz ole 40 mg tablet,de layed release TAKE 1 TABLET BY MOUTH EVERY DAY active Not Available Not Available No t Available garlic 1 mg capsule Take 1 capsule [...] TABLET BY MOUTH EVERY 8 HOURS NEEDED 02/14 completed Not Available Not Available Not Available ergocalci ferol (vitamin D2) 1,250 mcg [...] 2 PUFFS BY MOUTH EVERY 4 HOURS NEEDED FOR WHEEZING active Not Available Not Available No t Available lisinopri l 40 mg tablet TAKE 1 TABLET BY MOUTH DAILY 2024 active Not Available Not Available Not Avai lable cefdinir 300 mg capsule Take 1 capsule every 12 hours by oral route. 06/05 completed Not Available Not Available Not Available finasteri de 5 mg tablet TAKE 1 TABLET BY MOUTH AT BEDTIME active Not Available Not Available No t Available oxycodone 5 mg tablet TK 2 TS PO Q 4 H PRN P 02/12 completed Not Available Not Available Not Available escitalop nadia 10 mg tablet TAKE 1 TABLET BY MOUTH EVERY DAY active Not Available Not Available No t Available cyclobenz aprine 5 mg tablet Take [...] Not Available Not Available Not Available Fluvirin 3570-2261 45 mcg (15 mcg x 3)/0.5 mL [...] blood by Pulse oximetry Body temperature Systolic And Diastolic Provider Name and Address Organization Details Last Updated DateTime 4 58 /min 98 % 98 % 97 [degF] 128/78 mm[Hg] [facility] [employer] [facility] 4 14:53:19 Date Recorded Heart rate Body temperature Oxygen saturation Oxygen saturation in Arterial blood by Pulse oximetry Systolic And Diastolic Provider Name and Address Organization Details Last Updated DateTime 5 62 /min 97 [degF] 97 % 97 % 138/80 mm[Hg] [facility] 5 15:17:00 Date Recorded Heart rate Body temperature Oxygen saturation Oxygen saturation in Arterial blood by Pulse oximetry Systolic And Diastolic Provider Name and Address Organization Details Last Updated DateTime 5 65 /min 97 [degF] 95 % 95 % 138/80 mm[Hg] [facility] 5 15:11:47 Date Recorded Heart rate Body temperature Oxygen saturation Oxygen saturation in Arterial blood by Pulse oximetry Systolic And Diastolic Provider Name and Address Organization Details Last Updated DateTime 4 59 /min 97 [degF] 99 % 99 % 124/60 mm[Hg] [facility] [employer] [facility] 4 15:02:55 Date Recorded Heart rate Body temperature Oxygen saturation Oxygen saturation in Arterial blood by Pulse oximetry Systolic And Diastolic Provider Name and Address Organization Details Last Updated DateTime 4 60 /min 97 [degF] 98 % 98 % 124/68 mm[Hg] [facility] 4 15:27:55 Social History Question Answer Notes LastModified by Organizat ion Details LastModified Time Tobacco Smoking Status Former Smoker Not Available [facility] 11/05/2022 09:21:41 Do You Have An Advance Directive? Yes MIGRATION.100062 [id number] Information not available 11/05/2022 Are You Blind Or Do You Have Difficulty Seeing? No MIGRATION.045075 9724 Information not available 11/05/2022 Are You Deaf Or Do You Have Serious Difficulty Hearing? Yes MIGRATION.017175 1865 Information not available 11/05/2022 What Type Of Diet Are You Following? REGULAR MIGRATION.531559 1510 Information not available 11/05/2022 Have There Been Any Changes To Your Family Or Social Situation? No MIGRATION.917270 1099 Information not available 11/05/2022 What Is The Fluoride Status Of Your Home? Unknown [email or web address] Information not available 05/08/2023 Are There Any Guns Present In Your Home? No MIGRATION.235219 0249 Information not available 11/05/2022 Do You Use Insect Repellent Routinely? No MIGRATION.367288 4507 Information not available 11/05/2022 [facility] MIGR[facility].025010 6401 Information not available 11/05/2022 Guns Present In The Home? No [email or web address] Information not available 06/14/2024 Are You Able To Care For Yourself? No [email or web address] Information not available 05/08/2023 Are You Blind Or Do Yo Have Difficulty Seeing? No Information not available 05/08/2023 Are You Deaf Or Do You Have Serious Difficulty Hearing? Yes [email or web address] Information not available 05/08/2023 Live Alone Of With Others? With Others [email or web address] Information not available 05/08/2023 Do You Have A Medical Power Of Director Financial Planning? Yes [email or web address] Information not available 05/08/2023 What Was The Date Of Your Most Recent Tobacco Screening? 06/14/2024 [email or web address] Information not available 06/14/2024 Do You Have Any Pets? Yes [email or web address] Information not available 05/08/2023 What Is Your Relationship Status? MIGRATION.607110 1802 Information not available 11/05/2022 Do You Use Your Seat Belt Or Car Seat Routinely? Yes [email or web address] Information not available 06/14/2024 Do You Have Smoke And Carbon Monoxide Detectors In Your Home? Yes MIGRATION.484524 6486 Information not available 11/05/2022 At What Age Did You Start Smoking Tobacco? 16 MIGRATION.800471 7294 Information not available 11/05/2022 Are You Passively Exposed To Smoke? No [email or web address] Information not available 05/08/2023 Are There Any Smokers In Your House? No [email or web address] Information not available 05/08/2023 How Much Tobacco Do You Smoke? 1 PPD MIGRATION.210119 3197 Information not available 11/05/2022 Do You Use Sunscreen Routinely? No MIGRATION.290764 0156 Information not available 11/05/2022 How Many Years Have You Smoked Tobacco? 40 MIGRATION.471460 7666 Information not available 11/05/2022 Have You Recently Traveled Abroad? No [email or web address] Information not available 06/14/2024 Do You Have Difficulty Walking Or Climbing Stairs? Yes MIGRATION.519237 0085 Information not available 11/05/2022 Do You Have Any Dietary Restrictions? No MIGRATION.560315 4539 Information not available 11/05/2022 Sex: Unknown Functional Status Question Answer Note LastModified by Organization Details LastModified Time What is your level of alcohol consumption? None MIGRATION.0301 [id number] Information not available 11/05/2022 Do you or have you ever used smokeless tobacco? Never used smokeless tobacco MIGRATION.0301 961234 Information not available 11/05/2022 Do you have transportation difficulties? No MIGRATION.0301 013446 Information not available 11/05/2022 Are you able to walk independently without assistance or assistive devices? YESLIMIT mainly uses wheelchair Information not available 06/14/2024 Do you have difficulty doing errands alone? Yes MIGRATION.0301 797245 Information not available 11/05/2022 Are you able to care for yourself independently? No MIGRATION.0301 963514 Information not available 11/05/2022 Do you have difficulty dressing, bathing, grooming, or toileting? No MIGRATION.0301 362806 Information not available 11/05/2022 Do you or have you ever used e-cigarettes or vape? Current user of electronic cigarettes MIGRATION.0301 176265 Information not available 11/05/2022 What is your exercise level? None MIGRATION.030 798637 Information not available 11/05/2022 Mental Status Question Answer Note LastModified by Organizat ion Details LastModified Time Do you have difficulty concentrating, remembering or making decisions? No MIGRATION.506560458 6 Information not available 11/05/2022 Family History [...] HAVE YOU BEEN HOSPITALIZED OR SEEN IN [facility] IN THE PAST YEAR ? N [...] quadrivalent, PF 3 completed Brain Devlin MD [address] [facility], [address] [address], [place], [address], [facility] [employer] 06/09/2023 15:05:07 Influenza, split virus, trivalent, preservative 6 completed Not Available [facility] 11/05/2022 09:28:38 Influenza, split virus, trivalent, preservative 3 completed Not Available [facility] 11/05/2022 09:28:38 SARS-COV-2 (COVID-19) vaccine, UNSPECIFIED 1 completed Not Available [facility] 11/05/2022 09:28:38 SARS-COV-2 (COVID-19) vaccine, UNSPECIFIED 1 completed Not Available [facility] 11/05/2022 09:28:38 SARS-COV-2 (COVID-19) vaccine, UNSPECIFIED 1 completed Not Available [facility] 11/05/2022 09:28:39 Influenza, high-dose, quadrivalent, PF 1 completed Not Available [facility] 11/05/2022 09:28:39 Influenza, high-dose, quadrivalent, PF 2 completed Not Available [facility] 11/05/2022 09:28:39 Pneumococcal conjugate PCV20, polysaccharide VFJ960 conjugate, adjuvant, PF 4 completed Madison berman [facility] [employer] 06/24/2024 14:19:52 Past Encounters Encounter ID Performer Location Encounter Start Date Encounter Closed Date Diagnosis/Indication Diagnosis SNOMED-CT Code Diagnosis ICD10 Code Diagnosis IMO Codes Diagnosis Note [id number] Brain Devlin MD [facility] Internal Med [place] [address] [facility] , [facility] [place] [address] 01/29/2021 00:00:00 01/29/2021 15:18:43 [id number] Brain Devlin MD [facility] Internal Med [place] [address] [facility] y , [place] [address] 07/16/2021 00:00:00 07/16/2021 15:32:41 [id number] Brain Devlin MD [facility] Internal Med [place] [address] [facility] y , [place] [address] 11/12/2021 00:00:00 11/12/2021 15:54:27 [id number] Brain Devlin MD [facility] Internal [place] [address] [place] [address] y , [place] [address] 12/24/2021 00:00:00 12/24/2021 15:38:28 [id number] Brain Devlin MD [facility] Internal [place] [address] [place] [address] y , [place] [address] 03/11/2022 00:00:00 03/11/2022 16:18:49 [id number] Brain Devlin MD [facility] Internal [place] [address] [place] [address] y , [place] [address] 04/29/2022 00:00:00 05/08/2022 10:14:33 [id number] Brain Devlin MD [facility] Internal [place] [address] [place] [address] y , [place] [address] 07/08/2022 00:00:00 07/08/2022 16:05:26 [id number] Brain Devlin MD [facility] Internal Med [place] [address] [place] [address] y , [place] [address] 11/11/2022 15:01:46 11/11/2022 15:50:53 Cervical spondylosis 864712279 M47.812 Essential hypertension 62676534 I10 Gastroesop hageal reflux disease 262571208 K21.9 Pure hypercholesterolemia 344485806 E78.00 [id number] Brain Devlin MD [facility] Internal [place] [address] [place] [address] [place] [address] 02/10/2023 14:58:49 02/10/2023 15:43:23 Cervical spondylosis 707672109 M47.812 History of poliomyelitis 027268263 Z86.12 Pure hypercholesterolemia 546277095 E78.00 Gastroesop hageal reflux disease 735666429 K21.9 [id number] Brain Devlin MD [facility] Internal Med [place] [address] [place] [address] [place] [address] 05/08/2023 15:37:44 05/08/2023 16:17:33 Adult health examination 589128091 Z00.00 Screening for disorder 056497617 Z13.9 Cervical spondylosis 387 184013 M47.812 Essential hypertension 03004934 I10 Gastroesop hageal reflux disease 573490408 K21.9 Pure hypercholesterolemia 399840754 E78.00 [id number] Brain Devlin MD [facility] Internal Med [place] [address] [place] [address] [place] [address] 06/09/2023 14:30:53 06/09/2023 15:20:47 Administration of influenza vaccine 53038315 Z23 Pure hypercholesterolemia 341147028 E78.00 Cervical myelopathy 2025 30837 G95.9 Benign pro static hyperplasia 782391423 N40.0 Gastroesop hageal reflux disease 676369192 K21.9 [id number] Brain Devlin MD [facility] Internal Med [facility] [address] [address] 10/13/2023 14:34:17 10/13/2023 15:24:00 Cervical spondylosis 081959963 M47.812 Essential hypertension 38877424 I10 Pure hypercholesterolemia 339092826 E78.00 Gastroesop hageal reflux disease 879667172 K21.9 Disorder of prostate 302 70599 N42.9 [id number] Brain Devlin MD [facility] Internal Med [place] [address] [place] [address] [place] [address] 02/16/2024 14:48:34 02/16/2024 15:37:07 Essential hypertension 73682901 I10 Pure hypercholesterolemia 388546183 E78.00 Benign pro static hyperplasia 412373311 N40.0 Cervical myelopathy 2025 57165 G95.9 Gastroesop hageal reflux disease 505076910 K21.9 [id number] Brain Devlin MD [facility] [address] [facility] , [facility] [place] [address] 06/14/2024 15:04:37 06/14/2024 16:13:12 Adult health examination 586295251 Z00.00 Screening for disorder 300986603 Z13.9 Essential hypertension 85126039 I10 Pure hypercholesterolemia 917439202 E78.00 Osteoporosis 37596199 M8 1.0 Cervical myelopathy 2025 36667 G95.9 [id number] Brain Devlin MD [facility] Primary Care [facility] [address] [facility] [address] [place] [address] 10/18/2024 14:55:51 10/18/2024 15:54:02 Essential hypertension 32741013 I10 Pure hypercholesterolemia 737474341 E78.00 Gastroesop hageal reflux disease 148517247 K21.9 Chronic ob structive pulmonary disease 99964782 J44.9 Acute bronchitis 5076821 2 J20.9 J20.0 J20.1 J20.2 J20.3 J20.4 J20.5 J20.6 J20.7 J20.8 [id number] Brain Devlin MD [facility] Internal Med [facility] [address] [facility] [address] [place] [address] 02/14/2025 14:46:21 02/14/2025 15:38:05 Essential hypertension 52319853 I10 Pure hypercholesterolemia 186189878 E78.00 Gastroesop hageal reflux disease 250532808 K21.9 Urinary tr act infectious disease 63013498 N39.0 Mild depression 16373214 3 F32.A 012027 Health Concerns Section Related Observation LastModified by Organization Detai ls LastModified Time None Recorded Concern Status LastModified by Organization Details LastModified Time None Recorded Advance Directives Directive Y: Payers Insurance Date Sequence Insurance Name Policy Number Policy Duque Covered Member ID Duque Member ID Guarantor Name 06/14/2024 1 [facility] (MEDICARE REPLACEMENT/ ADVANTAGE - PPO) [id number] Khari Christiansen [id number] Khari Christiansen 02/13/2025 1 [employer] (MEDICARE REPLACEMENT/ ADVANTAGE - PPO) [id number] Khari Christiansen [id number] Khari Christiansen Notes Date Note Type Note Provider Name and Address Organization Details Recorded Time 10/13/19 24 text/htm l Patient Name: Khari ChristiansenDate Of Service: Thursday ( 10.13.2023 ): 1940 [...] Three Times A DaySenna Daily Vaccination and Fxzowfgbxpxf4492-42 Influenza Ed Pv4273-13 Lkufizxhp3039-62 Covid Booster Lopbvh3729-38 Covid Pfizer Surgical Yxrrgdh9184-42 Three Lumbar Aqmpyzyhvba1643-47 Cervical Bmqvas3921-86 Lumbar Epidural Emyoaqqkb9428-65 Rt. Knee Sdnahhsb1130-54 Right Knee Bbhflbnswsf8169-17 Viecbqjxiwz8126-68 Hvgxkihdwrly9271-04 Left Foot Surgery Preventative Testing Confirmed by Our Vsosiaz8606/09/2023 ALBUMIN 4.1 G/DL N005/06/2023 TGOLSCPIUKVFX12/01/2022 PSA 1.06 NG/ML N003/27/[address]22 CT KGYZOZ3305/28/2006 COLONOSCOPY 05/28/2016 Social HistorySmokes 1.5 packs daily for 30 years. Drinks approximately 15 cans of beer per week. Family HistoryMother 98 from Alzheimer's and infirmitiesFather at 65 from RHDOne brother from COPD and CHFThree sisters all . One from ALS, one from [place] lung and other from infirmities. Brain Devlin MD [address] [place] [address], [facility] [address], [place], [address], [facility] [employer] 10/13/2023 15:18:58 02/16/20 24 text/htm l Patient [...] Three Times A DaySenna Daily Vaccination and Djqitggrfjfy2964-77 Influenza Ed Do5557-95 Qtktjosbi7896-50 Covid Booster Qksxdy2843-72 Covid Pfizer Surgical Ymotrus7800-45 Three Lumbar Dhqeoxadixb2523-60 Cervical Djbwom6897-02 Lumbar Epidural Cbvbsijli8450-88 Rt. Knee Etxsiutz3100-69 Right Knee Lzlkpdekeql0400-38 Jozouypbnga6722-29 Einrrmqjrvkf2480-95 Left Foot Surgery Preventative Hirncso3910/13/2023 ALBUMIN 3.8 G/DL10/13/2023 PSA 0.91 NG/ML05/06/2023 WZOQTWLOKSKWH00/21/2022 CT MPRCOY2905/28/2006 COLONOSCOPY 05/28/2016 Social HistorySmokes 1.5 packs daily for 30 years. Drinks approximately 15 cans of beer per week. Family HistoryMother 98 from Alzheimer's and infirmitiesFather at 65 from RHDOne brother from COPD and CHFThree sisters all . One from ALS, one from [place] lung and other from infirmities. Brain Devlin MD [address] [place] [address], [facility] [address], [place], [address], [facility] [employer] 02/16/2024 15:33:19 06/14/20 24 text/htm l Patient Name: Khari ChristiansenDate Of Service: Thursday ( 06.14.2024 ): 1940 [...] PFIZER( ) 2023-06 INFLUENZA ED HD Surgical Uodfqee2394-01 Three Lumbar Irsekxwyzfl9681-89 Cervical Kbnoch5512-71 Lumbar Epidural Xoetbghwo6909-86 Rt. Knee Zzeyxabi3042-01 Right Knee Dpzkcwxnucp5869-56 Rlxmgecctkd4558-70 Bezbrpqxjsui6523-16 Left Foot Surgery Preventative Testing( ) 02/16/2024 [...] [phone] PG/ML Brain Devlin MD [address] [facility], [facility] [address], [place], [address], [facility] 06/14/2024 16:01:47 10/18/19 25 text/htm l Patient [...] ED HD( ) 2024-06 PREVNAR 20 Surgical Vgwodrv2863-26 Three Lumbar Xkznvfloknu7334-68 Cervical Uhnyrk6948-97 Lumbar Epidural Grezgnbqa6815-65 Rt. Knee Urvrkzhn2613-86 Right Knee Nvnoehhnaog2360-44 Osdxrvjtocf2924-00 Kulaestxvive4320-54 Left Foot Surgery Preventative Testing( ) 06/15/2024 [...] other from infirmities. Brain Devlin MD [address] [facility], [address], [place], [address], [facility] 10/18/2024 15:50:45 02/15/20 25 text/htm l Patient Name: Khari Bridges Of Service: Thursday ( 02.14.2025 ): 1940 Age: 84 Vital Signs:Blood Pressure: Sitting Rt. Arm 138/80Pulse: Sitting 65 /min and RegularRespiratory Rate: 16Pulse Oximetry: 95 % at rest on no oxygen Chief Complaint: Addressed in HPI Problems or conditions discussed in the HPI were the only ones reviewed during the encounter.Only social and family history addressed in the HPI were reviewed during this encounter. Attendants(s) + Caregiver and WifeConstitutional and Systemic Symptoms:none Medication Reconciliation: from [...] of hypertension and includes salt restriction and Lisinopril. #2. Type II Hypercholesterolaemia: Currently [...] Discussed use of H2 antagonists NA. #4. History of ongoing urinary tract infection. Clinically stable. He is currently taking cephalexin. Denies any fever chills night sweats or other systemic or constitutional symptoms.: #5. Hx of depression currently stable. Pharmacological treatment : started Escitalopram . Suicidal thoughts or ideas: None Loss of appetite: No Sleep Disturbance: Yes Hallucinations: No Is currently seeing no one. Discussed possibility of decreasing and weaning off medication. Feels that current regimen is working fine and wishes not to change the current treatment regimen. No contraindication to continue current therapy. Active Medication ListFinasteride 5 MG TABLET Once DailyRestoril 30 MG (CAPSULE - ORAL) One Hs Prn For SleepPravachol 40 MG (TABLET - ORAL) One Hs For CholesterolEscitalopram 10 MG TABLET One DailyChlorthalidone 25 MG TABLET One DailyPreservision Vitamins DailyFlomax 0.4 MG (CAPSULE - ORAL) One Twice A DayAllegra-d 12 Hour Twice A DayLisinopril 40 MG TABLET QdAspirin 81 MG DailyProtonix 40 MG (TABLET, DELAYED RELEASE - ORAL) Once DailyFlexeril 5 MG (TABLET - ORAL) One Three Times A DaySenna Daily Adverse Drug Reactions ReviewedNo Known Adverse Drug Reactions! Vaccination and Immunization ( ) 2024-05 INFLUENZA( ) 2020-12 COVID PFIZER( ) 2024-05 COVID BOOSTER PFIZER( ) 2023-06 INFLUENZA ED HD( ) 2024-06 PREVNAR 20Immunizations and Vaccinations Discussed and Implemented if feasible In the Office. Else referred to pharmacies. Surgical History 2020-01 Three Lumbar Rhygoqzdoes9728-06 Cervical Fmzpec0903-74 Lumbar Epidural Upkcwgczs6899-21 Rt. Knee Mvcjbple1284-57 Right Knee Ivqvozqiple3393-80 Tzqxziakbcn0233-94 Cklbvqlyqnwe4877-12 Left Foot Surgery Preventative Testing ( ) 01/03/2025 Albumin 4.2 G/DL N( ) 12/20/2024 Optometry( ) 06/15/2024 Ophthalmology( ) 10/13/2023 PSA 0.91 NG/ML( ) 03/27/2022 CT Thorax( ) 05/28/2006 ColonoscopyPreventative Testing Discussed and Scheduled if Acceptable to Patient Social HistorySmokes 1.5 packs daily for 30 years. Drinks approximately 15 cans of beer per week. Family HistoryMother 98 from Alzheimer's and infirmitiesFather at 65 from RHDOne brother from COPD and CHFThree sisters all . One from ALS, one from CA lung and other from infirmities. TEST RESULT RANGE UNITSCBC (INCLUDES DIFF/PLT) Date: 01/03/2025WHITE BLOOD CELL COUNT 7.8 3.8-10.8 THOUSAND/ULHEMOGLOBIN 14.1 13.2-17.1 G/DLHEMATOCRIT 43.5 38.5-50.0 %PLATELET COUNT 227 140-400 THOUSAND/ULCOMPREHENSIVE METABOLIC PANEL Date: 01/03/2025SODIUM 139 135-146 MMOL/LPOTASSIUM 3.8 3.5-5.3 MMOL/LGLUCOSE 83 65-99 MG/DLUREA NITROGEN (BUN) 10 7-25 MG/DLCREATININE 0.58 0.70-1.22 MG/DLEGFR 96 > OR = 60 ML/MIN/1.85L0YFKDOKNME, TOTAL 0.5 0.2-1.2 MG/DLALKALINE PHOSPHATASE 159 35-144 U/LAST 13 10-35 U/LALT 10 9-46 U/LLIPID PANEL, STANDARD Date: 01/03/2025HOLESTEROL, TOTAL 152 <200 MG/DLHDL CHOLESTEROL 61 > OR = 40 MG/DLTRIGLYCERIDES 100 <150 MG/DLLDL-CHOLESTEROL 72 MG/DL (CALC)T4, FREE Date: 01/03/2025T4, FREE 1.3 0.8-1.8 NG/DLTSH Date: 01/03/2025TSH 1.95 0.40-4.50 MIU/L Brain Devlin MD [address] [facility], [facility] [address], [place], [address], [facility] 02/14/2025 15:32:56
--- OUTSIDE RECORDS SUMMARY | 2025-06-13 12:49 | XMS_ITS | Encounter Summary ---
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
--- OUTSIDE RECORDS SUMMARY | 2025-06-13 12:49 | XMS_ITS | Clinical Summary ---
Author Organization [facility] C Address [address] [place] [address] Care Team Providers Care Partnership Marketing Manager Name Role Phone Brain Devlin MD Primary [...] TOPICAL ROUTE EVERY DAY. 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 09/07/19 Prsnl hx of TIA (TIA), and cereb infrc w/o resid deficits 09/07/2019 Unspecified hearing loss, unspecified ear 2019 Cervical spondylosis 03/29/2019 Cervical stenosis of spine 01/10/2019 Overview (01/10/2019): Added automatically from request for surgery [id number] Cervical spinal stenosis 10/20/2018 Thoracic stenosis 10/20/2018 Lumbar spinal stenosis 10/20/2018 Assessment & Plan (10/20/2018 2:38 PM RN IMCU): Patient has multilevel stenosis, disc bulging, facet [...] on file Legal Sex Male 1:48 AM RN IMCU Gender Identity Not on file Sexual Orientation Not on file 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 Not on file Not on file Not [...] Fall Risk Assessment 02/07/2021 02/08/2020 Covid-19 Vaccine (4 - 2024-2 6 season) 2025 06/19/2021, 12/07/2020, 11/06/2020 Influenza Vaccine (#1) 2025 , 06/07/2019, 06/07/2018, Additional history exists Medical Devices Implanted Type Area Engineering Inspector Device Identifier Shelf Expiration Date Model / Serial / Lot Knee Replacement Implanted:Lambert Son MD (Quantity not on file) Right: Knee Description:2010, REVISION 2 014 [employer] [id number] Virage 5mm 45mm Self Tap Polyaxial Friction Fit Spine Screw Bone - [id number] Implanted:Qty: 1 on 02/09/2019 by Lambert Sepulveda MD at [facility] [employer] [id number] / / Miguelito Straight Cocr 3.5mm X 400mm - [id number] Implanted:Qty: 1 on 02/09/2019 by Lambert Sepulveda MD at [facility] [employer] 07.34913.002 / / Larry [facility] [id number] Actifuse Abx Resorbable; Scaffold; Osteostimulative ; Granule 1-2 - [id number] Implanted:Qty: 1 on 02/09/2019 by Lambert Sepulveda MD at [facility] [id number] 10/07/2020 [id number] / / [id number] [employer] [id number] - [id number] - [id number] Implanted:Qty: 1 on 02/09/2019 by Lambert Sepulveda MD at [facility] [employer] 11/09/2023 [id number] / [id number] / Spinal Graft Tech [id number] Magnifuse 10x1cm Graft Bone Demineralized Bone Matrix - [id number] - [id number] Implanted:Qty: 1 on 02/09/2019 by Lambert Sepulveda MD at [facility] [employer] 11/03/2020 [id number] / [id number] / Spinal Graft Tech [id number] Magnifuse 5x1cm Spine Cervical Posterior Graft Bone Demineralized - [id number] - [id number] Implanted:Qty: 1 on 02/09/2019 by Lambert Sepulveda MD at [facility] [employer] 08/08/2020 [id number] / [id number] / [employer] 07.52896.001 Virage Closure Top Lid Sterilization Nonsterile Disposable Screw - [id number] Implanted:Qty: 18 on 02/09/2019 by Lambert Sepulveda MD at [facility] [employer] [id number] / / [employer] 07.61425.009 Virage 3.5mm 16mm Polyaxial Spine Screw Bone Nonsterile - [id number] Implanted:Qty: 8 on 02/09/2019 by Lambert Sepulveda MD at [facility] [employer] [id number] / / [employer] 07.33252.004 Virage 4.5mm 30mm Self Tap Polyaxial Spine Screw Bone Titanium - [id number] Implanted:Qty: 1 on 02/09/2019 by Lambert Sepulveda MD at [facility] [employer] [id number] / / [employer] 07.38130.005 Virage 4.5mm 35mm Self Tap Polyaxial Spine Screw Bone Titanium - [id number] Implanted:Qty: 2 on 02/09/2019 by Lambert Sepulveda MD at [facility] [employer] [id number] / / [employer] 07.51085.006 Virage 4.5mm 40mm Self Tap Polyaxial Friction Fit Spine Screw - [id number] Implanted:Qty: 1 on 02/09/2019 by Lambert Sepulveda MD at [facility] [employer] [id number] / / [employer] 07.15052.007 Virage 4.5mm 45mm Self Tap Polyaxial Friction Fit Spine Screw - [id number] Implanted:Qty: 2 on 02/09/2019 by Lambert Sepulveda MD at [facility] [employer] 07.97433.007 / / [employer] 07.82305.012 Virage 5mm 30mm Self Tap Polyaxial Spine Screw Bone Titanium - [id number] Implanted:Qty: 1 on 02/09/2019 by Lambert Sepulveda MD at [facility] [employer] 07.18470.012 / / [employer] 07.75834.014 Virage 5mm 40mm Self Tap Polyaxial Friction Fit Spine Screw Bone - [id number] Implanted:Qty: 1 on 02/09/2019 by Lambert Sepulveda MD at [facility] [employer] 07.99649.014 / / Insurance [facility] [place] [address] [facility] MEDIC[facility] Advance Directives For more information, please contact: [phone] * Full Code (Latest Code Status on File) Date Activated Date Inactivated Comments 02/02/2020 11:33 PM 02/09/2020 12:07 AM * Full Code Date Activated Date Inactivated Comments 02/09/2019 9:13 PM 02/15/2019 9:33 PM Care Teams Partnership Marketing Manager Relationship Specialty Start Date End Date Brain Devlin MD PCP - General Internal Medicine 10/06/18
--- OUTSIDE RECORDS SUMMARY | 2025-06-13 12:50 | XMS_ITS | Clinical Summary ---
Author Organization [facility] Address [address] [place] [address] Care Team Providers Care Carton Forming Machine Tender Name Role Phone Unavailable Primary Care Provider [...] 1-dose 75+ series) 11/17/2015 INFLUENZA VACCINE (#1) 2025 Insurance
--- OUTSIDE RECORDS SUMMARY | 2025-06-13 12:50 | XMS_ITS | Encounter Summary ---
Author Organization [facility] Healthcare Address [address] [place] [address] Care Team Providers Care Wine Maker Name Role Phone Brain Devlin MD Primary Care Provider Encounter Details Date Type Department Care Team (Late st Contact Info) Description 04/21/[address] 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
== END 2025-06-13 11:29 | disposition home or self-care (01) ==
PROVIDERS: PCP Internal Medicine; Visit Provider Urology
DX: I10 Essential (primary) hypertension (principal); Z01.818 Encounter for other preprocedural examination; I45.10 Unspecified right bundle-branch block
CPT/HCPCS: 36415; 93005

== ENCOUNTER 2025-06-15 00:29 | Day surgery (SDC) | payer MEDICARE, SELFPAY ==
--- NOTE | 2025-06-08 16:03 | PM.HPGS ---
History of Present Illness History of Present Illness Consent: Risks, benefits, and alternatives have been discussed and questions answered. Patient agrees to proceed with procedure. 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 He is confined to a wheelchair. We considered urodynamic evaluation with possible outlet procedure but ultimately he has decided on a chronic catheter with placement of a suprapubic catheter. I have made him aware the risk including injury to his bowel, persistent recurrent urinary tract infection and urinary incontinence. Review of Systems Cardiovascular: Cardiovascular: Denies chest pain, Denies lightheadedness, Denies palpitations and Denies dyspnea Respiratory: Respiratory: Denies dyspnea Gastrointestinal: Gastrointestinal: Denies diarrhea, Denies nausea and Denies vomiting Genitourinary: Genitourinary: Denies hematuria and Denies dysuria Endocrine: Endocrine: Denies palpitations PMFSH Past Medical History Medical History Upper respiratory infection Rhabdomyolysis Urinary tract infection Spinal stenosis History of kidney stones Macular degeneration Pulmonary nodules Benign prostatic hyperplasia Hyperlipidemia Post-polio syndrome Hypertension Surgical History Surgical History History of lithotripsy History of cataract extraction History of arthroplasty of right knee History of appendectomy History of cervical spinal surgery Family History Family History Mother Alzheimer's dementia Diabetes mellitus Father Lung disease Sibling Amyotrophic lateral sclerosis Sibling Lung cancer Social History Social History Social History: Resides in [place] with his . 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 Former smoker, reportedly 1 - 1.5 packs of cigarettes a day for about 50 years. He quit smoking in 2014 but still occasionally vapes. No alcohol or illicit substance abuse. Surrogate decision maker: Lorena DownsLori, spouse. Code status: Do not resuscitate. Smoking packs per day: 1.5 Smoking cigarettes per day: 30.0 Years smoked: 50 Smoking pack-years: 75.00 Smoking status: Current every day smoker Tobacco type: cigarettes and e-cigarettes/vaping Additional smoking assessment comments: smoked cigarretes for 50 years quite in 2016 and started vaping Alcohol intake: never Substance use: never Spiritual care concerns: No Meds Home Medications and Allergies Home Medications ?Medication ?Instructions ?Recorded ?Confirmed ?Type aspirin 81 mg chewable tablet 81 mg PO DAILY 03/05/21 03/27/22 History (Aspirin Childrens) pantoprazole 40 mg tablet,delayed 40 mg PO QAM 03/05/21 03/27/22 History release pravastatin 40 mg tablet 40 mg PO DAILY 03/05/21 03/27/22 History quinapril 40 mg tablet 40 mg PO DAILY 03/05/21 03/27/22 History finasteride 5 mg tablet (Proscar) 5 mg PO QAM #90 tabs 03/07/21 03/27/22 Rx tamsulosin 0.4 mg capsule 0.4 mg PO QAM #90 caps 03/07/21 03/27/22 Rx cephalexin 500 mg capsule 500 mg PO Q8H #15 caps 12/20/21 03/27/22 Rx ciprofloxacin HCl 500 mg tablet 500 mg PO DAILY 03/27/22 03/27/22 History cyclobenzaprine 10 mg tablet 10 mg PO DAILY PRN Muscle Spasm 03/27/22 03/27/22 History guaifenesin 600 mg tablet, 600 mg PO Q12HR PRN Sinus Symptoms 03/27/22 03/27/22 History extended release 12 hr (Mucus Relief ER) oxycodone-acetaminophen 5 mg-325 1 tablet PO Q8H PRN pain 5 days 04/02/22 Rx mg tablet (Percocet) #15 tabs temazepam 30 mg capsule 30 mg PO HS PRN Insomnia 5 days #5 04/02/22 Rx caps levofloxacin 500 mg tablet 500 mg PO DAILY #10 tabs 03/04/24 Rx cephalexin 500 mg capsule 500 mg PO Q6H 7 days #28 caps 02/12/25 Rx Allergies Allergy/AdvReac Type Severity Reaction Status Date / Time No Known Allergies Allergy Verified 03/27/22 16:06 Exam Const: General: no acute distress Resp: Effort & Inspection: normal respiratory effort GI: Inspection: non-distended GI Palp: No abdominal tenderness and No Guarding due to palpation present (GI) Auscultation: normal bowel sounds Assessment and Plan Assessment and plan (1) Neurogenic bladder: Code(s): N31.9 - Neuromuscular dysfunction of bladder, unspecified Status: Acute Assessment and Plan: Cystoscopy, placement suprapubic catheter.
--- NOTE | 2025-06-12 10:42 | PC.NURSE ---
[facility] has started construction of its new state of the art ER which will open Spring 2026. With this, we anticipate parking may be a challenge for some our surgical patients and families. Parking spaces are limited but are available for all Surgical, obstetrics, and ER patients sharing this lot. If you arrive and find you are having a hard time finding a parking space, please note that we understand the challenges, please drive around the hospital and park near Hospital Entrance 1. When you enter this entrance, you can ask a volunteer to direct or take you back to the surgical waiting area to check in. We appreciate everyone?s understanding of these expected challenges while we build for your future. Report to the Outpatient Waiting Room, entrance under the green pavilion located off [address], at time __1200 NOON on date __06/15/25 . Planned Procedure Time: 2 PM .? Time changes happen often and if your time is changed the preop area will call you the afternoon before. - You and your visitor will be asked to self-screen and do not enter if you have any COVID symptoms. Please call surgeon if you need to reschedule. - A mask is optional within the hospital at this time. Patients may have clear liquids (water, carbonated beverages, clear teas, apple juice) until 3 hours prior to surgery ( 11 AM) with a maximum of 20 ounces. - No food from midnight until time of surgery and no smoking, or chewing tobacco (or any form of nicotine). No chewing gum, candy or mints. Take only the following medications with a SIP of water on the morning of surgery: _ESCITALOPRAM DO NOT STOP ANY OF YOUR OTHER PRESCRIPTION MEDICATIONS PRIOR TO SURGERY EXCEPT THE FOLLOWING Hold all vitamins and supplements for 3 days per anesthesiologist.LAST DOSE 06/11/25 Medications to discontinue per physician __ASPIRIN STATES LAST DOSE 06/07/25 PER _DR CARLTON Please no make-up, nail sami, hairspray, perfume, deodorant, or body powder the day of surgery.? No jewelry (including any body piercings) or valuables the day of surgery, leave them at home.? Please take a shower or bath the night before, or the morning of, surgery with an antibacterial soap.? Wear comfortable, loose fitting clothing.? Children are encouraged to wear pajamas. - Jewelry must be removed prior to entering the operating room.? Rings and piercings that are not removed may be cut off. - The hospital will not accept responsibility for valuables.? - Please leave all valuables, including medications, at home the day of surgery. If you are going home after surgery, a licensed lease purchase truck driver must drive you home.? - NO public transportation without another adult if you receive anesthesia. - We recommend that an adult stay with you for 24 hours following discharge. - We also recommend that you do not drive, make important decision, drink alcoholic beverages, or take any drugs that were not prescribed by your health care provider for at least 24 hours after your discharge time. Follow any additional instructions given to you from your surgeon. Telephone instructions given to _WIFE and asked if any additional questions and then verbalized understanding. Patient advised to call surgeon office or pre surgery nurse liaison [phone] if any additional questions.
[2025-06-12 11:13] VITALS: BMI 32.9
[2025-06-15] VITALS (7 sets, daily range): BP systolic 109–154; BP diastolic 48–63; PULSE 58–96; RESP 14–19; TEMP 36.2–36.4; O2SAT 95–100
--- NOTE | 2025-06-15 05:42 | WPDHPUPDATE1 ---
History and Physical Update Update Date/Time: 06/15/25 05:42 History and Physical has been reviewed, including an updated exam of the patient. There are NO changes in the patient's condition. Risks, benefits, and alternatives have been discussed and questions answered. Patient agrees to proceed with procedure.
--- NOTE | 2025-06-15 12:27 | WPDANESEPPF ---
Anes - Initial Pre Proc Eval Procedure: Operation Date: 06/15/25 13:30 Proposed Procedures p Insertion Suprapubic Catheter - Guerrero Dorsey MD Date/Time: 06/15/25 12:27 Surgeon: Guerrero Dorsey MD Pre Op Diagnosis: Retention of urine Patient Data Age: 84 Gender: M Height: 1.57 m Weight: 81.65 kg Allergies Allergy/AdvReac Type Severity Reaction Status Date / Time No Known Allergies Allergy Verified 06/12/25 10:42 Home Medications ?Medication ?Instructions ?Recorded ?Confirmed ?Type aspirin 81 mg chewable tablet 81 mg PO DAILY 03/05/21 06/12/25 History (Aspirin Childrens) pantoprazole 40 mg tablet,delayed 40 mg PO QAM 03/05/21 06/12/25 History release pravastatin 40 mg tablet 40 mg PO DAILY 03/05/21 06/12/25 History quinapril 40 mg tablet 40 mg PO DAILY 03/05/21 06/12/25 History finasteride 5 mg tablet (Proscar) 5 mg PO QAM #90 tabs 03/07/21 06/12/25 Rx tamsulosin 0.4 mg capsule 0.4 mg PO QAM #90 caps 03/07/21 06/12/25 Rx cephalexin 500 mg capsule 500 mg PO Q8H #15 caps 12/20/21 06/12/25 Rx ciprofloxacin HCl 500 mg tablet 500 mg PO DAILY 03/27/22 06/12/25 History cyclobenzaprine 10 mg tablet 10 mg PO DAILY PRN Muscle Spasm 03/27/22 06/12/25 History guaifenesin 600 mg tablet, 600 mg PO Q12HR PRN Sinus Symptoms 03/27/22 06/12/25 History extended release 12 hr (Mucus Relief ER) oxycodone-acetaminophen 5 mg-325 1 tablet PO Q8H PRN pain 5 days 04/02/22 06/12/25 Rx mg tablet (Percocet) #15 tabs temazepam 30 mg capsule 30 mg PO HS PRN Insomnia 5 days #5 04/02/22 06/12/25 Rx caps levofloxacin 500 mg tablet 500 mg PO DAILY #10 tabs 03/04/24 06/12/25 Rx cephalexin 500 mg capsule 500 mg PO Q6H 7 days #28 caps 02/12/25 06/12/25 Rx chlorthalidone 25 mg tablet 25 mg PO DAILY 06/12/25 06/12/25 History escitalopram oxalate 10 mg tablet 10 mg PO DAILY 06/12/25 06/12/25 History lisinopril 40 mg tablet 40 mg PO DAILY 06/12/25 06/12/25 History vit C 250 mg-vit E 90 mg-zinc 40 1 tablet PO DAILY 06/12/25 06/12/25 History mg-copper 1 rp-hhvphi-jlpgxa capsule (PreserVision AREDS-2) Patient hx anesthesia problems: none Family hx anesthesia problems: none Results Review: All pre-operative results and documents have been reviewed as part of the pre-operative evaluation. [facility] Past Medical History Medical History (Updated 06/14/25 @ 14:08 by Meño Angel DO) GERD (gastroesophageal reflux disease) Upper respiratory infection Rhabdomyolysis Urinary tract infection Spinal stenosis History of kidney stones Macular degeneration Pulmonary nodules Benign prostatic hyperplasia Hyperlipidemia Post-polio syndrome Hypertension Surgical History Surgical History (Updated 06/14/25 @ 14:08 by Meño Angel DO) Hx of fusion of cervical spine History of lithotripsy History of cataract extraction History of arthroplasty of right knee History of appendectomy History of cervical spinal surgery Family History Family History Mother Alzheimer's dementia Diabetes mellitus Father Lung disease Sibling Amyotrophic lateral sclerosis Sibling Lung cancer Social History Social History Social History: Resides in [place] with his . 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 Former smoker, reportedly 1 - 1.5 packs of cigarettes a day for about 50 years. He quit smoking in 2014 but still occasionally vapes. No alcohol or illicit substance abuse. Surrogate decision maker: Lorena Sandoval, spouse. Code status: Do not resuscitate. Smoking packs per day: 1.5 Smoking cigarettes per day: 30.0 Years smoked: 50 Smoking pack-years: 75.00 Smoking status: Current every day smoker Tobacco type: cigarettes and e-cigarettes/vaping Smoking end date: 09/07/14 Additional smoking assessment comments: smoked cigarretes for 50 years quite in 2016 and started vaping Alcohol intake: never Substance use: never Living arrangements: with family Spiritual care concerns: No Anes - Eval Final PreProcedure Day of Procedure 06/15/25 12:27 Patient weight: obese Heart: regular rate and rhythm Lungs: clear to auscultation Airway: Mallampati scale class II Neurological: alert and oriented Last oral intake: >/= 8 hours ASA classification: IV Emergent: no Anesthetic plan: proceed Anesthesia type and monitoring: general LMA and standard monitoring Results Review: All pre-operative results and documents have been reviewed as part of the pre-operative evaluation. Informed Consent: The patient's anesthetic plan and its attendant risks and benefits were discussed with the patient/family/POA. Questions were solicited and answers provided to the satisfaction of the patient/family/POA.
[2025-06-15] MEDS: LACTATED RINGERS 1,000 ML 30 ML IV CONT (12:30)
[2025-06-15 12:47] LABS: Anion Gap 6 mmol/L (4-12); Blood Urea Nitrogen 17 mg/dL (9-20); Calcium 8.9 mg/dL (8.4-10.2); Carbon Dioxide 29 mmol/L (22-30); Chloride 100 mmol/L (98-107); Estimated CRCL calculation 66 ml/min; Estimated Glomerular Filt Rate > 60; Glucose 99 mg/dL (65-110); Potassium 3.6 mmol/L (3.4-5.0); Sodium 135 mmol/L (137-145)
[2025-06-15] MEDS: ceFAZolin 2 GM in SODIUM CHLORIDE 0.9% IV 50 ML 100 ML IVPB (12:55)
--- NOTE | 2025-06-15 13:49 | P.OP_ITS ---
Procedure Note - Detailed Date of Procedure 06/15/25 Pre-op Diagnosis Neurogenic bladder Post-op Diagnosis Same Procedure Performed Cystoscopy, placement suprapubic catheter Surgeon Guerrero Dorsey MD Anesthesia General Description of Procedure Patient is brought to the operative suite where he has prepped and draped in routine sterile fashion while in a supine position. Cystoscopy is undertaken with a 16F flexible cystoscope. He has no urethral strictures with moderate lateral lobe hyperplasia of the prostate. Bladder mucosa is normal with only minimal hyperemia in the posterior wall consistent with catheter cystitis. There is no intravesical foreign body or neoplasm. I filled his bladder with sa line and placed a spinal needle through the dome of the bladder 1035 in glidewire was advanced through that and grasped with the cystoscope. I dilated the suprapubic tract with Amplatz dilators to from 8 F to 22 F. I then placed an 18F Councill tip catheter through the dome. The suprapubic catheter secured with a 3 O nylon. Scopes wires removed. Blood loss was approximately 5 cc.
== END 2025-06-15 15:10 | disposition home or self-care (01) ==
PROVIDERS: Anesthesiology; PCP Internal Medicine; Visit Provider Urology
PROC: 0T9B30Z Drainage of Bladder with Drainage Device, Percutaneous Approach (ICD-10-PCS; CPT 51102; principal; 2025-06-15 13:30)
DX: N31.9 Neuromuscular dysfunction of bladder, unspecified (principal); N40.0 Benign prostatic hyperplasia without lower urinary tract symptoms; N32.89 Other specified disorders of bladder; E78.5 Hyperlipidemia, unspecified; I10 Essential (primary) hypertension; K21.9 Gastro-esophageal reflux disease without esophagitis; G14 Postpolio syndrome; M62.82 Rhabdomyolysis; M48.00 Spinal stenosis, site unspecified; H35.30 Unspecified macular degeneration; F17.290 Nicotine dependence, other tobacco product, uncomplicated; E66.9 Obesity, unspecified; Z68.31 Body mass index [BMI] 31.0-31.9, adult; Z79.82 Long term (current) use of aspirin; Z79.891 Long term (current) use of opiate analgesic; Z99.3 Dependence on wheelchair; Z98.890 Other specified postprocedural states; Z98.1 Arthrodesis status; Z87.442 Personal history of urinary calculi; Z80.1 Family history of malignant neoplasm of trachea, bronchus and lung
CPT/HCPCS: 51102; 36415; 80048; J0690; C1726; C1769; J2003; J2004; J2405; J2704; J7120